=== PATIENT | male | born 1940 | race Caucasian/White ===

== ENCOUNTER 2018-10-22 10:34 | Emergency (ER) | payer MEDICARE, BC ==
--- NOTE | 2018-10-22 11:08 | ERPHSYRPT ---
- History of Present Illness Time Seen by Provider: 10/22/18 10:59 Historian: patient, family, EMS Exam Limitations: no limitations Patient Subjective Stated Complaint: Pt states "It started as the stomach flu. It is getting worse. I am nauseaus, vomiting, have not had a bowel movement since sunday and I just hurt." Triage Nursing Assessment: PT arrived via medic 1, pt presented with 20 g iv in pt left forearm, alert and oriented X 3, skin pwd. Pt abdomen round, tender, bruising noted around umbilicus. Physician History: The patient is a 78-year-old male with his brought in by ambulance from home. On early Sunday morning he began vomiting. He vomited through the night and into the next morning. He vomited maybe 15 times. He had a small amount eat on Sunday morning. He had chicken noodle soup last night. He has not had any bowel movements. He normally has a bowel movement daily. Now his entire abdomen hurts. He thinks the pain might be due to straining his abdominal muscles from vomiting. He denies fever or chills. His past medical history is significant for hypertension. He has not had any abdominal surgeries. Timing/Duration: day(s) (3), sudden Activities at Onset: none Quality: cramping, sharpness Abdominal Pain Onset Location: generalized abdomen Pain Radiation: no radiation Severity of Pain-Max: moderate Severity of Pain-Current: moderate Modifying Factors: Improves With: vomiting Associated Symptoms: loss of appetite, nausea, vomiting, weakness, No diarrhea Previous symptoms: no prior history Allergies/Adverse Reactions: No Known Drug Allergies Allergy (Verified 08/31/15 06:13) Home Medications: Amlodipine Besylate 5 mg [Norvasc 5 mg] 5 mg PO DAILY 08/24/15 [History] Ferrous Sulfate 325 mg [Feosol 325 mg] 325 mg PO DAILY 08/24/15 [History] Lisinopril 20 mg [Zestril 20 MG] 40 mg PO DAILY 08/24/15 [History] Multivitamin [Multivitamins] 1 each PO DAILY 08/31/15 [History] Hx Tetanus, Diphtheria Vaccination/Date Given: Yes Hx Influenza Vaccination/Date Given: Yes Hx Pneumococcal Vaccination/Date Given: No Immunizations Up to Date: Yes - Review of Systems Constitutional: Weakness Eyes: No Symptoms Ears, Nose, & Throat: No Symptoms Respiratory: No Cough, No Dyspnea Cardiac: No Chest Pain, No Edema, No Syncope Abdominal/Gastrointestinal: Abdominal Pain, Nausea, Vomiting, Constipation, No Diarrhea Genitourinary Symptoms: No Dysuria Musculoskeletal: No Back Pain, No Neck Pain Skin: No Rash Neurological: No Dizziness, No Focal Weakness, No Sensory Changes Psychological: No Symptoms Endocrine: No Symptoms Hematologic/Lymphatic: No Symptoms Immunological/Allergic: No Symptoms All Other Systems: Reviewed and Negative - Past Medical History Pertinent Past Medical History: Yes Neurological History: No Pertinent History ENT History: No Pertinent History Cardiac History: Hypertension Respiratory History: No Pertinent History Endocrine Medical History: No Pertinent History Musculoskeletal History: Arthritis, Fractures GI Medical History: No Pertinent History History: No Pertinent History Psycho-Social History: No Pertinent History Male Reproductive Disorders: No Pertinent History Other Medical History: R ANKLE FX 01/15 - Past Surgical History Past Surgical History: No Neuro Surgical History: No Pertinent History Cardiac: No Pertinent History Respiratory: No Pertinent History Gastrointestinal: No Pertinent History Genitourinary: No Pertinent History Musculoskeletal: No Pertinent History Male Surgical History: No Pertinent History Other Surgical History: varicose veins repaired - Social History Smoking Status: Former smoker Exposure to second hand smoke: Yes Drug Use: none Patient Lives Alone: No - Nursing Vital Signs Nursing Vital Signs: Initial Vital Signs Temperature 97.4 F 10/22/18 10:43 Pulse Rate 92 H 10/22/18 10:43 Respiratory Rate 18 10/22/18 10:43 Blood Pressure 130/69 10/22/18 10:43 O2 Sat by Pulse Oximetry 95 10/22/18 10:43 Pain Scale Pain Intensity 5 - Physical Exam General Appearance: moderate distress Eye Exam: PERRL/EOMI, eyes nml inspection Ears, Nose, Throat Exam: normal ENT inspection, pharynx normal, dry mucous membranes Neck Exam: normal inspection Respiratory Exam: normal breath sounds, lungs clear, No respiratory distress Cardiovascular Exam: regular rate/rhythm, normal heart sounds Gastrointestinal/Abdomen Exam: tenderness (generalized), distention Rectal Exam: not done Back Exam: normal inspection, normal range of motion, No CVA tenderness, No vertebral tenderness Extremity Exam: normal inspection, normal range of motion, pelvis stable Neurologic Exam: alert, oriented x 3, cooperative, normal mood/affect, nml cerebellar function, sensation nml, No motor deficits Skin Exam: normal color, warm, dry SpO2 Interpretation: normal SpO2: 95 O2 Delivery: Nasal Cannula (2L) - Course EKG Interpreted by Me: RATE, Sinus Rhythm, NORMAL INTERVALS, Right Bundle Branch Block, NORMAL ST-T Ordered Tests: Active Orders 24 hr Category Date Time Status Clean Catch Urine Specimen STAT Care 10/22/18 11:13 Active EKG-ER Only STAT Care 10/22/18 11:13 Active Benito [Catheter-[place] Benito] STAT Care 10/22/18 12:12 Active IV Insertion STAT Care 10/22/18 11:13 Active Oxygen-ED Only Nasal Cannula 2 lpm Care 10/22/18 11:27 Active Pulse Oximetry (ED) STAT Care 10/22/18 11:27 Active ABDOMEN AND PELVIS W/0 CONTRAS [CT] Stat Exams 10/22/18 11:14 Completed AMYLASE Stat Lab 10/22/18 11:34 Completed CBC W DIFF Stat Lab 10/22/18 11:34 Completed CMP Stat Lab 10/22/18 11:34 Completed LIPASE Stat Lab 10/22/18 11:34 Completed Lactic Acid Stat Lab 10/22/18 11:37 Results Manual Differential NC Stat Lab 10/22/18 11:34 Completed TROPONIN Q3H Lab 10/22/18 11:34 Completed TROPONIN Q3H Lab 10/22/18 14:15 Ordered TROPONIN Q3H Lab 10/22/18 17:15 Ordered TROPONIN Q3H Lab 10/22/18 20:15 Ordered TROPONIN Q3H Lab 10/22/18 23:15 Ordered UA W/RFX UR CULTURE Stat Lab 10/22/18 11:13 Uncollected Medication Summary Generic Name Dose Route Start Last Admin Trade Name Freq PRN Reason Stop Dose Admin Ceftriaxone Sodium/Dextrose 1 g in 50 mls @ 100 mls/hr 10/22/18 12:52 Rocephin 1 Gm-D5w 50 Ml Bag IV 10/22/18 13:21 STAT STA Discontinued Medications Generic Name Dose Route Start Last Admin Trade Name Freq PRN Reason Stop Dose Admin Sodium Chloride 1,000 mls @ 999 mls/hr 10/22/18 11:13 10/22/18 11:19 Sodium Chloride 0.9% 1000 Ml IV 10/22/18 12:13 999 mls/hr .Q1H1M STA Administration Sodium Chloride Confirm 10/22/18 11:17 Sodium Chloride 0.9% 1000 Ml Administered 10/22/18 11:18 Dose 1,000 mls @ ud .ROUTE .STK-MED ONE Morphine Sulfate 4 mg 10/22/18 11:13 10/22/18 11:19 Morphine Sulfate 4 Mg Inj IV 10/22/18 11:14 4 mg STAT ONE Administration Morphine Sulfate Confirm 10/22/18 11:17 Morphine Sulfate 4 Mg Inj Administered 10/22/18 11:18 Dose 4 mg .ROUTE .STK-MED ONE Ondansetron HCl 4 mg 10/22/18 11:13 10/22/18 11:19 Zofran 4 Mg/2 Ml Vial IV 10/22/18 11:14 4 mg STAT ONE Administration Ondansetron HCl Confirm 10/22/18 11:17 Zofran 4 Mg/2 Ml Vial Administered 10/22/18 11:18 Dose 4 mg .ROUTE .STK-MED ONE Pantoprazole Sodium 40 mg 10/22/18 11:13 10/22/18 11:19 Protonix 40 Mg Iv IV 10/22/18 11:14 40 mg STAT ONE Administration Pantoprazole Sodium Confirm 10/22/18 11:17 Protonix 40 Mg Iv Administered 10/22/18 11:18 Dose 40 mg IV .STK-MED ONE Lab/Rad Data: Laboratory Result Diagrams 10/22/18 11:34 10/22/18 11:34 Laboratory Results 10/22/18 10/22/18 10/22/18 Range/Units 11:37 11:34 11:34 WBC (4.0-10.5) K/mm3 RBC (4.1-5.6) M/mm3 Hgb (12.5-18.0) gm/dl Hct (42-50) % MCV (78-100) fl MCH (26-32) pg MCHC (32-36) g/dl RDW (11.5-14.0) % Plt Count (150-450) K/mm3 MPV (6-9.5) fl Segmented Neutrophils (36.-66.) % Band Neutrophils (0.0-2.0) % Lymphocytes (Manual) (24-44) % Monocytes (Manual) (0.0-12.0) % Platelet Estimate (NORMAL) RBC Morphology Sodium 133 L (137-145) mmol/L Potassium 4.0 (3.5-5.1) mmol/L Chloride 98 (98-107) mmol/L Carbon Dioxide 23 (22-30) mmol/L Anion Gap 16.3 H (5-15) MEQ/L BUN 83 H (9-20) mg/dL Creatinine 2.39 H (0.66-1.25) mg/dL Estimated GFR 28.0 ML/MIN Glucose 123 H (74-106) mg/dL Lactic Acid 2.0 (0.4-2.0) Calcium 7.7 L (8.4-10.2) mg/dL Total Bilirubin 1.50 H (0.2-1.3) mg/dL AST 68 H (17-59) U/L ALT 27 (0-50) U/L Alkaline Phosphatase 51 (38-126) U/L Troponin I 0.112 H* (0.000-0.034) ng/mL Serum Total Protein 5.6 L (6.3-8.2) g/dL Albumin 3.1 L (3.5-5.0) g/dL Amylase 285 H (30-110) U/L Lipase 477 H (23-300) U/L 10/22/18 Range/Units 11:34 WBC 15.2 H (4.0-10.5) K/mm3 RBC 4.55 (4.1-5.6) M/mm3 Hgb 13.7 (12.5-18.0) gm/dl Hct 40.2 L (42-50) % MCV 88.4 (78-100) fl MCH 30.1 (26-32) pg MCHC 34.1 (32-36) g/dl RDW 14.3 H (11.5-14.0) % Plt Count 276 (150-450) K/mm3 MPV 10.2 H (6-9.5) fl Segmented Neutrophils 71 H (36.-66.) % Band Neutrophils 12 H (0.0-2.0) % Lymphocytes (Manual) 11 L (24-44) % Monocytes (Manual) 6 (0.0-12.0) % Platelet Estimate NORMAL (NORMAL) RBC Morphology NORMAL Sodium (137-145) mmol/L Potassium (3.5-5.1) mmol/L Chloride (98-107) mmol/L Carbon Dioxide (22-30) mmol/L Anion Gap (5-15) MEQ/L BUN (9-20) mg/dL Creatinine (0.66-1.25) mg/dL Estimated GFR ML/MIN Glucose (74-106) mg/dL Lactic Acid (0.4-2.0) Calcium (8.4-10.2) mg/dL Total Bilirubin (0.2-1.3) mg/dL AST (17-59) U/L ALT (0-50) U/L Alkaline Phosphatase (38-126) U/L Troponin I (0.000-0.034) ng/mL Serum Total Protein (6.3-8.2) g/dL Albumin (3.5-5.0) g/dL Amylase (30-110) U/L Lipase (23-300) U/L - Progress Progress: improved Progress Note: 10/22/18 12:[address] [place] and with pt's [id number]. [place] recommends transfer. [id number] recommends [facility]. 10/22/18 13:[address] Ortiz, hospitalist, at [facility] who accepts to PICU. Discussed with : [place] - Departure Time of Disposition: 13:05 Departure Disposition: Transfer (Transfer to [facility] per Dr Ortiz.) Clinical Impression: Pancreatitis, acute, Vomiting, Urinary retention, Elevated troponin Condition: Good Critical Care Time: No Referrals: EDDIE ROBERTSON [Primary Care Provider] -
[2018-10-22] MEDS ORDERED: PROTONIX 40 MG IV IV ONE ×2 (11:13→11:17)
[2018-10-22] MEDS ORDERED: MORPHINE SULFATE 4 MG INJ IV ONE (11:13)
[2018-10-22] MEDS ORDERED: Sodium Chloride 0.9% 1000 ML 1,000 ML IV STA (11:13)
[2018-10-22] MEDS ORDERED: Zofran 4 MG/2 ML VIAL IV ONE (11:13)
[2018-10-22] MEDS ORDERED: MORPHINE SULFATE 4 MG INJ ONE (11:17)
[2018-10-22] MEDS ORDERED: Zofran 4 MG/2 ML VIAL ONE (11:17)
[2018-10-22] MEDS ORDERED: Sodium Chloride 0.9% 1000 ML 1,000 ML ONE ×2 (11:17→13:32)
[2018-10-22 11:43] LABS: Hematocrit 40.2 % (42-50); Hemoglobin 13.7 gm/dl (12.5-18.0); Mean Cell Volume 88.4 fl (78-100); Mean Corpuscular Hemoglobin 30.1 pg (26-32); Mean Corpuscular Hgb Concent. 34.1 g/dl (32-36); Mean Platelet Volume 10.2 fl (6-9.5); Platelet Count 276 K/mm3 (150-450); Red Blood Count 4.55 M/mm3 (4.1-5.6); Red Cell Distribution Width 14.3 % (11.5-14.0); White Blood Count 15.2 K/mm3 (4.0-10.5)
[2018-10-22 11:51] LABS: BAND 12 % (0.0-2.0); Lymphocytes 11 % (24-44); Monocyte 6 % (0.0-12.0); Neutrophils 71 % (36.-66.); Platelet Estimate NORMAL (NORMAL); Total Cells Counted 100
[2018-10-22 11:56] LABS: ALBUMIN 3.1 g/dL (3.5-5.0); ANION GAP 16.3 MEQ/L (5-15); BILIRUBIN,TOTAL 1.5 mg/dL (0.2-1.3); Calcium 7.7 mg/dL (8.4-10.2); Creatinine 1 2.39 mg/dL (0.66-1.25); Total Protein 5.6 g/dL (6.3-8.2)
--- NOTE | 2018-10-22 12:18 | XRAY ---
Indication: Abdomen pain. Nausea and vomiting. Flu symptoms. Multiple contiguous axial images obtained through the abdomen and pelvis without contrast as ordered. Comparison: None Lung bases demonstrates small bilateral effusions with bibasilar compressive atelectasis. Heart is not enlarged. Distal esophagus is mildly fluid distended presumed from gastroesophageal reflux. Pancreas demonstrates mild peripancreatic stranding favoring pancreatitis. Tiny free fluid along the colic gutters bilaterally. No walled off fluid collection or free air. Stomach and small bowel loops are mildly fluid distended with fluid leveling, ileus versus gastroenteritis. Mild diffuse scattered colonic fecal debris throughout. Also scattered descending and sigmoid diverticulosis. Urinary bladder is massively distended concerning for outlet obstruction versus neurogenic bladder. Prostate gland is enlarged. Right anterior urinary bladder diverticulum. Distended urinary bladder effaces the sigmoid colon. There is also bilateral hydroureter, right greater than left as well as moderate right-sided hydronephrosis presumed related to the distended urinary bladder. No left-sided hydronephrosis. Bilateral renal cysts, largest left midpole measuring 3.2 cm. Gallbladder moderately distended without gallstones or biliary distention. Remaining liver, spleen, and adrenal glands are unremarkable for noncontrast exam. Moderate scattered aortoiliac calcifications without AAA. Osseous structures intact with osteopenia and mild multilevel thoracolumbar degenerative spondylosis. Moderate left inguinal hernia with herniated fat and fluid. Small fatty umbilical hernia. Impression: 1. CT findings as detailed favoring acute pancreatitis. Tiny free fluid along the colic gutters but no walled off fluid collection or free air. 2. Fluid distended stomach and small bowel loops with fluid leveling, reactive ileus versus gastroenteritis. Also mild fecal stasis and scattered colonic diverticulosis. 3. Massively distended urinary bladder with subsequent bilateral hydroureter and right hydronephrosis. Distended urinary bladder effaces the sigmoid colon. Incidental urinary bladder diverticulum. 4. Distended gallbladder without gallstones. Gallbladder sonogram may yield further information if clinically warranted. 5. Fluid distended distal esophagus presumed from reflux. 6. Incidental bilateral renal cysts, enlarged prostate, fat/fluid filled left inguinal hernia, and small fatty umbilical hernia. 7. Small bilateral pleural effusions without cardiomegaly. CT DI 23.29
[2018-10-22 12:49] LABS: Appearance CLEAR (CLEAR); Bacteria RARE /HPF (NEGATIVE); Bilirubin NEGATIVE (NEGATIVE); Blood SMALL Ery/ul (0-5); Glucose NEGATIVE (NEGATIVE); Ketones NEGATIVE (NEGATIVE); Leukocyte Esterase NEGATIVE (NEGATIVE); Mucus SLIGHT /HPF (NEGATIVE); Nitrite NEGATIVE (NEGATIVE); Protein,Urine Dip NEGATIVE (Negative); Specific Gravity 1.011 (1.005-1.025); Urobilinogen NEGATIVE mg/dL (0-1); WBC 0-2 /HPF (0-5)
[2018-10-22] MEDS ORDERED: ROCEPHIN 1 Gm-D5w 50 ml Bag** 1 G/50 ML IVPB IV STA (12:52)
[2018-10-22] MEDS ORDERED: ROCEPHIN 1 Gm-D5w 50 ml Bag** 1 G/50 ML IVPB IV ONE (13:07)
[2018-10-22] MEDS ORDERED: Sodium Chloride 0.9% 1000 ML 1,000 ML IV SCH (13:45)
[2018-10-22 14:11] VITALS: O2SAT 96
[2018-10-22 15:51] VITALS: BP 119/65; PULSE 88
== END 2018-10-22 16:17 | disposition short-term general hospital (02) ==
LOC: ED 10:34
DX: K85.90 Acute pancreatitis without necrosis or infection, unspecified (principal); R11.10 Vomiting, unspecified; R33.9 Retention of urine, unspecified; R74.8 Abnormal levels of other serum enzymes
CPT/HCPCS: 36000; 36415; 51702; 74176; 80053; 81001; 82150; 83605; 83690; 84484; 85025; 93005; 96360; 96365; 96374; 96375; 99285; J0696; J2270; J2405

== ENCOUNTER 2018-12-04 10:39 | Inpatient (IN) | payer MEDICARE, BC ==
[2018-12-04] MEDS ORDERED: Sodium Chloride 0.9% 1000 ML 1,000 ML IV STA (10:49)
[2018-12-04] MEDS ORDERED: TYLENOL 325 MG PO STA (10:49)
--- NOTE | 2018-12-04 10:55 | ERPHSYRPT ---
- History of Present Illness Time Seen by Provider: 12/04/18 10:51 Source: patient, EMS Exam Limitations: other (severe hearing deficit) Physician History: Pt was sent from home with generalized weakness this morning. He denies any pain , SOB, nausea, diarrhea or other complaints. He wears Benito catheter for BPH, it was changed last time on 11/11. He is generally poor historian with severe hearing deficit, his told us, he was recently treated in [place] with pancreatitis, and Pneumonia, he is currently on Doxycycline, and has been planned for Prostate surgery. Timing/Duration: today Fever Severity: moderate Fever Therapy BURLAPPER: none Associated Symptoms: weakness Allergies/Adverse Reactions: No Known Drug Allergies Allergy (Verified 12/04/18 11:30) Home Medications: Amlodipine Besylate 5 mg [Norvasc 5 mg] 5 mg PO DAILY 08/24/15 [History] Ferrous Sulfate 325 mg [Feosol 325 mg] 325 mg PO DAILY 08/24/15 [History] Multivitamin [Multivitamins] 1 each PO DAILY 08/31/15 [History] Hx Tetanus, Diphtheria Vaccination/Date Given: Yes Hx Influenza Vaccination/Date Given: Yes Hx Pneumococcal Vaccination/Date Given: No - Review of Systems Constitutional: Fever, Weakness Eyes: No Symptoms Ears, Nose, & Throat: No Symptoms Respiratory: No Symptoms Cardiac: No Symptoms Abdominal/Gastrointestinal: No Symptoms Genitourinary Symptoms: No Symptoms Musculoskeletal: No Symptoms Skin: No Symptoms Neurological: No Symptoms All Other Systems: Reviewed and Negative - Past Medical History Pertinent Past Medical History: Yes Neurological History: No Pertinent History ENT History: No Pertinent History Cardiac History: Hypertension Respiratory History: No Pertinent History Endocrine Medical History: No Pertinent History Musculoskeletal History: Arthritis, Fractures GI Medical History: No Pertinent History History: No Pertinent History Psycho-Social History: No Pertinent History Male Reproductive Disorders: No Pertinent History Other Medical History: R ANKLE FX 01/15 - Past Surgical History Past Surgical History: No Neuro Surgical History: No Pertinent History Cardiac: No Pertinent History Respiratory: No Pertinent History Gastrointestinal: No Pertinent History Genitourinary: No Pertinent History Musculoskeletal: No Pertinent History Male Surgical History: No Pertinent History Other Surgical History: varicose veins repaired - Social History Smoking Status: Former smoker Exposure to second hand smoke: Yes Drug Use: none Patient Lives Alone: No - Nursing Vital Signs Nursing Vital Signs: Initial Vital Signs Temperature 103.5 F 12/04/18 10:41 Pulse Rate 104 H 12/04/18 10:41 Respiratory Rate 16 12/04/18 10:41 Blood Pressure 128/79 12/04/18 10:41 O2 Sat by Pulse Oximetry 96 12/04/18 10:41 Pain Scale Pain Intensity 0 - Physical Exam General Appearance: no apparent distress Eye Exam: eyes nml inspection ENT Exam: normal ENT inspection, pharynx normal Neck Exam: normal inspection, non-tender, supple, trachea midline, No JVD, No lymphadenopathy (R), No lymphadenopathy (L) Respiratory Exam: chest non-tender, no respiratory distress, crackles/rales ( mild, over bilateral bases) Cardiovascular/Chest Exam: normal heart sounds, regular rate/rhythm, normal peripheral pulses, No murmur, No edema, No JVD Gastrointestinal/Abdominal Exam: soft, non tender, no distention, no mass, no guarding, no organomegaly, normal bowel sounds Male Genitalia: normal genitalia Extremity Exam: non-tender, No no calf tenderness Neurologic Exam: alert, oriented x 3, cooperative, normal mood/affect Skin Exam: normal color, warm, dry, No rash, No petechiae Lymphatic: No adenopathy SpO2 Interpretation: normal O2 Delivery: Room Air - Course Nursing assessment & vital signs reviewed: Yes EKG Interpreted by Me: RATE (97/min), Right [place] Deviation, NORMAL INTERVALS, Right Bundle Branch Block, Non-specific ST Changes - Radiology Exams Chest X-ray Interpretation: Reviewed by me, Negative Ordered Tests: Active Orders 24 hr Category Date Time Status Customer Program Manager STAT Care 12/04/18 10:50 Active Catheter-[place] Benito STAT Care 12/04/18 10:49 Active EKG-ER Only STAT Care 12/04/18 10:49 Active IV Insertion STAT Care 12/04/18 10:49 Active CHEST 1 VIEW (PORTABLE) Stat Exams 12/04/18 11:05 Completed BLOOD CULTURE Stat Lab 12/04/18 11:35 Received CBC W DIFF Stat Lab 12/04/18 11:35 Completed CMP Stat Lab 12/04/18 11:35 Completed CULTURE,URINE Stat Lab 12/04/18 11:46 Received Lactic Acid Stat Lab 12/04/18 13:35 Results NT PRO BNP Stat Lab 12/04/18 11:15 Completed PROTIME WITH INR Stat Lab 12/04/18 11:35 Completed PTT Stat Lab 12/04/18 11:35 Completed TROPONIN Q3H Lab 12/04/18 11:15 Completed TROPONIN Q3H Lab 12/04/18 14:00 Ordered TROPONIN Q3H Lab 12/04/18 17:00 Ordered TROPONIN Q3H Lab 12/04/18 20:00 Ordered TROPONIN Q3H Lab 12/04/18 23:00 Ordered UA W/RFX UR CULTURE Stat Lab 12/04/18 10:52 Completed Medication Summary Generic Name Dose Route Start Last Admin Trade Name Freq PRN Reason Stop Dose Admin Sodium Chloride 1,000 mls @ 250 mls/hr 12/04/18 12:30 12/04/18 12:50 Sodium Chloride 0.9% 1000 Ml IV 01/03/19 12:29 250 mls/hr .Q4H PAUL Administration Discontinued Medications Generic Name Dose Route Start Last Admin Trade Name Freq PRN Reason Stop Dose Admin Acetaminophen 975 mg 12/04/18 10:49 12/04/18 10:57 Tylenol 325 Mg PO 12/04/18 10:50 975 mg STAT STA Administration Acetaminophen Confirm 12/04/18 10:56 Tylenol 325 Mg Administered 12/04/18 10:57 Dose 975 mg .ROUTE .STK-MED ONE Sodium Chloride 1,000 mls @ 999 mls/hr 12/04/18 10:49 12/04/18 10:57 Sodium Chloride 0.9% 1000 Ml IV 12/04/18 11:49 999 mls/hr .Q1H1M STA Administration Sodium Chloride Confirm 12/04/18 10:56 Sodium Chloride 0.9% 1000 Ml Administered 12/04/18 10:57 Dose 1,000 mls @ ud .ROUTE .STK-MED ONE Levofloxacin/Dextrose 750 mg in 150 mls @ 100 mls/hr 12/04/18 12:20 12/04/18 12:51 Levofloxacin 750mg/150ml D5w IV 12/04/18 13:49 100 ml/hr STAT STA 100 mls/hr Administration Levofloxacin/Dextrose Confirm 12/04/18 12:48 Levofloxacin 750mg/150ml D5w Administered 12/04/18 12:49 Dose 750 mg in 150 mls @ ud IV .STK-MED ONE Lab/Rad Data: Laboratory Result Diagrams 12/04/18 11:35 12/04/18 11:35 Laboratory Results 12/04/18 12/04/18 12/04/18 Range/Units 13:35 11:35 11:35 WBC (4.0-10.5) K/mm3 RBC (4.1-5.6) M/mm3 Hgb (12.5-18.0) gm/dl Hct (42-50) % MCV (78-100) fl MCH (26-32) pg MCHC (32-36) g/dl RDW (11.5-14.0) % Plt Count (150-450) K/mm3 MPV (6-9.5) fl Gran % (36.0-66.0) % Eos # (Auto) (0-0.5) Absolute Lymphs (auto) (1.0-4.6) Absolute Monos (auto) (0.0-1.3) Lymphocytes % (24.0-44.0) % Monocytes % (0.0-12.0) % Eosinophils % (0.00-5.0) % Basophils % (0.0-0.4) % Absolute Granulocytes (1.4-6.9) Basophils # (0-0.4) PT 16.0 H (8.83-12.87) SECONDS INR 1.37 (0.8-3.0) APTT 29.2 (24.1-36.1) SECONDS Sodium 132 L (137-145) mmol/L Potassium 4.0 (3.5-5.1) mmol/L Chloride 100 (98-107) mmol/L Carbon Dioxide 22 (22-30) mmol/L Anion Gap 13.4 (5-15) MEQ/L BUN 19 (9-20) mg/dL Creatinine 1.43 H (0.66-1.25) mg/dL Estimated GFR 50.7 ML/MIN Glucose 104 (74-106) mg/dL Lactic Acid 1.9 (0.4-2.0) Calcium 9.1 (8.4-10.2) mg/dL Total Bilirubin 0.90 (0.2-1.3) mg/dL AST 20 (17-59) U/L ALT 13 (0-50) U/L Alkaline Phosphatase 50 (38-126) U/L Troponin I (0.000-0.034) ng/mL NT-Pro-B Natriuret Pep (0-1800) pg/mL Serum Total Protein 6.6 (6.3-8.2) g/dL Albumin 3.4 L (3.5-5.0) g/dL Urine Color (YELLOW) Urine Appearance (CLEAR) Urine pH (5-6) Ur Specific Krypton (1.005-1.025) Urine Protein (Negative) Urine Ketones (NEGATIVE) Urine Blood (0-5) Corbin/ul Urine Nitrite (NEGATIVE) Urine Bilirubin (NEGATIVE) Urine Urobilinogen (0-1) mg/dL Ur Leukocyte Esterase (NEGATIVE) Urine WBC (Auto) (0-5) /HPF Urine RBC (Auto) (0-2) /HPF U Epithel Cells (Auto) (FEW) /HPF Urine Bacteria (Auto) (NEGATIVE) /HPF Urine Culture Reflexed (NO) Urine Glucose (NEGATIVE) mg/dL Influenza Type A Ag (NEGATIVE) Influenza Type B Ag (NEGATIVE) RSV (PCR) (Negative) 12/04/18 12/04/18 12/04/18 Range/Units 11:35 11:20 11:15 WBC 16.8 H (4.0-10.5) K/mm3 RBC 3.91 L (4.1-5.6) M/mm3 Hgb 11.0 L (12.5-18.0) gm/dl Hct 34.3 L (42-50) % MCV 87.7 (78-100) fl MCH 28.1 (26-32) pg MCHC 32.1 (32-36) g/dl RDW 14.3 H (11.5-14.0) % Plt Count 341 (150-450) K/mm3 MPV 9.4 (6-9.5) fl Gran % 80.0 H (36.0-66.0) % Eos # (Auto) 0.01 (0-0.5) Absolute Lymphs (auto) 1.33 (1.0-4.6) Absolute Monos (auto) 1.99 H (0.0-1.3) Lymphocytes % 7.9 L (24.0-44.0) % Monocytes % 11.8 (0.0-12.0) % Eosinophils % 0.1 (0.00-5.0) % Basophils % 0.2 (0.0-0.4) % Absolute Granulocytes 13.48 H (1.4-6.9) Basophils # 0.03 (0-0.4) PT (8.83-12.87) SECONDS INR (0.8-3.0) APTT (24.1-36.1) SECONDS Sodium (137-145) mmol/L Potassium (3.5-5.1) mmol/L Chloride (98-107) mmol/L Carbon Dioxide (22-30) mmol/L Anion Gap (5-15) MEQ/L BUN (9-20) mg/dL Creatinine (0.66-1.25) mg/dL Estimated GFR ML/MIN Glucose (74-106) mg/dL Lactic Acid (0.4-2.0) Calcium (8.4-10.2) mg/dL Total Bilirubin (0.2-1.3) mg/dL AST (17-59) U/L ALT (0-50) U/L Alkaline Phosphatase (38-126) U/L Troponin I (0.000-0.034) ng/mL NT-Pro-B Natriuret Pep 692 (0-1800) pg/mL Serum Total Protein (6.3-8.2) g/dL Albumin (3.5-5.0) g/dL Urine Color (YELLOW) Urine Appearance (CLEAR) Urine pH (5-6) Ur Specific Krypton (1.005-1.025) Urine Protein (Negative) Urine Ketones (NEGATIVE) Urine Blood (0-5) Corbin/ul Urine Nitrite (NEGATIVE) Urine Bilirubin (NEGATIVE) Urine Urobilinogen (0-1) mg/dL Ur Leukocyte Esterase (NEGATIVE) Urine WBC (Auto) (0-5) /HPF Urine RBC (Auto) (0-2) /HPF U Epithel Cells (Auto) (FEW) /HPF Urine Bacteria (Auto) (NEGATIVE) /HPF Urine Culture Reflexed (NO) Urine Glucose (NEGATIVE) mg/dL Influenza Type A Ag NEGATIVE (NEGATIVE) Influenza Type B Ag NEGATIVE (NEGATIVE) RSV (PCR) NEGATIVE (Negative) 12/04/18 12/04/18 Range/Units 11:15 10:52 WBC (4.0-10.5) K/mm3 RBC (4.1-5.6) M/mm3 Hgb (12.5-18.0) gm/dl Hct (42-50) % MCV (78-100) fl MCH (26-32) pg MCHC (32-36) g/dl RDW (11.5-14.0) % Plt Count (150-450) K/mm3 MPV (6-9.5) fl Gran % (36.0-66.0) % Eos # (Auto) (0-0.5) Absolute Lymphs (auto) (1.0-4.6) Absolute Monos (auto) (0.0-1.3) Lymphocytes % (24.0-44.0) % Monocytes % (0.0-12.0) % Eosinophils % (0.00-5.0) % Basophils % (0.0-0.4) % Absolute Granulocytes (1.4-6.9) Basophils # (0-0.4) PT (8.83-12.87) SECONDS INR (0.8-3.0) APTT (24.1-36.1) SECONDS Sodium (137-145) mmol/L Potassium (3.5-5.1) mmol/L Chloride (98-107) mmol/L Carbon Dioxide (22-30) mmol/L Anion Gap (5-15) MEQ/L BUN (9-20) mg/dL Creatinine (0.66-1.25) mg/dL Estimated GFR ML/MIN Glucose (74-106) mg/dL Lactic Acid (0.4-2.0) Calcium (8.4-10.2) mg/dL Total Bilirubin (0.2-1.3) mg/dL AST (17-59) U/L ALT (0-50) U/L Alkaline Phosphatase (38-126) U/L Troponin I 0.025 (0.000-0.034) ng/mL NT-Pro-B Natriuret Pep (0-1800) pg/mL Serum Total Protein (6.3-8.2) g/dL Albumin (3.5-5.0) g/dL Urine Color RED (YELLOW) Urine Appearance CLOUDY (CLEAR) Urine pH 8.0 (5-6) Ur Specific Krypton 1.012 (1.005-1.025) Urine Protein 100 (Negative) Urine Ketones NEGATIVE (NEGATIVE) Urine Blood LARGE (0-5) Corbin/ul Urine Nitrite POSITIVE (NEGATIVE) Urine Bilirubin NEGATIVE (NEGATIVE) Urine Urobilinogen NEGATIVE (0-1) mg/dL Ur Leukocyte Esterase MODERATE (NEGATIVE) Urine WBC (Auto) >100 (0-5) /HPF Urine RBC (Auto) >101 (0-2) /HPF U Epithel Cells (Auto) NONE (FEW) /HPF Urine Bacteria (Auto) MANY (NEGATIVE) /HPF Urine Culture Reflexed YES (NO) Urine Glucose NEGATIVE (NEGATIVE) mg/dL Influenza Type A Ag (NEGATIVE) Influenza Type B Ag (NEGATIVE) RSV (PCR) (Negative) - Progress Progress: improved Progress Note: 12/04/18 13:51 Pt was given saline bolus, Tylenol, and started on iv Levaquin after blood and urine cultures, he became afebrile, stable, denies severe pain. We called Dr Lee, covering Dr Toledo today, discussed our findings and his current condition, she agreed to admit him to medical bed. Patient and his were informed and agreed. Discussed with .: Jesus Will see patient in: hospital (observation) Counseled pt/family regarding: lab results, diagnosis, rad results - Departure Departure Disposition: In-patient Admission, Observation Clinical Impression: Urinary tract infection associated with indwelling urethral catheter Qualifiers: Encounter type: initial encounter Qualified Code(s): T83.511A - Infection and inflammatory reaction due to indwelling urethral catheter, initial encounter; N39.0 - Urinary tract infection, site not specified Clinical Impression: (Ruled Out): Urinary tract infection after immobility Condition: Stable Critical Care Time: No Referrals: EDDIE ROBERTSON [Primary Care Provider] -
[2018-12-04] MEDS ORDERED: Sodium Chloride 0.9% 1000 ML 1,000 ML ONE (10:56)
[2018-12-04] MEDS ORDERED: TYLENOL 325 MG ONE (10:56)
--- NOTE | 2018-12-04 11:13 | XRAY ---
Indication: Cough. Pneumonia. Comparison: December 19, 2010. Portable apical lordotic chest again demonstrates minimal left base atelectasis/scarring and tiny right lung calcified granulomas. Remaining lungs clear. Heart is not enlarged with stable right paratracheal calcified node. Bony thorax intact again with osteopenia and degenerative changes. Impression: Stable nonacute chest with chronic features.
[2018-12-04 11:49] LABS: BASOPHIL % 0.2 % (0.0-0.4); Basophil (Absolute #) 0.03 (0-0.4); Eosinophil % 0.1 % (0.00-5.0); Eosinophil (Absolute #) 0.01 (0-0.5); Granulocyte Absolute (ANC) 13.48 (1.4-6.9); Hematocrit 34.3 % (42-50); Lymphocyte (Absolute #) 1.33 (1.0-4.6); Lymphocytes % 7.9 % (24.0-44.0); Mean Cell Volume 87.7 fl (78-100); Mean Corpuscular Hemoglobin 28.1 pg (26-32); Mean Corpuscular Hgb Concent. 32.1 g/dl (32-36); Mean Platelet Volume 9.4 fl (6-9.5); Monocyte (Absolute #) 1.99 (0.0-1.3); Monocytes % 11.8 % (0.0-12.0); Platelet Count 341 K/mm3 (150-450); Red Blood Count 3.91 M/mm3 (4.1-5.6); Red Cell Distribution Width 14.3 % (11.5-14.0); White Blood Count 16.8 K/mm3 (4.0-10.5)
[2018-12-04 11:55] LABS: PTT 29.2 SECONDS (24.1-36.1)
[2018-12-04 11:58] LABS: ALBUMIN 3.4 g/dL (3.5-5.0); ANION GAP 13.4 MEQ/L (5-15); BILIRUBIN,TOTAL 0.9 mg/dL (0.2-1.3); Calcium 9.1 mg/dL (8.4-10.2); Creatinine 1 1.43 mg/dL (0.66-1.25); INR 1.37 (0.8-3.0); Total Protein 6.6 g/dL (6.3-8.2)
[2018-12-04 12:01] LABS: INFLUENZA A NEGATIVE (NEGATIVE); INFLUENZA B NEGATIVE (NEGATIVE); RESPIRATORY SYNCTIAL VIRUS NEGATIVE (Negative)
[2018-12-04] MEDS ORDERED: LEVOFLOXACIN 750MG/150ML D5W 750 MG/150 ML BAG IV STA (12:20)
[2018-12-04] MEDS ORDERED: Sodium Chloride 0.9% 1000 ML 1,000 ML IV SCH (12:30)
[2018-12-04 12:33] LABS: Appearance CLOUDY (CLEAR); Bacteria MANY /HPF (NEGATIVE); Bilirubin NEGATIVE (NEGATIVE); Blood LARGE Ery/ul (0-5); Glucose NEGATIVE (NEGATIVE); Ketones NEGATIVE (NEGATIVE); Leukocyte Esterase MODERATE (NEGATIVE); Nitrite POSITIVE (NEGATIVE); Protein,Urine Dip 100 (Negative); Specific Gravity 1.012 (1.005-1.025); Urobilinogen NEGATIVE mg/dL (0-1); WBC >100 /HPF (0-5)
[2018-12-04] MEDS ORDERED: LEVOFLOXACIN 750MG/150ML D5W 750 MG/150 ML BAG IV ONE (12:48)
[2018-12-04 12:54] LABS: RBC >101 /HPF (0-2)
[2018-12-04 13:38] LABS: Lactic Acid 1.9 (0.4-2.0)
[2018-12-04] MEDS ORDERED: TYLENOL 325 MG PO PRN (13:54)
[2018-12-04 14:00] LABS: Slide Review 1 YES
[2018-12-04] MEDS: Sodium Chloride 0.9% 1000 ML 1,000 ML IV SCH (20:58)
[2018-12-05] MEDS: Lopressor 25MG Tab PO SCH ×3 (00:55→21:04)
[2018-12-05] MEDS ORDERED: Zofran 4 MG/2 ML VIAL IV PRN (04:18)
[2018-12-05 05:45] LABS: BASOPHIL % 0.1 % (0.0-0.4); Basophil (Absolute #) 0.02 (0-0.4); Eosinophil (Absolute #) 0.01 (0-0.5); Granulocyte Absolute (ANC) 17.27 (1.4-6.9); Granulocytes % 81.7 % (36.0-66.0); Hematocrit 31.1 % (42-50); Hemoglobin 9.8 gm/dl (12.5-18.0); Mean Cell Volume 87.4 fl (78-100); Mean Corpuscular Hemoglobin 27.5 pg (26-32); Mean Corpuscular Hgb Concent. 31.5 g/dl (32-36); Mean Platelet Volume 9.7 fl (6-9.5); Monocyte (Absolute #) 1.94 (0.0-1.3); Monocytes % 9.2 % (0.0-12.0); Platelet Count 327 K/mm3 (150-450); Red Blood Count 3.56 M/mm3 (4.1-5.6); Red Cell Distribution Width 14.3 % (11.5-14.0); White Blood Count 21.1 K/mm3 (4.0-10.5)
[2018-12-05 06:04] LABS: ANION GAP 13.3 MEQ/L (5-15); Calcium 8.5 mg/dL (8.4-10.2); Creatinine 1 1.3 mg/dL (0.66-1.25); Potassium 3.7 mmol/L (3.5-5.1)
[2018-12-05 06:15] LABS: Risk Ratio 2.4
[2018-12-05] MEDS: Sodium Chloride 0.9% 1000 ML 1,000 ML IV SCH ×2 (06:53→18:26)
--- NOTE | 2018-12-05 07:56 | HP ---
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 He reports he was feeling two days ago and was able to walk up and down his driveway without his walker and then yesterday started feeling more weak. He was noted to have a fever in the emergency room today. He was a poor historian as to the events that led him to come into the emergency room today but he has had a very recent hospitalization where he reports he was here at [place] and then transferred up to [facility]. He was diagnosed at [facility] with acute pancreatitis, acute kidney injury and urinary retention. He went home with a Benito catheter and was to be seen by the urologist. He reports he has an appointment for surgery with urology this coming Sunday. The patient reports he has had decreased appetite but is feeling better since coming in through the emergency department. He denies any abdominal pain at all. REVIEW OF SYSTEMS: No nausea or vomiting. No lightheadedness. No dizziness. No chest pain. No dyspnea. PAST MEDICAL HISTORY: Hypertension. History of pancreatitis. Acute kidney injury history. Urinary retention. Hydronephrosis diagnosed at [facility]. PAST SURGICAL HISTORY: He reports a cyst removed from his shoulder years ago. SOCIAL HISTORY: No tobacco. No alcohol. He is and lives with his . FAMILY HISTORY: His mother had an enlarged heart. His father had hypertension and Black Lung. PHYSICAL EXAMINATION: VITAL SIGNS: Temperature current 97.9F, temperature max 103.5F, heart rate 81 to 104, respiratory rate 14 to 20, blood pressure 102 to 128 over 59 to 77, weight 91.8 kg. Oxygen saturation 94 to 96% on room air. GENERAL: The patient is a pleasant talkative man lying in bed in no acute distress. CVS: He has a regular rate and rhythm. No murmurs, gallops or rubs are appreciated. CHEST: Clear to auscultation bilaterally. No crackles or wheezes. ABDOMEN: Soft, nontender, nondistended with normal bowel sounds. EXTREMITIES: No clubbing, cyanosis or edema. SKIN: Warm, dry and intact. He has some peeling skin with some brownish discoloration on his right anterior guy. : Urinary catheter in place and draining urine with blood-tinged color. LABORATORY DATA AND TESTS: CBC with white blood cell count 16.8 with 80% granulocytes. International normalized ratio 1.3. Sodium 132, creatinine 1.43. Initial troponin was 0.025, repeat 0.029. UA with greater 100 white blood cells, greater than 100 red blood cells. Influenza A, B and respiratory syncytial virus were negative. Chest x-ray was read as stable nonacute chest with chronic features. ASSESSMENT AND PLAN: 1) URINARY TRACT INFECTION: He has been started on Levaquin 750 mg IV every 24 hours and IV fluid normal saline at 100 ml/hour. Urine culture is in lab. Blood cultures are in lab. He has follow up already scheduled as an outpatient with urology. 2) ELEVATED TROPONIN: He denies any chest pain. His EKG sinus rhythm with a heart rate of 81 and right bundle branch block, nonspecific ST-T abnormalities are noted. Tank Car Reconditioner, Dr. Veloz, has been consulted. It looks like he also had a slightly elevated troponin during his hospital stay here and at [facility] and they thought at that time that it was what they called "Demand event related to the pancreatitis and acute kidney injury". 3) ANEMIA: Most likely due to his recent illness, stable at 11. 4) HYPONATREMIA: Will recheck BNP in the morning. 5) CHRONIC KIDNEY DISEASE STAGE II: Will continue the fluids and repeat his kidney tests in the morning. 6) HYPERTENSION: Will continue with his home antihypertensive.
--- NOTE | 2018-12-05 08:26 | CONS ---
CONSULT DATE: 12/04/2018 BRIEF HISTORY: This is a 78 year-old who was seen for generalized weakness had mild troponin leak. The patient was just recently treated for pancreatitis at [facility] and has been recovering from this disorder. Apparently he presented to [facility] complaining of generalized weakness that started early this morning. He denies any chest pains or shortness of breath. No diarrhea or constipation. He has a Benito catheter and was supposed to be scheduled for prostate surgery but this has been held for now. He also was diagnosed to have pneumonia and was placed on doxycycline. The patient states that he has never had myocardial infarction or heart failure. He denies any exertional type of chest pain. No paroxysmal nocturnal dyspnea. No orthopnea. No peripheral edema. CARDIAC RISK FACTORS: Negative for diabetes. History of hypertension. He quit smoking about 40 years ago. No known hyperlipidemia. CURRENT MEDICATIONS: Amlodipine, ferrous sulfate, multivitamins, Levaquin. FAMILY HISTORY: Negative for premature coronary artery disease. 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 No seizures. No chronic headache. RESPIRATORY: No chronic cough. Recent pneumonia. GI: Recent diagnosis of pancreatitis recovering. : Negative for dysuria, hematuria or flank pain. He has history of prostate enlargement. PERIPHERAL VASCULAR: No history of DVT or claudication. Intermittent leg swelling. SKIN: He has some stasis dermatitis in the right leg. HEMATOLOGY: No blood dyscrasia or transfusions. ENDOCRINE: No history of thyroid disorder. PAST SURGICAL HISTORY: Ankle fracture and surgery for varicose veins. SOCIAL HISTORY: He is . 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 He has no significant alcohol intake. PHYSICAL EXAMINATION: His blood pressure 124/77, heart rate 92, respirations about 16. GENERAL: The patient is an elderly male who is alert, oriented, very pleasant on conversation with normal mental status. HEENT: Unremarkable. NECK: No significant JVD. No carotid bruit. CHEST: The breath sounds are clear bilaterally. CARDIAC: Heart tones are normal. There is a grade 2/6 mid systolic murmur that is maximum in the left parasternal border. There is a grade 2/6 diastolic murmur along the left parasternal border. There is no rub or gallop. ABDOMEN: Soft with normal bowel sounds. EXTREMITIES: There is bilateral leg edema with decreased distal pulses. There is some stasis dermatitis on the right side. LAB DATA AND DIAGNOSTIC TESTS: The EKG showed sinus rhythm with a right bundle branch block. Laboratory data - The troponin I is 0.039. UA did show some bacteria. CBC shows a white count of 16.8, hemoglobin 11.0. The glomerular filtration rate is 50. Serum electrolytes are normal. ASSESSMENT AND PLAN: 1) Mild troponin leak which appears to be insignificant at this time. He currently does not have any angina episodes or congestive symptoms. The elevated troponin I may still be due to some form of demand ischemia rather than due to ACS. He has minimal CV risk factors. I suspect his generalized weakness is associated with some urinary tract infection/sepsis. 2) Hypertension. Continue with current medical regimen. 3) Cardiac murmur. He may have an aortic valve regurgitation or a mitral valve disorder. An echocardiogram will be obtained to assess left ventricular systolic function and also the etiology of cardiac murmur. I will follow up with you.
[2018-12-05 09:28] LABS: TROPONIN 0.048 ng/mL (0.000-0.034)
[2018-12-05 09:33] LABS: BAND 3 % (0.0-2.0); Lymphocytes 10 % (24-44); Monocyte 8 % (0.0-12.0); Neutrophils 79 % (36.-66.); Total Cells Counted 100
[2018-12-05 09:34] LABS: Platelet Estimate NORMAL (NORMAL)
[2018-12-05] MEDS ORDERED: NON-FORMULARY ITEM (Multivitamin [Multivitamins] 1 EACH) PO SCH (10:00)
[2018-12-05] MEDS ORDERED: Phenergan 25 MG INJ IV PRN (10:00)
[2018-12-05] MEDS ORDERED: BABY ASPIRIN 81 MG CHEW PO SCH (10:00)
[2018-12-05] MEDS ORDERED: LEVOFLOXACIN 750MG/150ML D5W 750 MG/150 ML BAG IV SCH (10:00)
[2018-12-05 10:01] LABS: INFLUENZA A NEGATIVE (NEGATIVE); INFLUENZA B NEGATIVE (NEGATIVE); RESPIRATORY SYNCTIAL VIRUS NEGATIVE (Negative)
--- NOTE | 2018-12-05 10:09 | XRAY ---
Indication: Elevated d-dimer. Two-dimensional sonogram and color Doppler imaging of the major venous vessels of the left and right leg was performed. Comparison: None No thrombus seen in the examined deep venous vessels of the left and right leg including greater saphenous vein. Veins demonstrate normal compressibility. Venous waveforms are normal with and without augmentation. Impression: Left and right legs negative for DVT.
--- NOTE | 2018-12-05 10:35 | ECHO ---
Transthoracic echocardiographic examination and color Doppler was done on 12/05/2018. INDICATION: Elevated troponin I, generalized weakness, cardiac murmur. IMPRESSION: 1) NO REGIONAL WALL MOTION ABNORMALITY WITH ESTIMATED GLOBAL LEFT VENTRICULAR EJECTION FRACTION BETWEEN 60 AND 70%. 2) MILD AORTIC REGURGITATION. 3) MILD TRICUSPID REGURGITATION. RIGHT VENTRICULAR SYSTOLIC PRESSURE OF 38 MM OF MERCURY. 4) LEFT ATRIAL ENLARGEMENT. 5) SCLEROTIC AORTIC VALVE. The left ventricle is visualized and demonstrated adequate motion of all the segments. Estimated global left ventricular ejection fraction between 60 and 70%. The left ventricular thickness is normal. The mitral valve is seen and this opens adequately. No significant mitral regurgitation is seen. Left atrium is mildly enlarged. The aortic valve is sclerotic. The peak gradient across the aortic valve is 7 mm of Mercury. There is mild aortic regurgitation. The right side chambers are normal. There is mild tricuspid regurgitation. The right ventricular systolic pressure of 38 mm of Mercury.
[2018-12-05] MEDS: PROTONIX 40 MG IV IV SCH (10:36)
[2018-12-05] MEDS: ROCEPHIN 1 Gm-D5w 50 ml Bag** 1 G/50 ML IVPB IV SCH (10:36)
--- NOTE | 2018-12-05 11:19 | XRAY ---
Indication: Cough. Comparison: One day earlier. PA/lateral chest demonstrates new bibasilar infiltrates/atelectasis and small effusions. Remaining upper lungs clear. Heart and mediastinal structures within normal limits.
[2018-12-05] MEDS: FEOSOL 325 MG PO SCH (12:23)
[2018-12-05] MEDS: THERAGRAN MULTIVITAMIN PO SCH (12:23)
[2018-12-05] MEDS: NORVASC 5 MG PO SCH (12:24)
[2018-12-05] MEDS: ECOTRIN 81 MG PO SCH (12:24)
--- NOTE | 2018-12-05 12:24 | XRAY ---
Indication: Cough, congestion, and elevated d-dimer. Multiple contiguous axial images obtained through the chest using 100 cc Isovue 370 contrast and PE protocol. Comparison: None There is good opacification of the pulmonary arteries to include the lobar and segmental branches. No filling defect or pulmonary embolus. Heart is not enlarged. Aorta is mildly arteriosclerotic without aneurysm/dissection. No pathologic mediastinal/hilar lymphadenopathy. Esophagus is mildly fluid distended presumed from gastroesophageal reflux. Also circumferential wall thickening favoring esophagitis. Small hiatal hernia. Examination of the lung parenchyma demonstrates small bilateral pleural effusions with mild bibasilar compressive atelectasis. Tiny peripheral right upper lobe calcified granuloma. No suspicious pulmonary mass, nodule, or infiltrate. Bony thorax intact with mild degenerative changes throughout the spine. Limited upper abdomen demonstrates incompletely visualized abnormal enlarged pancreas with mild peripancreatic stranding. Head of the pancreas at least 8 x 6.4 cm. Pancreas also demonstrates multifocal fluid collections. Partial differential includes pancreatitis with pseudocysts versus pancreatic carcinoma with ductal dilatation. Incompletely visualized distended gallbladder without gallstones. Also incompletely visualized bilateral renal cysts, largest 3.2 cm on the left. Incidental scattered colonic diverticulosis. Impression: 1. Negative pulmonary embolus. 2. Small bilateral effusions with bibasilar compressive atelectasis. No cardiomegaly. 3. Small hiatal hernia. Also mild fluid distended esophagus presumed from gastroesophageal reflux. There is also esophageal wall thickening favoring esophagitis. 4. Markedly abnormal pancreas as detailed. Rule out pancreatitis with multifocal pseudocysts versus pancreatic carcinoma with ductal dilatation. 5. Incompletely visualized distended gallbladder and bilateral renal cysts. 6. Colonic diverticulosis. CT DI 18.60
[2018-12-05] MEDS ORDERED: Ecotrin 325 MG PO ONE (14:45)
[2018-12-05] MEDS: Tums EX 750 MG PO PRN (18:32)
[2018-12-06] MEDS: Sodium Chloride 0.9% 1000 ML 1,000 ML IV SCH ×2 (04:30→21:02)
[2018-12-06 06:58] LABS: BASOPHIL % 0.2 % (0.0-0.4); Basophil (Absolute #) 0.02 (0-0.4); Eosinophil % 0.1 % (0.00-5.0); Eosinophil (Absolute #) 0.01 (0-0.5); Granulocyte Absolute (ANC) 10.06 (1.4-6.9); Granulocytes % 75.6 % (36.0-66.0); Hematocrit 28.5 % (42-50); Lymphocyte (Absolute #) 1.84 (1.0-4.6); Lymphocytes % 13.9 % (24.0-44.0); Mean Cell Volume 88.2 fl (78-100); Mean Corpuscular Hgb Concent. 31.6 g/dl (32-36); Mean Platelet Volume 9.9 fl (6-9.5); Monocyte (Absolute #) 1.35 (0.0-1.3); Monocytes % 10.2 % (0.0-12.0); Platelet Count 326 K/mm3 (150-450); Red Blood Count 3.23 M/mm3 (4.1-5.6); Red Cell Distribution Width 14.4 % (11.5-14.0); White Blood Count 13.3 K/mm3 (4.0-10.5)
[2018-12-06 06:59] LABS: ALBUMIN 2.6 g/dL (3.5-5.0); ALKALINE PHOSPHATASE 121 U/L (38-126); AMYLASE 58 U/L (30-110); ANION GAP 12.3 MEQ/L (5-15); BLOOD UREA NITROGEN 24 mg/dL (9-20); CHLORIDE 106 mmol/L (98-107); Calcium 8.2 mg/dL (8.4-10.2); Carbon Dioxide 19 mmol/L (22-30); Creatinine 1 1.16 mg/dL (0.66-1.25); Glucose 85 mg/dL (74-106); LIPASE 43 U/L (23-300); Potassium 3.7 mmol/L (3.5-5.1); SGOT/AST 54 U/L (17-59); SGPT/ALT 26 U/L (0-50); SODIUM 134 mmol/L (137-145); Total Protein 5.5 g/dL (6.3-8.2)
[2018-12-06 07:00] LABS: Mean Corpuscular Hemoglobin 27.8 pg (26-32)
[2018-12-06] MEDS: PROTONIX 40 MG IV IV SCH (09:25)
[2018-12-06] MEDS: Lopressor 25MG Tab PO SCH ×2 (09:26→21:03)
[2018-12-06] MEDS: NORVASC 5 MG PO SCH (09:27)
[2018-12-06] MEDS: ECOTRIN 81 MG PO SCH (09:27)
[2018-12-06] MEDS: THERAGRAN MULTIVITAMIN PO SCH (09:27)
[2018-12-06] MEDS: FEOSOL 325 MG PO SCH (09:27)
[2018-12-06] MEDS: ROCEPHIN 1 Gm-D5w 50 ml Bag** 1 G/50 ML IVPB IV SCH (09:29)
[2018-12-07 00:11] VITALS: O2SAT 95
[2018-12-07 05:39] LABS: Hematocrit 28.6 % (42-50); Hemoglobin 9.1 gm/dl (12.5-18.0); Mean Cell Volume 87.5 fl (78-100); Mean Corpuscular Hemoglobin 27.8 pg (26-32); Mean Corpuscular Hgb Concent. 31.8 g/dl (32-36); Mean Platelet Volume 9.7 fl (6-9.5); Platelet Count 350 K/mm3 (150-450); Red Blood Count 3.27 M/mm3 (4.1-5.6); Red Cell Distribution Width 14.4 % (11.5-14.0); White Blood Count 8.8 K/mm3 (4.0-10.5)
[2018-12-07 06:05] LABS: ALBUMIN 2.6 g/dL (3.5-5.0); ALKALINE PHOSPHATASE 95 U/L (38-126); ANION GAP 11.2 MEQ/L (5-15); BLOOD UREA NITROGEN 23 mg/dL (9-20); CHLORIDE 106 mmol/L (98-107); Calcium 8.2 mg/dL (8.4-10.2); Carbon Dioxide 19 mmol/L (22-30); Creatinine 1 1.04 mg/dL (0.66-1.25); Glucose 92 mg/dL (74-106); Potassium 3.5 mmol/L (3.5-5.1); SGOT/AST 35 U/L (17-59); SGPT/ALT 22 U/L (0-50); SODIUM 132 mmol/L (137-145); Total Protein 5.6 g/dL (6.3-8.2)
[2018-12-07] MEDS: PROTONIX 40 MG IV IV SCH (07:58)
[2018-12-07 08:30] VITALS: BP 102/60; PULSE 79
[2018-12-07] MEDS: ROCEPHIN 1 Gm-D5w 50 ml Bag** 1 G/50 ML IVPB IV SCH (09:18)
[2018-12-07] MEDS: FEOSOL 325 MG PO SCH (09:19)
[2018-12-07] MEDS: THERAGRAN MULTIVITAMIN PO SCH (09:20)
[2018-12-07] MEDS: ECOTRIN 81 MG PO SCH (09:20)
[2018-12-07] MEDS: Tums EX 750 MG PO PRN (09:24)
[2018-12-07] MEDS: NORVASC 5 MG PO SCH (09:25)
[2018-12-07] MEDS: Lopressor 25MG Tab PO SCH (09:25)
--- NOTE | 2018-12-07 09:45 | PCM.DS ---
Discharge Summary Date of Admission: 12/05/18 08:42 Admitting Physician: RHIANNA GIBSON Consults: Consults on Case 12/04/18 14:48 Consult Cardiology ROUTINE Primary Care Provider: EDDIE ROBERTSON Allergies Allergies No Known Drug Allergies Allergy (Verified 12/04/18 14:34) Hospital Summary - Hospital Course Hospital Course: patient was admitted with weakness and feeling poorly, has had a alfaro for the last 6 weeks following a bout of pancreatitis, he is doing better now and feeling much better. has been on rocephin for uti, grew e coli. stable for discharge on po meds today - Vitals & Intake/Output Vital Signs: Vital Signs Temperature 97.6 F 12/07/18 08:00 Pulse Rate 79 12/07/18 08:00 Respiratory Rate 20 12/07/18 08:00 Blood Pressure 102/60 12/07/18 08:00 O2 Sat by Pulse Oximetry 95 12/07/18 08:00 Intake & Output: Intake & Output 12/04/18 12/05/18 12/06/18 12/07/18 11:59 11:59 11:59 11:59 Intake Total 5815 566 3112 Output Total 950 525 725 Balance 234 901 5309 Weight 91.626 kg 91.8 kg - Lab Result Diagrams: 12/07/18 05:35 12/07/18 05:35 Lab Results-Last 24 Hrs: Lab Results-Last 24 Hours 12/07/18 12/07/18 Range/Units 05:35 05:35 WBC 8.8 (4.0-10.5) K/mm3 RBC 3.27 L (4.1-5.6) M/mm3 Hgb 9.1 L (12.5-18.0) gm/dl Hct 28.6 L (42-50) % MCV 87.5 (78-100) fl MCH 27.8 (26-32) pg MCHC 31.8 L (32-36) g/dl RDW 14.4 H (11.5-14.0) % Plt Count 350 (150-450) K/mm3 MPV 9.7 H (6-9.5) fl Sodium 132 L (137-145) mmol/L Potassium 3.5 (3.5-5.1) mmol/L Chloride 106 (98-107) mmol/L Carbon Dioxide 19 L (22-30) mmol/L Anion Gap 11.2 (5-15) MEQ/L BUN 23 H (9-20) mg/dL Creatinine 1.04 (0.66-1.25) mg/dL Estimated GFR > 60.0 ML/MIN Glucose 92 (74-106) mg/dL Calcium 8.2 L (8.4-10.2) mg/dL Total Bilirubin 0.50 (0.2-1.3) mg/dL AST 35 (17-59) U/L ALT 22 (0-50) U/L Alkaline Phosphatase 95 (38-126) U/L Serum Total Protein 5.6 L (6.3-8.2) g/dL Albumin 2.6 L (3.5-5.0) g/dL Micro Results-Entire Visit: Microbiology 12/04/18 11:35 Blood Culture - Preliminary Blood NO GROWTH TO DATE 12/04/18 11:15 Blood Culture - Preliminary Blood NO GROWTH TO DATE 12/04/18 11:46 Urine Culture - Final Urine, Indwelling Catheter Escherichia Coli - Radiology Exams Ordered Rad Exams-Entire Visit: Radiology Procedures Category Date Time Status CHEST 2 VIEWS (PA AND LAT) Routine Exams 12/05/18 10:15 Completed CHEST WITH CONTRAST [CT] Stat Exams 12/05/18 10:21 Completed ECHO W/2D AND DOPPLER [US] Routine Exams 12/05/18 09:00 Completed VENOUS BILATERAL EXTREMITY [US] Routine Exams 12/05/18 10:00 Completed - Procedures and Test Procedures and Tests throughout Hospitalization: Therapy Orders & Screens 12/04/18 14:48 EKG ROUTINE Comment: Diagnosis: UTI Discharge Exam General Appearance: no apparent distress, alert Respiratory Exam: normal breath sounds, lungs clear, No respiratory distress Cardiovascular Exam: regular rate/rhythm, normal heart sounds Gastrointestinal/Abdomen Exam: soft, No tenderness, No mass Extremity Exam: normal inspection, normal range of motion Male Genitalia Exam: other (alfaro present with clear, straw colored urine) Final Diagnosis/Problem List - Final Discharge Diagnosis/Problem (1) Urinary tract infection associated with indwelling urethral catheter Current Visit: Yes Status: Acute Assessment & Plan: home on keflex, sensitive on culture Code(s): T83.511A - I/I REACT D/T INDWELLING URETHRAL CATHETER, INIT; N39.0 - URINARY TRACT INFECTION, SITE NOT SPECIFIED (2) Weakness Current Visit: Yes Status: Acute Assessment & Plan: resolved Code(s): R53.1 - WEAKNESS - Discharge Disposition: Home, Self-Care Condition: Stable Prescriptions: New Cephalexin Mh 500 mg [Keflex 500 mg] 500 mg PO TID #21 capsule Metoprolol Tartrate 25 mg [Lopressor 25MG Tab] 12.5 mg PO BID #30 tab Continue Amlodipine Besylate 5 mg [Norvasc 5 mg] 5 mg PO DAILY Ferrous Sulfate 325 mg [Feosol 325 mg] 325 mg PO DAILY Multivitamin [Multivitamins] 1 each PO DAILY Follow up with: TENISHA HENAO [ACTIVE STAFF] - 12/13/18 10:00 am PHONG ZAMUDIO [ACTIVE STAFF] - 1 Week
== END 2018-12-07 11:38 | disposition home or self-care (01) | DRG 699 ==
LOC: ED 10:39 → MED SURG 14:17 → OBSVTOIN 12-05 08:42
PROVIDERS: ADMIT Internal Medicine; ATTEND Family Medicine
DX: T83.511A Infection and inflammatory reaction due to indwelling urethral catheter, initial encounter (principal); E87.1 Hypo-osmolality and hyponatremia; N13.30 Unspecified hydronephrosis; B96.20 Unspecified Escherichia coli [E. coli] as the cause of diseases classified elsewhere; I12.9 Hypertensive chronic kidney disease with stage 1 through stage 4 chronic kidney disease, or unspecified chronic kidney disease; N18.2 Chronic kidney disease, stage 2 (mild); R53.1 Weakness; H91.90 Unspecified hearing loss, unspecified ear; I45.10 Unspecified right bundle-branch block; R01.1 Cardiac murmur, unspecified; R79.89 Other specified abnormal findings of blood chemistry; D64.9 Anemia, unspecified; R33.9 Retention of urine, unspecified; Z79.899 Other long term (current) drug therapy
CPT/HCPCS: 36415; 51702; 71045; 71046; 71260; 80048; 80053; 80061; 81001; 82150; 83605; 83690; 83721; 83880; 84484; 85025; 85027; 85379; 85610; 85730; 87040; 87077; 87086; 87186; 87631; 93005; 93041; 93268; 93306; 93970; 94762; 96360; 96361; 96365; 99285; G0378; Q9967; J0696; J1956; J2405; A9270-GY

== ENCOUNTER 2019-01-02 09:39 | Emergency (ER) | payer MEDICARE, BC ==
--- NOTE | 2019-01-02 10:19 | ERPHSYRPT ---
- History of Present Illness Time Seen by Provider: 01/02/19 10:14 Historian: patient Exam Limitations: no limitations Patient Subjective Stated Complaint: pt co weakness, vomited x 2 yesterday. co abd pain across mid section. denies constipation, voiding well Triage Nursing Assessment: pt walked in, resp easy, skin w/d/p. chest clear, abd soft , tender to touch, edema to ankles Physician History: 78-year-old white male with history of pancreatitis, high blood pressure, chronic renal failure, urinary retention, hydronephrosis Patient arrives with complaint of abdominal pain. Umbilical symptoms going on for one to 2 days vomiting yesterday. Patient had apparently been hospitalized several weeks ago secondary to pancreatitis apparently has had some type of laser surgery to his prostate. Has the above complaints. Past medical history includes arthritis, high blood pressure, pancreatitis, he acute kidney injury, urinary retention, hydronephrosis, chronic renal failure, Past surgical history includes cyst removed from his shoulder, varicose veins. Laser surgery on his prostate. social history is remarkable for a former smoker Timing/Duration: day(s) (1-2 days tolerated.) Activities at Onset: none Quality: aching Abdominal Pain Onset Location: periumbilical Pain Radiation: no radiation Severity of Pain-Max: moderate Severity of Pain-Current: moderate Modifying Factors: Improves With: nothing Associated Symptoms: nausea, vomiting, No back, No chest pain, No diaphoresis, No diarrhea, No fever/chills, No fatigue, No headache, No heartburn, No loss of appetite, No neck pain, No rash, No shortness of breath, No syncope, No testicular pain Previous symptoms: same symptoms as today Allergies/Adverse Reactions: No Known Drug Allergies Allergy (Verified 01/02/19 10:04) Home Medications: Amlodipine Besylate 5 mg [Norvasc 5 mg] 5 mg PO DAILY 08/24/15 [History] Ferrous Sulfate 325 mg [Feosol 325 mg] 325 mg PO DAILY 08/24/15 [History] Multivitamin [Multivitamins] 1 each PO DAILY 08/31/15 [History] Sennosides/Docusate Sodium [Stool Softener-Laxative Tablet] 1 ea BID 01/02/19 [ History] Hx Tetanus, Diphtheria Vaccination/Date Given: Yes Hx Influenza Vaccination/Date Given: Yes Hx Pneumococcal Vaccination/Date Given: Yes Immunizations Up to Date: Yes - Review of Systems Constitutional: No Fever, No Chills Eyes: No Symptoms Ears, Nose, & Throat: No Symptoms Respiratory: No Cough, No Dyspnea Cardiac: No Chest Pain, No Edema, No Syncope Abdominal/Gastrointestinal: Abdominal Pain, Nausea, Vomiting, No Diarrhea, No Constipation, No Hematemesis, No Hematochezia, No Melena, No Appetite Changes Genitourinary Symptoms: No Dysuria Musculoskeletal: No Back Pain, No Neck Pain Skin: No Rash Neurological: No Dizziness, No Focal Weakness, No Sensory Changes Psychological: No Symptoms Endocrine: No Symptoms All Other Systems: Reviewed and Negative - Past Medical History Pertinent Past Medical History: Yes Neurological History: No Pertinent History ENT History: No Pertinent History Cardiac History: Hypertension Respiratory History: No Pertinent History Endocrine Medical History: No Pertinent History Musculoskeletal History: Arthritis, Fractures GI Medical History: No Pertinent History History: No Pertinent History Psycho-Social History: No Pertinent History Male Reproductive Disorders: Prostate Problems Other Medical History: R ANKLE FX 01/15 - Past Surgical History Past Surgical History: No Neuro Surgical History: No Pertinent History Cardiac: No Pertinent History Respiratory: No Pertinent History Gastrointestinal: No Pertinent History Genitourinary: No Pertinent History Musculoskeletal: No Pertinent History Male Surgical History: Prostate Surgery Other Surgical History: varicose veins repaired - Social History Smoking Status: Former smoker Exposure to second hand smoke: No Drug Use: none Patient Lives Alone: No - Nursing Vital Signs Nursing Vital Signs: Initial Vital Signs Temperature 97 F 01/02/19 09:57 Pulse Rate 89 01/02/19 09:57 Respiratory Rate 16 01/02/19 09:57 Blood Pressure 131/75 01/02/19 09:57 O2 Sat by Pulse Oximetry 97 01/02/19 09:57 Pain Scale Pain Intensity 3 - Physical Exam General Appearance: mild distress, alert Eye Exam: PERRL/EOMI, eyes nml inspection Ears, Nose, Throat Exam: normal ENT inspection, pharynx normal, moist mucous membranes Neck Exam: normal inspection, non-tender, supple, full range of motion Respiratory Exam: normal breath sounds, lungs clear, No respiratory distress Cardiovascular Exam: regular rate/rhythm, normal heart sounds Gastrointestinal/Abdomen Exam: soft, normal bowel sounds, tenderness ( periumbilical tenderness), No distention, No guarding, No ecchymosis, No pulsatile mass, No rebound, No hernia, No hepatomegaly, No organomegaly, No splenomegaly Back Exam: normal inspection, normal range of motion, No CVA tenderness, No vertebral tenderness Extremity Exam: normal inspection, normal range of motion, pelvis stable Neurologic Exam: alert, oriented x 3, cooperative, hide puller II-XII nml as tested, normal mood/affect, nml cerebellar function, sensation nml, No motor deficits Skin Exam: normal color, warm, dry SpO2 Interpretation: normal (97%) SpO2: 97 - Course Nursing assessment & vital signs reviewed: Yes - CT Exams Abdomen/Pelvis CT Interpretation: Discussed w/radiologist (CT abdomen and pelvis: Impression: 1. Large pancreatic pseudocyst, smaller in appearance when compared to a more recent CT chest exam December 05, 2018. However there is increasing abdominal mesenteric stranding and free fluid as detailed. Cannot exclude ruptured/ leaking pseudocyst with subsequent peritonitis. Also new peripheral left lobe hypoattenuation May be related. 2. Descending duodenal circumferential wall thickening with stranding. Possible duodenitis. Mild fluid distended small bowel loops present reactive ileus. 3. Again, moderate size fat and fluid filled left inguinal hernia with new herniated colon. Also again small umbilical hernia with new herniated small bowel loop no incarceration/ obstruction. Stable small fat and fluid filled right inguinal hernia. 4. Urinary bladder wall circumferential wall thickening either from incomplete distention versus cystitis. 5. Again distended gallbladder without gallstones , bilateral renal cysts, and colonic diverticulosis. 6. Increasing moderate by basilar pleural effusions/atelectasis.) Ordered Tests: Active Orders 24 hr Category Date Time Status IV Insertion STAT Care 01/02/19 10:07 Active ABDOMEN AND PELVIS W/0 CONTRAS [CT] Stat Exams 01/02/19 10:14 Completed AMYLASE Stat Lab 01/02/19 10:15 Completed CBC W DIFF Stat Lab 01/02/19 10:15 Completed CMP Stat Lab 01/02/19 10:15 Completed LIPASE Stat Lab 01/02/19 10:15 Completed UA W/RFX UR CULTURE Stat Lab 01/02/19 10:07 Uncollected Medication Summary Discontinued Medications Generic Name Dose Route Start Last Admin Trade Name Freq PRN Reason Stop Dose Admin Sodium Chloride 1,000 mls @ 999 mls/hr 01/02/19 10:07 01/02/19 12:22 Sodium Chloride 0.9% 1000 Ml IV 01/02/19 11:07 Infused .Q1H1M STA Infusion Sodium Chloride Confirm 01/02/19 10:20 Sodium Chloride 0.9% 1000 Ml Administered 01/02/19 10:21 Dose 1,000 mls @ ud .ROUTE .STK-MED ONE Morphine Sulfate 4 mg 01/02/19 10:14 01/02/19 10:28 Morphine Sulfate 4 Mg Inj IV 01/02/19 10:15 4 mg STAT ONE Administration Morphine Sulfate Confirm 01/02/19 10:20 Morphine Sulfate 4 Mg Inj Administered 01/02/19 10:21 Dose 4 mg .ROUTE .STK-MED ONE Ondansetron HCl 4 mg 01/02/19 10:14 01/02/19 10:29 Zofran 4 Mg/2 Ml Vial IV 01/02/19 10:15 4 mg STAT ONE Administration Ondansetron HCl Confirm 01/02/19 10:20 Zofran 4 Mg/2 Ml Vial Administered 01/02/19 10:21 Dose 4 mg .ROUTE .STK-MED ONE Lab/Rad Data: Laboratory Result Diagrams 01/02/19 10:15 01/02/19 10:15 Laboratory Results 01/02/19 01/02/19 Range/Units 10:15 10:15 WBC 9.5 (4.0-10.5) K/mm3 RBC 3.42 L (4.1-5.6) M/mm3 Hgb 8.9 L (12.5-18.0) gm/dl Hct 28.0 L (42-50) % MCV 81.9 (78-100) fl MCH 26.0 (26-32) pg MCHC 31.8 L (32-36) g/dl RDW 15.5 H (11.5-14.0) % Plt Count 554 H (150-450) K/mm3 MPV 9.3 (6-9.5) fl Gran % 68.3 H (36.0-66.0) % Eos # (Auto) 0.29 (0-0.5) Absolute Lymphs (auto) 1.56 (1.0-4.6) Absolute Monos (auto) 1.13 (0.0-1.3) Lymphocytes % 16.4 L (24.0-44.0) % Monocytes % 11.9 (0.0-12.0) % Eosinophils % 3.1 (0.00-5.0) % Basophils % 0.3 (0.0-0.4) % Absolute Granulocytes 6.48 (1.4-6.9) Basophils # 0.03 (0-0.4) Sodium 133 L (137-145) mmol/L Potassium 4.2 (3.5-5.1) mmol/L Chloride 98 (98-107) mmol/L Carbon Dioxide 24 (22-30) mmol/L Anion Gap 15.4 H (5-15) MEQ/L BUN 25 H (9-20) mg/dL Creatinine 1.32 H (0.66-1.25) mg/dL Estimated GFR 55.6 ML/MIN Glucose 99 (74-106) mg/dL Calcium 9.6 (8.4-10.2) mg/dL Total Bilirubin 0.40 (0.2-1.3) mg/dL AST 55 (17-59) U/L ALT 34 (0-50) U/L Alkaline Phosphatase 452 H (38-126) U/L Serum Total Protein 6.4 (6.3-8.2) g/dL Albumin 3.1 L (3.5-5.0) g/dL Amylase 198 H (30-110) U/L Lipase 325 H (23-300) U/L - Progress Progress: improved Progress Note: 01/02/19 12:26 78-year-old white male with history of pancreatitis hypertension chronic renal failure Who had recently been at [facility] to [facility] secondary to pancreatitis several weeks ago. He arrives today with complaint of abdominal pain periumbilical across the abdomen of vomiting symptoms since yesterday. On arrival patient's vitals are stable patient has tenderness with palpation across the abdomen more marked on the left. He has a CT of the abdomen is which is remarkable for a large pancreatic pseudocyst, smaller in appearance when compared to a more recent CT of the chest exam December 05, 2018 there is increasing abdominal mesenteric stranding and free fluid the cannot exclude rupture/leaking pseudocyst and subsequent peritonitis. There is also new peripheral left lobe hypoattenuation that might be related there is also descending duodenal circumferential wall thickening the stranding possible duodenitis mild fluid distended small bowel loops present reactive ileus also moderate sized fat and fluid filled left inguinal hernia with new herniated colon also small umbilical hernia with new herniated small bowel loop no incarceration/obstruction there is also small fat and fluid filled right inguinal hernia. There is urinary bladder wall circumferential wall thickening either from incomplete distention versus cystitis and a distended gallbladder without gallstones, bilateral renal cyst and colonic diverticulosis also increasing moderate by basilar pleural effusion/atelectasis Patient's white count 9.5 hemoglobin 8.9 hematocrit 28.0 patient platelets 554 chemistry sodium 133 potassium 4.2 chloride 98 bicarbonate 24 BUN 28 creatinine 1.32 amylase is 198 lipase is 325. Patient is given IV normal saline 1 L he is given morphine 4 mg IV and Zofran 4 mg IV. 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 Daniel Singh at [facility] I've contacted Maday Hand nurse practitioner who is soft iron inspector for Dr. Singh, she had agreed to accept patient in transfer however she felt that the patient needed to be accepted by the hospitalist I talked to Dr. Bond at [facility] he felt that the patient because of possible rupture of a pseudocyst would have to have a surgeon on board as well I contacted Dr. Momo De at [facility] discussed the patient's case with him he has accepted patient for transfer to [facility]. Patient will be transferred by [facility] ambulance to be provided with IV normal saline at 90 mL per hour morphine will be written for pain control and Zofran for vomiting. Patient is to be sent to the emergency room at [facility]. - Departure Departure Disposition: Transfer ([facility] emergency room) Clinical Impression: Pancreatic pseudocyst Abdominal pain Qualifiers: Abdominal location: periumbilical Qualified Code(s): R10.33 - Periumbilical pain Nausea and vomiting Qualifiers: Vomiting type: unspecified Vomiting Intractability: non-intractable Qualified Code(s): R11.2 - Nausea with vomiting, unspecified Condition: Fair Critical Care Time: No Referrals: TENISHA HENAO [Primary Care Provider] -
[2019-01-02] MEDS ORDERED: MORPHINE SULFATE 4 MG INJ ONE (10:20)
[2019-01-02] MEDS ORDERED: Sodium Chloride 0.9% 1000 ML 1,000 ML ONE (10:20)
[2019-01-02] MEDS ORDERED: Zofran 4 MG/2 ML VIAL ONE (10:20)
[2019-01-02] MEDS: MORPHINE SULFATE 4 MG INJ IV ONE (10:28)
[2019-01-02] MEDS: Zofran 4 MG/2 ML VIAL IV ONE (10:29)
[2019-01-02 10:33] LABS: ALBUMIN 3.1 g/dL (3.5-5.0); ANION GAP 15.4 MEQ/L (5-15); BILIRUBIN,TOTAL 0.4 mg/dL (0.2-1.3); Calcium 9.6 mg/dL (8.4-10.2); Creatinine 1 1.32 mg/dL (0.66-1.25); Potassium 4.2 mmol/L (3.5-5.1); Total Protein 6.4 g/dL (6.3-8.2)
[2019-01-02 10:34] LABS: BASOPHIL % 0.3 % (0.0-0.4); Basophil (Absolute #) 0.03 (0-0.4); Eosinophil % 3.1 % (0.00-5.0); Eosinophil (Absolute #) 0.29 (0-0.5); Granulocyte Absolute (ANC) 6.48 (1.4-6.9); Granulocytes % 68.3 % (36.0-66.0); Hemoglobin 8.9 gm/dl (12.5-18.0); Lymphocyte (Absolute #) 1.56 (1.0-4.6); Lymphocytes % 16.4 % (24.0-44.0); Mean Cell Volume 81.9 fl (78-100); Mean Corpuscular Hgb Concent. 31.8 g/dl (32-36); Mean Platelet Volume 9.3 fl (6-9.5); Monocyte (Absolute #) 1.13 (0.0-1.3); Monocytes % 11.9 % (0.0-12.0); Platelet Count 554 K/mm3 (150-450); Red Blood Count 3.42 M/mm3 (4.1-5.6); Red Cell Distribution Width 15.5 % (11.5-14.0); White Blood Count 9.5 K/mm3 (4.0-10.5)
[2019-01-02] MEDS: Sodium Chloride 0.9% 1000 ML 1,000 ML IV STA (10:34)
--- NOTE | 2019-01-02 11:24 | XRAY ---
Indication: Abdomen pain and vomiting. History of pancreatitis. Multiple contiguous axial images obtained through the abdomen and pelvis without contrast as ordered. Comparison: October 22, 2018. Lung bases demonstrates increasing moderate bilateral effusions with worsening compressive atelectasis. Heart is not enlarged. Majority of the pancreas now demonstrates pseudocyst, largest involving the head of the pancreas measuring at least 5.9 x 5.3 cm. This previously measured 8 x 6.[address] chest December 05, 2018. Abdomen demonstrates increasing mesenteric stranding with new pelvic free fluid. There remains tiny free fluid along the colic gutters, increased on the right. Cannot exclude drainage/rupture from the pseudocyst with subsequent peritonitis. Peripheral left lobe of the liver also demonstrates new 2.3 x 3.6 cm focus of hypoattenuation that may be related. No free air. Noncontrasted stomach and bowel loops appear nonobstructed. Descending duodenum demonstrates wall thickening/stranding, possible duodenitis. Mild fluid distended small bowel loops, possibly ileus. Again scattered colonic diverticulosis greatest in the descending and sigmoid. There remains moderate sized fluid filled left inguinal hernia with now herniated knuckle of sigmoid colon. No evidence for incarceration/obstruction. Stable small right inguinal hernia that is now fluid-filled. Again small umbilical hernia with now knuckle of small bowel loop herniating. Gallbladder remains moderately distended without gallstones. Stable bilateral renal cysts and enlarged prostate gland. Urinary bladder is minimally distended with circumferential wall thickening either incomplete distention versus cystitis. Remaining liver, spleen, and adrenal glands appear unremarkable for noncontrast exam. There remains moderate scattered vascular calcifications. No AAA. Osseous structures again demonstrates osteopenia and mild multilevel thoracolumbar degenerative spondylosis. Impression: 1. Large pancreatic pseudocyst, smaller in appearance when compared to a more recent CT chest exam December 05, 2018. However there is increasing abdominal mesenteric stranding and free fluid as detailed. Cannot exclude rupture/leaking pseudocyst with subsequent peritonitis. Also new peripheral left lobe hypoattenuation that may be related. 2. Descending duodenal circumferential wall thickening with stranding, possible duodenitis. Mild fluid distended small bowel loops presumed reactive ileus. 3. Again moderate sized fat and fluid filled left inguinal hernia with new herniated colon. Also again small umbilical hernia with new herniated small bowel loop. No incarceration/obstruction. Stable small fat and fluid filled right inguinal hernia. 4. Urinary bladder wall circumferential wall thickening either from incomplete distention versus cystitis. 5. Again distended gallbladder without gallstones, bilateral renal cysts, and colonic diverticulosis. 6. Increasing moderate bibasilar pleural effusions/atelectasis. CT DI 23.46
[2019-01-02 13:25] VITALS: BP 121/68; PULSE 84; O2SAT 98
== END 2019-01-02 13:28 | disposition short-term general hospital (02) ==
LOC: ED 09:39
DX: K86.3 Pseudocyst of pancreas (principal)
CPT/HCPCS: 36415; 74176; 80053; 82150; 83690; 85025; 96360; 96374; 96375; 99284; J2270; J2405

== ENCOUNTER 2019-01-06 12:50 | Observation (INO) | payer MEDICARE, BC ==
[2019-01-06] MEDS ORDERED: Sodium Chloride 0.9% 1000 ML 1,000 ML IV STA (13:07)
[2019-01-06] MEDS ORDERED: Zofran 4 MG/2 ML VIAL IV ONE (13:07)
--- NOTE | 2019-01-06 13:12 | ERPHSYRPT ---
- History of Present Illness Historian: patient, family Exam Limitations: no limitations Patient Subjective Stated Complaint: Pain in medial abdomen, denies vomitting, Triage Nursing Assessment: Pt came in the ER in a wheelchair, rates pain 9/10, edema to left lower extremity, vitals wnl, doesn't eat food-uses Boost, bowel sounds heard in all 4 quadrants, pain in medial abdomen with minimal palapation Hx Tetanus, Diphtheria Vaccination/Date Given: Yes Hx Influenza Vaccination/Date Given: Yes Hx Pneumococcal Vaccination/Date Given: Yes <BRITTNI BRADY - Last Filed: 01/06/19 18:28> <ALAN YOUNG - Last Filed: 01/06/19 21:17> - History of Present Illness Time Seen by Provider: 01/06/19 13:09 Physician History: mild to mod off and on diffuse abdominal pain rad to back since Oct, seen at [facility] for pancreatic pseudocyst last week, no injury, no blood in stool, +NV , no fever, pt refused pain med (BRITTNI BRADY) Allergies/Adverse Reactions: No Known Drug Allergies Allergy (Verified 01/02/19 10:04) Home Medications: Amlodipine Besylate 5 mg [Norvasc 5 mg] 5 mg PO DAILY 08/24/15 [History] Ferrous Sulfate 325 mg [Feosol 325 mg] 325 mg PO DAILY 08/24/15 [History] Multivitamin [Multivitamins] 1 each PO DAILY 08/31/15 [History] Sennosides/Docusate Sodium [Stool Softener-Laxative Tablet] 1 ea BID 01/02/19 [ History] - Review of Systems Constitutional: No Fever Eyes: No Eye Redness Ears, Nose, & Throat: No Mouth Pain Respiratory: No Dyspnea Cardiac: No Chest Pain Abdominal/Gastrointestinal: Abdominal Pain, Nausea, Vomiting, No Hematochezia Genitourinary Symptoms: No Dysuria Musculoskeletal: No Neck Pain Skin: No Rash Neurological: No Dizziness <BRITTNI BRADY - Last Filed: 01/06/19 18:28> - Past Medical History Pertinent Past Medical History: Yes Neurological History: No Pertinent History ENT History: No Pertinent History Cardiac History: Hypertension Respiratory History: No Pertinent History Endocrine Medical History: No Pertinent History Musculoskeletal History: Arthritis, Fractures GI Medical History: No Pertinent History History: No Pertinent History Psycho-Social History: No Pertinent History Male Reproductive Disorders: Prostate Problems Other Medical History: R ANKLE FX 01/15 - Past Surgical History Past Surgical History: Yes Neuro Surgical History: No Pertinent History Cardiac: No Pertinent History Respiratory: No Pertinent History Gastrointestinal: No Pertinent History Genitourinary: No Pertinent History Musculoskeletal: No Pertinent History Male Surgical History: Prostate Surgery Other Surgical History: varicose veins repaired - Social History Smoking Status: Former smoker Exposure to second hand smoke: No Drug Use: none Patient Lives Alone: No <BRITTNI BRADY - Last Filed: 01/06/19 18:28> - Physical Exam General Appearance: no apparent distress Eye Exam: eyes nml inspection Ears, Nose, Throat Exam: moist mucous membranes Neck Exam: No meningismus Respiratory Exam: lungs clear Cardiovascular Exam: regular rate/rhythm Gastrointestinal/Abdomen Exam: soft, tenderness, No rebound Back Exam: No rash Extremity Exam: No contusions Neurologic Exam: alert, oriented x 3, cooperative Skin Exam: normal color, warm, dry SpO2 Interpretation: normal SpO2: 95 <BRITTNI BRADY - Last Filed: 01/06/19 18:28> - Nursing Vital Signs Nursing Vital Signs: Initial Vital Signs Temperature 97.9 F 01/06/19 12:57 Pulse Rate 88 01/06/19 12:57 Blood Pressure 123/64 01/06/19 12:57 O2 Sat by Pulse Oximetry 95 01/06/19 12:57 Pain Scale Pain Intensity 0 Ordered Tests: Active Orders 24 hr Category Date Time Status EKG-ER Only STAT Care 01/06/19 13:07 Active IV Insertion STAT Care 01/06/19 13:07 Active Oxygen-ED Only Nasal Cannula 2 lpm Care 01/06/19 18:19 Active ABDOMEN AND PELVIS W/0 CONTRAS [CT] Stat Exams 01/06/19 14:01 Taken BNP [NT PRO BNP] Stat Lab 01/06/19 17:00 Completed CBC W DIFF Stat Lab 01/06/19 13:07 Completed CMP Stat Lab 01/06/19 13:07 Completed CULTURE,URINE Stat Lab 01/06/19 20:20 Received LIPASE Stat Lab 01/06/19 13:07 Completed Lactic Acid Stat Lab 01/06/19 13:07 Completed PROTIME WITH INR Stat Lab 01/06/19 13:07 Completed TROPONIN Q3H Lab 01/06/19 Completed TROPONIN Q3H Lab 01/06/19 16:00 Completed TROPONIN Q3H Lab 01/06/19 19:17 Completed TROPONIN Q3H Lab 01/06/19 22:15 Ordered TROPONIN Q3H Lab 01/07/19 01:15 Ordered UA W/RFX UR CULTURE Stat Lab 01/06/19 20:20 Completed Peak Expiratory Flow Rate ONCE RT 01/06/19 19:24 Active Respiratory Nebulizer STAT RT 01/06/19 18:23 Completed Respiratory Therapy Assessment DAILY RT 01/06/19 19:25 Active Medication Summary Discontinued Medications Generic Name Dose Route Start Last Admin Trade Name Freq PRN Reason Stop Dose Admin Albuterol/Ipratropium 3 ml 01/06/19 18:23 01/06/19 19:05 Duoneb 0.5-3 Mg/3 Ml Neb IH 01/06/19 18:24 3 ml STAT ONE Administration Albuterol/Ipratropium Confirm 01/06/19 19:03 Duoneb 0.5-3 Mg/3 Ml Neb Administered 01/06/19 19:04 Dose 3 ml IH .STK-MED ONE Sodium Chloride 1,000 mls @ 999 mls/hr 01/06/19 13:07 01/06/19 14:31 Sodium Chloride 0.9% 1000 Ml IV 01/06/19 14:07 Infused .Q1H1M STA Infusion Sodium Chloride Confirm 01/06/19 13:14 Sodium Chloride 0.9% 1000 Ml Administered 01/06/19 13:15 Dose 1,000 mls @ ud .ROUTE .STK-MED ONE Morphine Sulfate 2 mg 01/06/19 13:41 01/06/19 13:49 Morphine Sulfate 2 Mg Inj IV 01/06/19 13:42 2 mg STAT ONE Administration Morphine Sulfate Confirm 01/06/19 13:45 Morphine Sulfate 2 Mg Inj Administered 01/06/19 13:46 Dose 2 mg .ROUTE .STK-MED ONE Morphine Sulfate 2 mg 01/06/19 18:05 01/06/19 18:15 Morphine Sulfate 2 Mg Inj IV 01/06/19 18:06 2 mg STAT ONE Administration Morphine Sulfate Confirm 01/06/19 18:11 Morphine Sulfate 2 Mg Inj Administered 01/06/19 18:12 Dose 2 mg .ROUTE .STK-MED ONE Ondansetron HCl 4 mg 01/06/19 13:07 01/06/19 13:15 Zofran 4 Mg/2 Ml Vial IV 01/06/19 13:08 4 mg STAT ONE Administration Ondansetron HCl Confirm 01/06/19 13:14 Zofran 4 Mg/2 Ml Vial Administered 01/06/19 13:15 Dose 4 mg .ROUTE .STK-MED ONE Lab/Rad Data: Laboratory Result Diagrams 01/06/19 13:07 01/06/19 13:07 Laboratory Results 01/06/19 01/06/19 01/06/19 Range/Units Unknown 20:20 19:17 WBC (4.0-10.5) K/mm3 RBC (4.1-5.6) M/mm3 Hgb (12.5-18.0) gm/dl Hct (42-50) % MCV (78-100) fl MCH (26-32) pg MCHC (32-36) g/dl RDW (11.5-14.0) % Plt Count (150-450) K/mm3 MPV (6-9.5) fl Gran % (36.0-66.0) % Eos # (Auto) (0-0.5) Absolute Lymphs (auto) (1.0-4.6) Absolute Monos (auto) (0.0-1.3) Lymphocytes % (24.0-44.0) % Monocytes % (0.0-12.0) % Eosinophils % (0.00-5.0) % Basophils % (0.0-0.4) % Absolute Granulocytes (1.4-6.9) Basophils # (0-0.4) PT (8.83-12.87) SECONDS INR (0.8-3.0) Sodium (137-145) mmol/L Potassium (3.5-5.1) mmol/L Chloride (98-107) mmol/L Carbon Dioxide (22-30) mmol/L Anion Gap (5-15) MEQ/L BUN (9-20) mg/dL Creatinine (0.66-1.25) mg/dL Estimated GFR ML/MIN Glucose (74-106) mg/dL Lactic Acid (0.4-2.0) Calcium (8.4-10.2) mg/dL Total Bilirubin (0.2-1.3) mg/dL AST (17-59) U/L ALT (0-50) U/L Alkaline Phosphatase (38-126) U/L Troponin I < 0.012 < 0.012 (0.000-0.034) ng/mL NT-Pro-B Natriuret Pep (0-1800) pg/mL Serum Total Protein (6.3-8.2) g/dL Albumin (3.5-5.0) g/dL Lipase (23-300) U/L Urine Color YELLOW (YELLOW) Urine Appearance SLIGHTLY CLOUDY (CLEAR) Urine pH 6.0 (5-6) Ur Specific [place] 1.016 (1.005-1.025) Urine Protein 100 (Negative) Urine Ketones NEGATIVE (NEGATIVE) Urine Blood NEGATIVE (0-5) Corbin/ul Urine Nitrite NEGATIVE (NEGATIVE) Urine Bilirubin NEGATIVE (NEGATIVE) Urine Urobilinogen NEGATIVE (0-1) mg/dL Ur Leukocyte Esterase TRACE (NEGATIVE) Urine WBC (Auto) 26-50 (0-5) /HPF Urine RBC (Auto) 11-15 (0-2) /HPF U Hyaline Cast (Auto) 3-5 (0-2) /LPF U Epithel Cells (Auto) RARE (FEW) /HPF Urine Bacteria (Auto) FEW (NEGATIVE) /HPF Other Casts (Auto) 2-5 (NEGATIVE) /LPF Urine Mucus (Auto) SLIGHT (NEGATIVE) /HPF Urine Culture Reflexed YES (NO) Urine Glucose NEGATIVE (NEGATIVE) mg/dL Slides for Path Review 01/06/19 01/06/19 01/06/19 Range/Units 17:00 16:00 13:07 WBC (4.0-10.5) K/mm3 RBC (4.1-5.6) M/mm3 Hgb (12.5-18.0) gm/dl Hct (42-50) % MCV (78-100) fl MCH (26-32) pg MCHC (32-36) g/dl RDW (11.5-14.0) % Plt Count (150-450) K/mm3 MPV (6-9.5) fl Gran % (36.0-66.0) % Eos # (Auto) (0-0.5) Absolute Lymphs (auto) (1.0-4.6) Absolute Monos (auto) (0.0-1.3) Lymphocytes % (24.0-44.0) % Monocytes % (0.0-12.0) % Eosinophils % (0.00-5.0) % Basophils % (0.0-0.4) % Absolute Granulocytes (1.4-6.9) Basophils # (0-0.4) PT 14.7 H (8.83-12.87) SECONDS INR 1.26 (0.8-3.0) Sodium (137-145) mmol/L Potassium (3.5-5.1) mmol/L Chloride (98-107) mmol/L Carbon Dioxide (22-30) mmol/L Anion Gap (5-15) MEQ/L BUN (9-20) mg/dL Creatinine (0.66-1.25) mg/dL Estimated GFR ML/MIN Glucose (74-106) mg/dL Lactic Acid (0.4-2.0) Calcium (8.4-10.2) mg/dL Total Bilirubin (0.2-1.3) mg/dL AST (17-59) U/L ALT (0-50) U/L Alkaline Phosphatase (38-126) U/L Troponin I < 0.012 (0.000-0.034) ng/mL NT-Pro-B Natriuret Pep 790 (0-1800) pg/mL Serum Total Protein (6.3-8.2) g/dL Albumin (3.5-5.0) g/dL Lipase (23-300) U/L Urine Color (YELLOW) Urine Appearance (CLEAR) Urine pH (5-6) Ur Specific [place] (1.005-1.025) Urine Protein (Negative) Urine Ketones (NEGATIVE) Urine Blood (0-5) Corbin/ul Urine Nitrite (NEGATIVE) Urine Bilirubin (NEGATIVE) Urine Urobilinogen (0-1) mg/dL Ur Leukocyte Esterase (NEGATIVE) Urine WBC (Auto) (0-5) /HPF Urine RBC (Auto) (0-2) /HPF U Hyaline Cast (Auto) (0-2) /LPF U Epithel Cells (Auto) (FEW) /HPF Urine Bacteria (Auto) (NEGATIVE) /HPF Other Casts (Auto) (NEGATIVE) /LPF Urine Mucus (Auto) (NEGATIVE) /HPF Urine Culture Reflexed (NO) Urine Glucose (NEGATIVE) mg/dL Slides for Path Review 01/06/19 01/06/19 01/06/19 Range/Units 13:07 13:07 13:07 WBC 11.8 H (4.0-10.5) K/mm3 RBC 3.32 L (4.1-5.6) M/mm3 Hgb 8.6 L (12.5-18.0) gm/dl Hct 26.8 L (42-50) % MCV 80.7 (78-100) fl MCH 25.9 L (26-32) pg MCHC 32.1 (32-36) g/dl RDW 15.9 H (11.5-14.0) % Plt Count 586 H (150-450) K/mm3 MPV 8.7 (6-9.5) fl Gran % 70.8 H (36.0-66.0) % Eos # (Auto) 0.07 (0-0.5) Absolute Lymphs (auto) 1.69 (1.0-4.6) Absolute Monos (auto) 1.63 H (0.0-1.3) Lymphocytes % 14.4 L (24.0-44.0) % Monocytes % 13.9 H (0.0-12.0) % Eosinophils % 0.6 (0.00-5.0) % Basophils % 0.3 (0.0-0.4) % Absolute Granulocytes 8.33 H (1.4-6.9) Basophils # 0.04 (0-0.4) PT (8.83-12.87) SECONDS INR (0.8-3.0) Sodium 133 L (137-145) mmol/L Potassium 4.3 (3.5-5.1) mmol/L Chloride 102 (98-107) mmol/L Carbon Dioxide 19 L (22-30) mmol/L Anion Gap 16.0 H (5-15) MEQ/L BUN 22 H (9-20) mg/dL Creatinine 1.55 H (0.66-1.25) mg/dL Estimated GFR 46.2 ML/MIN Glucose 116 H (74-106) mg/dL Lactic Acid 1.3 (0.4-2.0) Calcium 9.1 (8.4-10.2) mg/dL Total Bilirubin 0.40 (0.2-1.3) mg/dL AST 18 (17-59) U/L ALT 13 (0-50) U/L Alkaline Phosphatase 155 H (38-126) U/L Troponin I (0.000-0.034) ng/mL NT-Pro-B Natriuret Pep (0-1800) pg/mL Serum Total Protein 6.4 (6.3-8.2) g/dL Albumin 3.0 L (3.5-5.0) g/dL Lipase 549 H (23-300) U/L Urine Color (YELLOW) Urine Appearance (CLEAR) Urine pH (5-6) Ur Specific [place] (1.005-1.025) Urine Protein (Negative) Urine Ketones (NEGATIVE) Urine Blood (0-5) Corbin/ul Urine Nitrite (NEGATIVE) Urine Bilirubin (NEGATIVE) Urine Urobilinogen (0-1) mg/dL Ur Leukocyte Esterase (NEGATIVE) Urine WBC (Auto) (0-5) /HPF Urine RBC (Auto) (0-2) /HPF U Hyaline Cast (Auto) (0-2) /LPF U Epithel Cells (Auto) (FEW) /HPF Urine Bacteria (Auto) (NEGATIVE) /HPF Other Casts (Auto) (NEGATIVE) /LPF Urine Mucus (Auto) (NEGATIVE) /HPF Urine Culture Reflexed (NO) Urine Glucose (NEGATIVE) mg/dL Slides for Path Review YES <BRITTNI BRADY - Last Filed: 01/06/19 18:28> - Progress Progress: improved <ALAN YOUNG - Last Filed: 01/06/19 21:17> - Progress Progress Note: 01/06/19 18:[address] Young at 19:00 (BRITTNI BRADY) 01/06/19 21:1 Ct abdomen and pelvis : slight increasing free fluidand new mild diffusefecal stasis. Remaining abdomen/pelvis unchanged from 01/02/2019Case discussed with DR Henao will place on observation, provide iv fluids , pain meds, fleets prn Impression Pancreatitis , abdominal pain, history of pancreatic pseudocyst, constipation (ALAN YOUNG) <BRITTNI BRADY - Last Filed: 01/06/19 18:28> - Departure Departure Disposition: Home Critical Care Time: No <ALAN YOUNG - Last Filed: 01/06/19 21:17> - Departure Clinical Impression: Pancreatic pseudocyst Pancreatitis Qualifiers: Chronicity: chronic Pancreatitis type: unspecified pancreatitis type Qualified Code(s): K86.1 - Other chronic pancreatitis Constipation Qualifiers: Constipation type: unspecified constipation type Qualified Code(s): K59.00 - Constipation, unspecified Condition: Fair Referrals: TENISHA HENAO [Primary Care Provider] -
[2019-01-06] MEDS ORDERED: Sodium Chloride 0.9% 1000 ML 1,000 ML ONE (13:14)
[2019-01-06] MEDS ORDERED: Zofran 4 MG/2 ML VIAL ONE (13:14)
[2019-01-06 13:29] LABS: BASOPHIL % 0.3 % (0.0-0.4); Basophil (Absolute #) 0.04 (0-0.4); Eosinophil % 0.6 % (0.00-5.0); Eosinophil (Absolute #) 0.07 (0-0.5); Granulocyte Absolute (ANC) 8.33 (1.4-6.9); Granulocytes % 70.8 % (36.0-66.0); Hematocrit 26.8 % (42-50); Hemoglobin 8.6 gm/dl (12.5-18.0); Lymphocyte (Absolute #) 1.69 (1.0-4.6); Lymphocytes % 14.4 % (24.0-44.0); Mean Cell Volume 80.7 fl (78-100); Mean Corpuscular Hemoglobin 25.9 pg (26-32); Mean Corpuscular Hgb Concent. 32.1 g/dl (32-36); Mean Platelet Volume 8.7 fl (6-9.5); Monocyte (Absolute #) 1.63 (0.0-1.3); Monocytes % 13.9 % (0.0-12.0); Platelet Count 586 K/mm3 (150-450); Red Blood Count 3.32 M/mm3 (4.1-5.6); Red Cell Distribution Width 15.9 % (11.5-14.0); White Blood Count 11.8 K/mm3 (4.0-10.5)
[2019-01-06 13:36] LABS: INR 1.26 (0.8-3.0); PROTIME 14.7 SECONDS (8.83-12.87)
[2019-01-06 13:40] LABS: BILIRUBIN,TOTAL 0.4 mg/dL (0.2-1.3); Calcium 9.1 mg/dL (8.4-10.2); Creatinine 1 1.55 mg/dL (0.66-1.25); Potassium 4.3 mmol/L (3.5-5.1); Total Protein 6.4 g/dL (6.3-8.2)
[2019-01-06] MEDS ORDERED: MORPHINE SULFATE 2 MG INJ IV ONE ×2 (13:41→18:05)
[2019-01-06] MEDS ORDERED: MORPHINE SULFATE 2 MG INJ ONE ×2 (13:45→18:11)
[2019-01-06 13:51] LABS: Slide Review 1 YES
[2019-01-06] MEDS ORDERED: DUONEB 0.5-3 MG/3 ml Neb IH ONE ×2 (18:23→19:03)
[2019-01-06 20:36] LABS: Appearance SLIGHTLY CLOUDY (CLEAR); Bacteria FEW /HPF (NEGATIVE); Bilirubin NEGATIVE (NEGATIVE); Blood NEGATIVE Ery/ul (0-5); Epithelial Cells RARE /HPF (FEW); Glucose NEGATIVE (NEGATIVE); Ketones NEGATIVE (NEGATIVE); Leukocyte Esterase TRACE (NEGATIVE); Mucus SLIGHT /HPF (NEGATIVE); Nitrite NEGATIVE (NEGATIVE); Protein,Urine Dip 100 (Negative); Specific Gravity 1.016 (1.005-1.025); Urobilinogen NEGATIVE mg/dL (0-1); WBC 26-50 /HPF (0-5)
[2019-01-06] MEDS ORDERED: DUONEB 0.5-3 MG/3 ml Neb IH PRN (22:42)
[2019-01-06] MEDS ORDERED: MORPHINE SULFATE 2 MG INJ IV PRN (22:42)
[2019-01-06] MEDS ORDERED: Zofran 4 MG/2 ML VIAL IV PRN (22:42)
[2019-01-07] MEDS: Sodium Chloride 0.9% 1000 ML 1,000 ML IV SCH ×2 (00:02→09:57)
[2019-01-07 05:54] LABS: Hematocrit 26.1 % (42-50); Hemoglobin 8.1 gm/dl (12.5-18.0); Mean Cell Volume 82.3 fl (78-100); Mean Platelet Volume 9.5 fl (6-9.5); Platelet Count 500 K/mm3 (150-450); Red Blood Count 3.17 M/mm3 (4.1-5.6); White Blood Count 12.4 K/mm3 (4.0-10.5)
[2019-01-07 06:03] LABS: Mean Corpuscular Hemoglobin 25.5 pg (26-32)
[2019-01-07 06:07] LABS: ALBUMIN 2.7 g/dL (3.5-5.0); ANION GAP 14.5 MEQ/L (5-15); BILIRUBIN,TOTAL 0.5 mg/dL (0.2-1.3); Calcium 8.6 mg/dL (8.4-10.2); Creatinine 1 1.67 mg/dL (0.66-1.25)
[2019-01-07 06:45] LABS: Lymphocytes 17 % (24-44); Monocyte 9 % (0.0-12.0); Neutrophils 74 % (36.-66.); Total Cells Counted 100
[2019-01-07 06:49] LABS: ANISOCYTOSIS 1+; Hypochromia 1+; Poikilocytosis 1+; Polychromasia 1+
[2019-01-07 06:50] LABS: Platelet Estimate INCREASED (NORMAL); Schistocytes 1+
--- NOTE | 2019-01-07 09:22 | XRAY ---
Indication: Abdomen pain, constipation, and dysuria. Pancreatitis. Multiple contiguous axial images obtained through the abdomen and pelvis without contrast as ordered. Comparison: January 02, 2019. Lung bases demonstrates grossly stable moderate bilateral effusions with compressive atelectasis. Heart is not enlarged. Stable large pancreas pseudocyst. There remains mild mid abdomen mesenteric stranding and small abdomen/pelvic free fluid, largest focus inferior to the stomach slightly larger. No free air. Peripheral left lobe of the liver demonstrates stable focus of hypoattenuation. Noncontrasted stomach and bowel loops appear nonobstructed. Slightly diminished fluid distended small bowel loops. Increasing mild diffuse scattered colonic fecal debris throughout including rectum. Stable descending and sigmoid diverticulosis. Stable fluid-filled bilateral inguinal hernias. Left inguinal hernia again demonstrates knuckle of sigmoid colon without complications. Also stable small umbilical hernia with knuckle of small bowel loop herniating. Gallbladder remains distended without gallstones. Stable bilateral renal cysts, urinary bladder wall thickening, enlarged prostate gland, and moderate scattered vascular calcifications. Remaining liver, spleen, and adrenal glands appear unremarkable for noncontrast exam. Impression: 1. Grossly stable large pancreatic pseudocyst with abdomen mesenteric stranding. Again small abdomen/pelvic free fluid, slightly increased. 2. Stable urinary bladder wall thickening again either incomplete distention versus cystitis. 3. New mild diffuse fecal stasis. 4. Stable bilateral inguinal and umbilical hernias without complications. 5. Stable distended gallbladder without gallstones, peripheral left lobe hypoattenuation, bilateral renal cysts, colonic diverticulosis, and enlarged prostate gland. 6. Stable moderate bibasilar pleural effusions/atelectasis. CT DI 21.24
[2019-01-07] MEDS ORDERED: Senokot-S Tablet PO PRN (09:53)
[2019-01-07] MEDS ORDERED: THERAGRAN MULTIVITAMIN PO SCH (10:00)
[2019-01-07] MEDS ORDERED: NON-FORMULARY ITEM (Multivitamin [Multivitamins] 1 EACH) PO SCH (10:00)
[2019-01-07] MEDS ORDERED: NORVASC 5 MG PO SCH (10:00)
[2019-01-07] MEDS ORDERED: Lopressor 25MG Tab PO SCH (10:00)
--- NOTE | 2019-01-07 15:41 | PCM.DCORD ---
- Discharge Discharge Date: 01/07/19 Condition: Stable Prescriptions: Continue Amlodipine Besylate 5 mg [Norvasc 5 mg] 5 mg PO DAILY Multivitamin [Multivitamins] 1 each PO DAILY Metoprolol Tartrate 25 mg [Lopressor 25MG Tab] 12.5 mg PO BID #30 tab Sennosides/Docusate Sodium [Stool Softener-Laxative Tablet] 1 ea PO BID PRN PRN Reason: Constipation Follow up with: TENISHA HENAO [Primary Care Provider] - 01/14/19 10:00 am
[2019-01-07 16:29] VITALS: BP 118/58; PULSE 95; O2SAT 95
--- NOTE | 2019-01-08 08:34 | DS ---
DISCHARGE DIAGNOSES: 1) CONSTIPATION. 2) HISTORY OF RECENT PANCREATITIS. 3) DEHYDRATION. HISTORY: The patient is a 78 year-old white male patient with frequent hospital admissions recently for failing health. He presented again to [facility] for pancreatitis for several days and found to have pancreatic pseudocyst. The patient now presents to the emergency room with complaints of constipation. He was felt to be somewhat dehydrated and unable to care for himself at his present state. He was brought to the hospital for further evaluation and management and care. PHYSICAL EXAMINATION: Revealed a moderately obese white male patient in no obvious distress. HEENT: Normocephalic, atraumatic. Pupils equal round reactive to light. Extraocular movements intact. Oropharynx is dry. NECK: Supple without lymphadenopathy, thyromegaly or JVD. CHEST: Clear to auscultation. HEART: Regular rate and rhythm. ABDOMEN: Soft. No palpable masses. EXTREMITIES: Without cyanosis, clubbing or significant edema. NEUROLOGIC: The patient is alert and oriented x3. No focal deficits were noted. HOSPITAL COURSE: The patient was admitted to the hospital for IV fluids and Fleet's enemas. He initially refused the Fleet's enemas but after speaking with him he allowed them to give him the Fleet's enema after which he had a bowel movement and felt better and was able to be discharged home adequately hydrated with IV fluids during his stay. The patient was discharged to follow up in the office in a week or to return if he had further problems in the interim. He is instructed to use MiraLAX on a daily basis to keep his bowels moving. Continue his home medications otherwise which include amlodipine 5 mg a day, multivitamins, metoprolol 12.5 mg twice a day and stool softener.
--- NOTE | 2019-01-08 11:02 | SSS ---
DISCHARGE DIAGNOSES: 1) CONSTIPATION. 2) HISTORY OF RECENT PANCREATITIS. 3) DEHYDRATION. HISTORY: The patient is a 78 year-old white male patient with frequent hospital admissions recently for failing health. He presented again to [facility] for pancreatitis for several days and found to have pancreatic pseudocyst. The patient now presents to the emergency room with complaints of constipation. He was felt to be somewhat dehydrated and unable to care for himself at his present state. He was brought to the hospital for further evaluation and management and care. PHYSICAL EXAMINATION: Revealed a moderately obese white male patient in no obvious distress. HEENT: Normocephalic, atraumatic. Pupils equal round reactive to light. Extraocular movements intact. Oropharynx is dry. NECK: Supple without lymphadenopathy, thyromegaly or JVD. CHEST: Clear to auscultation. HEART: Regular rate and rhythm. ABDOMEN: Soft. No palpable masses. EXTREMITIES: Without cyanosis, clubbing or significant edema. NEUROLOGIC: The patient is alert and oriented x3. No focal deficits were noted. HOSPITAL COURSE: The patient was admitted to the hospital for IV fluids and Fleet's enemas. He initially refused the Fleet's enemas but after speaking with him he allowed them to give him the Fleet's enema after which he had a bowel movement and felt better and was able to be discharged home adequately hydrated with IV fluids during his stay. The patient was discharged to follow up in the office in a week or to return if he had further problems in the interim. He is instructed to use MiraLAX on a daily basis to keep his bowels moving. Continue his home medications otherwise which include amlodipine 5 mg a day, multivitamins, metoprolol 12.5 mg twice a day and stool softener.
== END 2019-01-07 16:45 | disposition home or self-care (01) ==
LOC: ED 12:50 → MED SURG 22:38
PROVIDERS: ADMIT Family Medicine; ATTEND Family Medicine
DX: K59.00 Constipation, unspecified (principal); E86.0 Dehydration; Z79.899 Other long term (current) drug therapy; Z86.19 Personal history of other infectious and parasitic diseases; K86.3 Pseudocyst of pancreas
CPT/HCPCS: 36415; 74176; 80053; 81001; 83605; 83690; 83880; 84484; 85025; 85610; 87086; 93005; 93268; 94150; 94640; 94760; 94762; 96360; 96374; 96375; 96376; 99285; G0378; P9612; J2270; J2405; A9270-GY

== ENCOUNTER 2019-04-04 20:49 | Emergency (ER) | payer MEDICARE, BC ==
--- NOTE | 2019-04-04 20:57 | ERPHSYRPT ---
- History of Present Illness Time Seen by Provider: 04/04/19 20:55 Historian: patient, EMS Exam Limitations: no limitations Physician History: 79 y/o white male halfway patient with known h/o pancreatitis and has both a gastric and jejunal feeding tube present with blood in gastrictube. pt with vomiting x1. pt denies cp, soa, nausea, abd pain. pts spouse present when single episode occurred. Timing/Duration: today Activities at Onset: none Quality: other (no pain) Abdominal Pain Onset Location: other (no abd pain) Pain Radiation: no radiation Severity of Pain-Max: none Severity of Pain-Current: none Modifying Factors: Improves With: nothing Associated Symptoms: denies symptoms Previous symptoms: same symptoms as today Allergies/Adverse Reactions: No Known Drug Allergies Allergy (Verified 04/04/19 20:53) Home Medications: Ferrous Sulfate [Ferrousul] 325 mg G-TUBE BID 04/04/19 [History] Melatonin 3 mg G-TUBE HS 04/04/19 [History] Metoprolol Tartrate 25 mg [Lopressor 25MG Tab] 25 mg G-TUBE BID 04/04/19 [ History] Multivit,Calc,Mins/Iron/Folic [Thera-M Tablet] 1 each G-TUBE DAILY 04/04/19 [ History] Ondansetron HCl [Zofran] 4 mg G-TUBE [id number] PRN 04/04/19 [History] Polyethylene Glycol 3350 17 gm G-TUBE DAILY 04/04/19 [History] Hx Tetanus, Diphtheria Vaccination/Date Given: Yes Hx Influenza Vaccination/Date Given: Yes Hx Pneumococcal Vaccination/Date Given: Yes - Review of Systems Constitutional: No Symptoms Eyes: No Symptoms Ears, Nose, & Throat: No Symptoms Respiratory: No Symptoms Cardiac: No Symptoms Abdominal/Gastrointestinal: Nausea, Vomiting (x1) Genitourinary Symptoms: No Symptoms Musculoskeletal: No Symptoms Skin: No Symptoms Neurological: No Symptoms Psychological: No Symptoms Endocrine: No Symptoms Hematologic/Lymphatic: No Symptoms Immunological/Allergic: No Symptoms All Other Systems: Reviewed and Negative - Past Medical History Pertinent Past Medical History: Yes Neurological History: No Pertinent History ENT History: No Pertinent History Cardiac History: Hypertension Respiratory History: No Pertinent History Endocrine Medical History: No Pertinent History Musculoskeletal History: Arthritis, Fractures GI Medical History: No Pertinent History History: No Pertinent History Psycho-Social History: No Pertinent History Male Reproductive Disorders: Prostate Problems Other Medical History: R ANKLE FX 01/15 - Past Surgical History Past Surgical History: Yes Neuro Surgical History: No Pertinent History Cardiac: No Pertinent History Respiratory: No Pertinent History Gastrointestinal: No Pertinent History Genitourinary: No Pertinent History Musculoskeletal: No Pertinent History Male Surgical History: Prostate Surgery Other Surgical History: varicose veins repaired - Social History Smoking Status: Never smoker Exposure to second hand smoke: No Drug Use: none Patient Lives Alone: No - Nursing Vital Signs Nursing Vital Signs: Initial Vital Signs Temperature 99.2 F 04/04/19 20:54 Pulse Rate 102 H 04/04/19 20:54 Respiratory Rate 18 04/04/19 20:54 Blood Pressure 120/65 04/04/19 20:54 O2 Sat by Pulse Oximetry 95 04/04/19 20:54 Pain Scale Pain Intensity 0 - Physical Exam General Appearance: no apparent distress, alert, cachetic Eye Exam: PERRL/EOMI, eyes nml inspection Ears, Nose, Throat Exam: normal ENT inspection, dry mucous membranes Neck Exam: normal inspection, non-tender, supple, full range of motion Respiratory Exam: normal breath sounds, lungs clear, airway intact, No chest tenderness, No respiratory distress Cardiovascular Exam: regular rate/rhythm, normal heart sounds, normal peripheral pulses Gastrointestinal/Abdomen Exam: soft, normal bowel sounds, other (g tube and j tube sites without infection. 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), Other (comparison ekg 01/06/19 incomplete rbbb) Ordered Tests: Active Orders 24 hr Category Date Time Status EKG-ER Only STAT Care 04/04/19 21:01 Active Benito [Catheter-Aptos Benito] STAT Care 04/04/19 21:30 Active IV Insertion STAT Care 04/04/19 21:01 Active NPO (ED) STAT Care 04/04/19 21:01 Active ABDOMEN AND PELVIS W/0 CONTRAS [CT] Stat Exams 04/04/19 21:02 Taken CHEST 1 VIEW (PORTABLE) Stat Exams 04/04/19 21:02 Taken AMYLASE Stat Lab 04/04/19 21:20 Completed BLOOD CULTURE Stat Lab 04/05/19 01:16 Ordered CBC W DIFF Stat Lab 04/04/19 21:20 Completed CMP Stat Lab 04/04/19 21:20 Completed CULTURE,URINE Stat Lab 04/04/19 21:25 Received LIPASE Stat Lab 04/04/19 21:20 Completed Lactic Acid Stat Lab 04/04/19 21:25 Completed Manual Differential NC Stat Lab 04/04/19 21:20 Completed PROTIME WITH INR Stat Lab 04/04/19 21:20 Completed UA W/RFX UR CULTURE Stat Lab 04/04/19 21:25 Completed Medication Summary Generic Name Dose Route Start Last Admin Trade Name Freq PRN Reason Stop Dose Admin Sodium Chloride 1,000 mls @ 100 mls/hr 04/04/19 21:15 04/05/19 01:34 Sodium Chloride 0.9% 1000 Ml IV 05/04/19 21:14 100 mls/hr .Q10H PAUL Administration Sodium Chloride 1,000 mls @ 100 mls/hr 04/04/19 21:45 Sodium Chloride 0.9% 1000 Ml IV 05/04/19 21:44 .Q10H PAUL Discontinued Medications Generic Name Dose Route Start Last Admin Trade Name Freq PRN Reason Stop Dose Admin Amiodarone HCl 150 mg 04/05/19 00:28 Cordarone 150 Mg/3 Ml Injection IV 04/05/19 00:29 STAT ONE Amiodarone HCl Confirm 04/05/19 00:29 Cordarone 150 Mg/3 Ml Injection Administered 04/05/19 00:30 Dose 150 mg .ROUTE .STK-MED ONE Diltiazem HCl Confirm 04/04/19 23:32 Cardizem Iv 50 Mg/10 Ml Administered 04/04/19 23:33 Dose 50 mg IV .STK-MED ONE Diltiazem HCl 20 mg 04/05/19 00:20 04/04/19 23:45 Cardizem Iv 50 Mg/10 Ml IV 04/05/19 00:21 20 mg STAT ONE Administration Potassium Chloride 20 meq in 100 mls @ 50 mls/hr 04/04/19 21:42 04/04/19 21: 52 Potassium Chloride 20 Meq In Water 100ml IV 04/04/19 23:41 50 mls/hr STAT ONE Administration Potassium Chloride Confirm 04/04/19 21:47 Potassium Chloride 20 Meq In Water 100ml Administered 04/04/19 21:48 Dose 100 mls @ ud IV .STK-MED ONE Meropenem 1 g/ Sodium Chloride 100 mls @ 200 mls/hr 04/05/19 01:18 IV 04/05/19 01:47 STAT ONE Metoprolol Tartrate 5 mg 04/04/19 21:53 04/04/19 22:01 Lopressor 5 Mg/5 Ml Injection IV 04/04/19 21:54 2.5 mg STAT ONE Administration Metoprolol Tartrate Confirm 04/04/19 21:58 Lopressor 5 Mg/5 Ml Injection Administered 04/04/19 21:59 Dose 5 mg IV .STK-MED ONE Ondansetron HCl 4 mg 04/04/19 21:01 04/04/19 21:18 Zofran 4 Mg/2 Ml Vial IV 04/04/19 21:02 4 mg STAT ONE Administration Ondansetron HCl Confirm 04/04/19 21:14 Zofran 4 Mg/2 Ml Vial Administered 04/04/19 21:15 Dose 4 mg .ROUTE .STK-MED ONE Lab/Rad Data: Laboratory Result Diagrams 04/04/19 21:20 04/04/19 21:20 Laboratory Results 04/04/19 04/04/19 04/04/19 Range/Units 21:25 21:25 21:20 WBC (4.0-10.5) K/mm3 RBC (4.1-5.6) M/mm3 Hgb (12.5-18.0) gm/dl Hct (42-50) % MCV (78-100) fl MCH (26-32) pg MCHC (32-36) g/dl RDW (11.5-14.0) % Plt Count (150-450) K/mm3 MPV (6-9.5) fl PT 15.4 H (8.83-12.87) SECONDS INR 1.35 (0.8-3.0) Sodium (137-145) mmol/L Potassium (3.5-5.1) mmol/L Chloride (98-107) mmol/L Carbon Dioxide (22-30) mmol/L Anion Gap (5-15) MEQ/L BUN (9-20) mg/dL Creatinine (0.66-1.25) mg/dL Estimated GFR ML/MIN Glucose (74-106) mg/dL Lactic Acid 1.3 (0.4-2.0) Calcium (8.4-10.2) mg/dL Total Bilirubin (0.2-1.3) mg/dL AST (17-59) U/L ALT (0-50) U/L Alkaline Phosphatase (38-126) U/L Serum Total Protein (6.3-8.2) g/dL Albumin (3.5-5.0) g/dL Amylase (30-110) U/L Lipase (23-300) U/L Urine Color SANTINO (YELLOW) Urine Appearance SLIGHTLY CLOUDY (CLEAR) Urine pH 5.0 (5-6) Ur Specific [place] 1.015 (1.005-1.025) Urine Protein NEGATIVE (Negative) Urine Ketones NEGATIVE (NEGATIVE) Urine Blood NEGATIVE (0-5) Corbin/ul Urine Nitrite NEGATIVE (NEGATIVE) Urine Bilirubin NEGATIVE (NEGATIVE) Urine Urobilinogen NEGATIVE (0-1) mg/dL Ur Leukocyte Esterase NEGATIVE (NEGATIVE) Urine WBC (Auto) 0-2 (0-5) /HPF Urine RBC (Auto) 3-5 (0-2) /HPF U Hyaline Cast (Auto) 0-2 (0-2) /LPF U Epithel Cells (Auto) NONE (FEW) /HPF Urine Bacteria (Auto) NONE (NEGATIVE) /HPF Urine Mucus (Auto) SLIGHT (NEGATIVE) /HPF Urine Culture Reflexed ORDERED SEPARATELY (NO) Urine Glucose NEGATIVE (NEGATIVE) mg/dL 04/04/19 04/04/19 Range/Units 21:20 21:20 WBC 19.3 H (4.0-10.5) K/mm3 RBC 3.11 L (4.1-5.6) M/mm3 Hgb 8.5 L (12.5-18.0) gm/dl Hct 26.4 L (42-50) % MCV 84.9 (78-100) fl MCH 27.3 (26-32) pg MCHC 32.2 (32-36) g/dl RDW 18.1 H (11.5-14.0) % Plt Count 473 H (150-450) K/mm3 MPV 9.2 (6-9.5) fl PT (8.83-12.87) SECONDS INR (0.8-3.0) Sodium 134 L (137-145) mmol/L Potassium 2.9 L* (3.5-5.1) mmol/L Chloride 96 L (98-107) mmol/L Carbon Dioxide 27 (22-30) mmol/L Anion Gap 13.0 (5-15) MEQ/L BUN 58 H (9-20) mg/dL Creatinine 1.42 H (0.66-1.25) mg/dL Estimated GFR 51.0 ML/MIN Glucose 122 H (74-106) mg/dL Lactic Acid (0.4-2.0) Calcium 8.3 L (8.4-10.2) mg/dL Total Bilirubin 0.50 (0.2-1.3) mg/dL AST 24 (17-59) U/L ALT 17 (0-50) U/L Alkaline Phosphatase 108 (38-126) U/L Serum Total Protein 6.5 (6.3-8.2) g/dL Albumin 2.9 L (3.5-5.0) g/dL Amylase 85 (30-110) U/L Lipase 228 (23-300) U/L Urine Color (YELLOW) Urine Appearance (CLEAR) Urine pH (5-6) Ur Specific [place] (1.005-1.025) Urine Protein (Negative) Urine Ketones (NEGATIVE) Urine Blood (0-5) Corbin/ul Urine Nitrite (NEGATIVE) Urine Bilirubin (NEGATIVE) Urine Urobilinogen (0-1) mg/dL Ur Leukocyte Esterase (NEGATIVE) Urine WBC (Auto) (0-5) /HPF Urine RBC (Auto) (0-2) /HPF U Hyaline Cast (Auto) (0-2) /LPF U Epithel Cells (Auto) (FEW) /HPF Urine Bacteria (Auto) (NEGATIVE) /HPF Urine Mucus (Auto) (NEGATIVE) /HPF Urine Culture Reflexed (NO) Urine Glucose (NEGATIVE) mg/dL - Progress Progress: unchanged, re-examined Progress Note: 04/05/19 00:13 pt still with no pain. sbp dropping into 70's. hr 130's to 140's with afib flutter pattern compared to ekg from 2100. i reviewed new ct abd/pelvis findings of mod large bilat peural effusions; pancreatic necrosis enlarging compared to prior ct abd/pelvis. new tiny air bubbles present. i had long d/w pt and spouse regarding code status. pt and family agree to DNR status. they signed dnr form 04/05/19 00:59 call placed to [facility]. aguilera(or manager information doctor) to review findings and tx plan. awaiting call back it was noted that pt monitor and ekg was double reading heart. pulse manually taken and much slower. we changed monitors and pulse was 90's to low 100. sbp low but improved to 85 to 90s. 04/05/19 02:[address] roldan gi specialist covering for dr. aguilera. he states only way to know if pt is candidate for intervention is to transfer pt. he states to transfer to hospitalist. i contacted hospitalist dr. moralez. after a review of patients most recent ct abd/pelvis by interventional radiologist at [facility], dr. moralez accepts pt in transfer to ED at [facility]. need to tell pt and family may only be watching hemoglobin and no intervention. i reviewed pt hx, condition, lab, ekg, xray findings. Counseled pt/family regarding: lab results, diagnosis, rad results - Departure Departure Disposition: Transfer Clinical Impression: Pancreatic necrosis, Anemia, Hypotension, Hypokalemia Condition: Fair Critical Care Time: Yes Critical Care Time(excluding separately billable procedures): 30-74 minutes Referrals: YULIANA NOBLES [Primary Care Provider] -
[2019-04-04] MEDS ORDERED: Zofran 4 MG/2 ML VIAL IV ONE (21:01)
[2019-04-04] MEDS ORDERED: Zofran 4 MG/2 ML VIAL ONE (21:14)
[2019-04-04] MEDS ORDERED: Sodium Chloride 0.9% 1000 ML 1,000 ML ONE ×2 (21:14→22:40)
[2019-04-04] MEDS: Sodium Chloride 0.9% 1000 ML 1,000 ML IV SCH ×2 (21:19→22:43)
[2019-04-04 21:25] LABS: Hematocrit 26.4 % (42-50); Hemoglobin 8.5 gm/dl (12.5-18.0); Mean Cell Volume 84.9 fl (78-100); Mean Corpuscular Hemoglobin 27.3 pg (26-32); Mean Corpuscular Hgb Concent. 32.2 g/dl (32-36); Mean Platelet Volume 9.2 fl (6-9.5); Platelet Count 473 K/mm3 (150-450); Red Blood Count 3.11 M/mm3 (4.1-5.6); Red Cell Distribution Width 18.1 % (11.5-14.0); White Blood Count 19.3 K/mm3 (4.0-10.5)
[2019-04-04 21:31] LABS: INR 1.35 (0.8-3.0); PROTIME 15.4 SECONDS (8.83-12.87)
[2019-04-04 21:35] LABS: ALBUMIN 2.9 g/dL (3.5-5.0); BILIRUBIN,TOTAL 0.5 mg/dL (0.2-1.3); Calcium 8.3 mg/dL (8.4-10.2); Creatinine 1 1.42 mg/dL (0.66-1.25); Total Protein 6.5 g/dL (6.3-8.2)
[2019-04-04 21:36] LABS: Potassium 2.9 mmol/L (3.5-5.1)
[2019-04-04] MEDS ORDERED: POTASSIUM CHLORIDE 20 mEq IN WATER 100ML 20 MEQ/100 ML BAG IV ONE (21:42)
[2019-04-04 21:44] LABS: Appearance SLIGHTLY CLOUDY (CLEAR); Bilirubin NEGATIVE (NEGATIVE); Blood NEGATIVE Ery/ul (0-5); Glucose NEGATIVE (NEGATIVE); Hyaline Casts 0-2 /LPF (0-2); Ketones NEGATIVE (NEGATIVE); Leukocyte Esterase NEGATIVE (NEGATIVE); Mucus SLIGHT /HPF (NEGATIVE); Nitrite NEGATIVE (NEGATIVE); Protein,Urine Dip NEGATIVE (Negative); Specific Gravity 1.015 (1.005-1.025); Urobilinogen NEGATIVE mg/dL (0-1); WBC 0-2 /HPF (0-5)
[2019-04-04] MEDS ORDERED: Sodium Chloride 0.9% 1000 ML 1,000 ML IV SCH (21:45)
[2019-04-04] MEDS ORDERED: POTASSIUM CHLORIDE 20 mEq IN WATER 100ML 100 ML IV ONE (21:47)
[2019-04-04] MEDS ORDERED: LOPRESSOR 5 MG/5 ML INJECTION IV ONE ×2 (21:53→21:58)
[2019-04-04] MEDS ORDERED: Cardizem IV 50 MG/10 ML IV ONE (23:32)
[2019-04-05] MEDS ORDERED: Cardizem IV 50 MG/10 ML IV ONE (00:20)
[2019-04-05] MEDS ORDERED: Cordarone 150 MG/3 ML Injection IV ONE (00:28)
[2019-04-05] MEDS ORDERED: Cordarone 150 MG/3 ML Injection ONE (00:29)
[2019-04-05] MEDS ORDERED: Merrem 1 GM 1 G in Sodium Chloride 100ML MINI-BAG PLUS 100 ML IV ONE (01:18)
[2019-04-05] MEDS ORDERED: Sodium Chloride 0.9% 1000 ML 1,000 ML ONE ×2 (01:30→03:58)
[2019-04-05] MEDS: Sodium Chloride 0.9% 1000 ML 1,000 ML IV SCH (01:34)
[2019-04-05 03:16] LABS: ANISOCYTOSIS 1+; Eosinophil 2 % (0.00-3.0); Lymphocytes 5 % (24-44); Monocyte 11 % (0.0-12.0); Neutrophils 82 % (36.-66.); Platelet Estimate NORMAL (NORMAL); Total Cells Counted 100; Toxic Granulation 1+
[2019-04-05] MEDS ORDERED: Sodium Chloride 0.9% 100 ML IVPB 100 ML IV ONE (03:50)
[2019-04-05] MEDS ORDERED: Merrem 1 GM IV ONE (03:50)
[2019-04-05 04:52] VITALS: BP 84/48; PULSE 98; O2SAT 94
--- NOTE | 2019-04-05 08:27 | XRAY ---
Indication: Blood and feeding tube. Elevated WBC. History necrotic pancreatitis. Multiple contiguous axial images obtained through the abdomen and pelvis without contrast as ordered. Comparison: January 06, 2019. Lung bases demonstrate stable moderate bilateral effusions with compressive atelectasis. Heart is not enlarged. Stomach demonstrates new PEG tube with catheter tip in the jejunum. Also new biliary stent with the distal tip in the descending duodenum. Noncontrasted stomach and bowel loops appear nonobstructed with stable descending and sigmoid diverticulosis. New moderate rectal impaction. Pancreas again demonstrates large pseudocyst grossly unchanged in size but with new tiny air bubbles favoring clinically reported necrotic pancreatitis. No free fluid/air. Stable bilateral renal cysts. New Benito catheter in situ. Stable left inguinal hernia again with portion of herniated colon without complications. Also stable small umbilical hernia with knuckle of small bowel loop herniating. Remaining liver, gallbladder, spleen, adrenal glands, kidneys, and ureters appear unremarkable for noncontrast exam. Stable scattered aortoiliac calcifications without AAA. Impression: 1. Again large pancreatic pseudocyst with new intraluminal air bubbles consistent with clinical history of necrotic pancreatitis. 2. New rectal impaction. 3. New PEG tube, biliary stent, and Benito catheter. 4. Stable left inguinal and umbilical hernia without complications. 5. Stable colonic diverticulosis, bilateral renal cysts, and bibasilar effusions. Comment: Preliminary interpretation was made by [facility]. No critical discrepancy. CTDI 22.58
--- NOTE | 2019-04-05 08:30 | XRAY ---
Indication: Fever. Comparison: December 05, 2018. Portable chest again demonstrates mild/moderate bibasilar effusions/atelectasis with new left mid to lower lung airspace opacity. Heart is not enlarged. Bony thorax intact again with osteopenia and degenerative changes.
== END 2019-04-05 04:00 | disposition short-term general hospital (02) ==
LOC: ED 20:49
DX: K85.11 Biliary acute pancreatitis with uninfected necrosis (principal); D64.9 Anemia, unspecified; I95.9 Hypotension, unspecified; E87.6 Hypokalemia; Z79.899 Other long term (current) drug therapy
CPT/HCPCS: 36415; 51702; 71045; 74176; 80053; 81001; 82150; 83605; 83690; 85025; 85610; 87040; 87086; 93005; 96360; 96361; 96365; 96374; 96375; 99285; 99291; J0282; J2405; J3480

== ENCOUNTER 2019-07-26 22:06 | Emergency (ER) | payer MEDICARE, BC ==
[2019-07-26] MEDS ORDERED: SUBLIMAZE 100 MCG/2 ML IV ONE ×2 (22:09→23:34)
[2019-07-26] MEDS ORDERED: Sodium Chloride 0.9% 1000 ML 1,000 ML IV SCH (22:15)
[2019-07-26] MEDS ORDERED: SUBLIMAZE 100 MCG/2 ML ONE ×2 (22:15→23:36)
[2019-07-26] MEDS ORDERED: Sodium Chloride 0.9% 1000 ML 1,000 ML ONE (22:15)
--- NOTE | 2019-07-26 22:36 | ERPHSYRPT ---
- History of Present Illness Time Seen by Provider: 07/26/19 22:34 Source: patient Exam Limitations: no limitations Patient Subjective Stated Complaint: pt states that he was discharge from rehab yesterday, pt states that he was making coffee when he fell and hit his left hip and head Triage Nursing Assessment: pt came into er via ambulance, pt has deformity to left hip, left leg is shorten and rotated outward, pt states 10/10 pain, pt it hypertensive, left foot is cool to the touch, pulsess present in left extremity , pt has lump to left side of head Physician History: pt states that he was discharge from rehab yesterday, pt states that he was making coffee when he fell and hit his left hip and head Method of Injury: fell Occurred: just prior to arrival Severity of Pain-Max: mild Severity of Pain-Current: moderate Lower Extremities Pain: hip: left Modifying Factors: Improves With: nothing Associated Symptoms: unable to bear weight Allergies/Adverse Reactions: No Known Drug Allergies Allergy (Verified 07/26/19 22:36) Home Medications: Ferrous Sulfate [Ferrousul] 325 mg PO BID 04/04/19 [History] Metoprolol Tartrate 25 mg [Lopressor 25MG Tab] 12.5 mg PO BID 04/04/19 [ History] Ondansetron HCl [Zofran] 4 mg PO [id number] PRN 04/04/19 [History] Polyethylene Glycol 3350 17 gm PO DAILY PRN 04/04/19 [History] Acetaminophen [Tylenol Extra Strength] 500 mg PO Q4H PRN PRN 07/26/19 [History] Bumetanide 1 mg PO DAILY 07/26/19 [History] Diclofenac Sodium Gel [Voltaren GEL] 1 applic TOP TID PRN 07/26/19 [ History] Guaifenesin [Mucinex] 60 mg PO BID 07/26/19 [History] Melatonin 6 mg PO HS 07/26/19 [History] Multivitamins with Iron [Giw-Jnd-Tjejo with Iron] 1 tab PO DAILY 07/26/19 [ History] Nutritional Supplement [Osmolite 1.2 Go] 960 oz G-TUBE HS 07/26/19 [History] PANTOPRAZOLE 40 mg Tablet [Protonix 40MG Tablet] 40 mg PO DAILY 07/26/19 [ History] Potassium Chloride [Klor-Con M20] 20 meq PO DAILY 07/26/19 [History] Sennosides [Senna] 8.6 mg PO BID PRN 07/26/19 [History] Sodium Bicarbonate 325 mg PO BID 07/26/19 [History] Hx Tetanus, Diphtheria Vaccination/Date Given: Yes Hx Influenza Vaccination/Date Given: Yes Hx Pneumococcal Vaccination/Date Given: Yes - Review of Systems Constitutional: No Fever, No Chills Eyes: No Symptoms Ears, Nose, & Throat: No Symptoms Respiratory: No Cough, No Dyspnea Cardiac: No Chest Pain, No Edema, No Syncope Abdominal/Gastrointestinal: No Abdominal Pain, No Nausea, No Vomiting, No Diarrhea Genitourinary Symptoms: No Dysuria Musculoskeletal: Deformity (left hip), No Back Pain, No Neck Pain Skin: No Symptoms, No Rash Neurological: No Dizziness, No Focal Weakness, No Sensory Changes Psychological: No Symptoms Endocrine: No Symptoms All Other Systems: Reviewed and Negative - Past Medical History Pertinent Past Medical History: Yes Neurological History: No Pertinent History ENT History: No Pertinent History Cardiac History: Hypertension Respiratory History: No Pertinent History Endocrine Medical History: No Pertinent History Musculoskeletal History: Arthritis, Fractures GI Medical History: No Pertinent History, Pancreatitis History: No Pertinent History Psycho-Social History: No Pertinent History Male Reproductive Disorders: Prostate Problems Other Medical History: R ANKLE FX 01/15 - Past Surgical History Past Surgical History: Yes Neuro Surgical History: No Pertinent History Cardiac: No Pertinent History Respiratory: No Pertinent History Gastrointestinal: No Pertinent History Genitourinary: No Pertinent History Musculoskeletal: No Pertinent History Male Surgical History: Prostate Surgery Other Surgical History: varicose veins repaired, jg tube - Social History Smoking Status: Former smoker Exposure to second hand smoke: No Drug Use: none Patient Lives Alone: No - Nursing Vital Signs Nursing Vital Signs: Initial Vital Signs Temperature 97.8 F 07/26/19 22:11 Pulse Rate 79 07/26/19 22:11 Blood Pressure 144/74 07/26/19 22:11 O2 Sat by Pulse Oximetry 92 L 07/26/19 22:11 Pain Scale Pain Intensity 10 - Physical Exam General Appearance: alert Eyes, Ears, Nose, Throat Exam: moist mucous membranes Neck Exam: non-tender, supple Cardiovascular/Respiratory Exam: chest non-tender, normal breath sounds, regular rate/rhythm, no respiratory distress Gastrointestinal/Abdominal Exam: non-tender, guarding Back Exam: normal inspection, No vertebral tenderness Hips Exam: left: bone tenderness, deformity, limited range of motion, pain, soft tissue tenderness, swelling Neuro/Tendon Exam: normal sensation, normal motor functions Mental Status Exam: alert, oriented x 3, cooperative Skin Exam: normal color, warm, dry SpO2: 92 - Course Nursing assessment & vital signs reviewed: Yes - Radiology Exams Hip X-ray Interpretation: Reviewed by me, Displaced Fracture (left hip) Ordered Tests: Active Orders 24 hr Category Date Time Status IV Insertion STAT Care 07/26/19 22:12 Active Oxygen-ED Only Nasal Cannula 2 lpm Care 07/26/19 22:22 Active HIP UNI (2V) INCL PEL IF DONE Stat Exams 07/26/19 22:09 Taken CBC W DIFF Stat Lab 07/26/19 23:39 Received COMPREHENSIVE/RENAL Stat Lab 07/26/19 23:39 Received Medication Summary Generic Name Dose Route Start Last Admin Trade Name Freq PRN Reason Stop Dose Admin Sodium Chloride 1,000 mls @ 50 mls/hr 07/26/19 22:15 07/26/19 22:32 Sodium Chloride 0.9% 1000 Ml IV 08/25/19 22:14 50 mls/hr .Q20H PAUL Administration Discontinued Medications Generic Name Dose Route Start Last Admin Trade Name Freq PRN Reason Stop Dose Admin Fentanyl Citrate 50 mcg 07/26/19 22:09 07/26/19 22:32 Sublimaze 100 Mcg/2 Ml IV 07/26/19 22:10 50 mcg STAT ONE Administration Fentanyl Citrate Confirm 07/26/19 22:15 Sublimaze 100 Mcg/2 Ml Administered 07/26/19 22:16 Dose 100 mcg .ROUTE .STK-MED ONE Fentanyl Citrate 50 mcg 07/26/19 23:34 07/26/19 23:38 Sublimaze 100 Mcg/2 Ml IV 07/26/19 23:35 50 mcg STAT ONE Administration Fentanyl Citrate Confirm 07/26/19 23:36 Sublimaze 100 Mcg/2 Ml Administered 07/26/19 23:37 Dose 100 mcg .ROUTE .STK-MED ONE - Progress Progress: unchanged Discussed with : Other ([facility] ER Physician) Will see patient in: other ([facility] Er Physician) Counseled pt/family regarding: lab results, diagnosis, need for follow-up, rad results - Departure Departure Disposition: Transfer (transfer to [facility] ER) Clinical Impression: Hip fracture, left Qualifiers: Encounter type: initial encounter Fracture type: closed Qualified Code(s): S72.002A - Fracture of unspecified part of neck of left femur, initial encounter for closed fracture Condition: Stable Critical Care Time: Yes Critical Care Time(excluding separately billable procedures): Critical 30-74 mins Referrals: YULIANA NOBLES [Primary Care Provider] - Instructions: Hip Fracture (DC)
[2019-07-26 23:40] LABS: Absolute Neutrophil Ct (ANC) 5.85 (1.4-6.9); BASOPHIL % 0.4 % (0.0-0.4); Basophil (Absolute #) 0.03 (0-0.4); Eosinophil % 1.3 % (0.00-5.0); Eosinophil (Absolute #) 0.11 (0-0.5); Hematocrit 32.3 % (42-50); Hemoglobin 10.4 gm/dl (12.5-18.0); Lymphocyte (Absolute #) 1.69 (1.0-4.6); Lymphocytes % 19.9 % (24.0-44.0); Mean Cell Volume 83.2 fl (78-100); Mean Corpuscular Hemoglobin 26.8 pg (26-32); Mean Corpuscular Hgb Concent. 32.2 g/dl (32-36); Mean Platelet Volume 10.4 fl (6-9.5); Monocytes % 9.4 % (0.0-12.0); Platelet Count 329 K/mm3 (150-450); Red Blood Count 3.88 M/mm3 (4.1-5.6); Red Cell Distribution Width 15.6 % (11.5-14.0); White Blood Count 8.5 K/mm3 (4.0-10.5)
[2019-07-26 23:58] LABS: ALBUMIN 4.2 g/dL (3.5-5.0); ALKALINE PHOSPHATASE 72 U/L (38-126); ANION GAP 20.7 MEQ/L (5-15); BLOOD UREA NITROGEN 32 mg/dL (9-20); CHLORIDE 95 mmol/L (98-107); Calcium 9.6 mg/dL (8.4-10.2); Carbon Dioxide 23 mmol/L (22-30); Creatinine 1 1.18 mg/dL (0.66-1.25); Glucose 85 mg/dL (74-106); PHOSPHOROUS 4.3 mg/dL (2.5-4.5); Potassium 4.5 mmol/L (3.5-5.1); SGOT/AST 32 U/L (17-59); SGPT/ALT 19 U/L (0-50); SODIUM 134 mmol/L (137-145); Total Protein 8.5 g/dL (6.3-8.2)
[2019-07-27 00:56] VITALS: BP 137/85; PULSE 81; O2SAT 97
--- NOTE | 2019-07-27 10:31 | XRAY ---
Indication: Pain following fall. Comparison: None AP pelvis and 2 views of the left hip demonstrates mildly impacted/angulated left acute subcapital fracture. Elsewhere scattered vascular calcifications, osteopenia, and degenerative changes of the lower lumbar spine, both SI joints, and both hips.
== END 2019-07-27 00:44 | disposition short-term general hospital (02) ==
LOC: ED 22:06
DX: S72.002A Fracture of unspecified part of neck of left femur, initial encounter for closed fracture (principal); W19.XXXA Unspecified fall, initial encounter; Z79.899 Other long term (current) drug therapy
CPT/HCPCS: 36000; 36415; 73502; 80053; 84100; 85025; 96374; 96376; 99285; 99291; J3010

== ENCOUNTER 2020-02-09 14:52 | Emergency (ER) | payer MEDICARE, BC ==
[2020-02-09 16:16] LABS: Hematocrit 32.5 % (42-50); Hemoglobin 10.6 gm/dl (12.5-18.0); Mean Cell Volume 89.5 fl (78-100); Mean Corpuscular Hemoglobin 29.2 pg (26-32); Mean Corpuscular Hgb Concent. 32.6 g/dl (32-36); Mean Platelet Volume 9.1 fl (7.5-11.0); Platelet Count 319 K/mm3 (150-450); Red Blood Count 3.63 M/mm3 (4.1-5.6); Red Cell Distribution Width 15.7 % (11.5-14.0); White Blood Count 5.8 K/mm3 (4.0-10.5)
[2020-02-09 16:23] LABS: INR 1.18 (0.8-3.0); PROTIME 13.4 SECONDS (8.83-12.87)
--- NOTE | 2020-02-09 16:23 | ERPHSYRPT ---
- History of Present Illness Source: patient, other (/Poor historian) Patient Subjective Stated Complaint: pt reports right groin pain beginning 02/05, pt was taking part in outpatient physical therapy today when his therapist became concerned about the patients complaint of right groin as well as right lower extremity pain. pt reports he is unable to lift his right leg. pt states that when he remains still his pain is gone. pt visits outpatient for generalized weakness and rehab following a left partial hip repair. Triage Nursing Assessment: pt is aox3, pupils perrl, afebrile, resps easy and non labored, cap refill 3 seconds, radial pulses strong and equal, pt skin pink warm dry. pt presents with therapist from outpatient PT in a wheelchair, pt is unable to lift right lower extremity at this time. pt bilat lower extremities are edematous, right increased from left. clear drainage noted from the right lower extremity, skin is reddened beginning at mid calf and distal. dorsal feet are extremely swollen. will use doppler to detect pedal pulse follow this assessment. Physician History: 79 yo wm w R groin pain and RLE edema x 3days. Pt denies injury/chest pain/ dyspnea/fever/ho DVT. Method of Injury: unknown Occurred: other (3 days) Quality: constant Severity of Pain-Max: moderate Severity of Pain-Current: moderate Lower Extremities Pain: hip: right, leg: right Modifying Factors: Improves With: movement Associated Symptoms: unable to bear weight Allergies/Adverse Reactions: No Known Drug Allergies Allergy (Verified 02/09/20 15:32) Home Medications: Metoprolol Tartrate 25 mg [Lopressor 25MG Tab] 25 mg PO BID 04/04/19 [ History] Ondansetron HCl [Zofran] 4 mg PO [id number] PRN 04/04/19 [History] Melatonin 3 mg PO HS 07/26/19 [History] Multivitamins with Iron [Yro-Poz-Euuif with Iron] 1 tab PO DAILY 07/26/19 [ History] Nutritional Supplement [Osmolite 1.2 Go] 960 oz G-TUBE HS 07/26/19 [History] Potassium Chloride [Klor-Con M20] 20 meq PO DAILY 07/26/19 [History] Amlodipine Besylate 5 mg PO DAILY 02/09/20 [History] Famotidine 20 mg [Pepcid 20 MG] 20 mg PO BID 02/09/20 [History] Folic Acid 1 mg PO DAILY 02/09/20 [History] Hydrochlorothiazide 25 mg [hydroDIURIL 25 MG] 25 mg PO DAILY 02/09/20 [ History] Mupirocin [Bactroban OINTMENT] 1 each TOP TID PRN 02/09/20 [History] Omeprazole 20 mg PO DAILY 02/09/20 [History] Promethazine/Dextromethorphan [Promethazine-Dm Syrup] 5 ml PO Q6H 02/09/20 [ History] Sennosides/Docusate Sodium [Senna Plus 8.6-50 mg Softgel] 2 each PO DAILY [History] Hx Tetanus, Diphtheria Vaccination/Date Given: Yes Hx Influenza Vaccination/Date Given: Yes Hx Pneumococcal Vaccination/Date Given: Yes Immunizations Up to Date: Yes Travel Risk - International Travel Have you or anyone close to you been diagnosed with or: No Do your reside in a community with a known COVID-19 case?: Yes If Yes where:: [place] - Review of Systems Constitutional: No Symptoms Eyes: No Symptoms Ears, Nose, & Throat: No Symptoms Respiratory: No Symptoms Cardiac: No Symptoms, Edema Abdominal/Gastrointestinal: No Symptoms Genitourinary Symptoms: No Symptoms Skin: No Symptoms Neurological: No Symptoms Psychological: No Symptoms Endocrine: No Symptoms Hematologic/Lymphatic: No Symptoms Immunological/Allergic: No Symptoms - Past Medical History Pertinent Past Medical History: Yes Neurological History: No Pertinent History ENT History: No Pertinent History Cardiac History: Hypertension Respiratory History: No Pertinent History Endocrine Medical History: No Pertinent History Musculoskeletal History: Osteoarthritis GI Medical History: No Pertinent History, Pancreatitis History: No Pertinent History, Renal Disease Psycho-Social History: No Pertinent History Male Reproductive Disorders: Prostate Problems Other Medical History: R ANKLE FX 01/15. anemia - Past Surgical History Past Surgical History: Yes Neuro Surgical History: No Pertinent History Cardiac: No Pertinent History Respiratory: No Pertinent History Gastrointestinal: No Pertinent History Genitourinary: No Pertinent History Musculoskeletal: No Pertinent History, Joint Replacement Male Surgical History: Prostate Surgery Other Surgical History: varicose veins repaired, jg tube. partial replacement left hip - Social History Smoking Status: Never smoker Exposure to second hand smoke: No Drug Use: none Patient Lives Alone: No - Nursing Vital Signs Nursing Vital Signs: Initial Vital Signs Temperature 98 F 02/09/20 15:12 Pulse Rate 69 02/09/20 15:12 Respiratory Rate 20 02/09/20 15:12 Blood Pressure 113/57 02/09/20 15:12 O2 Sat by Pulse Oximetry 98 02/09/20 15:12 Pain Scale Pain Intensity 0 - Physical Exam General Appearance: no apparent distress Eyes, Ears, Nose, Throat Exam: normal ENT inspection, TMs normal, pharynx normal Neck Exam: normal inspection, non-tender, supple, full range of motion Cardiovascular/Respiratory Exam: chest non-tender, normal breath sounds, regular rate/rhythm, heart sounds normal Gastrointestinal/Abdominal Exam: non-tender, soft Back Exam: normal inspection, normal range of motion Hips Exam: right: pain (TTP R inguinal area) Legs Exam: right leg: pain Knees Exam: bilateral knee: non-tender, normal inspection, normal range of motion Ankle Exam: right ankle: pain (R posterior calf), bilateral ankle: swelling (2+) Foot Exam: bilateral foot: non-tender, normal inspection, normal range of motion , no evidence of injury Mental Status Exam: alert, oriented x 3, cooperative SpO2 Interpretation: normal SpO2: 98 - Course EKG Interpreted by Me: RATE (NSR/RBBB/ST-T wave changes/Normal QT-QTc) - Radiology Exams Chest X-ray Interpretation: Discussed w/ radiologist (Bibasilar effusions) - CT Exams Pelvis CT Interpretation: Discussed w/radiologist (No fx/DJD R hip/B inguinal hernias) - Radiology Ultrasound Exam Venous Lower Extremity Ultrasound: discussed w/radiologist (No DVT) Ordered Tests: Active Orders 24 hr Category Date Time Status EKG-ER Only STAT Care 02/09/20 16:10 Active IV Insertion STAT Care 02/09/20 15:55 Active CHEST 1 VIEW (PORTABLE) Stat Exams 02/09/20 15:58 Completed PELVIS WITHOUT CONTRAST [CT] Stat Exams 02/09/20 16:01 Completed Ultrasound Unilateral Extremities [VENOUS UNILAT/ Exams 02/09/20 16:29 Completed LIMITED EXTREMIT] [US] Stat CBC W DIFF Stat Lab 02/09/20 16:10 Completed CMP Stat Lab 02/09/20 16:10 Completed Manual Differential NC Stat Lab 02/09/20 16:10 Completed NT PRO BNP Stat Lab 02/09/20 16:10 Completed PROTIME WITH INR Stat Lab 02/09/20 16:10 Completed PTT Stat Lab 02/09/20 16:10 Completed TROPONIN Q3H Lab 02/09/20 16:10 Completed TROPONIN Q3H Lab 02/09/20 19:00 Ordered TROPONIN Q3H Lab 02/09/20 22:00 Ordered TROPONIN Q3H Lab 02/10/20 01:00 Ordered TROPONIN Q3H Lab 02/10/20 04:00 Ordered Medication Summary Discontinued Medications Generic Name Dose Route Start Last Admin Trade Name Freq PRN Reason Stop Dose Admin Hydrocodone Bitart/Acetaminophen 1 tab 02/09/20 17:31 [place] 10/325 Mg Tablet PO 02/09/20 17:32 STAT ONE Lab/Rad Data: Laboratory Result Diagrams 02/09/20 16:10 02/09/20 16:10 Laboratory Results 02/09/20 02/09/20 02/09/20 Range/Units 16:10 16:10 16:10 WBC (4.0-10.5) K/mm3 RBC (4.1-5.6) M/mm3 Hgb (12.5-18.0) gm/dl Hct (42-50) % MCV (78-100) fl MCH (26-32) pg MCHC (32-36) g/dl RDW (11.5-14.0) % Plt Count (150-450) K/mm3 MPV (7.5-11.0) fl Segmented Neutrophils (36.-66.) % Band Neutrophils (0.0-2.0) % Lymphocytes (Manual) (24-44) % Monocytes (Manual) (0.0-12.0) % Eosinophils (Manual) (0.00-3.0) % Basophils (Manual) (0.0-1.0) % Platelet Estimate (NORMAL) RBC Morphology PT 13.4 H (8.83-12.87) SECONDS INR 1.18 (0.8-3.0) APTT 35.0 (24.1-36.1) SECONDS Sodium 130 L (137-145) mmol/L Potassium 4.9 (3.5-5.1) mmol/L Chloride 96 L (98-107) mmol/L Carbon Dioxide 22 (22-30) mmol/L Anion Gap 17.0 H (5-15) MEQ/L BUN 31 H (9-20) mg/dL Creatinine 1.36 H (0.66-1.25) mg/dL Estimated GFR 53.6 ML/MIN Glucose 105 (74-106) mg/dL Calcium 9.0 (8.4-10.2) mg/dL Total Bilirubin 0.40 (0.2-1.3) mg/dL AST 24 (17-59) U/L ALT 10 (0-50) U/L Alkaline Phosphatase 61 (38-126) U/L Troponin I < 0.012 (0.000-0.034) ng/mL NT-Pro-B Natriuret Pep 410 (0-1800) pg/mL Serum Total Protein 7.5 (6.3-8.2) g/dL Albumin 4.1 (3.5-5.0) g/dL 02/09/20 Range/Units 16:10 WBC 5.8 (4.0-10.5) K/mm3 RBC 3.63 L (4.1-5.6) M/mm3 Hgb 10.6 L (12.5-18.0) gm/dl Hct 32.5 L (42-50) % MCV 89.5 (78-100) fl MCH 29.2 (26-32) pg MCHC 32.6 (32-36) g/dl RDW 15.7 H (11.5-14.0) % Plt Count 319 (150-450) K/mm3 MPV 9.1 (7.5-11.0) fl Segmented Neutrophils 70 H (36.-66.) % Band Neutrophils 2 (0.0-2.0) % Lymphocytes (Manual) 17 L (24-44) % Monocytes (Manual) 9 (0.0-12.0) % Eosinophils (Manual) 1 (0.00-3.0) % Basophils (Manual) 1 (0.0-1.0) % Platelet Estimate NORMAL (NORMAL) RBC Morphology NORMAL PT (8.83-12.87) SECONDS INR (0.8-3.0) APTT (24.1-36.1) SECONDS Sodium (137-145) mmol/L Potassium (3.5-5.1) mmol/L Chloride (98-107) mmol/L Carbon Dioxide (22-30) mmol/L Anion Gap (5-15) MEQ/L BUN (9-20) mg/dL Creatinine (0.66-1.25) mg/dL Estimated GFR ML/MIN Glucose (74-106) mg/dL Calcium (8.4-10.2) mg/dL Total Bilirubin (0.2-1.3) mg/dL AST (17-59) U/L ALT (0-50) U/L Alkaline Phosphatase (38-126) U/L Troponin I (0.000-0.034) ng/mL NT-Pro-B Natriuret Pep (0-1800) pg/mL Serum Total Protein (6.3-8.2) g/dL Albumin (3.5-5.0) g/dL - Progress Progress: unchanged Progress Note: 02/09/20 17:33 Pt wo evidence of DVT/Hip fx. 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 Counseled pt/family regarding: lab results, need for follow-up, rad results - Departure Departure Disposition: Home Clinical Impression: Hip pain Condition: Stable Critical Care Time: No Referrals: TENISHA HENAO [Primary Care Provider] - Instructions: Hip Pain (DC) Additional Instructions: Follow up with your family MD in AM Return to ER for increasing pain/fever/chest pain/shortness of breath Pain meds as needed Prescriptions: Hydrocodone/APAP 5-325 Tab^^^ [[place] 5-325 Tablet^^^] 1 each PO Q6HPRN PRN #7 tablet MDD 6 PRN Reason: Pain
[2020-02-09 16:35] LABS: ALBUMIN 4.1 g/dL (3.5-5.0); BILIRUBIN,TOTAL 0.4 mg/dL (0.2-1.3); Creatinine 1 1.36 mg/dL (0.66-1.25); Potassium 4.9 mmol/L (3.5-5.1); Total Protein 7.5 g/dL (6.3-8.2)
--- NOTE | 2020-02-09 16:37 | XRAY ---
Indication: Pain and edema. 2-dimensional sonogram and color Doppler imaging of the major venous vessels of the right leg was performed. Comparison: None No thrombus seen in the examined deep venous vessels of the right leg including greater saphenous vein. Veins demonstrate normal compressibility. Venous waveforms are normal with and without augmentation. Impression: Right leg negative for DVT.
--- NOTE | 2020-02-09 17:04 | XRAY ---
Indication: Cough. Comparison: April 04, 2019. Portable chest demonstrates worsening moderate bibasilar effusions/atelectasis again left greater than right. Heart is not enlarged. Bony thorax intact again with osteopenia and degenerative changes.
--- NOTE | 2020-02-09 17:07 | XRAY ---
Indication: Right hip/pelvic pain. Multiple contiguous axial images obtained through the pelvis with special attention to the osseous structures. Sagittal and coronal reformatted images obtained. Comparison: April 04, 2019. Interval left total hip arthroplasty with intact bipolar prosthesis. Stable age-related osteopenia, moderate right hip degenerative arthropathy, and moderate bilateral lower lumbar spine degenerative facet hypertrophy. No acute fracture or suspicious bony lesions. The visualized noncontrasted soft tissues demonstrates new mild diffuse fecal stasis with mild rectal impaction. Stable sigmoid diverticulosis and mild scattered arteriosclerotic calcifications. Interval enlarging large left inguinal hernia with again herniated sigmoid colon. Stable small umbilical hernia with herniated knuckle of small bowel. New moderate size right inguinal hernia with herniated knuckle of bowel. No incarceration/obstruction. Impression: 1. Enlarging large left inguinal hernia, new moderate right inguinal hernia, and stable small umbilical hernia with herniated bowel loops as detailed. No complications. 2. New diffuse fecal stasis with mild rectal impaction. 3. Interval left total hip arthroplasty. 4. Stable sigmoid diverticulosis, arteriosclerotic calcifications, osteopenia, right hip degenerative arthropathy, and lower lumbar degenerative changes.
[2020-02-09 17:13] LABS: BAND 2 % (0.0-2.0); Basophil 1 % (0.0-1.0); Eosinophil 1 % (0.00-3.0); Lymphocytes 17 % (24-44); Monocyte 9 % (0.0-12.0); Neutrophils 70 % (36.-66.); Platelet Estimate NORMAL (NORMAL); Total Cells Counted 100
[2020-02-09] MEDS ORDERED: Norco 10/325 MG Tablet PO ONE (17:31)
[2020-02-09] MEDS ORDERED: Norco 10/325 MG Tablet ONE (17:46)
[2020-02-09 17:56] VITALS: BP 136/69; PULSE 68; O2SAT 97
== END 2020-02-09 18:08 | disposition home or self-care (01) ==
LOC: ED 14:52
DX: M25.551 Pain in right hip (principal); M16.11 Unilateral primary osteoarthritis, right hip; M79.661 Pain in right lower leg; I10 Essential (primary) hypertension
CPT/HCPCS: 36000; 36415; 71045; 72192; 80053; 83880; 84484; 85025; 85610; 85730; 93005; 93971; 99284; A9270-GY

== ENCOUNTER 2020-05-21 15:38 | Inpatient (IN) | payer MEDICARE, BC ==
[2020-05-21 16:44] LABS: Hematocrit 38.4 % (42-50); Hemoglobin 12.4 gm/dl (12.5-18.0); Mean Cell Volume 89.9 fl (78-100); Mean Corpuscular Hgb Concent. 32.3 g/dl (32-36); Mean Platelet Volume 9.3 fl (7.5-11.0); Platelet Count 284 K/mm3 (150-450); Red Blood Count 4.27 M/mm3 (4.1-5.6); Red Cell Distribution Width 15.7 % (11.5-14.0); White Blood Count 23.2 K/mm3 (4.0-10.5)
[2020-05-21 17:06] LABS: ALBUMIN 4.5 g/dL (3.5-5.0); ALKALINE PHOSPHATASE 77 U/L (38-126); ANION GAP 16.4 MEQ/L (5-15); BLOOD UREA NITROGEN 24 mg/dL (9-20); CHLORIDE 96 mmol/L (98-107); Calcium 9.5 mg/dL (8.4-10.2); Carbon Dioxide 22 mmol/L (22-30); Creatinine 1 1.15 mg/dL (0.66-1.25); EST GLOMERULAR FILTRATION RATE > 60.0 ML/MIN; Glucose 148 mg/dL (74-106); NT PRO BNP 600 pg/mL (0-1800); Potassium 4.6 mmol/L (3.5-5.1); SGOT/AST 23 U/L (17-59); SGPT/ALT 14 U/L (0-50); SODIUM 130 mmol/L (137-145); Total Protein 8.5 g/dL (6.3-8.2)
[2020-05-21 17:11] LABS: BAND 3 % (0.0-2.0); Lymphocytes 3 % (24-44); Monocyte 6 % (0.0-12.0); Myelocyte 1 %; Neutrophils 87 % (36.-66.); Total Cells Counted 100
[2020-05-21 17:13] LABS: Absolute Neutrophil Ct (ANC) 20.83 (1.4-6.9); Platelet Estimate NORMAL (NORMAL); Toxic Granulation 1+
[2020-05-21] MEDS ORDERED: ROCEPHIN 1 Gm-D5w 50 ml Bag** 1 G/50 ML IVPB IV STA (18:21)
[2020-05-21] MEDS ORDERED: ROCEPHIN 1 Gm-D5w 50 ml Bag** 1 G/50 ML IVPB IV ONE (18:31)
--- NOTE | 2020-05-21 18:36 | ERPHSYRPT ---
- History of Present Illness Source: patient Exam Limitations: other (Poor historian) Patient Subjective Stated Complaint: Pt went to the Respiratory clinic today and had tests done and the clinic called the ER to state that he had fluid in his lungs and they didn't know if he has CHF or pneumonia and to come to the ER. Pt has been sick for only a few days, short of breath, cough, runny nose Triage Nursing Assessment: Pt brought to the ER by his , hypertensive, short of breath so placed on 2L NC, right sided coarse crackles, left side lungs clear, pt reports getting weaker over the past couple of days, skin n/w/d, afebrile Physician History: 80 yo wm w dyspnea x 3-4 days upon exertion/chronic nonproductive cough which is unchanged per pt/coryza. Pt denies chest pain/fever/edema/N/V/D/melena/hematochezia. Pt had an abnormal XR today. Timing/Duration: other (3-4 days) Activities at Onset: rest Severity of Dyspnea-Max: mild Severity of Dyspnea-Current: mild Possible Cause: no prior episodes Modifying Factors: Improves With: activity, exertion Associated Symptoms: weakness, productive cough, No chest pain/discomfort, No edema, No fever, No insomnia, No loss of appetite, No lightheadedness, No wheezing, No ankle swelling, No chills, No hemoptysis, No calf pain, No dizziness, No heaviness, No heart racing, No lightheadedness, No leg swelling, No muscle spasms feet, No muscle spasms hands, No painful breathing, No sweating Allergies/Adverse Reactions: No Known Drug Allergies Allergy (Verified 05/21/20 16:07) Home Medications: Metoprolol Tartrate 25 mg [Lopressor 25MG Tab] 25 mg PO BID 04/04/19 [History] Ondansetron HCl [Zofran] 4 mg PO [id number] PRN 04/04/19 [History] Melatonin 3 mg PO HS 07/26/19 [History] Multivitamins with Iron [Atb-Kmw-Jzuft with Iron] 1 tab PO DAILY 07/26/19 [History] Nutritional Supplement [Osmolite 1.2 Go] 960 oz G-TUBE HS 07/26/19 [History] Potassium Chloride [Klor-Con M20] 20 meq PO DAILY 07/26/19 [History] Amlodipine Besylate 5 mg PO DAILY 02/09/20 [History] Famotidine 20 mg [Pepcid 20 MG] 20 mg PO BID 02/09/20 [History] Folic Acid 1 mg PO DAILY 02/09/20 [History] Hydrochlorothiazide 25 mg [hydroDIURIL 25 MG] 25 mg PO DAILY 02/09/20 [History] Mupirocin [Bactroban OINTMENT] 1 each TOP TID PRN 02/09/20 [History] Omeprazole 20 mg PO DAILY 02/09/20 [History] Promethazine/Dextromethorphan [Promethazine-Dm Syrup] 5 ml PO Q6H 02/09/20 [History] Sennosides/Docusate Sodium [Senna Plus 8.6-50 mg Softgel] 2 each PO DAILY 02/09/20 [History] Hx Tetanus, Diphtheria Vaccination/Date Given: Yes Hx Influenza Vaccination/Date Given: Yes Hx Pneumococcal Vaccination/Date Given: Yes Travel Risk - International Travel Have you traveled outside of the country in past 3 weeks: No - Coronavirus Screening Are you exhibiting any of the following symptoms?: No Close contact with a COVID-19 positive Pt in past 14-21 Days: No - Review of Systems Constitutional: Weakness Eyes: No Symptoms Ears, Nose, & Throat: Nose Congestion Respiratory: Cough, Dyspnea, Dyspnea on Exertion (FAYE) Cardiac: No Symptoms, No Chest Pain, No Edema, No Palpitations, No Syncope, No Orthopnea, No PND Abdominal/Gastrointestinal: No Symptoms Genitourinary Symptoms: No Symptoms Musculoskeletal: No Symptoms Skin: No Symptoms Neurological: No Symptoms Psychological: No Symptoms Endocrine: No Symptoms Hematologic/Lymphatic: No Symptoms Immunological/Allergic: No Symptoms - Past Medical History Pertinent Past Medical History: Yes Neurological History: No Pertinent History ENT History: No Pertinent History Cardiac History: Hypertension Respiratory History: No Pertinent History Endocrine Medical History: No Pertinent History Musculoskeletal History: Osteoarthritis GI Medical History: No Pertinent History, Pancreatitis History: No Pertinent History, Renal Disease Psycho-Social History: No Pertinent History Male Reproductive Disorders: Prostate Problems Other Medical History: R ANKLE FX 01/15. anemia - Past Surgical History Past Surgical History: Yes Neuro Surgical History: No Pertinent History Cardiac: No Pertinent History Respiratory: No Pertinent History Gastrointestinal: No Pertinent History Genitourinary: No Pertinent History Musculoskeletal: No Pertinent History, Joint Replacement Male Surgical History: Prostate Surgery Other Surgical History: varicose veins repaired, jg tube. partial replacement left hip - Social History Smoking Status: Never smoker Exposure to second hand smoke: No Drug Use: none Patient Lives Alone: No Significant Family History: no pertinent family hx - Nursing Vital Signs Nursing Vital Signs: Initial Vital Signs Temperature 98.6 F 05/21/20 15:52 Pulse Rate 86 05/21/20 15:52 Respiratory Rate 23 05/21/20 15:52 Blood Pressure 153/89 05/21/20 15:52 O2 Sat by Pulse Oximetry 92 L 05/21/20 15:52 Pain Scale Pain Intensity 4 - Physical Exam General Appearance: no apparent distress Eye Exam: PERRL/EOMI, eyes nml inspection Ears, Nose, Throat Exam: hearing grossly normal, normal ENT inspection, normal pharynx, No abnormal TM (R), No abnormal TM (L) Neck Exam: normal inspection, non-tender, supple, full range of motion, No Brudzinski, No Kernig's, No meningismus Respiratory Exam: airway intact (Decreased BS at bases B) Cardiovascular/Chest Exam: normal heart sounds, regular rate/rhythm, No murmur Abdominal/Gastrointestinal Exam: soft, normal bowel sounds, No tenderness Rectal Exam: deferred Extremity Exam: non-tender, normal range of motion, normal inspection, no calf tenderness, no pedal edema Neurologic Exam: alert, oriented x 3, cooperative, transmission 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 protection 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-XII 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 as tested, normal mood/affect, sensation nml, No motor deficits, No sensory deficit Skin Exam: normal color, warm, dry Lymphatic Exam: No adenopathy SpO2 Interpretation: normal SpO2: 96 O2 Delivery: Nasal Cannula (2L) - Course EKG Interpreted by Me: RATE (NSR/RBBB/Normal QT-QTc) - CT Exams Chest CT Interpretation: Discussed w/radiologist (BLL-KARISHMA consolidation) Ordered Tests: Active Orders 24 hr Category Date Time Status EKG-ER Only STAT Care 05/21/20 16:07 Completed IV Insertion STAT Care 05/21/20 16:54 Completed Oxygen-ED Only Nasal Cannula 2 lpm Care 05/21/20 17:02 Completed Heart-Healthy Diet Diet 05/21/20 Breakfast Active CHEST WITHOUT CONTRAST [CT] Stat Exams 05/21/20 16:08 Taken BLOOD CULTURE Stat Lab 05/21/20 17:15 Received CBC W DIFF AM.LAB Lab 05/22/20 04:00 Ordered CBC W DIFF Stat Lab 05/21/20 16:40 Completed CMP AM.LAB Lab 05/22/20 04:00 Ordered CMP Stat Lab 05/21/20 16:40 Completed Lactic Acid Routine Lab 05/21/20 19:01 Completed Lactic Acid Stat Lab 05/21/20 16:07 Completed Lactic Acid Stat Lab 05/21/20 19:06 Received Manual Differential NC Stat Lab 05/21/20 16:40 Completed NT PRO BNP Stat Lab 05/21/20 16:40 Completed TROPONIN Q3H Lab 05/21/20 16:40 Completed TROPONIN Q3H Lab 05/21/20 18:40 Completed TROPONIN Q3H Lab 05/22/20 01:15 Ordered TROPONIN Q3H Lab 05/22/20 04:15 Ordered Transfer Order Routine Transfer 05/21/20 Completed Medication Summary Generic Name Dose Route Start Last Admin Trade Name Freq PRN Reason Stop Dose Admin Albuterol/Ipratropium 3 ml 05/21/20 20:09 Duoneb 0.5-3 Mg/3 Ml Neb IH 06/20/20 20:08 Q4HPRN PRN SHORTNESS OF BREATH/WHEEZING Enoxaparin Sodium 40 mg 05/22/20 10:00 Enoxaparin Sodium SQ 06/21/20 09:59 DAILY PAUL Sodium Chloride 1,000 mls @ 80 mls/hr 05/21/20 20:15 Sodium Chloride 0.9% 1000 Ml IV 06/20/20 20:14 .[id number] PAUL Azithromycin 500 mg in 250 mls @ 250 mls/hr 05/22/20 10:00 Zithromax 500 Mg/ 250 Ml Nacl Premix IV 06/21/20 09:59 Q24H10 PAUL Ceftriaxone Sodium/Dextrose 1 g in 50 mls @ 100 mls/hr 05/22/20 10:00 Rocephin 1 Gm-D5w 50 Ml Bag IV 06/21/20 09:59 Q24H10 PAUL Ondansetron HCl 4 mg 05/21/20 20:09 Zofran 4 Mg/2 Ml Vial IV 10/18/20 20:08 Q6H PRN PRN NAUSEA/VOMITING Discontinued Medications Generic Name Dose Route Start Last Admin Trade Name Freq PRN Reason Stop Dose Admin Ceftriaxone Sodium/Dextrose 1 g in 50 mls @ 100 mls/hr 05/21/20 18:21 05/21/20 19:30 Rocephin 1 Gm-D5w 50 Ml Bag IV 05/21/20 18:50 Infused STAT STA Infusion Ceftriaxone Sodium/Dextrose Confirm 05/21/20 18:31 Rocephin 1 Gm-D5w 50 Ml Bag Administered 05/21/20 18:32 Dose 1 g in 50 mls @ ud IV .Kudoala ONE Azithromycin Confirm 05/21/20 21:39 Zithromax 500 Mg/ 250 Ml Nacl Premix Administered 05/21/20 21:40 Dose 500 mg in 250 mls @ ud IV .[email or web address] ONE Lab/Rad Data: Laboratory Result Diagrams 05/21/20 16:40 05/21/20 16:40 Laboratory Results 05/21/20 05/21/20 05/21/20 Range/Units 19:01 19:00 18:40 WBC (4.0-10.5) K/mm3 RBC (4.1-5.6) M/mm3 Hgb (12.5-18.0) gm/dl Hct (42-50) % MCV (78-100) fl MCH (26-32) pg MCHC (32-36) g/dl RDW (11.5-14.0) % Plt Count (150-450) K/mm3 MPV (7.5-11.0) fl Absolute Granulocytes (1.4-6.9) Segmented Neutrophils (36.-66.) % Band Neutrophils (0.0-2.0) % Lymphocytes (Manual) (24-44) % Monocytes (Manual) (0.0-12.0) % Myelocytes % Toxic Granulation Platelet Estimate (NORMAL) RBC Morphology Sodium (137-145) mmol/L Potassium (3.5-5.1) mmol/L Chloride (98-107) mmol/L Carbon Dioxide (22-30) mmol/L Anion Gap (5-15) MEQ/L BUN (9-20) mg/dL Creatinine (0.66-1.25) mg/dL Estimated GFR ML/MIN Glucose (74-106) mg/dL Lactic Acid 1.7 (0.4-2.0) Calcium (8.4-10.2) mg/dL Total Bilirubin (0.2-1.3) mg/dL AST (17-59) U/L ALT (0-50) U/L Alkaline Phosphatase (38-126) U/L Troponin I < 0.012 (0.000-0.034) ng/mL NT-Pro-B Natriuret Pep (0-1800) pg/mL Serum Total Protein (6.3-8.2) g/dL Albumin (3.5-5.0) g/dL SARS-CoV-2 (PCR) NEGATIVE (NEGATIVE) 05/21/20 05/21/20 05/21/20 Range/Units 16:40 16:40 16:40 WBC 23.2 H (4.0-10.5) K/mm3 RBC 4.27 (4.1-5.6) M/mm3 Hgb 12.4 L (12.5-18.0) gm/dl Hct 38.4 L (42-50) % MCV 89.9 (78-100) fl MCH 29.0 (26-32) pg MCHC 32.3 (32-36) g/dl RDW 15.7 H (11.5-14.0) % Plt Count 284 (150-450) K/mm3 MPV 9.3 (7.5-11.0) fl Absolute Granulocytes 20.83 H (1.4-6.9) Segmented Neutrophils 87 H (36.-66.) % Band Neutrophils 3 H (0.0-2.0) % Lymphocytes (Manual) 3 L (24-44) % Monocytes (Manual) 6 (0.0-12.0) % Myelocytes 1 % Toxic Granulation 1+ Platelet Estimate NORMAL (NORMAL) RBC Morphology ABNORMAL Sodium 130 L (137-145) mmol/L Potassium 4.6 (3.5-5.1) mmol/L Chloride 96 L (98-107) mmol/L Carbon Dioxide 22 (22-30) mmol/L Anion Gap 16.4 H (5-15) MEQ/L BUN 24 H (9-20) mg/dL Creatinine 1.15 (0.66-1.25) mg/dL Estimated GFR > 60.0 ML/MIN Glucose 148 H (74-106) mg/dL Lactic Acid (0.4-2.0) Calcium 9.5 (8.4-10.2) mg/dL Total Bilirubin 0.70 (0.2-1.3) mg/dL AST 23 (17-59) U/L ALT 14 (0-50) U/L Alkaline Phosphatase 77 (38-126) U/L Troponin I < 0.012 (0.000-0.034) ng/mL NT-Pro-B Natriuret Pep 600 (0-1800) pg/mL Serum Total Protein 8.5 H (6.3-8.2) g/dL Albumin 4.5 (3.5-5.0) g/dL SARS-CoV-2 (PCR) (NEGATIVE) 05/21/20 Range/Units 16:07 WBC (4.0-10.5) K/mm3 RBC (4.1-5.6) M/mm3 Hgb (12.5-18.0) gm/dl Hct (42-50) % MCV (78-100) fl MCH (26-32) pg MCHC (32-36) g/dl RDW (11.5-14.0) % Plt Count (150-450) K/mm3 MPV (7.5-11.0) fl Absolute Granulocytes (1.4-6.9) Segmented Neutrophils (36.-66.) % Band Neutrophils (0.0-2.0) % Lymphocytes (Manual) (24-44) % Monocytes (Manual) (0.0-12.0) % Myelocytes % Toxic Granulation Platelet Estimate (NORMAL) RBC Morphology Sodium (137-145) mmol/L Potassium (3.5-5.1) mmol/L Chloride (98-107) mmol/L Carbon Dioxide (22-30) mmol/L Anion Gap (5-15) MEQ/L BUN (9-20) mg/dL Creatinine (0.66-1.25) mg/dL Estimated GFR ML/MIN Glucose (74-106) mg/dL Lactic Acid 2.6 H (0.4-2.0) Calcium (8.4-10.2) mg/dL Total Bilirubin (0.2-1.3) mg/dL AST (17-59) U/L ALT (0-50) U/L Alkaline Phosphatase (38-126) U/L Troponin I (0.000-0.034) ng/mL NT-Pro-B Natriuret Pep (0-1800) pg/mL Serum Total Protein (6.3-8.2) g/dL Albumin (3.5-5.0) g/dL SARS-CoV-2 (PCR) (NEGATIVE) - Progress Progress: unchanged Air Movement: fair Progress Note: 05/21/20 18:39 Blood cultures x2/1gm IV rocephin 05/21/20 18:[address] 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 Stallings but wanted Rapid Covid19 first 05/21/20 20:08 Covid19 neg D[address] with Dr.: Tiff Chavez, Eric Will see patient in: hospital (full admit) Counseled pt/family regarding: lab results, diagnosis, rad results - Departure Departure Disposition: Observation Clinical Impression: Pneumonia Condition: Stable Critical Care Time: No
[2020-05-21] MEDS ORDERED: Zofran 4 MG/2 ML VIAL IV PRN (20:09)
[2020-05-21] MEDS ORDERED: DUONEB 0.5-3 MG/3 ml Neb IH PRN (20:09)
[2020-05-21] MEDS ORDERED: Zithromax 500 MG/ 250 ML NaCl Premix 500 MG/250 ML IVPB IV ONE (21:39)
[2020-05-21] MEDS: Sodium Chloride 0.9% 1000 ML 1,000 ML IV SCH (22:29)
--- NOTE | 2020-05-21 23:53 | PCM.HP ---
History of Present Illness - Chief Complaint Chief Complaint: pneumonia History of Present Illness: is a 80 year old male with cough and weakness for the last 3-4 days, denies pain, no known fever but cough productive of white sputum. He was more weak and ill today so he states his brought him to be checked out. - Review of Systems Constitutional: No Fever, No Chills Respiratory: Cough, No Short Of Breath Cardiac: No Chest Pain, No Edema, No Syncope Abdominal/Gastrointestinal: No Abdominal Pain, No Nausea, No Vomiting, No Diarrhea Skin: No Rash All Other Systems: Reviewed and Negative Medications & Allergies Home Medications: Home Medication List Metoprolol Tartrate 25 mg [Lopressor 25MG Tab] 25 mg PO BID 04/04/19 [History Confirmed 05/21/20] Ondansetron HCl [Zofran] 4 mg PO [id number] PRN 04/04/19 [History Confirmed 05/21/20] Melatonin 3 mg PO HS 07/26/19 [History Confirmed 05/21/20] Multivitamins with Iron [Kzo-Dtk-Jdpwr with Iron] 1 tab PO DAILY 07/26/19 [History Confirmed 05/21/20] Nutritional Supplement [Osmolite 1.2 Go] 960 oz G-TUBE HS 07/26/19 [History Confirmed 05/21/20] Potassium Chloride [Klor-Con M20] 20 meq PO DAILY 07/26/19 [History Confirmed 05/21/20] Amlodipine Besylate 5 mg PO DAILY 02/09/20 [History Confirmed 05/21/20] Famotidine 20 mg [Pepcid 20 MG] 20 mg PO BID 02/09/20 [History Confirmed 05/21/20] Folic Acid 1 mg PO DAILY 02/09/20 [History Confirmed 05/21/20] Hydrochlorothiazide 25 mg [hydroDIURIL 25 MG] 25 mg PO DAILY 02/09/20 [History Confirmed 05/21/20] Mupirocin [Bactroban OINTMENT] 1 each TOP TID PRN 02/09/20 [History Confirmed 05/21/20] Omeprazole 20 mg PO DAILY 02/09/20 [History Confirmed 05/21/20] Promethazine/Dextromethorphan [Promethazine-Dm Syrup] 5 ml PO Q6H 02/09/20 [History Confirmed 05/21/20] Sennosides/Docusate Sodium [Senna Plus 8.6-50 mg Softgel] 2 each PO DAILY 02/09/20 [History Confirmed 05/21/20] Allergies/Adverse Reactions: Allergies Allergy/AdvReac Type Severity Reaction Status Date / Time No Known Drug Allergies Allergy Verified 05/21/20 16:07 - Past Medical History Past Medical History: Yes Neurological History: No Pertinent History ENT History: No Pertinent History Cardiac History: Hypertension Respiratory History: No Pertinent History Endocrine Medical History: No Pertinent History Musculoskelatal History: Osteoarthritis GI Medical History: No Pertinent History, Pancreatitis History: No Pertinent History, Renal Disease Pyscho-Social History: No Pertinent History Male Reproductive Disorders: Prostate Problems Comment: R ANKLE FX 01/15. anemia - Past Surgical History Past Surgical History: Yes Neuro Surgical History: No Pertinent History Cardiac History: No Pertinent History Respiratory Surgery: No Pertinent History GI Surgical History: No Pertinent History Genitourinary Surgical Hx: No Pertinent History Musculskeletal Surgical Hx: No Pertinent History, Joint Replacement Male Surgical History: Prostate Surgery Other Surgical History: varicose veins repaired, jg tube. partial replacement left hip - Social History Smoking Status: Never smoker Exposure to second hand smoke: No Alcohol: None Drug Use: none Significant Family History: no pertinent family hx - Physical Exam Vital Signs: Vital Signs - 24 hr Temp Pulse Resp BP Pulse Ox 05/21/20 22:16 96 05/21/20 21:59 95 05/21/20 21:49 98.2 F 79 20 136/74 96 05/21/20 20:50 91 H 16 95 05/21/20 20:00 80 20 144/76 97 05/21/20 19:10 75 141/72 97 05/21/20 18:49 79 130/69 98 05/21/20 17:03 88 20 150/81 96 05/21/20 15:52 98.6 F 86 13 153/89 97 Oxygen-Last 24 hours Oxygen Flowrate (L/min)-RT 2 General Appearance: no apparent distress Neurologic Exam: alert, oriented x 3, cooperative Respiratory Exam: rhonchi Cardiovascular Exam: regular rate/rhythm, normal heart sounds, normal peripheral pulses Gastrointestinal/Abdomen Exam: soft, normal bowel sounds, No tenderness, No mass Extremity Exam: normal inspection, normal range of motion, pelvis stable Skin Exam: normal color, warm, dry, No rash Results - Labs Lab/Micro Results: Lab Results-Last 24 Hours 05/21/20 05/21/20 05/21/20 Range/Units 16:07 16:40 16:40 WBC 23.2 H (4.0-10.5) K/mm3 RBC 4.27 (4.1-5.6) M/mm3 Hgb 12.4 L (12.5-18.0) gm/dl Hct 38.4 L (42-50) % MCV 89.9 (78-100) fl MCH 29.0 (26-32) pg MCHC 32.3 (32-36) g/dl RDW 15.7 H (11.5-14.0) % Plt Count 284 (150-450) K/mm3 MPV 9.3 (7.5-11.0) fl Absolute Granulocytes 20.83 H (1.4-6.9) Segmented Neutrophils 87 H (36.-66.) % Band Neutrophils 3 H (0.0-2.0) % Lymphocytes (Manual) 3 L (24-44) % Monocytes (Manual) 6 (0.0-12.0) % Myelocytes 1 % Toxic Granulation 1+ Platelet Estimate NORMAL (NORMAL) RBC Morphology ABNORMAL Sodium 130 L (137-145) mmol/L Potassium 4.6 (3.5-5.1) mmol/L Chloride 96 L (98-107) mmol/L Carbon Dioxide 22 (22-30) mmol/L Anion Gap 16.4 H (5-15) MEQ/L BUN 24 H (9-20) mg/dL Creatinine 1.15 (0.66-1.25) mg/dL Estimated GFR > 60.0 ML/MIN Glucose 148 H (74-106) mg/dL Lactic Acid 2.6 H (0.4-2.0) Calcium 9.5 (8.4-10.2) mg/dL Total Bilirubin 0.70 (0.2-1.3) mg/dL AST 23 (17-59) U/L ALT 14 (0-50) U/L Alkaline Phosphatase 77 (38-126) U/L Troponin I (0.000-0.034) ng/mL NT-Pro-B Natriuret Pep 600 (0-1800) pg/mL Serum Total Protein 8.5 H (6.3-8.2) g/dL Albumin 4.5 (3.5-5.0) g/dL SARS-CoV-2 (PCR) (NEGATIVE) 05/21/20 05/21/20 05/21/20 Range/Units 16:40 18:40 19:00 WBC (4.0-10.5) K/mm3 RBC (4.1-5.6) M/mm3 Hgb (12.5-18.0) gm/dl Hct (42-50) % MCV (78-100) fl MCH (26-32) pg MCHC (32-36) g/dl RDW (11.5-14.0) % Plt Count (150-450) K/mm3 MPV (7.5-11.0) fl Absolute Granulocytes (1.4-6.9) Segmented Neutrophils (36.-66.) % Band Neutrophils (0.0-2.0) % Lymphocytes (Manual) (24-44) % Monocytes (Manual) (0.0-12.0) % Myelocytes % Toxic Granulation Platelet Estimate (NORMAL) RBC Morphology Sodium (137-145) mmol/L Potassium (3.5-5.1) mmol/L Chloride (98-107) mmol/L Carbon Dioxide (22-30) mmol/L Anion Gap (5-15) MEQ/L BUN (9-20) mg/dL Creatinine (0.66-1.25) mg/dL Estimated GFR ML/MIN Glucose (74-106) mg/dL Lactic Acid (0.4-2.0) Calcium (8.4-10.2) mg/dL Total Bilirubin (0.2-1.3) mg/dL AST (17-59) U/L ALT (0-50) U/L Alkaline Phosphatase (38-126) U/L Troponin I < 0.012 < 0.012 (0.000-0.034) ng/mL NT-Pro-B Natriuret Pep (0-1800) pg/mL Serum Total Protein (6.3-8.2) g/dL Albumin (3.5-5.0) g/dL SARS-CoV-2 (PCR) NEGATIVE (NEGATIVE) 05/21/20 Range/Units 19:01 WBC (4.0-10.5) K/mm3 RBC (4.1-5.6) M/mm3 Hgb (12.5-18.0) gm/dl Hct (42-50) % MCV (78-100) fl MCH (26-32) pg MCHC (32-36) g/dl RDW (11.5-14.0) % Plt Count (150-450) K/mm3 MPV (7.5-11.0) fl Absolute Granulocytes (1.4-6.9) Segmented Neutrophils (36.-66.) % Band Neutrophils (0.0-2.0) % Lymphocytes (Manual) (24-44) % Monocytes (Manual) (0.0-12.0) % Myelocytes % Toxic Granulation Platelet Estimate (NORMAL) RBC Morphology Sodium (137-145) mmol/L Potassium (3.5-5.1) mmol/L Chloride (98-107) mmol/L Carbon Dioxide (22-30) mmol/L Anion Gap (5-15) MEQ/L BUN (9-20) mg/dL Creatinine (0.66-1.25) mg/dL Estimated GFR ML/MIN Glucose (74-106) mg/dL Lactic Acid 1.7 (0.4-2.0) Calcium (8.4-10.2) mg/dL Total Bilirubin (0.2-1.3) mg/dL AST (17-59) U/L ALT (0-50) U/L Alkaline Phosphatase (38-126) U/L Troponin I (0.000-0.034) ng/mL NT-Pro-B Natriuret Pep (0-1800) pg/mL Serum Total Protein (6.3-8.2) g/dL Albumin (3.5-5.0) g/dL SARS-CoV-2 (PCR) (NEGATIVE) - Radiology Impressions Radiology Exams & Impressions: Radiology Procedures Category Date Time Status CHEST WITHOUT CONTRAST [CT] Stat Exams 05/21/20 16:08 Taken - Other Procedures and Tests Respiratory Therapy 05/21/20 20:09 Oxygen Nasal Cannula 2 lpm 05/21/20 21:59 Flutter Therapy UD Respiratory Therapy Assessment DAILY Assessment/Plan (1) Pneumonia Current Visit: Yes Status: Acute Assessment & Plan: started on rocephin/zithromax, continue supportive measures at this time. Code(s): J18.9 - PNEUMONIA, UNSPECIFIED ORGANISM
[2020-05-22] MEDS: TYLENOL 325 MG PO PRN ×2 (00:03→22:08)
[2020-05-22] MEDS: BENADRYL 25 MG CAPSULE PO PRN ×2 (00:03→22:08)
[2020-05-22 06:00] LABS: Hematocrit 31.5 % (42-50); Mean Cell Volume 90.8 fl (78-100); Mean Corpuscular Hemoglobin 28.8 pg (26-32); Mean Corpuscular Hgb Concent. 31.7 g/dl (32-36); Mean Platelet Volume 9.4 fl (7.5-11.0); Platelet Count 285 K/mm3 (150-450); Red Blood Count 3.47 M/mm3 (4.1-5.6); Red Cell Distribution Width 15.7 % (11.5-14.0); White Blood Count 21.1 K/mm3 (4.0-10.5)
[2020-05-22 06:17] LABS: ALBUMIN 3.6 g/dL (3.5-5.0); ALKALINE PHOSPHATASE 65 U/L (38-126); ANION GAP 12.8 MEQ/L (5-15); BLOOD UREA NITROGEN 23 mg/dL (9-20); CHLORIDE 99 mmol/L (98-107); Calcium 8.7 mg/dL (8.4-10.2); Carbon Dioxide 23 mmol/L (22-30); Creatinine 1 1.16 mg/dL (0.66-1.25); EST GLOMERULAR FILTRATION RATE > 60.0 ML/MIN; Glucose 122 mg/dL (74-106); SGOT/AST 17 U/L (17-59); SGPT/ALT 11 U/L (0-50); SODIUM 130 mmol/L (137-145)
--- NOTE | 2020-05-22 08:10 | PCM.NOTE ---
Date and Time: 05/22/20 08 Subjective Assessment: pt reports he is feeling some better, no new complaints. damaris po Objective Exam General Appearance: no apparent distress, alert Skin Exam: normal color, warm, dry Respiratory Exam: rhonchi Cardiovascular Exam: regular rate/rhythm, normal heart sounds Gastrointestinal/Abdomen Exam: soft, No tenderness, No mass OBJECTIVE DATA Vital Signs: Vital Signs - 24 hr Temp Pulse Resp BP Pulse Ox 05/22/20 07:27 98.2 F 65 20 113/56 96 05/22/20 07:22 63 18 97 05/22/20 04:00 97.7 F 65 17 111/57 96 05/22/20 00:00 98.4 F 75 14 108/55 94 L 05/21/20 22:16 96 05/21/20 21:59 95 05/21/20 21:49 98.2 F 79 20 136/74 96 05/21/20 20:50 91 H 16 95 05/21/20 20:00 80 20 144/76 97 05/21/20 19:10 75 141/72 97 05/21/20 18:49 79 130/69 98 05/21/20 17:03 88 20 150/81 96 05/21/20 15:52 98.6 F 86 13 153/89 97 Oxygen-Last 24 hours Oxygen Flowrate (L/min)-RT 2 Oxygen Flowrate (L/min)-RT 2 Oxygen Flowrate (L/min)-RT 2 Pain Assessment - Last Documented Pain Intensity 4 Pain Scale Used 0-10 Pain Scale Intake and Output: Intake & Output 05/19/20 05/20/20 05/21/20 05/22/20 11:59 11:59 11:59 11:59 Intake Total 1127 Output Total 425 Balance 702 Weight 92.2 kg Lab Results: Lab Results-Last 24 Hours 05/21/20 05/21/20 05/21/20 Range/Units 16:07 16:40 16:40 WBC 23.2 H (4.0-10.5) K/mm3 RBC 4.27 (4.1-5.6) M/mm3 Hgb 12.4 L (12.5-18.0) gm/dl Hct 38.4 L (42-50) % MCV 89.9 (78-100) fl MCH 29.0 (26-32) pg MCHC 32.3 (32-36) g/dl RDW 15.7 H (11.5-14.0) % Plt Count 284 (150-450) K/mm3 MPV 9.3 (7.5-11.0) fl Absolute Granulocytes 20.83 H (1.4-6.9) Segmented Neutrophils 87 H (36.-66.) % Band Neutrophils 3 H (0.0-2.0) % Lymphocytes (Manual) 3 L (24-44) % Monocytes (Manual) 6 (0.0-12.0) % Myelocytes 1 % Toxic Granulation 1+ Platelet Estimate NORMAL (NORMAL) RBC Morphology ABNORMAL Sodium 130 L (137-145) mmol/L Potassium 4.6 (3.5-5.1) mmol/L Chloride 96 L (98-107) mmol/L Carbon Dioxide 22 (22-30) mmol/L Anion Gap 16.4 H (5-15) MEQ/L BUN 24 H (9-20) mg/dL Creatinine 1.15 (0.66-1.25) mg/dL Estimated GFR > 60.0 ML/MIN Glucose 148 H (74-106) mg/dL Lactic Acid 2.6 H (0.4-2.0) Calcium 9.5 (8.4-10.2) mg/dL Total Bilirubin 0.70 (0.2-1.3) mg/dL AST 23 (17-59) U/L ALT 14 (0-50) U/L Alkaline Phosphatase 77 (38-126) U/L Troponin I (0.000-0.034) ng/mL NT-Pro-B Natriuret Pep 600 (0-1800) pg/mL Serum Total Protein 8.5 H (6.3-8.2) g/dL Albumin 4.5 (3.5-5.0) g/dL SARS-CoV-2 (PCR) (NEGATIVE) 05/21/20 05/21/20 05/21/20 Range/Units 16:40 18:40 19:00 WBC (4.0-10.5) K/mm3 RBC (4.1-5.6) M/mm3 Hgb (12.5-18.0) gm/dl Hct (42-50) % MCV (78-100) fl MCH (26-32) pg MCHC (32-36) g/dl RDW (11.5-14.0) % Plt Count (150-450) K/mm3 MPV (7.5-11.0) fl Absolute Granulocytes (1.4-6.9) Segmented Neutrophils (36.-66.) % Band Neutrophils (0.0-2.0) % Lymphocytes (Manual) (24-44) % Monocytes (Manual) (0.0-12.0) % Myelocytes % Toxic Granulation Platelet Estimate (NORMAL) RBC Morphology Sodium (137-145) mmol/L Potassium (3.5-5.1) mmol/L Chloride (98-107) mmol/L Carbon Dioxide (22-30) mmol/L Anion Gap (5-15) MEQ/L BUN (9-20) mg/dL Creatinine (0.66-1.25) mg/dL Estimated GFR ML/MIN Glucose (74-106) mg/dL Lactic Acid (0.4-2.0) Calcium (8.4-10.2) mg/dL Total Bilirubin (0.2-1.3) mg/dL AST (17-59) U/L ALT (0-50) U/L Alkaline Phosphatase (38-126) U/L Troponin I < 0.012 < 0.012 (0.000-0.034) ng/mL NT-Pro-B Natriuret Pep (0-1800) pg/mL Serum Total Protein (6.3-8.2) g/dL Albumin (3.5-5.0) g/dL SARS-CoV-2 (PCR) NEGATIVE (NEGATIVE) 05/21/20 05/22/20 05/22/20 Range/Units 19:01 05:30 05:30 WBC 21.1 H (4.0-10.5) K/mm3 RBC 3.47 L (4.1-5.6) M/mm3 Hgb 10.0 L (12.5-18.0) gm/dl Hct 31.5 L (42-50) % MCV 90.8 (78-100) fl MCH 28.8 (26-32) pg MCHC 31.7 L (32-36) g/dl RDW 15.7 H (11.5-14.0) % Plt Count 285 (150-450) K/mm3 MPV 9.4 (7.5-11.0) fl Absolute Granulocytes (1.4-6.9) Segmented Neutrophils (36.-66.) % Band Neutrophils (0.0-2.0) % Lymphocytes (Manual) (24-44) % Monocytes (Manual) (0.0-12.0) % Myelocytes % Toxic Granulation Platelet Estimate (NORMAL) RBC Morphology Sodium 130 L (137-145) mmol/L Potassium 4.0 (3.5-5.1) mmol/L Chloride 99 (98-107) mmol/L Carbon Dioxide 23 (22-30) mmol/L Anion Gap 12.8 (5-15) MEQ/L BUN 23 H (9-20) mg/dL Creatinine 1.16 (0.66-1.25) mg/dL Estimated GFR > 60.0 ML/MIN Glucose 122 H (74-106) mg/dL Lactic Acid 1.7 (0.4-2.0) Calcium 8.7 (8.4-10.2) mg/dL Total Bilirubin 0.70 (0.2-1.3) mg/dL AST 17 (17-59) U/L ALT 11 (0-50) U/L Alkaline Phosphatase 65 (38-126) U/L Troponin I (0.000-0.034) ng/mL NT-Pro-B Natriuret Pep (0-1800) pg/mL Serum Total Protein 7.0 (6.3-8.2) g/dL Albumin 3.6 (3.5-5.0) g/dL SARS-CoV-2 (PCR) (NEGATIVE) Radiology Exams: Radiology Procedures Category Date Time Status CHEST WITHOUT CONTRAST [CT] Stat Exams 05/21/20 16:08 Taken Assessment/Plan (1) Pneumonia Current Visit: Yes Status: Acute Assessment & Plan: on rocephin/zithromax Code(s): J18.9 - PNEUMONIA, UNSPECIFIED ORGANISM
--- NOTE | 2020-05-22 08:17 | XRAY ---
Indication: Cough and short of breath. Multiple contiguous axial images obtained through the chest without contrast as ordered. Comparison: December 05, 2018. There is interval worsening mild/moderate bilateral pleural effusions and bibasilar compressive atelectasis. New consolidating airspace opacities seen in both lower lobes and lesser degree left upper lobe. Stable tiny peripheral right upper lobe calcified granuloma. Heart is not enlarged. Aorta remains mildly calcified without aneurysmal dilatation. No pathologic mediastinal lymphadenopathy. Midesophagus is again mildly fluid distended presumed from gastroesophageal reflux. Bony thorax again demonstrates osteopenia and mild degenerative changes throughout the spine. Limited upper abdomen again demonstrates stable tiny left upper pole renal cyst. Impression: 1. New bilateral lower and left upper lobe consolidating airspace disease. Worsening bilateral effusions and bibasilar compressive atelectasis. 2. Again mild fluid distended esophagus presumed from gastroesophageal reflux. 3. Stable tiny left renal cyst and old granulomatous disease.
[2020-05-22] MEDS ORDERED: Zithromax 500 MG/ 250 ML NaCl Premix 500 MG/250 ML IVPB IV SCH (10:00)
[2020-05-22] MEDS ORDERED: FLUZONE HIGH-DOSE QUAD 2020-21 IM ONE ×2 (10:00→15:57)
[2020-05-22 11:25] LABS: ANISOCYTOSIS 1+; BAND 3 % (0.0-2.0); Eosinophil 1 % (0.00-3.0); Lymphocytes 8 % (24-44); Monocyte 5 % (0.0-12.0); Neutrophils 83 % (36.-66.); Platelet Estimate NORMAL (NORMAL); Total Cells Counted 100; Toxic Granulation 1+
[2020-05-22] MEDS: Sodium Chloride 0.9% 1000 ML 1,000 ML IV SCH (11:38)
[2020-05-22] MEDS ORDERED: MEDICATION INTERVENTION MC SCH (15:30)
[2020-05-22] MEDS: Klor Con 10 MEQ PO SCH (15:40)
[2020-05-22] MEDS: NORVASC 5 MG PO SCH (15:40)
[2020-05-22] MEDS: THERAGRAN MULTIVITAMIN PO SCH (15:40)
[2020-05-22] MEDS: Toprol-Xl 25MG Tablets PO SCH (15:41)
[2020-05-22] MEDS: Protonix 40MG Tablet PO SCH (15:41)
[2020-05-22] MEDS: ENOXAPARIN SODIUM SQ SCH (15:41)
[2020-05-22] MEDS: Zithromax 500 MG/ 250 ML NaCl Premix 500 MG/250 ML IVPB IV SCH (22:08)
[2020-05-22] MEDS: ROCEPHIN 1 Gm-D5w 50 ml Bag** 1 G/50 ML IVPB IV SCH (22:20)
[2020-05-23] MEDS: Sodium Chloride 0.9% 1000 ML 1,000 ML IV SCH ×2 (01:58→18:50)
[2020-05-23 06:30] LABS: Hematocrit 30.4 % (42-50); Hemoglobin 9.5 gm/dl (12.5-18.0); Mean Cell Volume 91.8 fl (78-100); Mean Corpuscular Hemoglobin 28.7 pg (26-32); Mean Corpuscular Hgb Concent. 31.3 g/dl (32-36); Mean Platelet Volume 9.7 fl (7.5-11.0); Platelet Count 257 K/mm3 (150-450); Red Blood Count 3.31 M/mm3 (4.1-5.6); Red Cell Distribution Width 15.7 % (11.5-14.0); White Blood Count 14.4 K/mm3 (4.0-10.5)
[2020-05-23 06:37] LABS: ANION GAP 10.9 MEQ/L (5-15); BLOOD UREA NITROGEN 20 mg/dL (9-20); CHLORIDE 102 mmol/L (98-107); Calcium 8.5 mg/dL (8.4-10.2); Carbon Dioxide 21 mmol/L (22-30); Creatinine 1 1.07 mg/dL (0.66-1.25); EST GLOMERULAR FILTRATION RATE > 60.0 ML/MIN; Glucose 110 mg/dL (74-106); Potassium 4.3 mmol/L (3.5-5.1); SODIUM 129 mmol/L (137-145)
[2020-05-23 08:22] LABS: ANISOCYTOSIS 1+; BAND 2 % (0.0-2.0); Lymphocytes 6 % (24-44); Monocyte 5 % (0.0-12.0); Neutrophils 87 % (36.-66.); Total Cells Counted 100; Toxic Granulation 2+
[2020-05-23 08:23] LABS: Microcytosis 1+; Platelet Estimate NORMAL (NORMAL)
[2020-05-23] MEDS: THERAGRAN MULTIVITAMIN PO SCH (08:48)
[2020-05-23] MEDS: NORVASC 5 MG PO SCH (08:48)
[2020-05-23] MEDS: Protonix 40MG Tablet PO SCH (08:48)
[2020-05-23] MEDS: Klor Con 10 MEQ PO SCH (08:48)
[2020-05-23] MEDS: Lasix 40 MG PO SCH (08:48)
[2020-05-23] MEDS: Toprol-Xl 25MG Tablets PO SCH (08:51)
[2020-05-23] MEDS: ENOXAPARIN SODIUM SQ SCH (08:51)
[2020-05-23] MEDS ORDERED: NON-FORMULARY ITEM (Omeprazole [Omeprazole] 20 MG) PO SCH (10:00)
[2020-05-23] MEDS ORDERED: MULTIVITAMINS WITH IRON PO SCH (10:00)
[2020-05-23] MEDS ORDERED: NON-FORMULARY ITEM (Potassium Chloride [Klor-Con M20] 20 MEQ) PO SCH (10:00)
--- NOTE | 2020-05-23 11:41 | PCM.NOTE ---
Date and Time: 05/23/20 1140 Subjective Assessment: patient reports he is feeling much better, he is alert and oriented. states his weakness is improved, he isn't coughing much. still on oxygen Objective Exam General Appearance: no apparent distress, alert Respiratory Exam: normal breath sounds, lungs clear, No respiratory distress Cardiovascular Exam: regular rate/rhythm, normal heart sounds Gastrointestinal/Abdomen Exam: soft, No tenderness, No mass Extremity Exam: normal inspection, normal range of motion OBJECTIVE DATA Vital Signs: Vital Signs - 24 hr Temp Pulse Resp BP Pulse Ox 05/23/20 07:59 66 16 96 05/23/20 07:07 98.1 F 62 16 139/69 98 05/23/20 04:00 97.6 F 73 18 144/78 94 L 05/23/20 00:00 98.2 F 67 19 118/60 98 05/22/20 19:45 97.8 F 72 19 122/64 94 L 05/22/20 19:07 71 20 95 05/22/20 15:50 98.3 F 80 20 143/67 96 Oxygen-Last 24 hours Oxygen Flowrate (L/min)-RT 2 Pain Assessment - Last Documented Pain Intensity 4 Pain Scale Used [facility] Intake and Output: Intake & Output 05/20/20 05/21/20 05/22/20 05/23/20 11:59 11:59 11:59 11:59 Intake Total 1127 3343 Output Total 925 1975 Balance 202 1368 Weight 92.2 kg Lab Results: Lab Results-Last 24 Hours 05/23/20 05/23/20 Range/Units 06:00 06:00 WBC 14.4 H (4.0-10.5) K/mm3 RBC 3.31 L (4.1-5.6) M/mm3 Hgb 9.5 L (12.5-18.0) gm/dl Hct 30.4 L (42-50) % MCV 91.8 (78-100) fl MCH 28.7 (26-32) pg MCHC 31.3 L (32-36) g/dl RDW 15.7 H (11.5-14.0) % Plt Count 257 (150-450) K/mm3 MPV 9.7 (7.5-11.0) fl Segmented Neutrophils 87 H (36.-66.) % Band Neutrophils 2 (0.0-2.0) % Lymphocytes (Manual) 6 L (24-44) % Monocytes (Manual) 5 (0.0-12.0) % Toxic Granulation 2+ Platelet Estimate NORMAL (NORMAL) RBC Morphology ABNORMAL Anisocytosis 1+ Microcytosis 1+ Sodium 129 L (137-145) mmol/L Potassium 4.3 (3.5-5.1) mmol/L Chloride 102 (98-107) mmol/L Carbon Dioxide 21 L (22-30) mmol/L Anion Gap 10.9 (5-15) MEQ/L BUN 20 (9-20) mg/dL Creatinine 1.07 (0.66-1.25) mg/dL Estimated GFR > 60.0 ML/MIN Glucose 110 H (74-106) mg/dL Calcium 8.5 (8.4-10.2) mg/dL Radiology Exams: Radiology Procedures Category Date Time Status CHEST WITHOUT CONTRAST [CT] Stat Exams 05/21/20 16:08 Completed Assessment/Plan (1) Pneumonia Current Visit: Yes Status: Acute Assessment & Plan: on rocephin/zithromax, clinically improving. likely home when able to wean from oxygen. Code(s): J18.9 - PNEUMONIA, UNSPECIFIED ORGANISM
[2020-05-23] MEDS ORDERED: Zithromax 500 MG/ 250 ML NaCl Premix 500 MG/250 ML IVPB IV ONE (21:34)
[2020-05-23] MEDS: ROCEPHIN 1 Gm-D5w 50 ml Bag** 1 G/50 ML IVPB IV SCH (21:53)
[2020-05-23] MEDS: BENADRYL 25 MG CAPSULE PO PRN (22:08)
[2020-05-23] MEDS: TYLENOL 325 MG PO PRN (22:08)
[2020-05-23] MEDS: Zithromax 500 MG/ 250 ML NaCl Premix 500 MG/250 ML IVPB IV SCH (22:12)
[2020-05-24] MEDS: Sodium Chloride 0.9% 1000 ML 1,000 ML IV SCH ×2 (07:18→11:55)
[2020-05-24] MEDS: THERAGRAN MULTIVITAMIN PO SCH (09:18)
[2020-05-24] MEDS: Toprol-Xl 25MG Tablets PO SCH (09:18)
[2020-05-24] MEDS: Klor Con 10 MEQ PO SCH (09:18)
[2020-05-24] MEDS: Lasix 40 MG PO SCH (09:18)
[2020-05-24] MEDS: NORVASC 5 MG PO SCH (09:18)
[2020-05-24] MEDS: Protonix 40MG Tablet PO SCH (09:18)
[2020-05-24] MEDS: ENOXAPARIN SODIUM SQ SCH (09:20)
[2020-05-24 12:11] VITALS: BP 145/71; PULSE 61; O2SAT 94
--- NOTE | 2020-05-25 09:54 | DS ---
DISCHARGE DIAGNOSIS: PNEUMONIA. HOSPITAL COURSE: The patient is an 80 year old white male patient presented to the emergency room with complaints of shortness of breath. He was seen in the emergency room and was COVID tested and was negative for COVID-19. The x-rays showed the patient to have bibasilar infiltrates. He was brought into the hospital and placed on IV Rocephin and Zithromax. His initial white count was over 23,000. Blood cultures had returned negative. With the IV treatments and antibiotics, in the next couple of days his white count had dropped to 13,300. He was on no supplemental oxygen. He demonstrated an ability to ambulate the halls without difficulty and with O2 saturations not less than 91%. The patient was felt to be ready for discharge home. He was instructed to take Augmentin 875 mg twice a day for a week and Zithromax 500 mg daily also for a week and follow up in the office in one week. He was offered home health care for further evaluation and management, to monitor his vital signs and to be sure that he would do well in the home situation. Otherwise the patient is instructed to call us if he has further problems in the interim and given an appointment to see me in the office in one week.
== END 2020-05-24 13:00 | disposition home health service (06) | DRG 195 ==
LOC: ED 15:38 → INTOOBSV 20:43 → MED SURG 20:43 → OBSVTOIN 05-22 08:09
PROVIDERS: ADMIT Family Medicine; ATTEND Family Medicine
DX: J18.9 Pneumonia, unspecified organism (principal); R53.1 Weakness; I10 Essential (primary) hypertension; Z79.899 Other long term (current) drug therapy
CPT/HCPCS: 36000; 36415; 71250; 80048; 80053; 83605; 83880; 84484; 85025; 87040; 93005; 93268; 94640; 94667; 94668; 94760; 96360; 96365; 96367; 99285; G0008; G0378; U0003; 71045; 81001; 82570; 84156; 85027; 90662; 99213; J0456; J0696; J1650; A9270-GY

== ENCOUNTER 2021-03-09 13:51 | Emergency (ER) | payer MEDICARE, BC ==
[2021-03-09] MEDS ORDERED: XYLOCAINE 1% HCL 20 ML MDV ONE (14:51)
[2021-03-09] MEDS ORDERED: KEFLEX 500 MG PO ONE (14:52)
[2021-03-09] MEDS ORDERED: Adacel Vial IM ONE ×2 (14:52→15:00)
[2021-03-09] MEDS ORDERED: TYLENOL 325 MG PO ONE (14:53)
[2021-03-09] MEDS ORDERED: XYLOCAINE 2% HCL 20 ML MDV IJ ONE (14:54)
[2021-03-09 14:58] VITALS: PULSE 58; O2SAT 96
[2021-03-09] MEDS ORDERED: KEFLEX 500 MG ONE (15:00)
[2021-03-09] MEDS ORDERED: XYLOCAINE 2% HCL 20 ML MDV ONE (15:00)
[2021-03-09] MEDS ORDERED: TYLENOL 325 MG ONE (15:00)
[2021-03-09 15:10] VITALS: BP 143/85
--- NOTE | 2021-03-09 15:23 | XRAY ---
Indication: Laceration. Comparison: None 2 view left lower leg demonstrates osteopenia, mild knee degenerative arthropathy, scattered vascular calcifications, and mid anterior soft tissue swelling/laceration. No other bony, articular, or soft tissue abnormalities.
--- NOTE | 2021-03-09 16:32 | ERPHSYRPT ---
- History of Present Illness Time Seen by Provider: 03/09/21 13:55 Source: patient Exam Limitations: no limitations Patient Subjective Stated Complaint: pt here for a laceration to left lower leg after hitting it on a metal stool Triage Nursing Assessment: pt has u shape skin tear to lower left guy with bleeding . pressure dressing applied Physician History: Patient is a 81-year-old male presents to our ED for evaluation of a degloving injury to his left anterior leg. Patient was stepping up on a metal stool when his foot slipped down causing a degloving injury of the left leg. Injury occurred just prior to arrival. No syncope. No falls. The incident was not associated with any neuro cardiovascular symptomology. Tetanus is not up-to-date. Pain described as an ache that is localized to the anterior guy of his left leg. No other injuries reported. Patient's at bedside. They voiced no other complaints or concerns at this time. Timing/Duration: today Severity: moderate Modifying Factors: Improves With: nothing Associated Symptoms: denies symptoms, No nausea, No abdominal pain, No heartburn, No diaphoresis, No chest pain, No headaches, No syncope, No weakness Allergies/Adverse Reactions: No Known Drug Allergies Allergy (Verified 03/09/21 14:03) Home Medications: Melatonin 3 mg PO HS PRN 07/26/19 [History] Multivitamins with Iron [Bim-Xsg-Sqych with Iron] 1 tab PO DAILY 07/26/19 [History] Potassium Chloride [Klor-Con M20] 20 meq PO DAILY 07/26/19 [History] Amlodipine Besylate 5 mg PO DAILY 02/09/20 [History] Omeprazole 20 mg PO DAILY 02/09/20 [History] Furosemide 40 mg PO DAILY 05/22/20 [History] Metoprolol Succinate 25 mg PO DAILY 05/22/20 [History] Hx Tetanus, Diphtheria Vaccination/Date Given: No Hx Influenza Vaccination/Date Given: Yes Hx Pneumococcal Vaccination/Date Given: Yes Immunizations Up to Date: Yes Travel Risk - International Travel Have you traveled outside of the country in past 3 weeks: No - Coronavirus Screening Are you exhibiting any of the following symptoms?: No Close contact with a COVID-19 positive Pt in past 14-21 Days: No - Vaccine Status Have you recieved a Covid-19 vaccination: Yes 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[employer]: [employer] - Vaccination Dates Date of 2cond Vaccination (if applicable): oct - Review of Systems Constitutional: No Symptoms, No Fever, No Chills Eyes: No Symptoms Ears, Nose, & Throat: No Symptoms Respiratory: No Symptoms, No Cough, No Dyspnea Cardiac: No Symptoms, No Chest Pain, No Edema, No Syncope Abdominal/Gastrointestinal: No Symptoms, No Abdominal Pain, No Nausea, No Vomiting, No Diarrhea Genitourinary Symptoms: No Symptoms, No Dysuria Musculoskeletal: No Symptoms, No Back Pain, No Neck Pain Skin: No Symptoms, No Rash Neurological: No Symptoms, No Dizziness, No Focal Weakness, No Sensory Changes Psychological: No Symptoms Endocrine: No Symptoms Hematologic/Lymphatic: No Symptoms Immunological/Allergic: No Symptoms All Other Systems: Reviewed and Negative - Past Medical History Pertinent Past Medical History: Yes Neurological History: No Pertinent History ENT History: No Pertinent History Cardiac History: Hypertension Respiratory History: No Pertinent History Endocrine Medical History: Hyperthyroidism Musculoskeletal History: Osteoarthritis GI Medical History: No Pertinent History, Pancreatitis History: No Pertinent History, Renal Disease Psycho-Social History: No Pertinent History Male Reproductive Disorders: Prostate Problems Other Medical History: R ANKLE FX 01/15. anemia - Past Surgical History Past Surgical History: Yes Neuro Surgical History: No Pertinent History Cardiac: No Pertinent History Respiratory: No Pertinent History Gastrointestinal: No Pertinent History Genitourinary: No Pertinent History Musculoskeletal: No Pertinent History, Joint Replacement Male Surgical History: Prostate Surgery Other Surgical History: varicose veins repaired, jg tube. partial replacement left hip - Social History Smoking Status: Never smoker Exposure to second hand smoke: No Drug Use: none Patient Lives Alone: Yes Significant Family History: no pertinent family hx - Nursing Vital Signs Nursing Vital Signs: Initial Vital Signs Pulse Rate 60 03/09/21 13:52 Respiratory Rate 18 03/09/21 13:52 Blood Pressure 151/76 03/09/21 13:52 O2 Sat by Pulse Oximetry 97 03/09/21 13:52 Pain Scale Pain Intensity 10 - Physical Exam General Appearance: no apparent distress, alert Eye Exam: PERRL/EOMI, eyes nml inspection Ears, Nose, Throat Exam: normal ENT inspection, TMs normal, pharynx normal, moist mucous membranes Neck Exam: normal inspection, non-tender, supple, full range of motion Respiratory Exam: normal breath sounds, lungs clear, No respiratory distress Cardiovascular Exam: regular rate/rhythm, normal heart sounds, normal peripheral pulses Gastrointestinal/Abdomen Exam: soft, normal bowel sounds, No tenderness, No mass Back Exam: normal inspection, normal range of motion, No CVA tenderness, No v ertebral tenderness Extremity Exam: normal inspection, normal range of motion, pelvis stable, other (The involved left lower extremity is neurovascular intact distally. There is skin degloving of the anterior guy measuring approximately 6 x 10 cm. No exposed bone.) Neurologic Exam: alert, oriented x 3, cooperative, normal mood/affect, nml cerebellar function, nml station & gait, sensation nml, No motor deficits Skin Exam: normal color, warm, dry, No rash Lymphatic Exam: No adenopathy SpO2: 96 Procedures - Laceration/Wound Repair Left Anterior Time of Procedure: 16:30 Wound Location: Left, lower leg Wound Length (cm): 10 Wound's Depth, Shape: superficial Wound Explored: clean Irrigated: Yes Anesthesia: 2% Lidocaine Volume Anesthetic (ccs): 6 Wound Debrided: minimal Wound Repaired With: sutures Suture Size/Type: 4-0, nylon Number of Sutures: 18 Layer Closure?: No Sterile Dressing Applied?: Yes Splint Applied?: No Sling Applied?: No Progress: Patient reassessed. Patient neurovascularly intact post procedure/suture repair. Sterile dressing was applied to wound. Patient agrees to follow-up with primary care doctor within 48 hours for reevaluation. [id number] analgesics as needed for pain. Plan of care discussed with patient and . They understand instructions and agree to follow-up within 48 hours as discussed. 03/09/21 16:44 - Radiology Exams Lower Leg X-ray Interpretation: Teleradiologist Report (To nathan, mild knee degenerative arthropathy, scattered vascular calcifications and mid anterior soft tissue swelling/laceration. No other bony articular or soft tissue abnormalities.) Ordered Tests: Active Orders 24 hr Category Date Time Status LOWER LEG Stat Exams 03/09/21 14:55 Completed Medication Summary Discontinued Medications Generic Name Dose Route Start Last Admin Trade Name Freq PRN Reason Stop Dose Admin Acetaminophen 975 mg 03/09/21 14:53 03/09/21 15:12 Tylenol 325 Mg PO 03/09/21 14:54 975 mg STAT ONE Administration Acetaminophen Confirm 03/09/21 15:00 Tylenol 325 Mg Administered 03/09/21 15:01 Dose 975 mg .ROUTE .STK-MED ONE Cephalexin HCl 500 mg 03/09/21 14:52 03/09/21 15:12 Keflex 500 Mg PO 03/09/21 14:53 500 mg STAT ONE Administration Cephalexin HCl Confirm 03/09/21 15:00 Keflex 500 Mg Administered 03/09/21 15:01 Dose 500 mg .ROUTE .STK-MED ONE Diphtheria/Tetanus/Acell Pertussis 0.5 ml 03/09/21 14:52 03/09/21 15:18 Adacel Vial IM 03/09/21 14:53 0.5 ml .ONCE ONE Administration Diphtheria/Tetanus/Acell Pertussis Confirm 03/09/21 15:00 Adacel Vial Administered 03/09/21 15:01 Dose 0.5 ml IM .STK-MED ONE Lidocaine HCl Confirm 03/09/21 14:51 Xylocaine 1% Hcl 20 Ml Mdv Administered 03/09/21 14:52 Dose 20 ml .ROUTE .STK-MED ONE Lidocaine HCl 5 ml 03/09/21 14:54 03/09/21 15:18 Xylocaine 2% Hcl 20 Ml Mdv IJ 03/09/21 14:55 5 ml STAT ONE Administration Lidocaine HCl Confirm 03/09/21 15:00 Xylocaine 2% Hcl 20 Ml Mdv Administered 03/09/21 15:01 Dose 5 ml .ROUTE .STK-MED ONE - Progress Progress: improved Progress Note: The large skin flap was tacked down. 18 sutures were placed. Extremity neurovascular intact distally post procedure. Antibiotic administered. Patient received a dose of Adacel prior to her discharge. Will discharge at this time. Patient agrees to follow-up with primary care doctor within 48 hours for reevaluation. 03/09/21 16:39 Counseled pt/family regarding: diagnosis, need for follow-up, rad results - Departure Departure Disposition: Home Clinical Impression: Degloving injury Condition: Stable Critical Care Time: No Referrals: TENISHA HENAO [Primary Care Provider] - Instructions: Wound Care (DC), Laceration Repair With Stitches (DC) Additional Instructions: Discharge/Care Plan JERRYCHEMA FELIX was seen on 03/09/21 in the Emergency Room. The patient was counseled regarding Diagnosis,Lab results, Imaging studies, need for follow up and when to return to the Emergency Room. Prescriptions given: Discharge Note I have spoken with the patient and/or caregivers. I have explained the patient's condition, diagnosis and treatment plan based on the information available to me at this time. I have answered the patient's and/or caregiver's questions and addressed any concerns. The patient and/or caregivers have as good understanding of the patient's diagnosis, condition and treatment plan as can be expected at this point. The vital signs have been stable. The patient's condition is stable and appropriate for discharge from the emergency department. The patient will pursue further outpatient evaluation with the primary care physician or other designated or consulting physician as outlined in the discharge instructions. The patient and/or caregivers are agreeable to this plan of care and follow-up instructions have been explained in detail. The patient and/or caregivers have received these instruction. The patient/and or caregivers are aware that any significant change in condition or worsening of symptoms should prompt an immediate return to this or the closest emergency department or call 911. Prescriptions: Cephalexin Mh 500 mg [Keflex 500 mg] 500 mg PO TID 7 Days #21 capsule
== END 2021-03-09 17:10 | disposition home or self-care (01) ==
LOC: ED 13:51
DX: S81.812A Laceration without foreign body, left lower leg, initial encounter (principal); W22.8XXA Striking against or struck by other objects, initial encounter
CPT/HCPCS: 12004; 73590; 90471; 90715; 96372; 99284; A9270-GY

== ENCOUNTER 2021-06-06 10:26 | Day surgery (SDC) | payer MEDICARE, BC ==
--- NOTE | 2021-06-03 11:57 | HP ---
PROCEDURE DATE: 06/06/2021 HISTORY OF PRESENT ILLNESS: The patient is an 81 y/o who scraped his leg back in March. He had a flap that was closed, got sutures at that time and appeared that a good part of the flap failed. He has had a chronic wound since then. Would benefit from debridement of left lower leg to have a better chance of healing. He also has chronic edema and only wears compression stockings, but because of this area of the wound, he is having some more swelling in the areas above it wearing his compression stockings. PAST MEDICAL HISTORY: Hypothyroidism, chronic obstructive pulmonary disease. CURRENT MEDICATIONS: He has been on Centrum Silver, furosemide, Klor-Con, omeprazole, metoprolol, amlodipine besylate, Prednisone, has been on a nebulizer as well as budesonide, Perforomist, and apparently nebulizer Yupelri according to the patient. ALLERGIES: NKDA. PAST SURGICAL HISTORY: He has had cysts on his back. He had a J tube placed several times and replaced in the past. FAMILY HISTORY: Cancer. SOCIAL HISTORY: No smoking. REVIEW OF SYSTEMS: 14 systems reviewed pertinent for as noted above and per preadmission assessment. Also, has chronic edema. Probably has some venous stasis as well. Had some pancreatitis in the past. No current chest pain or palpitations. PHYSICAL EXAMINATION: GENERAL: Chronically ill gentleman. HEENT: Sclerae nonicteric. NECK: No JVD. CHEST: Equal excursion. Nonlabored breathing. CVS: Regular rate and rhythm. ABDOMEN: Soft. EXTREMITIES: He has got a compression stocking on the right, but the left lower extremity he has got a nonhealing wound of the leg and some edema of the leg. NEURO: Alert, moving extremities symmetrically. Feels like he has a palpable pedal pulse, but he has got a lot of edema. PSYCH: Appropriate mood and affect. IMPRESSION: 1. NONHEALING WOUND ON HIS LEFT LOWER LEG. FELT HE WOULD BENEFIT FROM EXCISIONAL DEBRIDEMENT ON THIS ESCHAR. HE DOES HAVE SOME GRANULATION ON THE SIDE. Maybe if we can get the eschar debrided and continue wearing his compression therapy, likely would have a better change in healing. Will proceed with excisional debridement of lower leg wound as an outpatient. If he improves down the road, might consider a skin graft at a later date, but at this time, he needs debridement only.
[~2021-06-06 10:26] MED LIST: Lactated Ringers 1,000 ML IV ONE; Lactated Ringers 1,000 ML IV SCH; Sensorcaine 0.25% 10 ML ONE
[2021-06-06] MEDS ORDERED: CEFAZOLIN 2 GM-D5W BAG IV ONE (10:27)
[2021-06-06] MEDS ORDERED: DIPRIVAN 200 MG/20 ML IV ONE (13:09)
[2021-06-06] MEDS ORDERED: SUBLIMAZE 100 MCG/2 ML ONE (13:09)
[2021-06-06] MEDS ORDERED: Versed 2 MG/2 ML Injection ONE (13:10)
[2021-06-06 15:07] VITALS: BP 134/78; PULSE 54; O2SAT 97
--- NOTE | 2021-06-06 15:19 | OP ---
SURGERY DATE/TIME: 06/06/2021 1309 PREOPERATIVE DIAGNOSIS: Nonhealing left lower extremity wound. POSTOPERATIVE DIAGNOSIS: Nonhealing left lower extremity wound. PROCEDURE: Excision and debridement of skin portion of subcutaneous tissue as well as portion of underlying fascia nonhealing wound (left lower extremity) 6 x 6 cm. SURGEON: Dr. Henrique Cho. FINISH PRODUCTION MANAGER: Mikael Aguilar, Medical Student 4. ANESTHESIA: General. ESTIMATED BLOOD LOSS: Minimal. INDICATIONS: As noted above. Risks and benefits explained in detail and not limited to and consent obtained. DESCRIPTION OF PROCEDURE AND FINDINGS: The patient is taken to the operating room. General anesthesia induced. The leg is prepped and draped in the usual sterile fashion. After official time out and no disagreement with planned procedure, sharp debridement with a scalpel excising some of the eschar from the skin, from the subcutaneous tissue as well as a portion of the underlying fascia was scraped off that looked devitalized down to viable tissue that patient had available. There had been packing in a tract underneath the flap. This tract was divided to make it easier to pack and irrigated out as well as possible. Good hemostasis was noted. There were no immediate complications. I will see if the family is here to discuss the findings with. Otherwise continue normal saline wet-to-dry dressing changes and he also needs compression therapy on a daily basis until the wound care center has other recommendations.
== END 2021-06-06 15:25 | disposition home or self-care (01) ==
LOC: SDC 10:26
PROVIDERS: ATTEND Surgery
DX: L97.228 Non-pressure chronic ulcer of left calf with other specified severity (principal); S81.802A Unspecified open wound, left lower leg, initial encounter; L90.5 Scar conditions and fibrosis of skin; L92.8 Other granulomatous disorders of the skin and subcutaneous tissue
CPT/HCPCS: 88304; 99100; J0690; J2250; J2704; J3010

== ENCOUNTER 2022-08-24 12:12 | Observation (INO) | payer MEDICARE, BC ==
[2022-08-24] MEDS ORDERED: Sodium Chloride 0.9% 500 ML 500 ML IV ONE ×2 (12:50→13:04)
[2022-08-24] MEDS ORDERED: ROCEPHIN 2 Gm-D5w 50ML BAG** 2 G/50 ML IVPB IV ONE ×2 (12:50→13:03)
[2022-08-24 13:09] LABS: Absolute Neutrophil Ct (ANC) 13.37 x10^3/uL (1.4-6.9); Basophil (Absolute #) 0.05 x10^3/uL (0-0.4); Eosinophil % 0.1 % (0.00-5.0); Eosinophil (Absolute #) 0.01 x10^3/uL (0-0.5); Hematocrit 41.8 % (42-50); Hemoglobin 13.4 g/dL (12.5-18.0); Lymphocyte (Absolute #) 0.87 x10^3/uL (1.0-4.6); Lymphocytes % 5.5 % (24.0-44.0); Mean Corpuscular Hemoglobin 30.5 pg (26-32); Mean Corpuscular Hgb Concent. 32.1 g/dL (32-36); Mean Platelet Volume 9.5 fL (7.5-11.0); Monocyte (Absolute #) 1.47 x10^3/uL (0.0-1.3); Monocytes % 9.2 % (0.0-12.0); Neutrophil % 83.8 % (36.0-66.0); Platelet Count 225 x10^3/uL (150-450); Red Cell Distribution Width 13.7 % (11.5-14.0)
[2022-08-24 13:24] LABS: ALBUMIN 3.8 g/dL (3.5-5.0); ALKALINE PHOSPHATASE 46 U/L (38-126); ANION GAP 10.5 MEQ/L (5-15); BLOOD UREA NITROGEN 19 mg/dL (9-20); CHLORIDE 94 mmol/L (98-107); Calcium 8.5 mg/dL (8.4-10.2); Carbon Dioxide 27 mmol/L (22-30); EST GLOMERULAR FILTRATION RATE > 60.0 ML/MIN; Glucose 115 mg/dL (74-106); Potassium 3.7 mmol/L (3.5-5.1); SGOT/AST 25 U/L (17-59); SGPT/ALT 16 U/L (0-50); SODIUM 127 mmol/L (137-145); Total Protein 6.6 g/dL (6.3-8.2)
--- NOTE | 2022-08-24 14:27 | ERPHSYRPT ---
- History of Present Illness Time Seen by Provider: 08/24/22 12:14 Source: patient, family Exam Limitations: no limitations Patient Subjective Stated Complaint: UTI Triage Nursing Assessment: Patient brought into ED per w/c and transferred self to bed with assist of 1. Patient A+O x3. Patient's skin pink, warm Patient currently being treated for UTI with keflex and has had 3 doses. Patient reports having urgency, frequency and dysuria for a few days. Patient reports increased weakness since dx with UTI. Physician History: 82 years old male presented in the ER with chief complaint of UTI symptoms for the last 2 to 3 days. Patient was evaluated yesterday at urgent care and has been started on Keflex. This morning he started to have generalized weakness fatigue and tiredness along with increased frequency of urine without hematuria. Denies any nausea or vomiting, fever or chills. Denies any flank pain. Timing/Duration: day(s) (3), gradual onset, worse Quality: burning Onset Location: urethral Severity of Pain-Max: mild Severity of Pain-Current: mild Modifying Factors: Worsens With: urinating Sexual intercourse history: non-contributory Allergies/Adverse Reactions: No Known Drug Allergies Allergy (Verified 08/24/22 12:14) Home Medications: Potassium Chloride [Klor-Con M20] 20 meq PO DAILY 07/26/19 [History] Amlodipine Besylate 5 mg PO DAILY 02/09/20 [History] Omeprazole 20 mg PO DAILY 02/09/20 [History] Furosemide 40 mg PO DAILY 05/22/20 [History] Metoprolol Succinate 25 mg PO DAILY 05/22/20 [History] Prednisone 10 mg [Deltasone 10 mg] 10 mg PO DAILY 06/01/21 [History] Formoterol Fumarate [Perforomist] 20 mcg IH BID 12/06/21 [History] Levothyroxine Sodium 100 Mcg [Synthroid 100 Mcg] 88 mcg PO DAILY 12/06/21 [History] Revefenacin [Yupelri] 175 mcg IH DAILY 12/06/21 [History] Multivit-Min/FA/Lycopen/Lutein [Centrum Silver Tablet] 1 tab PO DAILY 08/24/22 [History] Hx Tetanus, Diphtheria Vaccination/Date Given: No Hx Influenza Vaccination/Date Given: Yes Hx Pneumococcal Vaccination/Date Given: Yes Immunizations Up to Date: Yes Travel Risk - International Travel Have you traveled outside of the country in past 3 weeks: No - Coronavirus Screening Are you exhibiting any of the following symptoms?: No Close contact with a COVID-19 positive Pt in past 14-21 Days: No - Vaccine Status Have you recieved a Covid-19 vaccination: Yes 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 - Vaccination Dates Date of 2cond Vaccination (if applicable): na - Past Medical History Pertinent Past Medical History: Yes Neurological History: Other ENT History: No Pertinent History Cardiac History: Hypertension Respiratory History: COPD Endocrine Medical History: Hypothyroidism Musculoskeletal History: Fractures, Osteoarthritis GI Medical History: Pancreatitis History: Renal Disease Psycho-Social History: No Pertinent History Male Reproductive Disorders: Prostate Problems Other Medical History: PARTIAL LEFT HIP REPLACEMENT 2018, RIGHT ANKLE FX 2014, PANCREATITIS, VARISCOSE VEINS REPAIRED, BPH. 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 - Past Surgical History Past Surgical History: Yes Neuro Surgical History: No Pertinent History Cardiac: No Pertinent History Respiratory: No Pertinent History Gastrointestinal: No Pertinent History Genitourinary: No Pertinent History Musculoskeletal: No Pertinent History, Joint Replacement Male Surgical History: Prostate Surgery Other Surgical History: varicose veins repaired, j, g tube placed and removed,. partial left hip replacement, cyst on back - Social History Smoking Status: Former smoker Exposure to second hand smoke: No Drug Use: none Patient Lives Alone: No Significant Family History: no pertinent family hx - Review of Systems Constitutional: Fatigue, Weakness Eyes: No Symptoms Ears, Nose, & Throat: No Symptoms Respiratory: No Symptoms Cardiac: No Symptoms Abdominal/Gastrointestinal: No Symptoms Genitourinary Symptoms: Dysuria, Frequency Musculoskeletal: Arthralgias Skin: No Symptoms Neurological: No Symptoms Psychological: No Symptoms Endocrine: No Symptoms Hematologic/Lymphatic: No Symptoms Immunological/Allergic: No Symptoms - Nursing Vital Signs Nursing Vital Signs: Initial Vital Signs Temperature 98.8 F 08/24/22 12:14 Pulse Rate 85 08/24/22 12:14 Respiratory Rate 18 08/24/22 12:14 Blood Pressure 132/70 08/24/22 12:14 O2 Sat by Pulse Oximetry 97 08/24/22 12:14 Pain Scale Pain Intensity 0 - Physical Exam General Appearance: no apparent distress, alert Eye Exam: PERRL/EOMI Ears, Nose, Throat Exam: normal ENT inspection Neck Exam: normal inspection, supple, full range of motion Respiratory Exam: normal breath sounds, lungs clear Cardiovascular Exam: regular rate/rhythm, normal heart sounds Gastrointestinal/Abdomen Exam: soft, normal bowel sounds, No tenderness Back Exam: normal inspection Extremity Exam: normal inspection, normal range of motion Neurologic Exam: alert, oriented x 3, fullerette II-XII nml as tested Skin Exam: normal color SpO2 Interpretation: normal SpO2: 97 O2 Delivery: Room Air Ordered Tests: Active Orders 24 hr Category Date Time Status Bedrest ROUTINE Activity 08/24/22 16:40 Active Up With Assistance ROUTINE Activity 08/24/22 16:40 Active Code Status Order ROUTINE Care 08/24/22 16:40 Active Fall Protocol Q1H Care 08/24/22 16:40 Active IV Care Q6H Care 08/24/22 16:40 Active IV Insertion STAT Care 08/24/22 12:[address] in Observation ROUTINE Care 08/24/22 16:40 Active Reddy Hose, Apply ROUTINE Care 08/24/22 16:40 Active Weight,Daily 0600 Care 08/24/22 16:40 Active BLOOD CULTURE Stat Lab 08/24/22 12:50 Received CBC W DIFF AM.LAB Lab 08/25/22 04:00 Ordered CBC W DIFF Stat Lab 08/24/22 13:05 Completed CMP AM.LAB Lab 08/25/22 04:00 Ordered CMP Stat Lab 08/24/22 13:05 Completed CULTURE,URINE Stat Lab 08/24/22 15:12 Received Lactic Acid Stat Lab 08/24/22 12:49 Completed Lactic Acid Stat Lab 08/24/22 14:57 Completed UA W/RFX CULTURE Stat Lab 08/24/22 15:12 Completed Transfer Order Routine Transfer 08/24/22 Completed Medication Summary Generic Name Dose Route Start Last Admin Trade Name Freq PRN Reason Stop Dose Admin Acetaminophen 650 mg 08/24/22 16:40 Acetaminophen 325 Mg Tablet PO 09/23/22 16:39 Q4H PRN PRN PAIN AND/OR FEVER Albuterol/Ipratropium 3 ml 08/24/22 16:40 Ipratropium/Albuterol Sulfate 3 Ml Ampul.Neb IH 09/23/22 16:39 Q4HPRN PRN SHORTNESS OF BREATH/WHEEZING Ceftriaxone Sodium/Dextrose 2 g in 50 mls @ 100 mls/hr 08/25/22 10:00 Rocephin 2 Gm-D5w 50ml Bag IV 08/28/22 09:59 Q24H10 PAUL Pantoprazole Sodium 40 mg 08/25/22 10:00 Pantoprazole 40 Mg Vial IV 09/24/22 09:59 Q24H10 PAUL Discontinued Medications Generic Name Dose Route Start Last Admin Trade Name Mary PRN Reason Stop Dose Admin Sodium Chloride 500 mls @ 500 mls/hr 08/24/22 12:50 08/24/22 14:23 Sodium Chloride 0.9% 500 Ml IV 08/24/22 13:49 Infused .Q1H ONE Infusion Ceftriaxone Sodium/Dextrose 2 g in 50 mls @ 100 mls/hr 08/24/22 12:50 08/24/22 14:23 Rocephin 2 Gm-D5w 50ml Bag IV 08/24/22 13:19 Infused STAT ONE Infusion Ceftriaxone Sodium/Dextrose Confirm 08/24/22 13:03 Rocephin 2 Gm-D5w 50ml Bag Administered 08/24/22 13:04 Dose 2 g in 50 mls @ ud IV .STK-MED ONE Sodium Chloride Confirm 08/24/22 13:04 Sodium Chloride 0.9% 500 Ml Administered 08/24/22 13:05 Dose 500 mls @ ud IV .STK-MED ONE Sodium Chloride 1,000 mls @ 100 mls/hr 08/24/22 16:15 08/24/22 16:20 Sodium Chloride 0.9% 1000 Ml IV 09/23/22 16:14 100 mls/hr .Q10H PAUL Administration Sodium Chloride Confirm 08/24/22 16:17 Sodium Chloride 0.9% 1000 Ml Administered 08/24/22 16:18 Dose 1,000 mls @ ud .ROUTE .STK-MED ONE Lab/Rad Data: Laboratory Result Diagrams 08/24/22 13:05 08/24/22 13:05 Laboratory Results 08/24/22 08/24/22 08/24/22 Range/Units 15:12 15:03 14:57 WBC (4.0-10.5) x10^3/uL RBC (4.1-5.6) x10^6/uL Hgb (12.5-18.0) g/dL Hct (42-50) % MCV (78-100) fL MCH (26-32) pg MCHC (32-36) g/dL RDW (11.5-14.0) % Plt Count (150-450) x10^3/uL MPV (7.5-11.0) fL Gran % (36.0-66.0) % Immature Gran % (Auto) (0.00-0.4) % Nucleat RBC Rel Count (0.00-0.1) % Eos # (Auto) (0-0.5) x10^3/uL Immature Gran # (Auto) (0.00-0.03) x10^3u/L Absolute Lymphs (auto) (1.0-4.6) x10^3/uL Absolute Monos (auto) (0.0-1.3) x10^3/uL Absolute Nucleated RBC (0.00-0.01) x10^3u/L Lymphocytes % (24.0-44.0) % Monocytes % (0.0-12.0) % Eosinophils % (0.00-5.0) % Basophils % (0.0-0.4) % Absolute Granulocytes (1.4-6.9) x10^3/uL Basophils # (0-0.4) x10^3/uL Sodium (137-145) mmol/L Potassium (3.5-5.1) mmol/L Chloride (98-107) mmol/L Carbon Dioxide (22-30) mmol/L Anion Gap (5-15) MEQ/L BUN (9-20) mg/dL Creatinine (0.66-1.25) mg/dL Estimated GFR ML/MIN Glucose (74-106) mg/dL Lactic Acid 0.7 (0.4-2.0) Calcium (8.4-10.2) mg/dL Total Bilirubin (0.2-1.3) mg/dL AST (17-59) U/L ALT (0-50) U/L Alkaline Phosphatase (38-126) U/L Serum Total Protein (6.3-8.2) g/dL Albumin (3.5-5.0) g/dL Urinalys Dipstick Clnc MAIN LAB Urine Color YELLOW (YELLOW) Urine Appearance CLEAR (CLEAR) Urine pH 7.0 (5-6) Ur Specific [place] 1.015 (1.005-1.025) POC Urine Protein Conf 30 A (Negative) Urine Ketones NEGATIVE (NEGATIVE) Urine Nitrite NEGATIVE (NEGATIVE) Urine Bilirubin NEGATIVE (NEGATIVE) Urine Urobilinogen 0.2 (0-1) mg/dL Urine Leukocytes SMALL A (NEGATIVE) Urine WBC (Auto) >100 A (0-5) /HPF Urine RBC (Auto) 26-50 A (0-2) /HPF U Epithel Cells (Auto) NONE (FEW) /HPF Urine Bacteria (Auto) MODERATE A (NEGATIVE) /HPF Urine RBC MODERATE A (0-5) [place]/ul Urine Mucus (Auto) SLIGHT A (NEGATIVE) /HPF Ur Culture Indicated? YES Urine Glucose NEGATIVE (NEGATIVE) mg/dL Influenza Type A Ag NEGATIVE (NEGATIVE) Influenza Type B Ag NEGATIVE (NEGATIVE) RSV (PCR) NEGATIVE (Negative) SARS-CoV-2 (PCR) NEGATIVE (NEGATIVE) 08/24/22 08/24/22 08/24/22 Range/Units 13:05 13:05 12:49 WBC 16.0 H (4.0-10.5) x10^3/uL RBC 4.40 (4.1-5.6) x10^6/uL Hgb 13.4 (12.5-18.0) g/dL Hct 41.8 L (42-50) % MCV 95.0 (78-100) fL MCH 30.5 (26-32) pg MCHC 32.1 (32-36) g/dL RDW 13.7 (11.5-14.0) % Plt Count 225 (150-450) x10^3/uL MPV 9.5 (7.5-11.0) fL Gran % 83.8 H (36.0-66.0) % Immature Gran % (Auto) 1.1 H (0.00-0.4) % Nucleat RBC Rel Count 0.0 (0.00-0.1) % Eos # (Auto) 0.01 (0-0.5) x10^3/uL Immature Gran # (Auto) 0.18 H (0.00-0.03) x10^3u/L Absolute Lymphs (auto) 0.87 L (1.0-4.6) x10^3/uL Absolute Monos (auto) 1.47 H (0.0-1.3) x10^3/uL Absolute Nucleated RBC 0.00 (0.00-0.01) x10^3u/L Lymphocytes % 5.5 L (24.0-44.0) % Monocytes % 9.2 (0.0-12.0) % Eosinophils % 0.1 (0.00-5.0) % Basophils % 0.3 (0.0-0.4) % Absolute Granulocytes 13.37 H (1.4-6.9) x10^3/uL Basophils # 0.05 (0-0.4) x10^3/uL Sodium 127 L (137-145) mmol/L Potassium 3.7 (3.5-5.1) mmol/L Chloride 94 L (98-107) mmol/L Carbon Dioxide 27 (22-30) mmol/L Anion Gap 10.5 (5-15) MEQ/L BUN 19 (9-20) mg/dL Creatinine 1.20 (0.66-1.25) mg/dL Estimated GFR > 60.0 ML/MIN Glucose 115 H (74-106) mg/dL Lactic Acid 3.0 H (0.4-2.0) Calcium 8.5 (8.4-10.2) mg/dL Total Bilirubin 0.80 (0.2-1.3) mg/dL AST 25 (17-59) U/L ALT 16 (0-50) U/L Alkaline Phosphatase 46 (38-126) U/L Serum Total Protein 6.6 (6.3-8.2) g/dL Albumin 3.8 (3.5-5.0) g/dL Urinalys Dipstick Clnc Urine Color (YELLOW) Urine Appearance (CLEAR) Urine pH (5-6) Ur Specific [place] (1.005-1.025) POC Urine Protein Conf (Negative) Urine Ketones (NEGATIVE) Urine Nitrite (NEGATIVE) Urine Bilirubin (NEGATIVE) Urine Urobilinogen (0-1) mg/dL Urine Leukocytes (NEGATIVE) Urine WBC (Auto) (0-5) /HPF Urine RBC (Auto) (0-2) /HPF U Epithel Cells (Auto) (FEW) /HPF Urine Bacteria (Auto) (NEGATIVE) /HPF Urine RBC (0-5) [place]/ul Urine Mucus (Auto) (NEGATIVE) /HPF Ur Culture Indicated? Urine Glucose (NEGATIVE) mg/dL Influenza Type A Ag (NEGATIVE) Influenza Type B Ag (NEGATIVE) RSV (PCR) (Negative) SARS-CoV-2 (PCR) (NEGATIVE) - Progress Progress: improved Progress Note: 08/24/22 16:29 82 years old with positive UTI on Keflex outpatient with no significant improvement and worsening of UTI symptoms and generalized weakness fatigue and tiredness. Given gentle hydration with a fluid bolus of 500 mL normal saline. Work-up showed white count of 16, lactate of 3.0 with sodium of 127. Patient has chronically low sodium but his baseline runs around 131. We will continue with gentle hydration. Given IV Rocephin. Discussed with Dr. Randle and patient is being admitted. Discussed with : Eric Will see patient in: hospital (observation) Counseled pt/family regarding: lab results, diagnosis, rad results - Departure Departure Disposition: Observation Clinical Impression: UTI (urinary tract infection), Weakness, Hyponatremia Condition: Stable Critical Care Time: No
[2022-08-24 15:49] LABS: INFLUENZA A NEGATIVE (NEGATIVE); INFLUENZA B NEGATIVE (NEGATIVE); RESPIRATORY SYNCTIAL VIRUS NEGATIVE (Negative); SARS-CoV-2 Xpert Express NEGATIVE (NEGATIVE)
[2022-08-24] MEDS ORDERED: Sodium Chloride 0.9% 1000 ML 1,000 ML IV SCH (16:15)
[2022-08-24 16:16] LABS: Appearance CLEAR (CLEAR); Bacteria MODERATE /HPF (NEGATIVE); Bilirubin NEGATIVE (NEGATIVE); Dipstick done @ ? MAIN LAB; Glucose NEGATIVE (NEGATIVE); Ketones NEGATIVE (NEGATIVE); Mucus SLIGHT /HPF (NEGATIVE); Nitrite NEGATIVE (NEGATIVE); Protein,Urine Dip 30 (Negative); RBC 26-50 /HPF (0-2); RBC MODERATE Ery/ul (0-5); Specific Gravity 1.015 (1.005-1.025); Urine Cultured Indicated? YES; Urobilinogen 0.2 mg/dL (0-1); WBC >100 /HPF (0-5)
[2022-08-24] MEDS ORDERED: Sodium Chloride 0.9% 1000 ML 1,000 ML ONE (16:17)
[2022-08-24] MEDS ORDERED: TYLENOL 325 MG PO PRN (16:40)
[2022-08-24] MEDS ORDERED: DUONEB 0.5-3 MG/3 ml Neb IH PRN (16:40)
[2022-08-24] MEDS ORDERED: PROVENTIL 2.5 MG/3 ML NEB IH ONE (16:52)
[2022-08-24] MEDS: PULMICORT 0.5 MG/2 ML RESPULES IH SCH (17:05)
[2022-08-24] MEDS: DUONEB 0.5-3 MG/3 ml Neb IH SCH (17:05)
[2022-08-24] MEDS: SYNTHROID 88 MCG PO SCH (21:43)
[2022-08-25 05:14] LABS: Absolute Neutrophil Ct (ANC) 13.27 x10^3/uL (1.4-6.9); Basophil (Absolute #) 0.05 x10^3/uL (0-0.4); Eosinophil % 0.1 % (0.00-5.0); Eosinophil (Absolute #) 0.01 x10^3/uL (0-0.5); Hematocrit 41.5 % (42-50); Hemoglobin 13.2 g/dL (12.5-18.0); Lymphocyte (Absolute #) 0.95 x10^3/uL (1.0-4.6); Mean Cell Volume 95.2 fL (78-100); Mean Corpuscular Hemoglobin 30.3 pg (26-32); Mean Corpuscular Hgb Concent. 31.8 g/dL (32-36); Mean Platelet Volume 9.5 fL (7.5-11.0); Monocyte (Absolute #) 1.23 x10^3/uL (0.0-1.3); Monocytes % 7.8 % (0.0-12.0); Neutrophil % 84.3 % (36.0-66.0); Platelet Count 212 x10^3/uL (150-450); Red Blood Count 4.36 x10^6/uL (4.1-5.6); White Blood Count 15.8 x10^3/uL (4.0-10.5)
[2022-08-25 05:42] LABS: ALBUMIN 3.2 g/dL (3.5-5.0); ALKALINE PHOSPHATASE 49 U/L (38-126); ANION GAP 7.1 MEQ/L (5-15); BLOOD UREA NITROGEN 17 mg/dL (9-20); CHLORIDE 100 mmol/L (98-107); Calcium 8.2 mg/dL (8.4-10.2); Carbon Dioxide 25 mmol/L (22-30); Creatinine 1 0.93 mg/dL (0.66-1.25); EST GLOMERULAR FILTRATION RATE > 60.0 ML/MIN; Glucose 97 mg/dL (74-106); Potassium 3.8 mmol/L (3.5-5.1); SGOT/AST 16 U/L (17-59); SGPT/ALT 13 U/L (0-50); SODIUM 128 mmol/L (137-145); Total Protein 5.8 g/dL (6.3-8.2)
[2022-08-25] MEDS: DUONEB 0.5-3 MG/3 ml Neb IH SCH ×3 (07:24→19:08)
[2022-08-25] MEDS: PULMICORT 0.5 MG/2 ML RESPULES IH SCH ×2 (07:39→19:08)
--- NOTE | 2022-08-25 08:36 | PCM.HP ---
History of Present Illness - Chief Complaint Chief Complaint: uti History of Present Illness: is a 82 year old male with UTI, on keflex with culture pending from [facility] on 08/23, came to ER c/o weakness. He doesn't have any specific complaints today, states he feels ok. - Review of Systems Constitutional: Weakness Respiratory: No Cough, No Short Of Breath Cardiac: No Chest Pain, No Edema, No Syncope Abdominal/Gastrointestinal: No Abdominal Pain, No Nausea, No Vomiting, No Diarrhea Genitourinary Symptoms: No Dysuria All Other Systems: Reviewed and Negative Medications & Allergies Home Medications: Home Medication List Potassium Chloride [Klor-Con M20] 20 meq PO DAILY 07/26/19 [History Confirmed 08/24/22] Amlodipine Besylate 5 mg PO DAILY 02/09/20 [History Confirmed 08/24/22] Omeprazole 20 mg PO DAILY 02/09/20 [History Confirmed 08/24/22] Furosemide 40 mg PO DAILY 05/22/20 [History Confirmed 08/24/22] Metoprolol Succinate 25 mg PO DAILY 05/22/20 [History Confirmed 08/24/22] Prednisone 10 mg [Deltasone 10 mg] 10 mg PO DAILY 06/01/21 [History Confirmed 08/24/22] Formoterol Fumarate [Perforomist] 20 mcg IH BID 12/06/21 [History Confirmed 08/24/22] Levothyroxine Sodium 100 Mcg [Synthroid 100 Mcg] 88 mcg PO HS 12/06/21 [History Confirmed 08/24/22] Revefenacin [Yupelri] 175 mcg IH DAILY 12/06/21 [History Confirmed 08/24/22] Acetaminophen 325 mg [Tylenol 325 mg] 650 mg PO Q4H PRN PRN tablet 12/08/21 [Rx Confirmed 08/24/22] Albuterol 2.5 mg/3 ml Neb [Proventil 2.5 mg/3 ml Neb] 2.5 mg IH BIDRT 12/08/21 [Rx Confirmed 08/24/22] Budesonide 0.5 mg/2 ml [Pulmicort 0.5 mg/2 ml Respules] 0.5 mg IH BIDRT 12/08/21 [Rx Confirmed 08/24/22] Multivit-Min/FA/Lycopen/Lutein [Centrum Silver Tablet] 1 tab PO DAILY 08/24/22 [History Confirmed 08/24/22] Allergies/Adverse Reactions: Allergies Allergy/AdvReac Type Severity Reaction Status Date / Time No Known Drug Allergies Allergy Verified 08/24/22 12:14 - Past Medical History Past Medical History: Yes Neurological History: Other ENT History: No Pertinent History Cardiac History: Hypertension Respiratory History: COPD Endocrine Medical History: Hypothyroidism Musculoskelatal History: Fractures, Osteoarthritis GI Medical History: Pancreatitis History: Renal Disease Pyscho-Social History: No Pertinent History Male Reproductive Disorders: Prostate Problems Comment: PARTIAL LEFT HIP REPLACEMENT 2019, RIGHT ANKLE FX 2014, PANCREATITIS, VARISCOSE VEINS REPAIRED, BPH. 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 - Past Surgical History Past Surgical History: Yes Neuro Surgical History: No Pertinent History Cardiac History: No Pertinent History Respiratory Surgery: No Pertinent History GI Surgical History: No Pertinent History Genitourinary Surgical Hx: No Pertinent History Musculskeletal Surgical Hx: No Pertinent History, Joint Replacement Male Surgical History: Prostate Surgery Other Surgical History: varicose veins repaired, j, g tube placed and removed,. partial left hip replacement, cyst on back - Social History Smoking Status: Former smoker Exposure to second hand smoke: No Alcohol: None Drug Use: none Significant Family History: no pertinent family hx - Physical Exam Vital Signs: Vital Signs - 24 hr Temp Pulse Resp BP Pulse Ox 08/25/22 07:28 78 18 94 L 08/25/22 07:24 98.0 F 76 19 132/72 94 L 08/25/22 04:00 98.0 F 74 18 140/72 95 08/24/22 20:00 98.4 F 77 20 136/67 97 08/24/22 17:06 70 18 93 L 08/24/22 16:55 97.7 F 70 18 144/69 93 L 08/24/22 16:49 97 08/24/22 16:00 78 18 80/51 98 08/24/22 15:15 72 18 135/72 98 08/24/22 12:14 98.8 F 85 18 132/70 97 General Appearance: no apparent distress Neurologic Exam: alert, oriented x 3, cooperative Respiratory Exam: normal breath sounds, lungs clear, No respiratory distress Cardiovascular Exam: regular rate/rhythm, normal heart sounds, normal peripheral pulses Extremity Exam: normal inspection, normal range of motion, pelvis stable Skin Exam: normal color, warm, dry, No rash Results - Labs Lab/Micro Results: Lab Results-Last 24 Hours 08/24/22 08/24/22 08/24/22 Range/Units 12:49 13:05 13:05 WBC 16.0 H (4.0-10.5) x10^3/uL RBC 4.40 (4.1-5.6) x10^6/uL Hgb 13.4 (12.5-18.0) g/dL Hct 41.8 L (42-50) % MCV 95.0 (78-100) fL MCH 30.5 (26-32) pg MCHC 32.1 (32-36) g/dL RDW 13.7 (11.5-14.0) % Plt Count 225 (150-450) x10^3/uL MPV 9.5 (7.5-11.0) fL Gran % 83.8 H (36.0-66.0) % Immature Gran % (Auto) 1.1 H (0.00-0.4) % Nucleat RBC Rel Count 0.0 (0.00-0.1) % Eos # (Auto) 0.01 (0-0.5) x10^3/uL Immature Gran # (Auto) 0.18 H (0.00-0.03) x10^3u/L Absolute Lymphs (auto) 0.87 L (1.0-4.6) x10^3/uL Absolute Monos (auto) 1.47 H (0.0-1.3) x10^3/uL Absolute Nucleated RBC 0.00 (0.00-0.01) x10^3u/L Lymphocytes % 5.5 L (24.0-44.0) % Monocytes % 9.2 (0.0-12.0) % Eosinophils % 0.1 (0.00-5.0) % Basophils % 0.3 (0.0-0.4) % Absolute Granulocytes 13.37 H (1.4-6.9) x10^3/uL Basophils # 0.05 (0-0.4) x10^3/uL Sodium 127 L (137-145) mmol/L Potassium 3.7 (3.5-5.1) mmol/L Chloride 94 L (98-107) mmol/L Carbon Dioxide 27 (22-30) mmol/L Anion Gap 10.5 (5-15) MEQ/L BUN 19 (9-20) mg/dL Creatinine 1.20 (0.66-1.25) mg/dL Estimated GFR > 60.0 ML/MIN Glucose 115 H (74-106) mg/dL Lactic Acid 3.0 H (0.4-2.0) Calcium 8.5 (8.4-10.2) mg/dL Total Bilirubin 0.80 (0.2-1.3) mg/dL AST 25 (17-59) U/L ALT 16 (0-50) U/L Alkaline Phosphatase 46 (38-126) U/L Serum Total Protein 6.6 (6.3-8.2) g/dL Albumin 3.8 (3.5-5.0) g/dL Urinalys Dipstick Clnc Urine Color (YELLOW) Urine Appearance (CLEAR) Urine pH (5-6) Ur Specific [place] (1.005-1.025) POC Urine Protein Conf (Negative) Urine Ketones (NEGATIVE) Urine Nitrite (NEGATIVE) Urine Bilirubin (NEGATIVE) Urine Urobilinogen (0-1) mg/dL Urine Leukocytes (NEGATIVE) Urine WBC (Auto) (0-5) /HPF Urine RBC (Auto) (0-2) /HPF U Epithel Cells (Auto) (FEW) /HPF Urine Bacteria (Auto) (NEGATIVE) /HPF Urine RBC (0-5) [place]/ul Urine Mucus (Auto) (NEGATIVE) /HPF Ur Culture Indicated? Urine Glucose (NEGATIVE) mg/dL Influenza Type A Ag (NEGATIVE) Influenza Type B Ag (NEGATIVE) RSV (PCR) (Negative) SARS-CoV-2 (PCR) (NEGATIVE) 08/24/22 08/24/22 08/24/22 Range/Units 14:57 15:03 15:12 WBC (4.0-10.5) x10^3/uL RBC (4.1-5.6) x10^6/uL Hgb (12.5-18.0) g/dL Hct (42-50) % MCV (78-100) fL MCH (26-32) pg MCHC (32-36) g/dL RDW (11.5-14.0) % Plt Count (150-450) x10^3/uL MPV (7.5-11.0) fL Gran % (36.0-66.0) % Immature Gran % (Auto) (0.00-0.4) % Nucleat RBC Rel Count (0.00-0.1) % Eos # (Auto) (0-0.5) x10^3/uL Immature Gran # (Auto) (0.00-0.03) x10^3u/L Absolute Lymphs (auto) (1.0-4.6) x10^3/uL Absolute Monos (auto) (0.0-1.3) x10^3/uL Absolute Nucleated RBC (0.00-0.01) x10^3u/L Lymphocytes % (24.0-44.0) % Monocytes % (0.0-12.0) % Eosinophils % (0.00-5.0) % Basophils % (0.0-0.4) % Absolute Granulocytes (1.4-6.9) x10^3/uL Basophils # (0-0.4) x10^3/uL Sodium (137-145) mmol/L Potassium (3.5-5.1) mmol/L Chloride (98-107) mmol/L Carbon Dioxide (22-30) mmol/L Anion Gap (5-15) MEQ/L BUN (9-20) mg/dL Creatinine (0.66-1.25) mg/dL Estimated GFR ML/MIN Glucose (74-106) mg/dL Lactic Acid 0.7 (0.4-2.0) Calcium (8.4-10.2) mg/dL Total Bilirubin (0.2-1.3) mg/dL AST (17-59) U/L ALT (0-50) U/L Alkaline Phosphatase (38-126) U/L Serum Total Protein (6.3-8.2) g/dL Albumin (3.5-5.0) g/dL Urinalys Dipstick Clnc MAIN LAB Urine Color YELLOW (YELLOW) Urine Appearance CLEAR (CLEAR) Urine pH 7.0 (5-6) Ur Specific [place] 1.015 (1.005-1.025) POC Urine Protein Conf 30 A (Negative) Urine Ketones NEGATIVE (NEGATIVE) Urine Nitrite NEGATIVE (NEGATIVE) Urine Bilirubin NEGATIVE (NEGATIVE) Urine Urobilinogen 0.2 (0-1) mg/dL Urine Leukocytes SMALL A (NEGATIVE) Urine WBC (Auto) >100 A (0-5) /HPF Urine RBC (Auto) 26-50 A (0-2) /HPF U Epithel Cells (Auto) NONE (FEW) /HPF Urine Bacteria (Auto) MODERATE A (NEGATIVE) /HPF Urine RBC MODERATE A (0-5) [place]/ul Urine Mucus (Auto) SLIGHT A (NEGATIVE) /HPF Ur Culture Indicated? YES Urine Glucose NEGATIVE (NEGATIVE) mg/dL Influenza Type A Ag NEGATIVE (NEGATIVE) Influenza Type B Ag NEGATIVE (NEGATIVE) RSV (PCR) NEGATIVE (Negative) SARS-CoV-2 (PCR) NEGATIVE (NEGATIVE) 08/25/22 08/25/22 Range/Units 04:00 04:23 WBC 15.8 H (4.0-10.5) x10^3/uL RBC 4.36 (4.1-5.6) x10^6/uL Hgb 13.2 (12.5-18.0) g/dL Hct 41.5 L (42-50) % MCV 95.2 (78-100) fL MCH 30.3 (26-32) pg MCHC 31.8 L (32-36) g/dL RDW 14.0 (11.5-14.0) % Plt Count 212 (150-450) x10^3/uL MPV 9.5 (7.5-11.0) fL Gran % 84.3 H (36.0-66.0) % Immature Gran % (Auto) 1.5 H (0.00-0.4) % Nucleat RBC Rel Count 0.0 (0.00-0.1) % Eos # (Auto) 0.01 (0-0.5) x10^3/uL Immature Gran # (Auto) 0.24 H (0.00-0.03) x10^3u/L Absolute Lymphs (auto) 0.95 L (1.0-4.6) x10^3/uL Absolute Monos (auto) 1.23 (0.0-1.3) x10^3/uL Absolute Nucleated RBC 0.00 (0.00-0.01) x10^3u/L Lymphocytes % 6.0 L (24.0-44.0) % Monocytes % 7.8 (0.0-12.0) % Eosinophils % 0.1 (0.00-5.0) % Basophils % 0.3 (0.0-0.4) % Absolute Granulocytes 13.27 H (1.4-6.9) x10^3/uL Basophils # 0.05 (0-0.4) x10^3/uL Sodium 128 L (137-145) mmol/L Potassium 3.8 (3.5-5.1) mmol/L Chloride 100 (98-107) mmol/L Carbon Dioxide 25 (22-30) mmol/L Anion Gap 7.1 (5-15) MEQ/L BUN 17 (9-20) mg/dL Creatinine 0.93 (0.66-1.25) mg/dL Estimated GFR > 60.0 ML/MIN Glucose 97 (74-106) mg/dL Lactic Acid (0.4-2.0) Calcium 8.2 L (8.4-10.2) mg/dL Total Bilirubin 0.60 (0.2-1.3) mg/dL AST 16 L (17-59) U/L ALT 13 (0-50) U/L Alkaline Phosphatase 49 (38-126) U/L Serum Total Protein 5.8 L (6.3-8.2) g/dL Albumin 3.2 L (3.5-5.0) g/dL Urinalys Dipstick Clnc Urine Color (YELLOW) Urine Appearance (CLEAR) Urine pH (5-6) Ur Specific [place] (1.005-1.025) POC Urine Protein Conf (Negative) Urine Ketones (NEGATIVE) Urine Nitrite (NEGATIVE) Urine Bilirubin (NEGATIVE) Urine Urobilinogen (0-1) mg/dL Urine Leukocytes (NEGATIVE) Urine WBC (Auto) (0-5) /HPF Urine RBC (Auto) (0-2) /HPF U Epithel Cells (Auto) (FEW) /HPF Urine Bacteria (Auto) (NEGATIVE) /HPF Urine RBC (0-5) [place]/ul Urine Mucus (Auto) (NEGATIVE) /HPF Ur Culture Indicated? Urine Glucose (NEGATIVE) mg/dL Influenza Type A Ag (NEGATIVE) Influenza Type B Ag (NEGATIVE) RSV (PCR) (Negative) SARS-CoV-2 (PCR) (NEGATIVE) - Other Procedures and Tests Respiratory Therapy 08/24/22 17:06 Respiratory Therapy Assessment DAILY Assessment/Plan (1) UTI (urinary tract infection) Current Visit: Yes Status: Acute Qualifiers: Assessment & Plan: continue rocephin, culture from 08/23 pending gram negative ID Code(s): N39.0 - URINARY TRACT INFECTION, SITE NOT SPECIFIED (2) Hyponatremia Current Visit: Yes Status: Acute Assessment & Plan: mild, up from 127 to 128 today Code(s): E87.1 - HYPO-OSMOLALITY AND HYPONATREMIA (3) Weakness Current Visit: Yes Status: Acute Assessment & Plan: consult PT Code(s): R53.1 - WEAKNESS
[2022-08-25] MEDS: Klor Con PO SCH (08:55)
[2022-08-25] MEDS: Protonix 40MG Tablet PO SCH (08:56)
[2022-08-25] MEDS: Lasix 40 MG PO SCH (08:56)
[2022-08-25] MEDS: NORVASC 5 MG PO SCH (08:56)
[2022-08-25] MEDS: Toprol-Xl 25MG Tablets PO SCH (08:56)
[2022-08-25] MEDS: THERAGRAN MULTIVITAMIN PO SCH (08:56)
[2022-08-25] MEDS: DELTASONE 10 MG PO SCH (08:56)
[2022-08-25] MEDS: ROCEPHIN 1 Gm-D5w 50 ml Bag** 1 G/50 ML IVPB IV SCH (08:56)
[2022-08-25] MEDS ORDERED: NON-FORMULARY ITEM (Potassium Chloride [Klor-Con M20] 20 MEQ Tab.Er.Prt) PO SCH (10:00)
[2022-08-25] MEDS ORDERED: NON-FORMULARY ITEM (Omeprazole [Omeprazole] 20 MG Tablet.Dr) PO SCH (10:00)
[2022-08-25] MEDS ORDERED: PROTONIX 40 MG IV IV SCH (10:00)
[2022-08-25] MEDS ORDERED: NON-FORMULARY ITEM (Multivit-Min/Fa/Lycopen/Lutein [Centrum Silver Tablet] 1 EACH Tablet) PO SCH (10:00)
[2022-08-25] MEDS ORDERED: ROCEPHIN 2 Gm-D5w 50ML BAG** 2 G/50 ML IVPB IV SCH (10:00)
[2022-08-25] MEDS: SYNTHROID 88 MCG PO SCH (21:03)
[2022-08-26 05:51] LABS: Absolute Neutrophil Ct (ANC) 8.75 x10^3/uL (1.4-6.9); Basophil (Absolute #) 0.07 x10^3/uL (0-0.4); Eosinophil % 0.5 % (0.00-5.0); Eosinophil (Absolute #) 0.06 x10^3/uL (0-0.5); Hematocrit 41.9 % (42-50); Hemoglobin 13.8 g/dL (12.5-18.0); Lymphocyte (Absolute #) 1.25 x10^3/uL (1.0-4.6); Lymphocytes % 11.1 % (24.0-44.0); Mean Cell Volume 94.6 fL (78-100); Mean Corpuscular Hemoglobin 31.2 pg (26-32); Mean Corpuscular Hgb Concent. 32.9 g/dL (32-36); Mean Platelet Volume 9.4 fL (7.5-11.0); Monocyte (Absolute #) 0.93 x10^3/uL (0.0-1.3); Monocytes % 8.2 % (0.0-12.0); Neutrophil % 77.6 % (36.0-66.0); Platelet Count 210 x10^3/uL (150-450); Red Blood Count 4.43 x10^6/uL (4.1-5.6); Red Cell Distribution Width 13.8 % (11.5-14.0); White Blood Count 11.3 x10^3/uL (4.0-10.5)
[2022-08-26 06:06] LABS: ANION GAP 7.8 MEQ/L (5-15); BLOOD UREA NITROGEN 17 mg/dL (9-20); CHLORIDE 100 mmol/L (98-107); Calcium 8.5 mg/dL (8.4-10.2); Carbon Dioxide 25 mmol/L (22-30); Creatinine 1 0.96 mg/dL (0.66-1.25); EST GLOMERULAR FILTRATION RATE > 60.0 ML/MIN; Glucose 116 mg/dL (74-106); Potassium 3.5 mmol/L (3.5-5.1); SODIUM 130 mmol/L (137-145)
[2022-08-26] MEDS: PULMICORT 0.5 MG/2 ML RESPULES IH SCH (07:38)
[2022-08-26] MEDS: DUONEB 0.5-3 MG/3 ml Neb IH SCH (07:38)
--- NOTE | 2022-08-26 09:45 | PCM.DS ---
Discharge Summary Date of Admission: 08/24/22 16:37 Admitting Physician: MANNY LEAHY Primary Care Provider: EDDIE ROBERTSON Allergies Allergies No Known Drug Allergies Allergy (Verified 08/24/22 12:14) Hospital Summary - Hospital Course Hospital Course: patient admitted with weakness and UTI, failed outpatient keflex. he has ambulated with PT and is doing well after admission. culture grew citrobacter - Vitals & Intake/Output Vital Signs: Vital Signs Temperature 97.5 F 08/26/22 08:00 Pulse Rate 67 08/26/22 08:00 Respiratory Rate 18 08/26/22 08:00 Blood Pressure 165/77 08/26/22 08:00 O2 Sat by Pulse Oximetry 96 08/26/22 08:00 Intake & Output: Intake & Output 08/23/22 08/24/22 08/25/22 08/26/22 11:59 11:59 11:59 11:59 Intake Total 540 1220 Output Total 550 Balance 540 670 Weight 97.1 kg 93.5 kg - Lab Result Diagrams: 08/26/22 05:30 08/26/22 05:30 Lab Results-Last 24 Hrs: Lab Results-Last 24 Hours 08/26/22 08/26/22 Range/Units 05:30 05:30 WBC 11.3 H (4.0-10.5) x10^3/uL RBC 4.43 (4.1-5.6) x10^6/uL Hgb 13.8 (12.5-18.0) g/dL Hct 41.9 L (42-50) % MCV 94.6 (78-100) fL MCH 31.2 (26-32) pg MCHC 32.9 (32-36) g/dL RDW 13.8 (11.5-14.0) % Plt Count 210 (150-450) x10^3/uL MPV 9.4 (7.5-11.0) fL Gran % 77.6 H (36.0-66.0) % Immature Gran % (Auto) 2.0 H (0.00-0.4) % Nucleat RBC Rel Count 0.0 (0.00-0.1) % Eos # (Auto) 0.06 (0-0.5) x10^3/uL Immature Gran # (Auto) 0.22 H (0.00-0.03) x10^3u/L Absolute Lymphs (auto) 1.25 (1.0-4.6) x10^3/uL Absolute Monos (auto) 0.93 (0.0-1.3) x10^3/uL Absolute Nucleated RBC 0.00 (0.00-0.01) x10^3u/L Lymphocytes % 11.1 L (24.0-44.0) % Monocytes % 8.2 (0.0-12.0) % Eosinophils % 0.5 (0.00-5.0) % Basophils % 0.6 (0.0-0.4) % Absolute Granulocytes 8.75 H (1.4-6.9) x10^3/uL Basophils # 0.07 (0-0.4) x10^3/uL Sodium 130 L (137-145) mmol/L Potassium 3.5 (3.5-5.1) mmol/L Chloride 100 (98-107) mmol/L Carbon Dioxide 25 (22-30) mmol/L Anion Gap 7.8 (5-15) MEQ/L BUN 17 (9-20) mg/dL Creatinine 0.96 (0.66-1.25) mg/dL Estimated GFR > 60.0 ML/MIN Glucose 116 H (74-106) mg/dL Calcium 8.5 (8.4-10.2) mg/dL Micro Results-Entire Visit: Microbiology 08/24/22 15:12 Urine Culture - Preliminary Urine, Void NO GROWTH TO DATE - Procedures and Test Procedures and Tests throughout Hospitalization: Therapy Orders & Screens 08/24/22 17:06 Respiratory Therapy Assessment DAILY Comment: Diagnosis: uti 08/25/22 08:36 PT Eval & Treat ( Order) ONCE Reason for Eval:: weakness Diagnosis: uti Discharge Exam General Appearance: no apparent distress Neurologic Exam: alert, oriented x 3 Respiratory Exam: normal breath sounds Cardiovascular Exam: regular rate/rhythm, normal heart sounds Gastrointestinal/Abdomen Exam: soft, No tenderness, No mass Extremity Exam: normal inspection Skin Exam: normal color, warm, dry Final Diagnosis/Problem List - Final Discharge Diagnosis/Problem (1) UTI (urinary tract infection) Current Visit: Yes Status: Acute Assessment & Plan: home today on po abx based on culture, sensitivities are not yet reported Code(s): N39.0 - URINARY TRACT INFECTION, SITE NOT SPECIFIED (2) Hyponatremia Current Visit: Yes Status: Acute Code(s): E87.1 - HYPO-OSMOLALITY AND HYPONATREMIA (3) Weakness Current Visit: Yes Status: Acute Code(s): R53.1 - WEAKNESS - Discharge Disposition: Home, Self-Care Condition: Stable Prescriptions: New Smz/Tmp Ds Tablet [Bactrim Ds Tablet] 1 tab PO Q12H #14 tablet Continue Potassium Chloride [Klor-Con M20] 20 meq PO DAILY Amlodipine Besylate 5 mg PO DAILY Omeprazole 20 mg PO DAILY Metoprolol Succinate 25 mg PO DAILY Furosemide 40 mg PO DAILY Prednisone 10 mg [Deltasone 10 mg] 10 mg PO DAILY Levothyroxine Sodium 100 Mcg [Synthroid 100 Mcg] 88 mcg PO HS Revefenacin [Yupelri] 175 mcg IH DAILY Formoterol Fumarate [Perforomist] 20 mcg IH BID Acetaminophen 325 mg [Tylenol 325 mg] 650 mg PO Q4H PRN PRN tablet PRN Reason: Pain, Fever, Headache Albuterol 2.5 mg/3 ml Neb [Proventil 2.5 mg/3 ml Neb] 2.5 mg IH BIDRT Budesonide 0.5 mg/2 ml [Pulmicort 0.5 mg/2 ml Respules] 0.5 mg IH BIDRT Multivit-Min/FA/Lycopen/Lutein [Centrum Silver Tablet] 1 tab PO DAILY Follow up with: EDDIE ROBERTSON NP [Primary Care Provider] -
[2022-08-26] MEDS: ROCEPHIN 1 Gm-D5w 50 ml Bag** 1 G/50 ML IVPB IV SCH (09:58)
[2022-08-26] MEDS: Protonix 40MG Tablet PO SCH (09:58)
[2022-08-26] MEDS: Klor Con PO SCH (09:58)
[2022-08-26] MEDS: Toprol-Xl 25MG Tablets PO SCH (09:58)
[2022-08-26] MEDS: DELTASONE 10 MG PO SCH (09:58)
[2022-08-26] MEDS: Lasix 40 MG PO SCH (09:58)
[2022-08-26] MEDS: THERAGRAN MULTIVITAMIN PO SCH (09:58)
[2022-08-26] MEDS: NORVASC 5 MG PO SCH (09:58)
[2022-08-26 13:23] VITALS: BP 130/72; PULSE 60; O2SAT 97
== END 2022-08-26 16:28 | disposition home or self-care (01) ==
LOC: ED 12:12 → MED SURG 16:37
PROVIDERS: ADMIT Family Medicine; ATTEND Family Medicine
DX: N39.0 Urinary tract infection, site not specified (principal); E87.1 Hypo-osmolality and hyponatremia; R53.1 Weakness; I10 Essential (primary) hypertension; E03.9 Hypothyroidism, unspecified; Z79.899 Other long term (current) drug therapy; Z20.828 Contact with and (suspected) exposure to other viral communicable diseases
CPT/HCPCS: 0241U; 36000; 36415; 80048; 80053; 81015; 83605; 85025; 87040; 87086; 94640; 94760; 96360; 96361; 96365; 99285; G0378; J0696; J7609; P9612; A9270-GY

== ENCOUNTER 2023-05-22 17:20 | Emergency (ER) | payer MEDICARE, BC ==
[2023-05-22 17:31] VITALS: TEMP 97.2
--- NOTE | 2023-05-22 18:19 | ERPHSYRPT ---
- History of Present Illness Time Seen by Provider: 05/22/23 17:55 Source: patient Exam Limitations: physical impairment Patient Subjective Stated Complaint: pt here for a fall outside on pavement, he was trying to move a trash can and lost balance, no loc Triage Nursing Assessment: pt alert, arrived per ambulance, resp easy, skin w/d/p. has laceration to bridge of nose. skin tears to right arm, and skin tears to 2,3,4 and 5 digit to left hand, skin tear to left knee, has swelling to lower leg, has delia hose on that are making indention in legs. delia hose removed. Physician History: Patient is a 89-year-old male presents to our ED via EMS for evaluation status post fall. Patient states he was pulling a heavy garbage can when he lost his balance and fell. No LOC. No neck pain. Cervical spine cleared clinically. No loss of consciousness. Patient has superficial abrasions and lacerations on his bridge of nose. Skin tear to the right arm left hand involving digits 2 through 5 left knee. Patient also complains of pain to his left shoulder when abducting left arm.. No associated chest pain or shortness of breath. No nausea vomiting or diaphoresis. Patient is not on blood thinners. Patient otherwise feels well. at bedside. They voiced no other complaints or concerns at this time. Portions of this note were created with voice recognition technology. There may be grammatical, spelling, punctuation or sound alike errors Timing/Duration: today Severity: moderate Modifying Factors: Improves With: nothing Associated Symptoms: denies symptoms Allergies/Adverse Reactions: bacitracin Allergy (Verified 05/22/23 19:02) Home Medications: Potassium Chloride [Klor-Con M20] 20 meq PO DAILY 07/26/19 [History] Amlodipine Besylate 5 mg PO DAILY 02/09/20 [History] Omeprazole 20 mg PO DAILY 02/09/20 [History] Furosemide 40 mg PO DAILY 05/22/20 [History] Metoprolol Succinate 25 mg PO DAILY 05/22/20 [History] Formoterol Fumarate [Perforomist] 20 mcg IH BID 12/06/21 [History] Levothyroxine Sodium 100 Mcg [Synthroid 100 Mcg] 88 mcg PO HS 12/06/21 [History] Revefenacin [Yupelri] 175 mcg IH DAILY 12/06/21 [History] Multivit-Min/FA/Lycopen/Lutein [Centrum Silver Tablet] 1 tab PO DAILY 08/24/22 [History] Hx Tetanus, Diphtheria Vaccination/Date Given: No Hx Influenza Vaccination/Date Given: No Hx Pneumococcal Vaccination/Date Given: No Immunizations Up to Date: No Travel Risk - International Travel Have you traveled outside of the country in past 3 weeks: No - Coronavirus Screening Close contact with a COVID-19 positive Pt in past 14-21 Days: No - Vaccine Status Have you recieved a Covid-19 vaccination: Yes 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: [employer] - Vaccination Dates Date of 2cond Vaccination (if applicable): na - Review of Systems Constitutional: No Symptoms, No Fever, No Chills Eyes: No Symptoms Ears, Nose, & Throat: No Symptoms Respiratory: No Symptoms, No Cough, No Dyspnea Cardiac: No Symptoms, No Chest Pain, No Edema, No Syncope Abdominal/Gastrointestinal: No Symptoms, No Abdominal Pain, No Nausea, No Vomiting, No Diarrhea Genitourinary Symptoms: No Symptoms, No Dysuria Musculoskeletal: No Symptoms, No Back Pain, No Neck Pain Skin: No Symptoms, No Rash Neurological: No Symptoms, No Dizziness, No Focal Weakness, No Sensory Changes Psychological: No Symptoms Endocrine: No Symptoms Hematologic/Lymphatic: No Symptoms Immunological/Allergic: No Symptoms All Other Systems: Reviewed and Negative - Past Medical History Pertinent Past Medical History: Yes Neurological History: No Pertinent History ENT History: No Pertinent History Cardiac History: No Pertinent History Respiratory History: COPD, Other Endocrine Medical History: Hypothyroidism Musculoskeletal History: Osteoarthritis GI Medical History: Pancreatitis History: Renal Disease Psycho-Social History: No Pertinent History Male Reproductive Disorders: Prostate Problems Other Medical History: 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 PAST THERAPY FOR WOUND CARE, BROKEN HIP. - Past Surgical History Past Surgical History: Yes Neuro Surgical History: No Pertinent History Cardiac: No Pertinent History Respiratory: No Pertinent History Gastrointestinal: No Pertinent History Genitourinary: No Pertinent History Musculoskeletal: No Pertinent History, Joint Replacement Male Surgical History: Prostate Surgery Other Surgical History: varicose veins repaired, j, g tube placed and removed,. partial left hip replacement, cyst on back - Social History Smoking Status: Former smoker Exposure to second hand smoke: No Drug Use: none Patient Lives Alone: No Significant Family History: no pertinent family hx - Nursing Vital Signs Nursing Vital Signs: Initial Vital Signs Respiratory Rate 42 H 05/22/23 17:25 Blood Pressure 134/74 05/22/23 17:25 O2 Sat by Pulse Oximetry 96 05/22/23 17:25 Pain Scale Pain Intensity 5 - Physical Exam General Appearance: no apparent distress, alert Eye Exam: PERRL/EOMI, eyes nml inspection Ears, Nose, Throat Exam: normal ENT inspection, TMs normal, pharynx normal, moist mucous membranes Neck Exam: normal inspection, non-tender, supple, full range of motion Respiratory Exam: normal breath sounds, lungs clear, airway intact, No respiratory distress Cardiovascular Exam: regular rate/rhythm, normal heart sounds, normal peripheral pulses Gastrointestinal/Abdomen Exam: soft, normal bowel sounds, No tenderness, No mass Back Exam: normal inspection, normal range of motion, No CVA tenderness, No vertebral tenderness Extremity Exam: normal inspection, normal range of motion, pelvis stable Neurologic Exam: alert, oriented x 3, cooperative, normal mood/affect, nml cerebellar function, nml station & gait, sensation nml, No motor deficits Skin Exam: normal color, warm, dry, other (Multiple skin abrasions. Patient has an abrasion to the bridge of the nose right forearm left 2 through 5 digits, 2 cm laceration over the left knee. All extremities are neurovascular tact distally. Compartments are soft. Cap refill less than 2 seconds.), No rash Lymphatic Exam: No adenopathy SpO2 Interpretation: normal SpO2: 100 O2 Delivery: Room Air Procedures - Laceration/Wound Repair Knee Time of Procedure: 20:10 Wound Location: Left Wound Length (cm): 2 Wound's Depth, Shape: irregular Wound Explored: clean Irrigated: Yes Hibiclens Prep: Yes Anesthesia: 1% Lidocaine Volume Anesthetic (ccs): 4 Wound Debrided: No debridement indicated Wound Repaired With: sutures Suture Size/Type: 4-0, ethilon Number of Sutures: 5 Sterile Dressing Applied?: No Splint Applied?: No - Course Nursing assessment & vital signs reviewed: Yes - Radiology Exams Shoulder X-ray Interpretation: Interpreted by me (No fracture or dislocation. Osteopenia, high high riding humerus. Degenerative joint disease) - CT Exams Maxillofacial Bones CT Interpretation: Tele-radiologist Report (No comps diffuse motion artifact no obvious fracture) Head CT Interpretation: Tele-radiologist Report (Nonacute senile brain) Ordered Tests: Active Orders 24 hr Category Date Time Status FACIAL BONES WO CONTRAST [CT] Stat Exams 05/22/23 17:56 Taken HEAD WITHOUT CONTRAST [CT] Stat Exams 05/22/23 17:56 Taken SHOULDER Stat Exams 05/22/23 17:57 Taken - Progress Progress: improved Progress Note: 83-year-old male presents to our ED status post fall. Fall was mechanical and not associated with any neuro or cardiovascular symptomology. No associated chest pain or shortness of breath. No nausea vomiting or diaphoresis. No numbness tingling or weakness. Patient declined a work-up because he believes it is not necessary. However he agrees to CT head and face. He also requested a left shoulder x-ray. CT head face both negative for fracture dislocation. No acute intracranial process observed on CT head. Left shoulder x-ray read by Dr. Tello. Formal read pending. Degenerative joint disease, osteopenia and a high riding humerus observed. The involved extremity is neurovascular tact distally. Patient has multiple skin abrasions throughout the right upper extremity left hand. There is a significant 2 cm defect just at the level of the left patellar tendon. The tendon is visible. No extensor lag. The extensor mechanism is completely intact. The involved extremity is neurovascular tact distally. The wound defect had very thin skin. We consider the possibility of transferring patient to see orthopedics. I spoke to trauma surgeon from [facility] who advised closing the wound the best I can treating with antibiotics and having patient follow-up with orthopedics tomorrow. The left knee wound was closed using 5 simple interrupted sutures 5.0 nylon. Patient neurovascular tact distally post procedure He advised Dr. Emiliano Peñaloza [phone] Colón [phone] \ at bedside. They voiced no other complaints or concerns at this time. They will follow-up with orthopedics as recommended. Portions of this note were created with voice recognition technology. There may be grammatical, spelling, punctuation or sound alike errors Complexity of problem addressed is moderate acute complicated No critical care time Complex of data reviewed and analyzed is extensive Dr. Tello independently reviewed the x-ray and CT scan imaging reports. Clinical correlation made steve jones the findings and history and physical examination. Consultation with trauma surgeon to establish management./Plan of care Risk of complication and a risk morbidity/mortality of patient management is moderate. A prescription for antibiotics forwarded to patient's pharmacy. Vital stable. Time spent to discharge patient is approximately 15 to 20 minutes. Plan of care established for shared decision making. No social determinants of health present to impede follow-up. Portions of this note were created with voice recognition technology. There may be grammatical, spelling, punctuation or sound alike errors 05/22/23 20:10 Tetanus is up-to-date 05/22/23 20:15 05/22/23 20:17 Counseled pt/family regarding: diagnosis, need for follow-up, rad results - Departure Departure Disposition: Home Clinical Impression: Fall, Skin tear, Laceration, Shoulder strain Condition: Stable Critical Care Time: No Referrals: EDDIE ROBERTSON, [employer] [Primary Care Provider] - Follow up/PCP as directed Additional Instructions: Please follow-up with either orthopedics doctors. Dr. Colón [phone] Felipe Discharge/Care Plan CHEMA EDWARDS ISIDRO was seen on 05/22/23 in the Emergency Room. The patient was counseled regarding Diagnosis,Lab results, Imaging studies, need for follow up and when to return to the Emergency Room. Prescriptions given: Discharge Note I have spoken with the patient and/or caregivers. I have explained the patient's condition, diagnosis and treatment plan based on the information available to me at this time. I have answered the patient's and/or caregiver's questions and addressed any concerns. The patient and/or caregivers have as good understanding of the patient's diagnosis, condition and treatment plan as can be expected at this point. The vital signs have been stable. The patient's condition is stable and appropriate for discharge from the emergency department. The patient will pursue further outpatient evaluation with the primary care physician or other designated or consulting physician as outlined in the discharge instructions. The patient and/or caregivers are agreeable to this plan of care and follow-up instructions have been explained in detail. The patient and/or caregivers have received these instruction. The patient/and or caregivers are aware that any significant change in condition or worsening of symptoms should prompt an immediate return to this or the closest emergency department or call 911. Prescriptions: Cephalexin Mh 500 mg [Keflex 500 mg] 500 mg PO TID #21 cap
[2023-05-22] MEDS ORDERED: XYLOCAINE 1% HCL 20 ML MDV IJ ONE (19:57)
[2023-05-22 20:01] VITALS: BP 150/90; PULSE 78; RESP 25; O2SAT 100
[2023-05-22] MEDS ORDERED: KEFLEX 500 MG PO ONE (20:15)
[2023-05-22] MEDS ORDERED: KEFLEX 500 MG ONE (20:19)
--- NOTE | 2023-05-23 08:38 | XRAY ---
Indication: Pain and limited mobility following fall. Comparison: None 3 view left shoulder demonstrates osteopenia and moderate AC degenerative changes. Markedly high riding humeral head favoring rotator cuff tear. Incompletely visualized left pleural effusion. No other bony, articular, or soft tissue abnormalities.
--- NOTE | 2023-05-23 08:38 | XRAY ---
Indication: Status post fall. Confusion. Multiple contiguous axial images obtained through the head without contrast. Comparison: December 06, 2021 Again age-appropriate global atrophy, moderate periventricular degenerative micro-ischemia bilaterally, and remote lacunar infarct left basal ganglia. No acute intracranial hemorrhage, abnormal extra-axial fluid collection, or mass effect. Fourth ventricle is midline without hydrocephalus. Bony calvarium intact. Visualized paranasal sinuses are clear. Again complete opacification left mastoid air cells presumed inflammatory. 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 Again complete opacification left mastoid air cells presumed inflammatory.
--- NOTE | 2023-05-23 08:40 | XRAY ---
Indication: Status post fall. Confusion. Multiple contiguous axial images obtained through the facial bones. Sagittal and coronal reformatted images obtained. Comparison: None Study is limited due to diffuse motion artifact. Age-related osteopenia. No gross acute fracture or suspicious bony lesions. Roof, wren, and floors of orbits are grossly intact. Paranasal sinuses and nasal passages are pneumatized and clear. Mild nasal septal deviation to the left. Visualized cervical spine demonstrates moderate multilevel degenerative changes. Impression: Limited exam due to motion artifact. No gross acute facial fracture. Incidental osteopenia, nasal septal deviation, and multilevel cervical degenerative spondylosis.
== END 2023-05-22 20:36 | disposition home or self-care (01) ==
LOC: ED 17:20
DX: S81.011A Laceration without foreign body, right knee, initial encounter (principal); S00.31XA Abrasion of nose, initial encounter; S50.811A Abrasion of right forearm, initial encounter; S60.411A Abrasion of left index finger, initial encounter; S60.413A Abrasion of left middle finger, initial encounter; S60.415A Abrasion of left ring finger, initial encounter; S60.417A Abrasion of left little finger, initial encounter; S46.912A Strain of unspecified muscle, fascia and tendon at shoulder and upper arm level, left arm, initial encounter; W18.39XA Other fall on same level, initial encounter; Z79.899 Other long term (current) drug therapy
CPT/HCPCS: 12001; 70450; 70486; 73030; 99284; A9270-GY

== ENCOUNTER 2023-05-31 19:30 | Inpatient (IN) | payer MEDICARE, BC ==
--- NOTE | 2023-05-31 19:45 | ERPHSYRPT ---
- History of Present Illness Time Seen by Provider: 05/31/23 19:42 Source: patient, EMS, old records Exam Limitations: no limitations Physician History: This is an 83-year-old overweight white male patient of nurse practitioner Cecil who complains of weakness today. On 05/22/2023, patient was seen in our emergency department secondary to a fall. At that time he had a CAT scan of the face without contrast that showed no obvious fractures. In addition, he had a CT scan of the head without contrast which showed nonacute senile brain. He had an x-ray of his left shoulder which did not show any acute fracture or dislocation. However it was somewhat high riding and there was a question of rotator cuff tear based on this high riding left shoulder joint space. Patient has a history of hypertension, CHF, COPD, hypothyroidism, gastroesophageal reflux disease. Because of his weakness, he contacted the ambulance service. The patient lives at home with his spouse. Patient has a history of frequent falls. Patient denies chest pain and he denies shortness of breath. Timing/Duration: today Severity: mild (To moderate) Associated Symptoms: weakness, No shortness of breath, No chest pain Allergies/Adverse Reactions: bacitracin Allergy (Verified 05/31/23 19:36) Home Medications: Potassium Chloride [Klor-Con M20] 20 meq PO DAILY 07/26/19 [History] Amlodipine Besylate 5 mg PO DAILY 02/09/20 [History] Omeprazole 20 mg PO DAILY 02/09/20 [History] Furosemide 40 mg PO DAILY 05/22/20 [History] Metoprolol Succinate 25 mg PO DAILY 05/22/20 [History] Levothyroxine Sodium 100 Mcg [Synthroid 100 Mcg] 88 mcg PO HS 12/06/21 [His tory] Multivit-Min/FA/Lycopen/Lutein [Centrum Silver Tablet] 1 tab PO DAILY 08/24/22 [History] Prednisone 10 mg [Deltasone 10 mg] 10 mg PO DAILY 05/31/23 [History] Hx Tetanus, Diphtheria Vaccination/Date Given: No Hx Influenza Vaccination/Date Given: No Hx Pneumococcal Vaccination/Date Given: No Travel Risk - International Travel Have you traveled outside of the country in past 3 weeks: No - Coronavirus Screening Are you exhibiting any of the following symptoms?: No Close contact with a COVID-19 positive Pt in past 14-21 Days: No - Vaccine Status Have you recieved a Covid-19 vaccination: Yes 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 - Vaccination Dates Date of 2cond Vaccination (if applicable): na - Review of Systems Constitutional: Weakness Eyes: No Symptoms Ears, Nose, & Throat: No Symptoms Respiratory: No Symptoms Cardiac: No Symptoms Abdominal/Gastrointestinal: No Symptoms Genitourinary Symptoms: No Symptoms Musculoskeletal: No Symptoms Skin: No Symptoms Neurological: No Symptoms Psychological: No Symptoms Endocrine: No Symptoms Hematologic/Lymphatic: No Symptoms Immunological/Allergic: No Symptoms All Other Systems: Reviewed and Negative - Past Medical History Pertinent Past Medical History: Yes Neurological History: No Pertinent History ENT History: No Pertinent History Cardiac History: No Pertinent History Respiratory History: COPD, Other Endocrine Medical History: Hypothyroidism Musculoskeletal History: Osteoarthritis GI Medical History: Pancreatitis History: Renal Disease Psycho-Social History: No Pertinent History Male Reproductive Disorders: Prostate Problems Other Medical History: 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 PAST THERAPY FOR WOUND CARE, BROKEN HIP. - Past Surgical History Past Surgical History: Yes Neuro Surgical History: No Pertinent History Cardiac: No Pertinent History Respiratory: No Pertinent History Gastrointestinal: No Pertinent History Genitourinary: No Pertinent History Musculoskeletal: No Pertinent History, Joint Replacement Male Surgical History: Prostate Surgery Other Surgical History: varicose veins repaired, j, g tube placed and removed,. partial left hip replacement, cyst on back - Social History Smoking Status: Former smoker Exposure to second hand smoke: No Drug Use: none Patient Lives Alone: No Significant Family History: no pertinent family hx - Nursing Vital Signs Nursing Vital Signs: Initial Vital Signs Temperature 97.7 F 05/31/23 19:31 Pulse Rate 80 05/31/23 19:31 Respiratory Rate 24 05/31/23 19:31 Blood Pressure 134/77 05/31/23 19:31 O2 Sat by Pulse Oximetry 94 L 05/31/23 19:31 Pain Scale Pain Intensity 0 - Physical Exam General Appearance: no apparent distress, alert, anxiety, obese Eye Exam: PERRL/EOMI, other (Patient has ecchymosis in the bilateral periorbital area from fall on 05/22/2023) Ears, Nose, Throat Exam: normal ENT inspection, moist mucous membranes Neck Exam: normal inspection, non-tender, supple, full range of motion Respiratory Exam: normal breath sounds, lungs clear, airway intact, No chest tenderness, No respiratory distress Cardiovascular Exam: regular rate/rhythm, normal heart sounds, normal peripheral pulses Gastrointestinal/Abdomen Exam: soft, normal bowel sounds, hernia (Patient has 2 periumbilical hernias which are reducible. They are nontender. 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 When compared to that twelve-lead EKG that was performed on 12/06/2021, there is new PVCs present.) Ordered Tests: Active Orders 24 hr Category Date Time Status Land Reclamation Specialist STAT Care 05/31/23 20:08 Active EKG-ER Only STAT Care 05/31/23 20:06 Active IV Insertion STAT Care 05/31/23 20:08 Active CHEST 1 VIEW (PORTABLE) Stat Exams 05/31/23 20:30 Taken CBC W DIFF Stat Lab 05/31/23 20:35 Completed CMP Stat Lab 05/31/23 20:35 Completed MAGNESIUM Stat Lab 05/31/23 20:35 Completed NT PRO BNPII Stat Lab 05/31/23 20:35 Completed TROPONIN Q4H Lab 05/31/23 20:35 Completed TROPONIN Q4H Lab 06/01/23 00:15 Ordered TROPONIN Q4H Lab 06/01/23 04:15 Ordered UA W/RFX UR CULTURE Stat Lab 05/31/23 20:21 Completed Transfer Order Routine Transfer 05/31/23 Ordered Medication Summary Discontinued Medications Generic Name Dose Route Start Last Admin Trade Name Freq PRN Reason Stop Dose Admin Furosemide 40 mg 05/31/23 21:19 05/31/23 21:25 Furosemide 40 Mg/4 Ml Vial IV 05/31/23 21:20 40 mg STAT ONE Administration Furosemide Confirm 05/31/23 21:24 Furosemide 40 Mg/4 Ml Vial Administered 05/31/23 21:25 Dose 40 mg .ROUTE .STK-MED ONE Ceftriaxone Sodium/Dextrose 1 g in 50 mls @ 100 mls/hr 05/31/23 21:20 05/31/23 22:09 Rocephin 1 Gm-D5w 50 Ml Bag IV 05/31/23 21:49 Infused STAT STA Infusion Ceftriaxone Sodium/Dextrose Confirm 05/31/23 21:24 Rocephin 1 Gm-D5w 50 Ml Bag Administered 05/31/23 21:25 Dose 1 g in 50 mls @ ud IV .Vision Source ONE Lab/Rad Data: Laboratory Result Diagrams 05/31/23 20:35 05/31/23 20:35 Laboratory Results 05/31/23 05/31/23 05/31/23 Range/Units 21:00 20:35 20:35 WBC (4.0-10.5) x10^3/uL RBC (4.1-5.6) x10^6/uL Hgb (12.5-18.0) g/dL Hct (42-50) % MCV (78-100) fL MCH (26-32) pg MCHC (32-36) g/dL RDW (11.5-14.0) % Plt Count (150-450) x10^3/uL MPV (7.5-11.0) fL Gran % (36.0-66.0) % Immature Gran % (Auto) (0.00-0.4) % Nucleat RBC Rel Count (0.00-0.1) % Eos # (Auto) (0-0.5) x10^3/uL Immature Gran # (Auto) (0.00-0.03) x10^3u/L Absolute Lymphs (auto) (1.0-4.6) x10^3/uL Absolute Monos (auto) (0.0-1.3) x10^3/uL Absolute Nucleated RBC (0.00-0.01) x10^3u/L Lymphocytes % (24.0-44.0) % Monocytes % (0.0-12.0) % Eosinophils % (0.00-5.0) % Basophils % (0.0-0.4) % Absolute Granulocytes (1.4-6.9) x10^3/uL Basophils # (0-0.4) x10^3/uL Sodium (137-145) mmol/L Potassium (3.5-5.1) mmol/L Chloride (98-107) mmol/L Carbon Dioxide (22-30) mmol/L Anion Gap (5-15) MEQ/L BUN (9-20) mg/dL Creatinine (0.66-1.25) mg/dL Estimated GFR ML/MIN Glucose (74-106) mg/dL Calcium (8.4-10.2) mg/dL Magnesium (1.6-2.3) mg/dL Total Bilirubin (0.2-1.3) mg/dL AST (17-59) U/L ALT (0-50) U/L Alkaline Phosphatase (38-126) U/L Troponin I 0.095 H* (0.000-0.034) ng/mL NT-Pro-B Natriuret Pep 2010 (<300) pg/mL Serum Total Protein (6.3-8.2) g/dL Albumin (3.5-5.0) g/dL Urine Color (Yellow) Urine Appearance (Clear) Urine pH (4.6-8.0) Ur Specific [place] (1.005-1.030) Urine Protein (Negative) Urine Glucose (UA) (Negative) mg/dL Urine Ketones (Negative) Urine Blood (Negative) Urine Nitrite (Negative) Urine Bilirubin (Negative) Urine Urobilinogen (0.2) mg/dL Ur Leukocyte Esterase (Negative) U Hyaline Cast (Auto) (0-2) /LPF Urine Microscopic RBC (0-5) /HPF Urine Microscopic WBC (0-5) /HPF Ur Epithelial Cells (None Seen) /HPF Urine Bacteria (None Seen) /HPF Urine Culture Reflexed (NO) Influenza Type A Ag NEGATIVE (NEGATIVE) Influenza Type B Ag NEGATIVE (NEGATIVE) RSV (PCR) NEGATIVE (NEGATIVE) SARS-CoV-2 (PCR) NEGATIVE (NEGATIVE) Slides for Path Review 05/31/23 05/31/23 05/31/23 Range/Units 20:35 20:35 20:21 WBC 17.0 H (4.0-10.5) x10^3/uL RBC 4.21 (4.1-5.6) x10^6/uL Hgb 13.1 (12.5-18.0) g/dL Hct 40.3 L (42-50) % MCV 95.7 (78-100) fL MCH 31.1 (26-32) pg MCHC 32.5 (32-36) g/dL RDW 13.7 (11.5-14.0) % Plt Count 357 (150-450) x10^3/uL MPV 9.1 (7.5-11.0) fL Gran % 81.5 H (36.0-66.0) % Immature Gran % (Auto) 4.1 H (0.00-0.4) % Nucleat RBC Rel Count 0.0 (0.00-0.1) % Eos # (Auto) 0 (0-0.5) x10^3/uL Immature Gran # (Auto) 0.70 H (0.00-0.03) x10^3u/L Absolute Lymphs (auto) 0.83 L (1.0-4.6) x10^3/uL Absolute Monos (auto) 1.57 H (0.0-1.3) x10^3/uL Absolute Nucleated RBC 0.00 (0.00-0.01) x10^3u/L Lymphocytes % 4.9 L (24.0-44.0) % Monocytes % 9.2 (0.0-12.0) % Eosinophils % 0.0 (0.00-5.0) % Basophils % 0.3 (0.0-0.4) % Absolute Granulocytes 13.84 H (1.4-6.9) x10^3/uL Basophils # 0.05 (0-0.4) x10^3/uL Sodium 131 L (137-145) mmol/L Potassium 3.7 (3.5-5.1) mmol/L Chloride 95 L (98-107) mmol/L Carbon Dioxide 24 (22-30) mmol/L Anion Gap 16.0 H (5-15) MEQ/L BUN 32 H (9-20) mg/dL Creatinine 1.39 H (0.66-1.25) mg/dL Estimated GFR 51.7 ML/MIN Glucose 161 H (74-106) mg/dL Calcium 8.6 (8.4-10.2) mg/dL Magnesium 2.2 (1.6-2.3) mg/dL Total Bilirubin 0.50 (0.2-1.3) mg/dL AST 33 (17-59) U/L ALT 28 (0-50) U/L Alkaline Phosphatase 63 (38-126) U/L Troponin I (0.000-0.034) ng/mL NT-Pro-B Natriuret Pep (<300) pg/mL Serum Total Protein 6.5 (6.3-8.2) g/dL Albumin 4.1 (3.5-5.0) g/dL Urine Color Yellow (Yellow) Urine Appearance Clear (Clear) Urine pH 6.5 (4.6-8.0) Ur Specific [place] 1.015 (1.005-1.030) Urine Protein Negative (Negative) Urine Glucose (UA) Negative (Negative) mg/dL Urine Ketones Negative (Negative) Urine Blood Negative (Negative) Urine Nitrite Negative (Negative) Urine Bilirubin Negative (Negative) Urine Urobilinogen 1.0 A (0.2) mg/dL Ur Leukocyte Esterase Negative (Negative) U Hyaline Cast (Auto) NONE SEEN (0-2) /LPF Urine Microscopic RBC 0-2 (0-5) /HPF Urine Microscopic WBC 0-2 (0-5) /HPF Ur Epithelial Cells None Seen (None Seen) /HPF Urine Bacteria None Seen (None Seen) /HPF Urine Culture Reflexed NO (NO) Influenza Type A Ag (NEGATIVE) Influenza Type B Ag (NEGATIVE) RSV (PCR) (NEGATIVE) SARS-CoV-2 (PCR) (NEGATIVE) Slides for Path Review YES - Progress Progress: re-examined Progress Note: 05/31/23 20:28 This patient's medical issue is 1 of at least moderate complexity. Level compl exity in the work-up performed is based on review of the patient's past medical history, review of the patient's medication list, review of the patient's drug allergy list, history of present illness and physical findings on examination. This patient's work-up includes placement of intravenous line, twelve-lead EKG, chest x-ray, urinalysis, CBC, CMP, troponin level, BNP and magnesium level. 05/31/23 20:33 Chest x-ray was interpreted by me. There are bibasilar pleural effusions with the left side greater than the right. Bibasilar infiltrates are not excluded. 05/31/23 22:04 I reviewed the patient history, the results of the work-up and discussed these with Dr. Fajardo the telehospitalist on-call at this evening. He agrees that this patient should be full admission and we will provide the patient with intravenous antibiotics, twice a day 40 mg intravenous Lasix serial cardiac enzymes and repeat labs in the morning as well as repeat twelve-lead EKG in the morning. He will be on telemetry. We will put him on 2 L oxygen nasal cannula and have respiratory therapy follow him while in house. Counseled pt/family regarding: lab results, diagnosis, need for follow-up Medical Desision Making - Independent Historian Additional History obtained from: Social Media Manager/EMT - Discussion of managment Care discussed with:: hospitalist (Dr. Fajardo) Reviewed:: Test results, Need for additional workup Agreed on:: Treatment plan, decision to admit - Social Determinants of Health Limited access to: transportation - Diagnostic Testing Diagnostic test were ordered, analyzed, and reviewed by me: Yes Radiological Interpretation: Interpreted by me - Risk of complications The pt has a high risk of morbidity or mortality based on: Decision regarding hospitilization or escalation of hosp level of care - Departure Departure Disposition: In-patient Admission Clinical Impression: Pneumonia, CHF (congestive heart failure), Pleural effusion Condition: Fair Critical Care Time: No Referrals: EDDIE ROBERTSON JUDGE [Primary Care Provider] - Follow up/PCP as directed Instructions: Heart Failure
[2023-05-31 20:39] LABS: Absolute Neutrophil Ct (ANC) 13.84 x10^3/uL (1.4-6.9); BASOPHIL % 0.3 % (0.0-0.4); Basophil (Absolute #) 0.05 x10^3/uL (0-0.4); Eosinophil (Absolute #) 0 x10^3/uL (0-0.5); Hematocrit 40.3 % (42-50); Hemoglobin 13.1 g/dL (12.5-18.0); IMMATURE GRAN % 4.1 % (0.00-0.4); Lymphocyte (Absolute #) 0.83 x10^3/uL (1.0-4.6); Lymphocytes % 4.9 % (24.0-44.0); Mean Cell Volume 95.7 fL (78-100); Mean Corpuscular Hemoglobin 31.1 pg (26-32); Mean Corpuscular Hgb Concent. 32.5 g/dL (32-36); Mean Platelet Volume 9.1 fL (7.5-11.0); Monocyte (Absolute #) 1.57 x10^3/uL (0.0-1.3); Monocytes % 9.2 % (0.0-12.0); Neutrophil % 81.5 % (36.0-66.0); Platelet Count 357 x10^3/uL (150-450); Red Blood Count 4.21 x10^6/uL (4.1-5.6); Red Cell Distribution Width 13.7 % (11.5-14.0)
[2023-05-31 20:47] LABS: Appearance Clear (Clear); Bacteria None Seen /HPF (None Seen); Bilirubin Negative (Negative); Blood Negative (Negative); Epithelial Cells None Seen /HPF (None Seen); Glucose, Urine Negative (Negative); Hyaline Casts NONE SEEN /LPF (0-2); Ketones Negative (Negative); Leukocyte Esterase Negative (Negative); Nitrite Negative (Negative); Ph 6.5 (4.6-8.0); Protein,Urine Dip Negative (Negative); RBC 0-2 /HPF (0-5); Specific Gravity 1.015 (1.005-1.030); WBC 0-2 /HPF (0-5)
[2023-05-31 20:53] LABS: ALBUMIN 4.1 g/dL (3.5-5.0); BILIRUBIN,TOTAL 0.5 mg/dL (0.2-1.3); Calcium 8.6 mg/dL (8.4-10.2); Creatinine 1 1.39 mg/dL (0.66-1.25); EST GLOMERULAR FILTRATION RATE 51.7 ML/MIN; MAGNESIUM 2.2 mg/dL (1.6-2.3); Potassium 3.7 mmol/L (3.5-5.1); Total Protein 6.5 g/dL (6.3-8.2)
[2023-05-31 20:57] LABS: ADD URINE CULTURE? NO (NO)
[2023-05-31] MEDS ORDERED: Lasix 40 MG/4 ML IV ONE (21:19)
[2023-05-31] MEDS ORDERED: ROCEPHIN 1 Gm-D5w 50 ml Bag** 1 G/50 ML IVPB IV STA (21:20)
[2023-05-31] MEDS ORDERED: Lasix 40 MG/4 ML ONE (21:24)
[2023-05-31] MEDS ORDERED: ROCEPHIN 1 Gm-D5w 50 ml Bag** 1 G/50 ML IVPB IV ONE (21:24)
[2023-05-31 21:26] LABS: INFLUENZA A NEGATIVE (NEGATIVE); INFLUENZA B NEGATIVE (NEGATIVE); RESPIRATORY SYNCTIAL VIRUS NEGATIVE (NEGATIVE); SARS-CoV-2 Xpert Express NEGATIVE (NEGATIVE)
[2023-05-31 21:41] LABS: Slide Review 1 YES
--- NOTE | 2023-05-31 23:06 | PCM.HP ---
History of Present Illness - Chief Complaint Chief Complaint: Weakness History of Present Illness: is a 83 year old male with hx of CHF, COPD, HTN, Hypothyroidism, GERD presented to ER today with progressive weakness. He was here on 05/22 after a fall, and work-up in ER was negative for fracture. Sent home then. But had been weak since and worse. Denies chest pain, no SOB at rest, but gets fatigue with exertion, with some SOB. No cough, wheezing, sputum, hemoptysis. No fever, chills, nausea, vomiting or diarrhea. No syncope. Here in ER, CXR shows BL pleural effusion and BNP is high than baseline of 600-->it is now 2000. WBC 17. Concerning for acute CHF and possible PNA not seen on CXR due to the effusion. He is being admitted for this. I am seeing pt via telemedicine. He is resting, comfortable, in NAD - Review of Systems Constitutional: Fatigue, Weakness Eyes: No Symptoms Ears, Nose, & Throat: No Symptoms Respiratory: Short Of Breath Cardiac: No Symptoms Abdominal/Gastrointestinal: No Symptoms Genitourinary Symptoms: No Symptoms Skin: No Symptoms Neurological: Other (Weakness) Psychological: No Symptoms Endocrine: No Symptoms Hematologic/Lymphatic: No Symptoms Immunological/Allergic: No Symptoms Medications & Allergies Home Medications: Home Medication List Potassium Chloride [Klor-Con M20] 20 meq PO DAILY 07/26/19 [History Confirmed 05/31/23] Amlodipine Besylate 5 mg PO DAILY 02/09/20 [History Confirmed 05/31/23] Omeprazole 20 mg PO DAILY 02/09/20 [History Confirmed 05/31/23] Furosemide 40 mg PO DAILY 05/22/20 [History Confirmed 05/31/23] Metoprolol Succinate 25 mg PO DAILY 05/22/20 [History Confirmed 05/31/23] Levothyroxine Sodium 100 Mcg [Synthroid 100 Mcg] 88 mcg PO HS 12/06/21 [History Confirmed 05/31/23] Albuterol 2.5 mg/3 ml Neb [Proventil 2.5 mg/3 ml Neb] 2.5 mg IH BIDRT 12/08/21 [Rx Confirmed 05/31/23] Multivit-Min/FA/Lycopen/Lutein [Centrum Silver Tablet] 1 tab PO DAILY 08/24/22 [History Confirmed 05/31/23] Latanoprost/Pf [Iyuzeh 0.005% Eye Drop] 1 each OP HS 05/31/23 [History Confirmed 05/31/23] Prednisone 10 mg [Deltasone 10 mg] 10 mg PO DAILY 05/31/23 [History Confirmed 05/31/23] Allergies/Adverse Reactions: Allergies Allergy/AdvReac Type Severity Reaction Status Date / Time bacitracin Allergy Verified 05/31/23 19:36 - Past Medical History Past Medical History: Yes Neurological History: No Pertinent History ENT History: No Pertinent History Cardiac History: No Pertinent History Respiratory History: CHF, COPD, Other Endocrine Medical History: Hypothyroidism Musculoskelatal History: Osteoarthritis GI Medical History: Pancreatitis History: Renal Disease Pyscho-Social History: No Pertinent History Male Reproductive Disorders: Prostate Problems Comment: 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 PAST THERAPY FOR WOUND CARE, BROKEN HIP. - Past Surgical History Past Surgical History: Yes Neuro Surgical History: No Pertinent History Cardiac History: No Pertinent History Respiratory Surgery: No Pertinent History GI Surgical History: No Pertinent History Genitourinary Surgical Hx: No Pertinent History Musculskeletal Surgical Hx: No Pertinent History, Joint Replacement Male Surgical History: Prostate Surgery Other Surgical History: varicose veins repaired, j, g tube placed and removed,. partial left hip replacement, cyst on back - Social History Smoking Status: Former smoker Exposure to second hand smoke: No Alcohol: None Drug Use: none Significant Family History: no pertinent family hx - Physical Exam Vital Signs: Vital Signs - 24 hr Temp Pulse Resp BP BP Pulse Ox 05/31/23 22:00 72 19 132/94 96 05/31/23 21:00 73 18 138/85 96 05/31/23 20:00 73 19 135/83 96 05/31/23 19:36 77 19 134/77 96 05/31/23 19:31 97.7 F 80 24 134/77 94 L General Appearance: no apparent distress Neurologic Exam: alert, oriented x 3, cooperative Eye Exam: PERRL/EOMI, eyes nml inspection Ears, Nose, Throat Exam: normal ENT inspection Neck Exam: normal inspection, non-tender, supple Respiratory Exam: diminished breath sounds Cardiovascular Exam: regular rate/rhythm Gastrointestinal/Abdomen Exam: soft, normal bowel sounds Rectal Exam: deferred Back Exam: normal inspection Extremity Exam: pedal edema Skin Exam: normal color Results - Labs Lab/Micro Results: Lab Results-Last 24 Hours 05/31/23 05/31/23 05/31/23 Range/Units 20:21 20:35 20:35 WBC 17.0 H (4.0-10.5) x10^3/uL RBC 4.21 (4.1-5.6) x10^6/uL Hgb 13.1 (12.5-18.0) g/dL Hct 40.3 L (42-50) % MCV 95.7 (78-100) fL MCH 31.1 (26-32) pg MCHC 32.5 (32-36) g/dL RDW 13.7 (11.5-14.0) % Plt Count 357 (150-450) x10^3/uL MPV 9.1 (7.5-11.0) fL Gran % 81.5 H (36.0-66.0) % Immature Gran % (Auto) 4.1 H (0.00-0.4) % Nucleat RBC Rel Count 0.0 (0.00-0.1) % Eos # (Auto) 0 (0-0.5) x10^3/uL Immature Gran # (Auto) 0.70 H (0.00-0.03) x10^3u/L Absolute Lymphs (auto) 0.83 L (1.0-4.6) x10^3/uL Absolute Monos (auto) 1.57 H (0.0-1.3) x10^3/uL Absolute Nucleated RBC 0.00 (0.00-0.01) x10^3u/L Lymphocytes % 4.9 L (24.0-44.0) % Monocytes % 9.2 (0.0-12.0) % Eosinophils % 0.0 (0.00-5.0) % Basophils % 0.3 (0.0-0.4) % Absolute Granulocytes 13.84 H (1.4-6.9) x10^3/uL Basophils # 0.05 (0-0.4) x10^3/uL Sodium 131 L (137-145) mmol/L Potassium 3.7 (3.5-5.1) mmol/L Chloride 95 L (98-107) mmol/L Carbon Dioxide 24 (22-30) mmol/L Anion Gap 16.0 H (5-15) MEQ/L BUN 32 H (9-20) mg/dL Creatinine 1.39 H (0.66-1.25) mg/dL Estimated GFR 51.7 ML/MIN Glucose 161 H (74-106) mg/dL Calcium 8.6 (8.4-10.2) mg/dL Magnesium 2.2 (1.6-2.3) mg/dL Total Bilirubin 0.50 (0.2-1.3) mg/dL AST 33 (17-59) U/L ALT 28 (0-50) U/L Alkaline Phosphatase 63 (38-126) U/L Troponin I (0.000-0.034) ng/mL NT-Pro-B Natriuret Pep (<300) pg/mL Serum Total Protein 6.5 (6.3-8.2) g/dL Albumin 4.1 (3.5-5.0) g/dL Urine Color Yellow (Yellow) Urine Appearance Clear (Clear) Urine pH 6.5 (4.6-8.0) Ur Specific [place] 1.015 (1.005-1.030) Urine Protein Negative (Negative) Urine Glucose (UA) Negative (Negative) mg/dL Urine Ketones Negative (Negative) Urine Blood Negative (Negative) Urine Nitrite Negative (Negative) Urine Bilirubin Negative (Negative) Urine Urobilinogen 1.0 A (0.2) mg/dL Ur Leukocyte Esterase Negative (Negative) U Hyaline Cast (Auto) NONE SEEN (0-2) /LPF Urine Microscopic RBC 0-2 (0-5) /HPF Urine Microscopic WBC 0-2 (0-5) /HPF Ur Epithelial Cells None Seen (None Seen) /HPF Urine Bacteria None Seen (None Seen) /HPF Urine Culture Reflexed NO (NO) Influenza Type A Ag (NEGATIVE) Influenza Type B Ag (NEGATIVE) RSV (PCR) (NEGATIVE) SARS-CoV-2 (PCR) (NEGATIVE) Slides for Path Review YES 05/31/23 05/31/23 05/31/23 Range/Units 20:35 20:35 21:00 WBC (4.0-10.5) x10^3/uL RBC (4.1-5.6) x10^6/uL Hgb (12.5-18.0) g/dL Hct (42-50) % MCV (78-100) fL MCH (26-32) pg MCHC (32-36) g/dL RDW (11.5-14.0) % Plt Count (150-450) x10^3/uL MPV (7.5-11.0) fL Gran % (36.0-66.0) % Immature Gran % (Auto) (0.00-0.4) % Nucleat RBC Rel Count (0.00-0.1) % Eos # (Auto) (0-0.5) x10^3/uL Immature Gran # (Auto) (0.00-0.03) x10^3u/L Absolute Lymphs (auto) (1.0-4.6) x10^3/uL Absolute Monos (auto) (0.0-1.3) x10^3/uL Absolute Nucleated RBC (0.00-0.01) x10^3u/L Lymphocytes % (24.0-44.0) % Monocytes % (0.0-12.0) % Eosinophils % (0.00-5.0) % Basophils % (0.0-0.4) % Absolute Granulocytes (1.4-6.9) x10^3/uL Basophils # (0-0.4) x10^3/uL Sodium (137-145) mmol/L Potassium (3.5-5.1) mmol/L Chloride (98-107) mmol/L Carbon Dioxide (22-30) mmol/L Anion Gap (5-15) MEQ/L BUN (9-20) mg/dL Creatinine (0.66-1.25) mg/dL Estimated GFR ML/MIN Glucose (74-106) mg/dL Calcium (8.4-10.2) mg/dL Magnesium (1.6-2.3) mg/dL Total Bilirubin (0.2-1.3) mg/dL AST (17-59) U/L ALT (0-50) U/L Alkaline Phosphatase (38-126) U/L Troponin I 0.095 H* (0.000-0.034) ng/mL NT-Pro-B Natriuret Pep 2010 (<300) pg/mL Serum Total Protein (6.3-8.2) g/dL Albumin (3.5-5.0) g/dL Urine Color (Yellow) Urine Appearance (Clear) Urine pH (4.6-8.0) Ur Specific [place] (1.005-1.030) Urine Protein (Negative) Urine Glucose (UA) (Negative) mg/dL Urine Ketones (Negative) Urine Blood (Negative) Urine Nitrite (Negative) Urine Bilirubin (Negative) Urine Urobilinogen (0.2) mg/dL Ur Leukocyte Esterase (Negative) U Hyaline Cast (Auto) (0-2) /LPF Urine Microscopic RBC (0-5) /HPF Urine Microscopic WBC (0-5) /HPF Ur Epithelial Cells (None Seen) /HPF Urine Bacteria (None Seen) /HPF Urine Culture Reflexed (NO) Influenza Type A Ag NEGATIVE (NEGATIVE) Influenza Type B Ag NEGATIVE (NEGATIVE) RSV (PCR) NEGATIVE (NEGATIVE) SARS-CoV-2 (PCR) NEGATIVE (NEGATIVE) Slides for Path Review - Radiology Impressions Radiology Exams & Impressions: Radiology Procedures Category Date Time Status CHEST 1 VIEW (PORTABLE) Stat Exams 05/31/23 20:30 Taken - Other Procedures and Tests Respiratory Therapy 05/31/23 22:31 EKG REPEAT IN AM Oxygen Nasal Cannula 2 lpm Respiratory Therapy Consult ONCE Assessment/Plan (1) Pleural effusion Current Visit: Yes Status: Acute Assessment & Plan: BL pleural effusion. BNP higher than usual baseline, now at 2000. Will continue Lasix but at 40mg IV BID. If significant, may need thoracentesis - pending clinical improvement. Limit fluid intake < 1.5L/day, reduced salt intake. Monitor progress. May need Echo if none done within last 6 months Code(s): J90 - PLEURAL EFFUSION, NOT ELSEWHERE CLASSIFIED (2) CHF (congestive heart failure) Current Visit: Yes Status: Chronic Assessment & Plan: Hx of CHF, came in with BL pleural effusions. Plan for Lasix 40mg IV BID. Repeat BNP. Baseline was 600s, now BNP 2000. Limit fluid and salt intake as stated above. Consider Echo if none done last 6 months. Trop 0.095, likely demand. Will trend trop x 2. EKG did not support ACS Code(s): I50.9 - HEART FAILURE, UNSPECIFIED (3) Pneumonia Current Visit: Yes Status: Acute Assessment & Plan: CXR shows BL pleural effusions, but WBC is 17 with left shift. Cannot see infi ltrate behind effusions. Will start Rocephin/Azithromycin for CAP. Code(s): J18.9 - PNEUMONIA, UNSPECIFIED ORGANISM (4) Leukocytosis Current Visit: Yes Status: Acute Assessment & Plan: WBC 17 - discussion as above. Will monitor WBC trend Code(s): D72.829 - ELEVATED WHITE BLOOD CELL COUNT, UNSPECIFIED (5) COPD (chronic obstructive pulmonary disease) Current Visit: Yes Status: Acute Assessment & Plan: Resume home neds/INH. Not in exacerbation (6) Hyponatremia Current Visit: Yes Status: Acute Assessment & Plan: Na 131 - mildly low, in hypervolemic state, so Lasix should help. Will monitor Na daily Code(s): E87.1 - HYPO-OSMOLALITY AND HYPONATREMIA (7) CKD (chronic kidney disease) stage 3, GFR 30-59 ml/min Current Visit: Yes Status: Acute Assessment & Plan: He has a hx of CKD, unsure baseline. Cr 1.39, so will monitor closely while getting Lasix for CHFexacerbation Code(s): N18.30 - CHRONIC KIDNEY DISEASE, STAGE 3 UNSPECIFIED (8) HTN (hypertension) Current Visit: Yes Status: Acute Assessment & Plan: BP is controlled. Continue Metoprolol and Amlodipine. Monitor BP trend and make adjustment as needed Code(s): I10 - ESSENTIAL (PRIMARY) HYPERTENSION Telemedicine Encounter - Telemedicine Encounter Telemedicine Encounter: The entirety of this encounter was performed via Telemedicine" Pt gave me verbal consent to have this telemedicine visit
[2023-05-31] MEDS: Sodium Chloride 0.9% 1000 ML 1,000 ML IV SCH (23:38)
[2023-06-01 04:28] LABS: Absolute Neutrophil Ct (ANC) 10.29 x10^3/uL (1.4-6.9); BASOPHIL % 0.5 % (0.0-0.4); Basophil (Absolute #) 0.06 x10^3/uL (0-0.4); Eosinophil % 0.2 % (0.00-5.0); Eosinophil (Absolute #) 0.02 x10^3/uL (0-0.5); Hematocrit 41.4 % (42-50); Hemoglobin 13.5 g/dL (12.5-18.0); IMMATURE GRAN # 0.64 x10^3u/L (0.00-0.03); IMMATURE GRAN % 4.8 % (0.00-0.4); Lymphocyte (Absolute #) 1.02 x10^3/uL (1.0-4.6); Lymphocytes % 7.7 % (24.0-44.0); Mean Cell Volume 94.7 fL (78-100); Mean Corpuscular Hemoglobin 30.9 pg (26-32); Mean Corpuscular Hgb Concent. 32.6 g/dL (32-36); Mean Platelet Volume 9.2 fL (7.5-11.0); Monocyte (Absolute #) 1.21 x10^3/uL (0.0-1.3); Monocytes % 9.1 % (0.0-12.0); Neutrophil % 77.7 % (36.0-66.0); Platelet Count 320 x10^3/uL (150-450); Red Blood Count 4.37 x10^6/uL (4.1-5.6); Red Cell Distribution Width 13.6 % (11.5-14.0); White Blood Count 13.2 x10^3/uL (4.0-10.5)
[2023-06-01 04:45] LABS: BILIRUBIN,TOTAL 0.6 mg/dL (0.2-1.3); Calcium 8.4 mg/dL (8.4-10.2); Creatinine 1 1.25 mg/dL (0.66-1.25); EST GLOMERULAR FILTRATION RATE 58.5 ML/MIN; Potassium 3.2 mmol/L (3.5-5.1); Total Protein 6.4 g/dL (6.3-8.2)
[2023-06-01] MEDS ORDERED: Klor Con PO ONE (07:15)
--- NOTE | 2023-06-01 08:26 | XRAY ---
Indication: Weakness. Comparison: December 07, 2021 Portable chest again demonstrates mild/moderate bibasilar effusions with infiltrates/atelectasis again left greater than right. Heart not enlarged. Bony thorax intact again with osteopenia and degenerative changes.
[2023-06-01] MEDS: SYNTHROID 88 MCG PO SCH (08:46)
[2023-06-01] MEDS: PROVENTIL 2.5 MG/3 ML NEB IH SCH ×2 (09:28→19:42)
[2023-06-01] MEDS: THERAGRAN MULTIVITAMIN PO SCH (09:55)
[2023-06-01] MEDS: Docusate Sodium 100 MG PO SCH ×2 (09:55→22:23)
[2023-06-01] MEDS: NORVASC 5 MG PO SCH (09:55)
[2023-06-01] MEDS: Lasix 40 MG/4 ML IV SCH ×2 (09:56→16:28)
[2023-06-01] MEDS: ENOXAPARIN SODIUM SQ SCH (09:56)
[2023-06-01] MEDS: Toprol-Xl 25MG Tablets PO SCH (09:56)
[2023-06-01] MEDS: Protonix 40MG Tablet PO SCH (09:56)
[2023-06-01] MEDS: Zithromax 500 MG/ 250 ML NaCl Premix 500 MG/250 ML IVPB IV SCH ×2 (09:57→22:20)
[2023-06-01] MEDS ORDERED: NON-FORMULARY ITEM (Multivit-Min/Fa/Lycopen/Lutein [Centrum Silver Tablet] 1 EACH Tablet) PO SCH (10:00)
[2023-06-01] MEDS ORDERED: NON-FORMULARY ITEM (Omeprazole [Omeprazole] 20 MG Tablet.Dr) PO SCH (10:00)
--- NOTE | 2023-06-01 10:23 | PCM.NOTE ---
Date and Time: 06/01/23 1017 Subjective Assessment: is a 83 year old male with hx of CHF, COPD, HTN, Hypothyroidism, GERD presented to ER today with progressive weakness. He was here on 05/22 after a fall, received sutures in left knee, and work-up in ER was negative for fracture. Sent home but had been weak since and worse. Denies chest pain, no SOB at rest, but gets fatigue with exertion, with some SOB. In ER, CXR showed BL pleural effusion and BNP is high than baseline of 600-->it is now 2000. WBC 17. Concerning for acute CHF and possible PNA not seen on CXR due to the effusion. Started on Rocephin and azithromycin for CAP coverage. He was started on Lasix 40 BID for CHF. Will order CT for further evaluation of chest XR. He continues t o have + 3 pitting edema of BLLE. Trop x2 elevated but trending down. Echo and cardiology consult ordered. He has scrotal edema and appears to have a large hernia in scrotal region. CT abd ordered for further eval. He has bruises in various stages of healing and multiple skin tears from falling at home. Will ave PT and OT eval. He is willing to go to [facility] per case management for rehab. He denies CP, SOB, abd pain, N/V/D. - Review of Systems Constitutional: Weakness, No Fever, No Chills Eyes: No Symptoms Ears, Nose, & Throat: No Symptoms Respiratory: No Cough, No Short Of Breath Cardiac: Edema (BLLE), No Chest Pain, No Syncope Abdominal/Gastrointestinal: No Abdominal Pain, No Nausea, No Vomiting, No Diarrhea Genitourinary Symptoms: Urgency, Other (testicular edema), No Dysuria Musculoskeletal: No Back Pain, No Neck Pain Skin: Skin Lesions, Other (mutiple brusies on body and skin tears, sutures left knee placed on 10/22), No Rash Neurological: No Dizziness, No Focal Weakness, No Sensory Changes Psychological: No Symptoms Endocrine: No Symptoms Hematologic/Lymphatic: No Symptoms Immunological/Allergic: No Symptoms Objective Exam General Appearance: no apparent distress, alert Neurologic Exam: alert, oriented x 3, cooperative, normal mood/affect, nml cerebellar function, sensation nml, No motor deficits Skin Exam: normal color, warm, dry, abrasion, other (bruises in various stages of healing all over body. Multiple skin tears on BL arms and hands. Left knee sutures) Wound Assessment: Skin/Wound Assessment Wound/Incision Assessment Start: 05/31/23 23:19 Text: Status: Active Freq: Q6H Protocol: Document 06/01/23 07:55 [facility] (Rec: 06/01/23 08:11 [facility] [id number]) Wound/Incision Assessment Right Lower Arm Wound Assessment Shift Assessment Left Knee Wound Assessment Shift Assessment Wound Type Laceration Wound Stage Non Pressure Wound Dressing Status Dry & Intact General Appearance Sutures Intact Comment DRESSING C/D/I Right Arm Wound Assessment Shift Assessment Wound Type Abrasion Wound Stage Non Pressure Wound Dressing Status Dry & Intact Comment DRESSING C/D/I Left Finger Wound Assessment Shift Assessment Wound Type Skin Tear Wound Stage Non Pressure Wound Wound Bed Greatest Portion Black (Eschar) Comment 3RD AND 4TH DIGIT FINGER Wound Photo Photo Taken No Comment: PICTURES TAKEN ON PREVIOUS SHIFT. Eye Exam: PERRL, EOMI, eyes nml inspection Ears, Nose, Throat Exam: normal ENT inspection, pharynx normal, moist mucous mem branes Neck Exam: normal inspection, non-tender, supple, full range of motion Respiratory Exam: lungs clear, diminished breath sounds (BLLL), No respiratory distress Cardiovascular Exam: regular rate/rhythm, normal heart sounds, edema (+3 BLLE) Gastrointestinal/Abdomen Exam: soft, No tenderness, No mass Extremity Exam: normal inspection, normal range of motion, No calf tenderness Back Exam: normal inspection, normal range of motion, No CVA tenderness, No vertebral tenderness Male Genitalia Exam: hernia (appears to have a hernia but CT ordered for further eval), other (genitals edematous) Rectal Exam: deferred OBJECTIVE DATA Vital Signs: Vital Signs - 24 hr Temp Pulse Resp BP BP Pulse Ox 06/01/23 09:30 80 16 96 06/01/23 06:44 98.8 F 80 18 152/80 94 L 06/01/23 04:00 97.2 F 72 20 138/80 94 L 05/31/23 22:55 75 18 95 05/31/23 22:36 97.6 F 75 24 155/80 05/31/23 22:00 72 19 132/94 96 05/31/23 21:00 73 18 138/85 96 05/31/23 20:00 73 19 135/83 96 05/31/23 19:36 77 19 134/77 96 05/31/23 19:31 97.7 F 80 24 134/77 94 L Pain Assessment - Last Documented Pain Intensity 0 Intake and Output: Intake & Output 05/29/23 05/30/23 05/31/23 06/01/23 11:59 11:59 11:59 11:59 Intake Total 433 Balance 433 Weight 93.6 kg Lab Results: Lab Results-Last 24 Hours 05/31/23 05/31/23 05/31/23 Range/Units 20:21 20:35 20:35 WBC 17.0 H (4.0-10.5) x10^3/uL RBC 4.21 (4.1-5.6) x10^6/uL Hgb 13.1 (12.5-18.0) g/dL Hct 40.3 L (42-50) % MCV 95.7 (78-100) fL MCH 31.1 (26-32) pg MCHC 32.5 (32-36) g/dL RDW 13.7 (11.5-14.0) % Plt Count 357 (150-450) x10^3/uL MPV 9.1 (7.5-11.0) fL Gran % 81.5 H (36.0-66.0) % Immature Gran % (Auto) 4.1 H (0.00-0.4) % Nucleat RBC Rel Count 0.0 (0.00-0.1) % Eos # (Auto) 0 (0-0.5) x10^3/uL Immature Gran # (Auto) 0.70 H (0.00-0.03) x10^3u/L Absolute Lymphs (auto) 0.83 L (1.0-4.6) x10^3/uL Absolute Monos (auto) 1.57 H (0.0-1.3) x10^3/uL Absolute Nucleated RBC 0.00 (0.00-0.01) x10^3u/L Lymphocytes % 4.9 L (24.0-44.0) % Monocytes % 9.2 (0.0-12.0) % Eosinophils % 0.0 (0.00-5.0) % Basophils % 0.3 (0.0-0.4) % Absolute Granulocytes 13.84 H (1.4-6.9) x10^3/uL Basophils # 0.05 (0-0.4) x10^3/uL Sodium 131 L (137-145) mmol/L Potassium 3.7 (3.5-5.1) mmol/L Chloride 95 L (98-107) mmol/L Carbon Dioxide 24 (22-30) mmol/L Anion Gap 16.0 H (5-15) MEQ/L BUN 32 H (9-20) mg/dL Creatinine 1.39 H (0.66-1.25) mg/dL Estimated GFR 51.7 ML/MIN Glucose 161 H (74-106) mg/dL Calcium 8.6 (8.4-10.2) mg/dL Magnesium 2.2 (1.6-2.3) mg/dL Total Bilirubin 0.50 (0.2-1.3) mg/dL AST 33 (17-59) U/L ALT 28 (0-50) U/L Alkaline Phosphatase 63 (38-126) U/L Troponin I (0.000-0.034) ng/mL NT-Pro-B Natriuret Pep (<300) pg/mL Serum Total Protein 6.5 (6.3-8.2) g/dL Albumin 4.1 (3.5-5.0) g/dL Procalcitonin (0.030-0.080) ng/mL Urine Color Yellow (Yellow) Urine Appearance Clear (Clear) Urine pH 6.5 (4.6-8.0) Ur Specific [place] 1.015 (1.005-1.030) Urine Protein Negative (Negative) Urine Glucose (UA) Negative (Negative) mg/dL Urine Ketones Negative (Negative) Urine Blood Negative (Negative) Urine Nitrite Negative (Negative) Urine Bilirubin Negative (Negative) Urine Urobilinogen 1.0 A (0.2) mg/dL Ur Leukocyte Esterase Negative (Negative) U Hyaline Cast (Auto) NONE SEEN (0-2) /LPF Urine Microscopic RBC 0-2 (0-5) /HPF Urine Microscopic WBC 0-2 (0-5) /HPF Ur Epithelial Cells None Seen (None Seen) /HPF Urine Bacteria None Seen (None Seen) /HPF Urine Culture Reflexed NO (NO) Influenza Type A Ag (NEGATIVE) Influenza Type B Ag (NEGATIVE) RSV (PCR) (NEGATIVE) SARS-CoV-2 (PCR) (NEGATIVE) Slides for Path Review YES 05/31/23 05/31/23 05/31/23 Range/Units 20:35 20:35 21:00 WBC (4.0-10.5) x10^3/uL RBC (4.1-5.6) x10^6/uL Hgb (12.5-18.0) g/dL Hct (42-50) % MCV (78-100) fL MCH (26-32) pg MCHC (32-36) g/dL RDW (11.5-14.0) % Plt Count (150-450) x10^3/uL MPV (7.5-11.0) fL Gran % (36.0-66.0) % Immature Gran % (Auto) (0.00-0.4) % Nucleat RBC Rel Count (0.00-0.1) % Eos # (Auto) (0-0.5) x10^3/uL Immature Gran # (Auto) (0.00-0.03) x10^3u/L Absolute Lymphs (auto) (1.0-4.6) x10^3/uL Absolute Monos (auto) (0.0-1.3) x10^3/uL Absolute Nucleated RBC (0.00-0.01) x10^3u/L Lymphocytes % (24.0-44.0) % Monocytes % (0.0-12.0) % Eosinophils % (0.00-5.0) % Basophils % (0.0-0.4) % Absolute Granulocytes (1.4-6.9) x10^3/uL Basophils # (0-0.4) x10^3/uL Sodium (137-145) mmol/L Potassium (3.5-5.1) mmol/L Chloride (98-107) mmol/L Carbon Dioxide (22-30) mmol/L Anion Gap (5-15) MEQ/L BUN (9-20) mg/dL Creatinine (0.66-1.25) mg/dL Estimated GFR ML/MIN Glucose (74-106) mg/dL Calcium (8.4-10.2) mg/dL Magnesium (1.6-2.3) mg/dL Total Bilirubin (0.2-1.3) mg/dL AST (17-59) U/L ALT (0-50) U/L Alkaline Phosphatase (38-126) U/L Troponin I 0.095 H* (0.000-0.034) ng/mL NT-Pro-B Natriuret Pep 2010 (<300) pg/mL Serum Total Protein (6.3-8.2) g/dL Albumin (3.5-5.0) g/dL Procalcitonin (0.030-0.080) ng/mL Urine Color (Yellow) Urine Appearance (Clear) Urine pH (4.6-8.0) Ur Specific [place] (1.005-1.030) Urine Protein (Negative) Urine Glucose (UA) (Negative) mg/dL Urine Ketones (Negative) Urine Blood (Negative) Urine Nitrite (Negative) Urine Bilirubin (Negative) Urine Urobilinogen (0.2) mg/dL Ur Leukocyte Esterase (Negative) U Hyaline Cast (Auto) (0-2) /LPF Urine Microscopic RBC (0-5) /HPF Urine Microscopic WBC (0-5) /HPF Ur Epithelial Cells (None Seen) /HPF Urine Bacteria (None Seen) /HPF Urine Culture Reflexed (NO) Influenza Type A Ag NEGATIVE (NEGATIVE) Influenza Type B Ag NEGATIVE (NEGATIVE) RSV (PCR) NEGATIVE (NEGATIVE) SARS-CoV-2 (PCR) NEGATIVE (NEGATIVE) Slides for Path Review 06/01/23 06/01/23 06/01/23 Range/Units 00:30 04:12 04:12 WBC 13.2 H (4.0-10.5) x10^3/uL RBC 4.37 (4.1-5.6) x10^6/uL Hgb 13.5 (12.5-18.0) g/dL Hct 41.4 L (42-50) % MCV 94.7 (78-100) fL MCH 30.9 (26-32) pg MCHC 32.6 (32-36) g/dL RDW 13.6 (11.5-14.0) % Plt Count 320 (150-450) x10^3/uL MPV 9.2 (7.5-11.0) fL Gran % 77.7 H (36.0-66.0) % Immature Gran % (Auto) 4.8 H (0.00-0.4) % Nucleat RBC Rel Count 0.0 (0.00-0.1) % Eos # (Auto) 0.02 (0-0.5) x10^3/uL Immature Gran # (Auto) 0.64 H (0.00-0.03) x10^3u/L Absolute Lymphs (auto) 1.02 (1.0-4.6) x10^3/uL Absolute Monos (auto) 1.21 (0.0-1.3) x10^3/uL Absolute Nucleated RBC 0.00 (0.00-0.01) x10^3u/L Lymphocytes % 7.7 L (24.0-44.0) % Monocytes % 9.1 (0.0-12.0) % Eosinophils % 0.2 (0.00-5.0) % Basophils % 0.5 (0.0-0.4) % Absolute Granulocytes 10.29 H (1.4-6.9) x10^3/uL Basophils # 0.06 (0-0.4) x10^3/uL Sodium (137-145) mmol/L Potassium (3.5-5.1) mmol/L Chloride (98-107) mmol/L Carbon Dioxide (22-30) mmol/L Anion Gap (5-15) MEQ/L BUN (9-20) mg/dL Creatinine (0.66-1.25) mg/dL Estimated GFR ML/MIN Glucose (74-106) mg/dL Calcium (8.4-10.2) mg/dL Magnesium (1.6-2.3) mg/dL Total Bilirubin (0.2-1.3) mg/dL AST (17-59) U/L ALT (0-50) U/L Alkaline Phosphatase (38-126) U/L Troponin I 0.087 H* 0.085 H* (0.000-0.034) ng/mL NT-Pro-B Natriuret Pep (<300) pg/mL Serum Total Protein (6.3-8.2) g/dL Albumin (3.5-5.0) g/dL Procalcitonin (0.030-0.080) ng/mL Urine Color (Yellow) Urine Appearance (Clear) Urine pH (4.6-8.0) Ur Specific [place] (1.005-1.030) Urine Protein (Negative) Urine Glucose (UA) (Negative) mg/dL Urine Ketones (Negative) Urine Blood (Negative) Urine Nitrite (Negative) Urine Bilirubin (Negative) Urine Urobilinogen (0.2) mg/dL Ur Leukocyte Esterase (Negative) U Hyaline Cast (Auto) (0-2) /LPF Urine Microscopic RBC (0-5) /HPF Urine Microscopic WBC (0-5) /HPF Ur Epithelial Cells (None Seen) /HPF Urine Bacteria (None Seen) /HPF Urine Culture Reflexed (NO) Influenza Type A Ag (NEGATIVE) Influenza Type B Ag (NEGATIVE) RSV (PCR) (NEGATIVE) SARS-CoV-2 (PCR) (NEGATIVE) Slides for Path Review 06/01/23 06/01/23 Range/Units 04:12 04:50 WBC (4.0-10.5) x10^3/uL RBC (4.1-5.6) x10^6/uL Hgb (12.5-18.0) g/dL Hct (42-50) % MCV (78-100) fL MCH (26-32) pg MCHC (32-36) g/dL RDW (11.5-14.0) % Plt Count (150-450) x10^3/uL MPV (7.5-11.0) fL Gran % (36.0-66.0) % Immature Gran % (Auto) (0.00-0.4) % Nucleat RBC Rel Count (0.00-0.1) % Eos # (Auto) (0-0.5) x10^3/uL Immature Gran # (Auto) (0.00-0.03) x10^3u/L Absolute Lymphs (auto) (1.0-4.6) x10^3/uL Absolute Monos (auto) (0.0-1.3) x10^3/uL Absolute Nucleated RBC (0.00-0.01) x10^3u/L Lymphocytes % (24.0-44.0) % Monocytes % (0.0-12.0) % Eosinophils % (0.00-5.0) % Basophils % (0.0-0.4) % Absolute Granulocytes (1.4-6.9) x10^3/uL Basophils # (0-0.4) x10^3/uL Sodium 132 L (137-145) mmol/L Potassium 3.2 L (3.5-5.1) mmol/L Chloride 95 L (98-107) mmol/L Carbon Dioxide 27 (22-30) mmol/L Anion Gap 14.0 (5-15) MEQ/L BUN 29 H (9-20) mg/dL Creatinine 1.25 (0.66-1.25) mg/dL Estimated GFR 58.5 ML/MIN Glucose 116 H (74-106) mg/dL Calcium 8.4 (8.4-10.2) mg/dL Magnesium (1.6-2.3) mg/dL Total Bilirubin 0.60 (0.2-1.3) mg/dL AST 31 (17-59) U/L ALT 27 (0-50) U/L Alkaline Phosphatase 64 (38-126) U/L Troponin I (0.000-0.034) ng/mL NT-Pro-B Natriuret Pep 1630 (<300) pg/mL Serum Total Protein 6.4 (6.3-8.2) g/dL Albumin 4.0 (3.5-5.0) g/dL Procalcitonin 0.067 (0.030-0.080) ng/mL Urine Color (Yellow) Urine Appearance (Clear) Urine pH (4.6-8.0) Ur Specific [place] (1.005-1.030) Urine Protein (Negative) Urine Glucose (UA) (Negative) mg/dL Urine Ketones (Negative) Urine Blood (Negative) Urine Nitrite (Negative) Urine Bilirubin (Negative) Urine Urobilinogen (0.2) mg/dL Ur Leukocyte Esterase (Negative) U Hyaline Cast (Auto) (0-2) /LPF Urine Microscopic RBC (0-5) /HPF Urine Microscopic WBC (0-5) /HPF Ur Epithelial Cells (None Seen) /HPF Urine Bacteria (None Seen) /HPF Urine Culture Reflexed (NO) Influenza Type A Ag (NEGATIVE) Influenza Type B Ag (NEGATIVE) RSV (PCR) (NEGATIVE) SARS-CoV-2 (PCR) (NEGATIVE) Slides for Path Review Radiology Exams: Radiology Procedures Category Date Time Status ABDOMEN AND PELVIS W/0 CONTRAS [CT] Routine Exams 06/01/23 09:24 Ordered CHEST 1 VIEW (PORTABLE) Stat Exams 05/31/23 20:30 Completed CHEST WITHOUT CONTRAST [CT] Stat Exams 06/01/23 09:22 Ordered ECHO W/2D AND DOPPLER [US] Routine Exams 06/01/23 07:57 Ordered Multi-Disciplinary Progress Notes: Multi-Disciplinary Progress Notes 06/01/23 09:56 Case Management Note by Mar Johnson Addendum entered by Mar Johnson 06/01/23 09:59: S/W - SHE IS ALSO AGREEABLE WITH PATIENT GOING TO [facility] FOR REHAB Original Note: PATIENT NOW REPORTS HE WOULD LIKE TO GO TO [facility] AGAIN FOR REHAB. PASRR PAPERWORK DONE, NO LEVEL II REQUIRED. COPIES PLACED ON CHART FULL REFERRAL FAXED TO [facility] Initialized on 06/01/23 09:56 - END OF NOTE Assessment/Plan (1) Pneumonia Current Visit: Yes Status: Acute Assessment & Plan: - CXR shows BL pleural effusions, but WBC is 17 with left shift. - Cannot see infiltrate behind effusions. - Will start Rocephin/Azithromycin for CAP 06/01 - CT chest for further eval. - Room air Code(s): J18.9 - PNEUMONIA, UNSPECIFIED ORGANISM (2) CHF (congestive heart failure) Current Visit: Yes Status: Chronic Assessment & Plan: -Hx of CHF, came in with BL pleural effusions. - Plan for Lasix 40mg IV BID. -Repeat BNP. Baseline was 600s, now BNP 1999. -Limit fluid and salt intake as stated above. -Consider Echo if none done last 6 months. -Trop 0.095, likely demand. Will trend trop x 2. EKG did not support ACS 06/01 - 2nd trop going down 0.085 - Echo - cardiology consult - Cont lasix - BNP improving 1630- trend - + 3 pitting edema BLLE - Benito Code(s): I50.9 - HEART FAILURE, UNSPECIFIED (3) Pleural effusion Current Visit: Yes Status: Acute Assessment & Plan: - BL pleural effusion as seen on chest XR - BNP higher than usual baseline, now at 1999. - Will continue Lasix but at 40mg IV BID. - If significant, may need thoracentesis - pending clinical improvement. - Limit fluid intake < 1.5L/day, reduced salt intake. -Monitor progress. -May need Echo if none done within last 6 months 06/01 - Echo - CT chest for further eval Code(s): J90 - PLEURAL EFFUSION, NOT ELSEWHERE CLASSIFIED (4) Multiple falls Current Visit: Yes Status: Acute Assessment & Plan: - PT/OT eval - With multiple bruises and skin tears - Pt ok with [facility] for rehab at D/C Code(s): R29.6 - REPEATED FALLS (5) Hypokalemia Current Visit: Yes Status: Acute Assessment & Plan: - Na= 131 06/01 - Na+ 132- improving - mild - trend Code(s): E87.6 - HYPOKALEMIA (6) Sutured skin wound Current Visit: Yes Status: Acute Assessment & Plan: - Left knee place in ER on 05/22- 11 days now. - Can remove them Sunday. Code(s): T14.8XXA - OTHER INJURY OF UNSPECIFIED BODY REGION, INITIAL ENCOUNTER (7) CKD (chronic kidney disease) stage 3, GFR 30-59 ml/min Current Visit: Yes Status: Acute Assessment & Plan: -He has a hx of CKD, unsure baseline. Cr 1.39, so will monitor closely while getting Lasix for CHF exacerbation 06/01 - labs improving- trend Code(s): N18.30 - CHRONIC KIDNEY DISEASE, STAGE 3 UNSPECIFIED (8) COPD (chronic obstructive pulmonary disease) Current Visit: Yes Status: Chronic Assessment & Plan: -Resume home neds/INH. Not in exacerbation - room air (9) Hyponatremia Current Visit: Yes Status: Acute Assessment & Plan: -Na 131 - mildly low, in hypervolemic state, so Lasix should help. - Will monitor Na daily 06/01 - Na+ 132 Code(s): E87.1 - HYPO-OSMOLALITY AND HYPONATREMIA (10) Leukocytosis Current Visit: Yes Status: Acute Assessment & Plan: - 17.0 - CAP coverage 06/01 - Improved 13.2 - trend Code(s): D72.829 - ELEVATED WHITE BLOOD CELL COUNT, UNSPECIFIED (11) Weakness Current Visit: No Status: Acute Assessment & Plan: - PT/OT eval Code(s): R53.1 - WEAKNESS (12) Scrotal edema Current Visit: Yes Status: Acute Assessment & Plan: - r/t CHF? - lasix - Benito - CT abd/pelvis appears to have hernia Code(s): N50.89 - OTHER SPECIFIED DISORDERS OF THE MALE GENITAL ORGANS (13) HTN (hypertension) Current Visit: Yes Status: Acute Assessment & Plan: -BP is controlled. -Continue Metoprolol and Amlodipine. -Monitor BP trend and make adjustment as needed VTE: Lovenox PPI: Protonix D/C plan: 2-3 days Next of kin: Spouse- Wei Mena [phone] Code(s): I10 - ESSENTIAL (PRIMARY) HYPERTENSION
--- NOTE | 2023-06-01 10:50 | XRAY ---
Indication: Unclear chest x-ray. Scrotal edema. Multiple contiguous axial images obtained through the chest without contrast. Comparison: September 06, 2021 Again moderate bibasilar effusions with bilateral lower lobe consolidations/atelectasis, stable to minimally improved. Upper lungs again demonstrates scattered peripheral fibrosis/scarring and tiny right upper lobe calcified granuloma. Heart not enlarged again with scattered coronary calcifications. Aorta remains mildly arteriosclerotic without aneurysm. No pathologic mediastinal lymphadenopathy. Bony thorax again demonstrates osteopenia with mild degenerative changes throughout the spine. New remote-appearing T12 compression fracture with 25-50% loss. CT abdomen/pelvis reported separately. Impression: 1. Again moderate bibasilar effusions with bilateral lower lobe consolidations/atelectasis of uncertain etiology. Based on previous finding for GERD, rule out aspiration. 2. New remote-appearing T12 compression fracture. 3. Chronic findings including pulmonary fibrosis/scarring, arteriosclerotic disease, osteopenia, multilevel degenerative spondylosis, and old granulomatous disease.
--- NOTE | 2023-06-01 11:00 | XRAY ---
Indication: Scrotal edema. Possible hernia. Multiple contiguous axial images obtained through the abdomen and pelvis without contrast. Comparison: April 04, 2019 CT chest reported separately. Interval left total hip arthroplasty with now extreme beam artifact from prosthesis. Interval enlarging very large left inguinal hernia and also new moderate right inguinal hernia. Both hernias demonstrates herniated small and large bowel loops without obstruction/incarceration. Also new small right periumbilical ventral hernia with herniated knuckle of small bowel without complications. Noncontrasted stomach and remaining bowel loops appear nonobstructed. There is now mild diffuse scattered colonic fecal debris including mild rectal impaction. Again descending/sigmoid diverticulosis. Stable bilateral renal cysts and Benito balloon catheter in situ. Gallbladder demonstrates new tiny calculi/gravel in the dependent portion. No free fluid/air. Remaining liver, gallbladder, pancreas, spleen, adrenal glands, kidneys, ureters, and bladder are unremarkable for noncontrast exam. Again moderate scattered aortoiliac calcifications without AAA. Osseous structures again demonstrates osteopenia and mild/moderate degenerative changes throughout the spine. New remote-appearing T12/L2/L3 compression fractures with 25-50% height loss. Impression: 1. New beam artifact from left total hip arthroplasty. 2. Enlarging very large left and new moderate right inguinal hernias both with herniated bowel loops without complications. Also new small right periumbilical ventral hernia. 3. New mild diffuse fecal stasis. 4. New remote-appearing T12/L2/L3 compression fractures. 5. Again chronic findings including colonic diverticulosis, bilateral renal cysts, Benito balloon catheter in situ, arteriosclerotic disease, osteopenia, and multilevel degenerative spondylosis.
[2023-06-01] MEDS: TYLENOL 325 MG PO PRN ×2 (15:30→22:23)
[2023-06-01] MEDS ORDERED: Docusate Sodium 100 MG PO SCH (22:00)
[2023-06-01] MEDS ORDERED: SYNTHROID 100 MCG PO SCH (22:00)
[2023-06-01] MEDS ORDERED: NON-FORMULARY ITEM (Latanoprost/Pf [Iyuzeh 0.005% Eye Drop] 1 EACH Droperette) OP SCH (22:00)
[2023-06-01] MEDS: MELATONIN PO PRN (22:00)
[2023-06-01] MEDS: Xalatan OP SCH (22:24)
[2023-06-01] MEDS: ROCEPHIN 1 Gm-D5w 50 ml Bag** 1 G/50 ML IVPB IV SCH (23:17)
[2023-06-01] MEDS: Sodium Chloride 0.9% 1000 ML 1,000 ML IV SCH (23:18)
[2023-06-02 05:55] LABS: Hemoglobin 12.4 g/dL (12.5-18.0); Mean Cell Volume 95.8 fL (78-100); Mean Corpuscular Hemoglobin 30.5 pg (26-32); Mean Corpuscular Hgb Concent. 31.8 g/dL (32-36); Mean Platelet Volume 9.3 fL (7.5-11.0); Platelet Count 254 x10^3/uL (150-450); Red Blood Count 4.07 x10^6/uL (4.1-5.6); Red Cell Distribution Width 13.7 % (11.5-14.0); White Blood Count 9.9 x10^3/uL (4.0-10.5)
[2023-06-02 06:08] LABS: ALBUMIN 3.3 g/dL (3.5-5.0); ALKALINE PHOSPHATASE 59 U/L (38-126); ANION GAP 11.5 MEQ/L (5-15); BLOOD UREA NITROGEN 26 mg/dL (9-20); CHLORIDE 96 mmol/L (98-107); Calcium 7.9 mg/dL (8.4-10.2); Carbon Dioxide 26 mmol/L (22-30); Creatinine 1 1.19 mg/dL (0.66-1.25); EST GLOMERULAR FILTRATION RATE > 60.0 ML/MIN; Glucose 114 mg/dL (74-106); Potassium 3.3 mmol/L (3.5-5.1); SGOT/AST 25 U/L (17-59); SGPT/ALT 24 U/L (0-50); SODIUM 131 mmol/L (137-145); Total Protein 5.4 g/dL (6.3-8.2)
[2023-06-02] MEDS: SYNTHROID 88 MCG PO SCH (06:25)
[2023-06-02] MEDS ORDERED: Klor Con PO ONE (08:02)
[2023-06-02] MEDS: ENOXAPARIN SODIUM SQ SCH (09:08)
[2023-06-02] MEDS: Miralax Powder 17GM PACKET PO SCH (09:08)
[2023-06-02] MEDS: Lasix 40 MG/4 ML IV SCH ×2 (09:08→16:08)
[2023-06-02] MEDS: Protonix 40MG Tablet PO SCH (09:09)
[2023-06-02] MEDS: Docusate Sodium 100 MG PO SCH ×2 (09:10→22:02)
[2023-06-02] MEDS: Toprol-Xl 25MG Tablets PO SCH (09:10)
[2023-06-02] MEDS: THERAGRAN MULTIVITAMIN PO SCH (09:10)
[2023-06-02] MEDS: NORVASC 5 MG PO SCH (09:10)
[2023-06-02] MEDS: PROVENTIL 2.5 MG/3 ML NEB IH SCH ×2 (09:44→20:40)
--- NOTE | 2023-06-02 11:04 | PCM.NOTE ---
Date and Time: 06/02/23 1054 Subjective Assessment: 06/01/23 is a 83 year old male with hx of CHF, COPD, HTN, Hypothyroidism, GERD presented to ER today with progressive weakness. He was here on 05/22 after a fall, received sutures in left knee, and work-up in ER was negative for fracture. Sent home but had been weak since and worse. Denies chest pain, no SOB at rest, but gets fatigue with exertion, with some SOB. In ER, CXR showed BL pleural effusion and BNP is high than baseline of 600-->it is now 2000. WBC 17. Concerning for acute CHF and possible PNA not seen on CXR due to the effusion. Started on Rocephin and azithromycin for CAP coverage. He was started on Lasix 40 BID for CHF. Will order CT for further evaluation of chest XR. He continues to have + 3 pitting edema of BLLE. Trop x2 elevated but trending down. Echo and cardiology consult ordered. He has scrotal edema and appears to have a large hernia in scrotal region. CT abd ordered for further eval. He has bruises in various stages of healing and multiple skin tears from falling at home. Will ave PT and OT eval. He is willing to go to [facility] per case management for re hab. He denies CP, SOB, abd pain, N/V/D. 06/02/23 Pt resting in bed. He is feeling better but continues to be weak. He continues to have + 3 pitting edema of BLLE. CT chest showed moderate bibasilar effusions with bilateral lower lobe consolidations/atelectasis of uncertain etiology. Based on previous finding for GERD, rule out aspiration. He is getting Protonix and will need continued OP. He does not feel he has any problem with eating and does not cough or choke. If he is still here Sunday we can order a swallow eval for further evaluation. He continues to receives antibiotics, Lasix. WBC is within normal range today. Pt had a tele- cardiology consult but recs are not on the chart. They are not open on the weekends. Will call Sunday. PHYLICIA has improved, K+ 3.3 and replaced. Pt denies CP, Abd. apin, N/V/D. - Review of Systems Constitutional: No Fever, No Chills Eyes: No Symptoms Ears, Nose, & Throat: No Symptoms Respiratory: No Cough, No Short Of Breath Cardiac: Edema (+ 3 pitting), Orthopnea, No Chest Pain, No Syncope Abdominal/Gastrointestinal: No Abdominal Pain, No Nausea, No Vomiting, No Diarrhea Genitourinary Symptoms: No Dysuria Musculoskeletal: No Back Pain, No Neck Pain Skin: No Rash Neurological: No Dizziness, No Focal Weakness, No Sensory Changes Psychological: No Symptoms Endocrine: No Symptoms Hematologic/Lymphatic: No Symptoms Immunological/Allergic: No Symptoms Objective Exam General Appearance: no apparent distress, alert Neurologic Exam: alert, oriented x 3, cooperative, normal mood/affect, nml cerebellar function, sensation nml, No motor deficits Skin Exam: normal color, warm, dry, other (Multiple lesions, bruises, and skin tears in various stages of healing.) Wound Assessment: Skin/Wound Assessment Wound/Incision Assessment Start: 05/31/23 23:19 Text: Status: Active Freq: Q6H Protocol: Document 06/02/23 08:00 RB (Rec: 06/02/23 08:27 RB [id number]) Wound/Incision Assessment Left Knee Wound Assessment Shift Assessment Wound Type Laceration Wound Stage Non Pressure Wound Dressing Status Dry & Intact General Appearance Sutures Intact Comment DRESSING C/D/I Right Arm Wound Assessment Shift Assessment Wound Type Abrasion Wound Stage Non Pressure Wound Dressing Status Dry & Intact Comment DRESSING C/D/I Left Finger Wound Assessment Shift Assessment Wound Type Skin Tear Wound Stage Non Pressure Wound Wound Bed Greatest Portion Black (Eschar) Comment no bleeding or drainage noted Wound Photo Photo Taken No Comment: PICTURES TAKEN ON PREVIOUS SHIFT. Eye Exam: PERRL, EOMI, eyes nml inspection Ears, Nose, Throat Exam: normal ENT inspection, pharynx normal, moist mucous membranes Neck Exam: normal inspection, non-tender, supple, full range of motion Respiratory Exam: normal breath sounds, lungs clear, No respiratory distress Cardiovascular Exam: regular rate/rhythm, normal heart sounds, edema (+3 pitting edema BLLE) Gastrointestinal/Abdomen Exam: soft, No tenderness, No mass Extremity Exam: normal inspection, normal range of motion Back Exam: normal inspection, normal range of motion, No CVA tenderness, No vertebral tenderness Male Genitalia Exam: deferred Rectal Exam: deferred OBJECTIVE DATA Vital Signs: Vital Signs - 24 hr Temp Pulse Resp BP Pulse Ox 06/02/23 10:00 56 L 16 93 L 06/02/23 07:56 97.3 F 79 18 141/72 97 06/02/23 03:57 97.8 F 80 17 117/67 95 06/02/23 00:00 97.5 F 86 23 116/69 95 06/01/23 19:42 74 20 96 06/01/23 18:25 97.7 F 77 22 112/59 99 06/01/23 16:00 97.5 F 74 18 137/76 95 06/01/23 11:40 97.3 F 76 20 113/57 94 L Pain Assessment - Last Documented Pain Intensity 3 Pain Scale Used 0-10 Pain Scale Intake and Output: Intake & Output 05/30/23 05/31/23 06/01/23 06/02/23 11:59 11:59 11:59 11:59 Intake Total 433 Output Total 3100 Balance 433 -3100 Weight 93.6 kg Lab Results: Lab Results-Last 24 Hours 06/02/23 06/02/23 Range/Units 05:57 05:57 WBC 9.9 (4.0-10.5) x10^3/uL RBC 4.07 L (4.1-5.6) x10^6/uL Hgb 12.4 L (12.5-18.0) g/dL Hct 39.0 L (42-50) % MCV 95.8 (78-100) fL MCH 30.5 (26-32) pg MCHC 31.8 L (32-36) g/dL RDW 13.7 (11.5-14.0) % Plt Count 254 (150-450) x10^3/uL MPV 9.3 (7.5-11.0) fL Sodium 131 L (137-145) mmol/L Potassium 3.3 L (3.5-5.1) mmol/L Chloride 96 L (98-107) mmol/L Carbon Dioxide 26 (22-30) mmol/L Anion Gap 11.5 (5-15) MEQ/L BUN 26 H (9-20) mg/dL Creatinine 1.19 (0.66-1.25) mg/dL Estimated GFR > 60.0 ML/MIN Glucose 114 H (74-106) mg/dL Calcium 7.9 L (8.4-10.2) mg/dL Total Bilirubin 0.70 (0.2-1.3) mg/dL AST 25 (17-59) U/L ALT 24 (0-50) U/L Alkaline Phosphatase 59 (38-126) U/L Serum Total Protein 5.4 L (6.3-8.2) g/dL Albumin 3.3 L (3.5-5.0) g/dL Radiology Exams: Radiology Procedures Category Date Time Status ABDOMEN AND PELVIS W/0 CONTRAS [CT] Routine Exams 06/01/23 09:24 Completed CHEST 1 VIEW (PORTABLE) Stat Exams 05/31/23 20:30 Completed CHEST WITHOUT CONTRAST [CT] Stat Exams 06/01/23 09:22 Completed ECHO W/2D AND DOPPLER [US] Routine Exams 06/01/23 07:57 Taken Multi-Disciplinary Progress Notes: Multi-Disciplinary Progress Notes 06/01/23 12:39 Case Management Note by Mar Johnson S/W JENNIFER AT [facility]- THEY HAVE ACCEPTED PATIENT BUT D/T MEDICARE GUIDELINES PATIENT CANNOT ADMIT THERE UNTIL 06/03/23 AT THE EARLIEST. PATIENT'S REPORTS SHE WILL PROVIDE TRANSPORT FOR PATIENT AT TIME OF DC. Initialized on 06/01/23 12:39 - END OF NOTE Assessment/Plan (1) Pneumonia Current Visit: Yes Status: Acute Assessment & Plan: - CXR shows BL pleural effusions, but WBC is 17 with left shift. - Cannot see infiltrate behind effusions. - Will start Rocephin/Azithromycin for CAP 06/01 - CT chest 06/01: Impression: 1. Again moderate bibasilar effusions with bilateral lower lobe consolidations/atelectasis of uncertain etiology. Based on previous finding for GERD, rule out aspiration. 2. New remote-appearing T12 compression fracture. 3. Chronic findings including pulmonary fibrosis/scarring, arteriosclerotic disease, osteopenia, multilevel degenerative spondylosis, and old granulomatous disease. - Room air Code(s): J18.9 - PNEUMONIA, UNSPECIFIED ORGANISM (2) CHF (congestive heart failure) Current Visit: Yes Status: Chronic Assessment & Plan: -Hx of CHF, came in with BL pleural effusions. - Plan for Lasix 40mg IV BID. -Repeat BNP. Baseline was 600s, now BNP 1999. -Limit fluid and salt intake as stated above. -Consider Echo if none done last 6 months. -Trop 0.095, likely demand. Will trend trop x 2. EKG did not support ACS 06/01 - 2nd trop going down 0.085 - Echo - cardiology consult - Cont lasix - BNP improving 1630- trend - + 3 pitting edema BLLE - [place] 06/02 - Continued + 3 pitting edema, orthopnea Code(s): I50.9 - HEART FAILURE, UNSPECIFIED (3) Pleural effusion Current Visit: Yes Status: Acute Assessment & Plan: - BL pleural effusion as seen on chest XR - BNP higher than usual baseline, now at 1999. - Will continue Lasix but at 40mg IV BID. - If significant, may need thoracentesis - pending clinical improvement. - Limit fluid intake < 1.5L/day, reduced salt intake. -Monitor progress. -May need Echo if none done within last 6 months 06/01 - Echo - CT chest for further eval 06/02 - CT negative for pleural effusion - Echo pending Code(s): J90 - PLEURAL EFFUSION, NOT ELSEWHERE CLASSIFIED (4) Multiple falls Current Visit: Yes Status: Acute Assessment & Plan: - PT/OT eval - With multiple bruises and skin tears - Pt ok with [facility] for rehab at D/C Code(s): R29.6 - REPEATED FALLS (5) Hypokalemia Current Visit: Yes Status: Acute Assessment & Plan: 06/01: K+ 3.2 replaced 06/02 K+ 3.3 replaced Code(s): E87.6 - HYPOKALEMIA (6) Sutured skin wound Current Visit: Yes Status: Acute Assessment & Plan: - Left knee place in ER on 05/22- days now. - Can remove them Sunday. Code(s): T14.8XXA - OTHER INJURY OF UNSPECIFIED BODY REGION, INITIAL ENCOUNTER (7) CKD (chronic kidney disease) stage 3, GFR 30-59 ml/min Current Visit: Yes Status: Acute Assessment & Plan: -He has a hx of CKD, unsure baseline. Cr 1.39, so will monitor closely while getting Lasix for CHF exacerbation 06/01 - labs improving- trend 06/02 - improved- trend Code(s): N18.30 - CHRONIC KIDNEY DISEASE, STAGE 3 UNSPECIFIED (8) COPD (chronic obstructive pulmonary disease) Current Visit: Yes Status: Chronic Assessment & Plan: -Resume home neds/INH. Not in exacerbation - room air (9) Hyponatremia Current Visit: Yes Status: Acute Assessment & Plan: -Na 131 - mildly low, in hypervolemic state, so Lasix should help. - Will monitor Na daily 06/01 - Na+ 132 06/02 - Na+ 131-trend Code(s): E87.1 - HYPO-OSMOLALITY AND HYPONATREMIA (10) Leukocytosis Current Visit: Yes Status: Acute Assessment & Plan: - 17.0 - CAP coverage 06/01 - Improved 13.2 - trend 06/02 - resolved Code(s): D72.829 - ELEVATED WHITE BLOOD CELL COUNT, UNSPECIFIED (11) Weakness Current Visit: No Status: Acute Assessment & Plan: - PT/OT eval - Pt to go to [facility] for rehab at D/C. May be able to go tomorrow or Sunday. Code(s): R53.1 - WEAKNESS (12) Scrotal edema Current Visit: Yes Status: Acute Assessment & Plan: - r/t CHF? - lasix - [place] - CT abd/pelvis has hernia Code(s): N50.89 - OTHER SPECIFIED DISORDERS OF THE MALE GENITAL ORGANS (13) HTN (hypertension) Current Visit: Yes Status: Acute Assessment & Plan: -BP is controlled. -Continue Metoprolol and Amlodipine. -Monitor BP trend and make adjustment as needed VTE: Lovenox PPI: Protonix D/C plan: 2-3 days Next of kin: Spouse- Wei Mena [phone] Code(s): I10 - ESSENTIAL (PRIMARY) HYPERTENSION
[2023-06-02] MEDS: TYLENOL 325 MG PO PRN ×2 (11:30→19:01)
[2023-06-02] MEDS: MELATONIN PO PRN (22:02)
[2023-06-02] MEDS: Xalatan OP SCH (22:02)
[2023-06-02] MEDS: ROCEPHIN 1 Gm-D5w 50 ml Bag** 1 G/50 ML IVPB IV SCH (22:03)
[2023-06-03] MEDS: TYLENOL 325 MG PO PRN ×3 (05:41→19:28)
[2023-06-03] MEDS: SYNTHROID 88 MCG PO SCH (07:47)
[2023-06-03] MEDS: PROVENTIL 2.5 MG/3 ML NEB IH SCH ×2 (09:00→19:22)
[2023-06-03] MEDS: Protonix 40MG Tablet PO SCH (09:06)
[2023-06-03] MEDS: Docusate Sodium 100 MG PO SCH ×2 (09:06→22:15)
[2023-06-03] MEDS: Miralax Powder 17GM PACKET PO SCH (09:06)
[2023-06-03] MEDS: THERAGRAN MULTIVITAMIN PO SCH (09:06)
[2023-06-03] MEDS: Lasix 40 MG/4 ML IV SCH ×2 (09:06→17:48)
[2023-06-03] MEDS: ENOXAPARIN SODIUM SQ SCH (09:06)
[2023-06-03] MEDS: Zithromax 500 MG/ 250 ML NaCl Premix 500 MG/250 ML IVPB IV SCH (09:06)
[2023-06-03] MEDS: NORVASC 5 MG PO SCH (09:06)
[2023-06-03] MEDS: Toprol-Xl 25MG Tablets PO SCH (09:07)
--- NOTE | 2023-06-03 10:36 | PCM.NOTE ---
Date and Time: 06/03/23 1028 Subjective Assessment: 06/01/23 is a 83 year old male with hx of CHF, COPD, HTN, Hypothyroidism, GERD presented to ER today with progressive weakness. He was here on 05/22 after a fall, received sutures in left knee, and work-up in ER was negative for fracture. Sent home but had been weak since and worse. Denies chest pain, no SOB at rest, but gets fatigue with exertion, with some SOB. In ER, CXR showed BL pleural effusion and BNP is high than baseline of 600-->it is now 2000. WBC 17. Concerning for acute CHF and possible PNA not seen on CXR due to the effusion. Started on Rocephin and azithromycin for CAP coverage. He was started on Lasix 40 BID for CHF. Will order CT for further evaluation of chest XR. He continues to have + 3 pitting edema of BLLE. Trop x2 elevated but trending down. Echo and cardiology consult ordered. He has scrotal edema and appears to have a large hernia in scrotal region. CT abd ordered for further eval. He has bruises in various stages of healing and multiple skin tears from falling at home. Will ave PT and OT eval. He is willing to go to [facility] per case management for r ehab. He denies CP, SOB, abd pain, N/V/D. 06/02/23 Pt resting in bed. He is feeling better but continues to be weak. He continues to have + 3 pitting edema of BLLE. CT chest showed moderate bibasilar effusions with bilateral lower lobe consolidations/atelectasis of uncertain etiology. Based on previous finding for GERD, rule out aspiration. He is getting Protonix and will need continued OP. He does not feel he has any problem with eating and does not cough or choke. If he is still here Sunday we can order a swallow eval for further evaluation. He continues to receives antibiotics, Lasix. WBC is within normal range today. Pt had a tele- cardiology consult but recs are not on the chart. They are not open on the weekends. Will call Sunday. PHYLICIA has improved, K+ 3.3 and replaced. Pt denies CP, Abd. apin, N/V/D. 06/03/23 Pt resting in bed. He is c/o LLE pain today. This is new today and overnight pt explains LLE became warm and red with pain. He has continued +3 pitting edema in LLE and right leg has no edema today. LLE is elevated on a pillow. Ordered d- dimer and venous duplex of LLE. VD cannot be done until tomorrow. Consider DVT vs. cellulitis. He getting ceftriaxone for cellulitis coverage. He is on Lovenox for VTE prevention. Echo is pending, awaiting cardiology recs- will need to call office tomorrow. Ordered swallow eval for tomorrow and consider B arium swallow if needed due to CT results. Pt denies CP, SOB< abd. pain, N/V/D. - Review of Systems Constitutional: No Fever, No Chills Eyes: No Symptoms Ears, Nose, & Throat: No Symptoms Respiratory: Cough, No Short Of Breath Cardiac: No Chest Pain, No Edema, No Syncope Abdominal/Gastrointestinal: No Abdominal Pain, No Nausea, No Vomiting, No Diarrhea Genitourinary Symptoms: No Dysuria Musculoskeletal: No Back Pain, No Neck Pain Skin: Other (new LLE redness and warmth overnight with + 3 pitting edema), No Rash Neurological: No Dizziness, No Focal Weakness, No Sensory Changes Psychological: No Symptoms Endocrine: No Symptoms Hematologic/Lymphatic: No Symptoms Immunological/Allergic: No Symptoms Objective Exam General Appearance: no apparent distress, alert Neurologic Exam: alert, oriented x 3, cooperative, normal mood/affect, nml cerebellar function, sensation nml, No motor deficits Skin Exam: normal color, warm, dry, other (Mutiple bruises, skin tears, abrasions in various stages of healing all over body from recent falls. Stiches Left knee.) Wound Assessment: Skin/Wound Assessment Wound/Incision Assessment Start: 05/31/23 23:19 Text: Status: Active Freq: Q6H Protocol: Document 06/03/23 06:00 LB (Rec: 06/03/23 06:06 LB [id number]) Wound/Incision Assessment Left Knee Wound Assessment Shift Assessment Wound Type Laceration Wound Stage Non Pressure Wound Dressing Status Dry & Intact General Appearance Sutures Intact Comment dressing CDI Right Arm Wound Assessment Shift Assessment Wound Type Abrasion Wound Stage Non Pressure Wound Dressing Status Dry & Intact Comment dressing CDI Left Finger Wound Assessment Shift Assessment Wound Type Skin Tear Wound Stage Non Pressure Wound Wound Bed Greatest Portion Black (Eschar) Comment no bleeding or drainage noted Wound Photo Photo Taken Yes Comment: in chart Eye Exam: PERRL, EOMI, eyes nml inspection Ears, Nose, Throat Exam: normal ENT inspection, pharynx normal, moist mucous membranes Neck Exam: normal inspection, non-tender, supple, full range of motion Respiratory Exam: normal breath sounds, lungs clear, No respiratory distress Cardiovascular Exam: regular rate/rhythm, normal heart sounds, edema (+ 3 LLE) Gastrointestinal/Abdomen Exam: soft, No tenderness, No mass Extremity Exam: normal inspection, normal range of motion, pedro's sign (+ LLE), inflammation (LLE), swelling (LLE), tenderness (LLE) Back Exam: normal inspection, normal range of motion, No CVA tenderness, No vertebral tenderness Male Genitalia Exam: deferred Rectal Exam: deferred OBJECTIVE DATA Vital Signs: Vital Signs - 24 hr Temp Pulse Resp BP Pulse Ox 06/03/23 09:20 83 16 95 06/03/23 06:53 98.0 F 68 16 149/70 94 L 06/03/23 04:00 97.5 F 82 14 131/72 94 L 06/03/23 00:00 98.1 F 86 23 122/70 92 L 06/02/23 20:40 78 20 95 06/02/23 20:00 97.8 F 77 20 119/71 92 L 06/02/23 16:00 97.5 F 78 18 148/80 97 06/02/23 11:44 97.5 F 78 18 124/74 96 Pain Assessment - Last Documented Pain Intensity 6 Pain Scale Used 0-10 Pain Scale Intake and Output: Intake & Output 05/31/23 06/01/23 06/02/23 06/03/23 11:59 11:59 11:59 11:59 Intake Total 433 Output Total 3100 4450 Balance 433 -3100 -4450 Weight 93.6 kg 93.6 kg 93.5 kg Radiology Exams: Radiology Procedures Category Date Time Status VENOUS UNILAT/LIMITED EXTREMIT [US] Routine Exams 06/04/23 09:32 Ordered Assessment/Plan (1) Pneumonia Current Visit: Yes Status: Acute Assessment & Plan: - CXR shows BL pleural effusions, but WBC is 17 with left shift. - Cannot see infiltrate behind effusions. - Will start Rocephin/Azithromycin for CAP 9/29 - CT chest 06/01: Impression: 1. Again moderate bibasilar effusions with bilateral lower lobe consolidations/atelectasis of uncertain etiology. Based on previous finding for GERD, rule out aspiration. 2. New remote-appearing T12 compression fracture. 3. Chronic findings including pulmonary fibrosis/scarring, arteriosclerotic disease, osteopenia, multilevel degenerative spondylosis, and old granulomatous disease. - Room air 06/03 - Swallow eval ordered for tomorrow - Code(s): J18.9 - PNEUMONIA, UNSPECIFIED ORGANISM (2) CHF (congestive heart failure) Current Visit: Yes Status: Chronic Assessment & Plan: -Hx of CHF, came in with BL pleural effusions. - Plan for Lasix 40mg IV BID. -Repeat BNP. Baseline was 600s, now BNP 1999. -Limit fluid and salt intake as stated above. -Consider Echo if none done last 6 months. -Trop 0.095, likely demand. Will trend trop x 2. EKG did not support ACS 06/01 - 2nd trop going down 0.085 - Echo - cardiology consult - Cont lasix - BNP improving 1630- trend - + 3 pitting edema BLLE - [place] 06/02 - Continued + 3 pitting edema, orthopnea 06/03 - pitting edema isolated to LLE now - Awaiting Echo and cardiology recs- will need to call cardiology office tomorrow and asked for recs from Sunday to be faxed. Code(s): I50.9 - HEART FAILURE, UNSPECIFIED (3) Pleural effusion Current Visit: Yes Status: Acute Assessment & Plan: - BL pleural effusion as seen on chest XR - BNP higher than usual baseline, now at 1999. - Will continue Lasix but at 40mg IV BID. - If significant, may need thoracentesis - pending clinical improvement. - Limit fluid intake < 1.5L/day, reduced salt intake. -Monitor progress. -May need Echo if none done within last 6 months 06/01 - Echo - CT chest for further eval 06/02 - CT negative for pleural effusion - Echo pending Code(s): J90 - PLEURAL EFFUSION, NOT ELSEWHERE CLASSIFIED (4) Multiple falls Current Visit: Yes Status: Acute Assessment & Plan: - PT/OT eval - With multiple bruises, abrasions, and skin tears - Pt ok with [facility] for rehab at D/C Code(s): R29.6 - REPEATED FALLS (5) Hypokalemia Current Visit: Yes Status: Acute Assessment & Plan: 06/01: K+ 3.2 replaced 06/02 K+ 3.3 replaced 06/03: labs pending Code(s): E87.6 - HYPOKALEMIA (6) Sutured skin wound Current Visit: Yes Status: Acute Assessment & Plan: - Left knee place in ER on 05/22- 11 days now. - Can remove them Sunday. Code(s): T14.8XXA - OTHER INJURY OF UNSPECIFIED BODY REGION, INITIAL ENCOUNTER (7) CKD (chronic kidney disease) stage 3, GFR 30-59 ml/min Current Visit: Yes Status: Acute Assessment & Plan: -He has a hx of CKD, unsure baseline. Cr 1.39, so will monitor closely while getting Lasix for CHF exacerbation 06/01 - labs improving- trend 06/02 - improved- trend 06/03 - labs pending Code(s): N18.30 - CHRONIC KIDNEY DISEASE, STAGE 3 UNSPECIFIED (8) COPD (chronic obstructive pulmonary disease) Current Visit: Yes Status: Chronic Assessment & Plan: -Resume home neds/INH. Not in exacerbation - room air (9) Hyponatremia Current Visit: Yes Status: Acute Assessment & Plan: -Na 131 - mildly low, in hypervolemic state, so Lasix should help. - Will monitor Na daily 06/01 - Na+ 132 06/02 - Na+ 131-trend Code(s): E87.1 - HYPO-OSMOLALITY AND HYPONATREMIA (10) Leukocytosis Current Visit: Yes Status: Acute Assessment & Plan: - 17.0 - CAP coverage 06/01 - Improved 13.2 - trend 06/02 - resolved Code(s): D72.829 - ELEVATED WHITE BLOOD CELL COUNT, UNSPECIFIED (11) Weakness Current Visit: No Status: Acute Assessment & Plan: - PT/OT eval - Pt to go to [facility] for rehab at D/C. May be able to go Sunday. Code(s): R53.1 - WEAKNESS (12) Scrotal edema Current Visit: Yes Status: Acute Assessment & Plan: - r/t CHF? - lasix - [place] - CT abd/pelvis has hernia Code(s): N50.89 - OTHER SPECIFIED DISORDERS OF THE MALE GENITAL ORGANS (13) HTN (hypertension) Current Visit: Yes Status: Acute Assessment & Plan: -BP is controlled. -Continue Metoprolol and Amlodipine. -Monitor BP trend and make adjustment as needed Code(s): I10 - ESSENTIAL (PRIMARY) HYPERTENSION (14) Edema of left lower extremity Current Visit: Yes Status: Acute Assessment & Plan: - new finding on 06/03 - Hx of recurrent cellulitis - D-Dimer - VD LLE - Consider cellulitis vs. DVT - Consider MRI of LLE due to Left knee injury with sutures VTE: Lovenox PPI: Protonix D/C plan: 2-3 days Next of kin: Spouse- Wei Mena [phone] Code(s): R60.0 - LOCALIZED EDEMA
[2023-06-03 11:36] LABS: Hematocrit 41.7 % (42-50); Mean Cell Volume 98.6 fL (78-100); Mean Corpuscular Hemoglobin 30.7 pg (26-32); Mean Corpuscular Hgb Concent. 31.2 g/dL (32-36); Mean Platelet Volume 9.7 fL (7.5-11.0); Platelet Count 255 x10^3/uL (150-450); Red Blood Count 4.23 x10^6/uL (4.1-5.6); Red Cell Distribution Width 13.8 % (11.5-14.0); White Blood Count 11.8 x10^3/uL (4.0-10.5)
[2023-06-03] MEDS: Sodium Chloride 0.9% 1000 ML 1,000 ML IV SCH (12:26)
[2023-06-03 13:15] LABS: ALBUMIN 3.3 g/dL (3.5-5.0); ALKALINE PHOSPHATASE 68 U/L (38-126); ANION GAP 15.4 MEQ/L (5-15); BLOOD UREA NITROGEN 21 mg/dL (9-20); CHLORIDE 94 mmol/L (98-107); Calcium 7.9 mg/dL (8.4-10.2); Carbon Dioxide 25 mmol/L (22-30); Creatinine 1 1.04 mg/dL (0.66-1.25); EST GLOMERULAR FILTRATION RATE > 60.0 ML/MIN; Glucose 173 mg/dL (74-106); Potassium 3.5 mmol/L (3.5-5.1); SGOT/AST 32 U/L (17-59); SGPT/ALT 24 U/L (0-50); SODIUM 131 mmol/L (137-145); Total Protein 5.7 g/dL (6.3-8.2)
[2023-06-03] MEDS: ROCEPHIN 1 Gm-D5w 50 ml Bag** 1 G/50 ML IVPB IV SCH (21:35)
[2023-06-03] MEDS: MELATONIN PO PRN (22:14)
[2023-06-03] MEDS: Xalatan OP SCH (22:15)
[2023-06-04 04:33] LABS: Hematocrit 41.6 % (42-50); Hemoglobin 13.1 g/dL (12.5-18.0); Mean Corpuscular Hemoglobin 31.2 pg (26-32); Mean Corpuscular Hgb Concent. 31.5 g/dL (32-36); Mean Platelet Volume 9.6 fL (7.5-11.0); Platelet Count 214 x10^3/uL (150-450); Red Cell Distribution Width 13.7 % (11.5-14.0); White Blood Count 10.1 x10^3/uL (4.0-10.5)
[2023-06-04 05:07] LABS: ALBUMIN 3.1 g/dL (3.5-5.0); ALKALINE PHOSPHATASE 66 U/L (38-126); BLOOD UREA NITROGEN 21 mg/dL (9-20); CHLORIDE 95 mmol/L (98-107); Carbon Dioxide 26 mmol/L (22-30); Creatinine 1 1.01 mg/dL (0.66-1.25); EST GLOMERULAR FILTRATION RATE > 60.0 ML/MIN; Glucose 151 mg/dL (74-106); Potassium 3.3 mmol/L (3.5-5.1); SGOT/AST 26 U/L (17-59); SGPT/ALT 22 U/L (0-50); SODIUM 132 mmol/L (137-145); Total Protein 5.5 g/dL (6.3-8.2)
[2023-06-04] MEDS: Sodium Chloride 0.9% 1000 ML 1,000 ML IV SCH (07:04)
[2023-06-04] MEDS: SYNTHROID 88 MCG PO SCH (07:36)
[2023-06-04] MEDS: Klor Con PO SCH ×3 (07:58→11:48)
[2023-06-04] MEDS: Zithromax 500 MG/ 250 ML NaCl Premix 500 MG/250 ML IVPB IV SCH (09:12)
[2023-06-04] MEDS: Miralax Powder 17GM PACKET PO SCH (09:12)
[2023-06-04] MEDS: ENOXAPARIN SODIUM SQ SCH (09:13)
[2023-06-04] MEDS: THERAGRAN MULTIVITAMIN PO SCH (09:13)
[2023-06-04] MEDS: Lasix 40 MG/4 ML IV SCH ×2 (09:13→16:34)
[2023-06-04] MEDS: NORVASC 5 MG PO SCH (09:13)
[2023-06-04] MEDS: Toprol-Xl 25MG Tablets PO SCH (09:13)
[2023-06-04] MEDS: Docusate Sodium 100 MG PO SCH ×2 (09:13→21:09)
[2023-06-04] MEDS: Protonix 40MG Tablet PO SCH (09:14)
[2023-06-04] MEDS: PROVENTIL 2.5 MG/3 ML NEB IH SCH ×2 (11:30→19:31)
--- NOTE | 2023-06-04 11:49 | PCM.NOTE ---
Date and Time: 06/04/23 1135 Subjective Assessment: 06/01/23 is a 83 year old male with hx of CHF, COPD, HTN, Hypothyroidism, GERD presented to ER today with progressive weakness. He was here on 05/22 after a fall, received sutures in left knee, and work-up in ER was negative for fracture. Sent home but had been weak since and worse. Denies chest pain, no SOB at rest, but gets fatigue with exertion, with some SOB. In ER, CXR showed BL pleural effusion and BNP is high than baseline of 600-->it is now 2000. WBC 17. Concerning for acute CHF and possible PNA not seen on CXR due to the effusion. Started on Rocephin and azithromycin for CAP coverage. He was started on Lasix 40 BID for CHF. Will order CT for further evaluation of chest XR. He continues to have + 3 pitting edema of BLLE. Trop x2 elevated but trending down. Echo and cardiology consult ordered. He has scrotal edema and appears to have a large hernia in scrotal region. CT abd ordered for further eval. He has bruises in various stages of healing and multiple skin tears from falling at home. Will ave PT and OT eval. He is willing to go to [facility] per case management for r ehab. He denies CP, SOB, abd pain, N/V/D. 06/02/23 Pt resting in bed. He is feeling better but continues to be weak. He continues to have + 3 pitting edema of BLLE. CT chest showed moderate bibasilar effusions with bilateral lower lobe consolidations/atelectasis of uncertain etiology. Based on previous finding for GERD, rule out aspiration. He is getting Protonix and will need continued OP. He does not feel he has any problem with eating and does not cough or choke. If he is still here Sunday we can order a swallow eval for further evaluation. He continues to receives antibiotics, Lasix. WBC is within normal range today. Pt had a tele- cardiology consult but recs are not on the chart. They are not open on the weekends. Will call Sunday. PHYLICIA has improved, K+ 3.3 and replaced. Pt denies CP, Abd. apin, N/V/D. 06/03/23 Pt resting in bed. He is c/o LLE pain today. This is new today and overnight pt explains LLE became warm and red with pain. He has continued +3 pitting edema in LLE and right leg has no edema today. LLE is elevated on a pillow. Ordered d- dimer and venous duplex of LLE. VD cannot be done until tomorrow. Consider DVT vs. cellulitis. He getting ceftriaxone for cellulitis coverage. He is on Lovenox for VTE prevention. Echo is pending, awaiting cardiology recs- will need to call office tomorrow. Ordered swallow eval for tomorrow and consider B arium swallow if needed due to CT results. Pt denies CP, SOB< abd. pain, N/V/D. 06/04: Patient examined beside. Endorses continued complaints of LLE pain and poor sleep. LLE with 3+ pitting edema, no improvement. Patient has requested consult with Dr. Buckley. Doppler pending. Swallow eval with modified barium swallow pending due to aspiration vs Gerd on CT, patient states he does not feel like he is choking on food. Will change antibiotic rocephin to cefepime for cellulitis. Spoke with Cardiology, Dr. Kline to sign dictation and ECHO and forward results. Per nurse verbal of dictation given with recs to continue IV abx and lasix for now, doubt ACS, avoid cardiac cath, Cards to follow up as op in 4 weeks with [facility], 3 months with MD. Will update with final. - Review of Systems Constitutional: No Symptoms Eyes: No Symptoms Ears, Nose, & Throat: No Symptoms Respiratory: Cough Cardiac: Edema (BLE ) Abdominal/Gastrointestinal: No Symptoms Genitourinary Symptoms: No Symptoms Musculoskeletal: No Symptoms Skin: No Symptoms Objective Exam General Appearance: no apparent distress Neurologic Exam: alert, oriented x 3, cooperative Skin Exam: normal color Wound Assessment: Skin/Wound Assessment Wound/Incision Assessment Start: 05/31/23 23:19 Text: Status: Active Freq: Q6H Protocol: Document 06/04/23 08:00 MARQUIS (Rec: 06/04/23 08:22 MARQUIS [id number]) Wound/Incision Assessment Left Knee Wound Assessment Shift Assessment Wound Type Laceration Wound Stage Non Pressure Wound General Appearance Sutures Intact,Open to air Right Arm Wound Assessment Shift Assessment Wound Type Abrasion Wound Stage Non Pressure Wound Dressing Status Dry & Intact Comment DRESSING C/D/I Left Finger Wound Assessment Shift Assessment Wound Type Skin Tear Wound Stage Non Pressure Wound Drainage Amount None General Appearance Open to air Wound Photo Photo Taken No Eye Exam: PERRL Ears, Nose, Throat Exam: normal ENT inspection, moist mucous membranes Neck Exam: normal inspection Respiratory Exam: normal breath sounds, lungs clear Cardiovascular Exam: regular rate/rhythm, normal heart sounds Gastrointestinal/Abdomen Exam: soft, normal bowel sounds Extremity Exam: swelling (LLE with erythema, TTP) Back Exam: normal inspection OBJECTIVE DATA Vital Signs: Vital Signs - 24 hr Temp Pulse Resp BP Pulse Ox 06/04/23 07:38 98 F 75 17 140/71 94 L 06/04/23 04:00 97.7 F 77 18 121/69 95 06/03/23 23:46 97.8 F 72 18 123/60 96 06/03/23 19:34 97.7 F 73 20 128/59 95 06/03/23 19:22 74 16 95 06/03/23 16:00 97.9 F 69 16 120/56 97 06/03/23 11:45 97.7 F 73 16 98/61 94 L Pain Assessment - Last Documented Pain Intensity 0 Pain Scale Used 0-10 Pain Scale Intake and Output: Intake & Output 06/01/23 06/02/23 06/03/23 06/04/23 11:59 11:59 11:59 11:59 Intake Total 433 2257 Output Total 3100 445 2652 Balance 462 -7602 -6833 -393 Weight 93.6 kg 93.6 kg 93.5 kg 92.2 kg Lab Results: Lab Results-Last 24 Hours 06/03/23 06/03/23 06/04/23 Range/Units 10:45 10:45 04:13 WBC 11.8 H 10.1 (4.0-10.5) x10^3/uL RBC 4.23 4.20 (4.1-5.6) x10^6/uL Hgb 13.0 13.1 (12.5-18.0) g/dL Hct 41.7 L 41.6 L (42-50) % MCV 98.6 99.0 (78-100) fL MCH 30.7 31.2 (26-32) pg MCHC 31.2 L 31.5 L (32-36) g/dL RDW 13.8 13.7 (11.5-14.0) % Plt Count 255 214 (150-450) x10^3/uL MPV 9.7 9.6 (7.5-11.0) fL Sodium 131 L (137-145) mmol/L Potassium 3.5 (3.5-5.1) mmol/L Chloride 94 L (98-107) mmol/L Carbon Dioxide 25 (22-30) mmol/L Anion Gap 15.4 H (5-15) MEQ/L BUN 21 H (9-20) mg/dL Creatinine 1.04 (0.66-1.25) mg/dL Estimated GFR > 60.0 ML/MIN Glucose 173 H (74-106) mg/dL Calcium 7.9 L (8.4-10.2) mg/dL Magnesium (1.6-2.3) mg/dL Total Bilirubin 0.60 (0.2-1.3) mg/dL AST 32 (17-59) U/L ALT 24 (0-50) U/L Alkaline Phosphatase 68 (38-126) U/L Serum Total Protein 5.7 L (6.3-8.2) g/dL Albumin 3.3 L (3.5-5.0) g/dL 06/04/23 06/04/23 06/04/23 Range/Units 04:13 07:30 07:30 WBC (4.0-10.5) x10^3/uL RBC (4.1-5.6) x10^6/uL Hgb (12.5-18.0) g/dL Hct (42-50) % MCV (78-100) fL MCH (26-32) pg MCHC (32-36) g/dL RDW (11.5-14.0) % Plt Count (150-450) x10^3/uL MPV (7.5-11.0) fL Sodium 132 L (137-145) mmol/L Potassium 3.3 L 3.4 L (3.5-5.1) mmol/L Chloride 95 L (98-107) mmol/L Carbon Dioxide 26 (22-30) mmol/L Anion Gap 15.0 (5-15) MEQ/L BUN 21 H (9-20) mg/dL Creatinine 1.01 (0.66-1.25) mg/dL Estimated GFR > 60.0 ML/MIN Glucose 151 H (74-106) mg/dL Calcium 8.0 L (8.4-10.2) mg/dL Magnesium 1.9 (1.6-2.3) mg/dL Total Bilirubin 0.60 (0.2-1.3) mg/dL AST 26 (17-59) U/L ALT 22 (0-50) U/L Alkaline Phosphatase 66 (38-126) U/L Serum Total Protein 5.5 L (6.3-8.2) g/dL Albumin 3.1 L (3.5-5.0) g/dL Radiology Exams: Radiology Procedures Category Date Time Status MODIFIED BARIUM SWALLOW (RAD) [MODIFIED BARIUM SWALLOW Exams 06/04/23 10:27 Ordered EXAM] Stat VENOUS UNILAT/LIMITED EXTREMIT [US] Routine Exams 06/04/23 09:32 Taken Multi-Disciplinary Progress Notes: Multi-Disciplinary Progress Notes 06/04/23 11:31 Respiratory Note by Marie Garcia PT REFUSED TX THIS AM , WILL NOT TAKE BEFORE BREAKFEST. CHECK WITH PT 2 MORE TIME , DECLINED BOTH, VERY PARTICULAR WHEN NEBS ARE TAKEN. Initialized on 06/04/23 11:31 - END OF NOTE 06/04/23 10:13 Occupational Therapy Note by Alesha Díaz OCCUPATIONAL THERAPY WILL HOLD EVALUATION AT THIS TIME PATIENT'S D-DIMER IS ELEVATED AND AWAITING A DOPPLER. OT WILL FOLLOW APPROPRIATE. Initialized on 06/04/23 10:13 - END OF NOTE Assessment/Plan (1) Pneumonia Current Visit: Yes Status: Acute Assessment & Plan: - CXR shows BL pleural effusions, but WBC is 17 with left shift. - Cannot see infiltrate behind effusions. - Will start Rocephin/Azithromycin for CAP 06/01 - CT chest 06/01: Impression: 1. Again moderate bibasilar effusions with bilateral lower lobe consolidations/atelectasis of uncertain etiology. Based on previous finding for GERD, rule out aspiration. 2. New remote-appearing T12 compression fracture. 3. Chronic findings including pulmonary fibrosis/scarring, arteriosclerotic disease, osteopenia, multilevel degenerative spondylosis, and old granulomatous disease. - Room air 06/03 - Swallow eval ordered for tomorrow 06/04: -Modified barium eval scheduled for today -Rocephin changed to cefepime, will d/c rosetteith, patient has received three doses -CXR tomorrow t Code(s): J18.9 - PNEUMONIA, UNSPECIFIED ORGANISM (2) CHF (congestive heart failure) Current Visit: Yes Status: Acute Assessment & Plan: -Hx of CHF, came in with BL pleural effusions. - Plan for Lasix 40mg IV BID. -Repeat BNP. Baseline was 600s, now BNP 1999. -Limit fluid and salt intake as stated above. -Consider Echo if none done last 6 months. -Trop 0.095, likely demand. Will trend trop x 2. EKG did not support ACS 06/01 - 2nd trop going down 0.085 - Echo - cardiology consult - Cont lasix - BNP improving 1630- trend - + 3 pitting edema BLLE - [place]ito 06/02 - Continued + 3 pitting edema, orthopnea 06/03 - pitting edema isolated to LLE now - Awaiting Echo and cardiology recs- will need to call cardiology office tomorrow and asked for recs from Sunday to be faxed. 06/04: -recs pending, unofficial recs per nurse is to continue IV abx/lasix, does not believe ACS, plans for follow up in 4 weeks with [facility], avoid cardiac cath, trops elevated due to CHF, echo pending read Code(s): I50.9 - HEART FAILURE, UNSPECIFIED (3) Pleural effusion Current Visit: Yes Status: Acute Assessment & Plan: - BL pleural effusion as seen on chest XR - BNP higher than usual baseline, now at 1999. - Will continue Lasix but at 40mg IV BID. - If significant, may need thoracentesis - pending clinical improvement. - Limit fluid intake < 1.5L/day, reduced salt intake. -Monitor progress. -May need Echo if none done within last 6 months 06/01 - Echo - CT chest for further eval 06/02 - CT negative for pleural effusion - Echo pending Code(s): J90 - PLEURAL EFFUSION, NOT ELSEWHERE CLASSIFIED (4) Multiple falls Current Visit: Yes Status: Acute Assessment & Plan: - PT/OT eval - With multiple bruises, abrasions, and skin tears - Pt ok with [facility] for rehab at D/C Code(s): R29.6 - REPEATED FALLS (5) Hypokalemia Current Visit: Yes Status: Acute Assessment & Plan: 06/01: K+ 3.2 replaced 06/02 K+ 3.3 replaced 06/03: labs pending 06/04: -labs reviewed, K+ at 3.3, will replace per protocol Code(s): E87.6 - HYPOKALEMIA (6) Sutured skin wound Current Visit: Yes Status: Acute Assessment & Plan: -sutures removed Code(s): T14.8XXA - OTHER INJURY OF UNSPECIFIED BODY REGION, INITIAL ENCOUNTER (7) CKD (chronic kidney disease) Current Visit: Yes Status: Acute Assessment & Plan: -He has a hx of CKD, unsure baseline. Cr 1.39, so will monitor closely while getting Lasix for CHF exacerbation 06/01 - labs improving- trend 06/02 - improved- trend 06/03 - labs pending 06/04: creat wnl Code(s): N18.9 - CHRONIC KIDNEY DISEASE, UNSPECIFIED (8) Leukocytosis Current Visit: Yes Status: Acute Code(s): D72.829 - ELEVATED WHITE BLOOD CELL COUNT, UNSPECIFIED (9) COPD (chronic obstructive pulmonary disease) Current Visit: Yes Status: Acute Assessment & Plan: -Resume home neds/INH. Not in exacerbation - room air (10) Hyponatremia Current Visit: Yes Status: Acute Assessment & Plan: -Na 131 - mildly low, in hypervolemic state, so Lasix should help. - Will monitor Na daily 06/01 - Na+ 132 06/02 - Na+ 131-trend 06/04 trend 132 Code(s): E87.1 - HYPO-OSMOLALITY AND HYPONATREMIA (11) Weakness Current Visit: Yes Status: Acute Assessment & Plan: - PT/OT eval - Pt to go to [facility] for rehab at D/C. May be able to go Sunday. Code(s): R53.1 - WEAKNESS (12) Scrotal edema Current Visit: Yes Status: Acute Assessment & Plan: - r/t CHF? - lasix - Benito - CT abd/pelvis has hernia Code(s): N50.89 - OTHER SPECIFIED DISORDERS OF THE MALE GENITAL ORGANS (13) HTN (hypertension) Current Visit: Yes Status: Acute Assessment & Plan: -BP is controlled. -Continue Metoprolol and Amlodipine. -Monitor BP trend and make adjustment as needed Code(s): I10 - ESSENTIAL (PRIMARY) HYPERTENSION (14) Edema of left lower extremity Current Visit: Yes Status: Acute Assessment & Plan: - new finding on 06/03 - Hx of recurrent cellulitis - D-Dimer - VD LLE - Consider cellulitis vs. DVT - Consider MRI of LLE due to Left knee injury with sutures 06/04: -Podiatry consulted per pt request, appreciate recs -Cefepime started/ rocephin/azith d/cd -Doppler negative for DVT, most likely reoccurrence of cellulitis -sutures removed VTE: Lovenox PPI: Protonix D/C plan: 2-3 days Next of kin: Spouse- Wei Mena [phone] Code(s): R60.0 - LOCALIZED EDEMA
--- NOTE | 2023-06-04 11:55 | XRAY ---
Indication: Pain, erythema, and edema. Two-dimensional sonogram and color Doppler imaging of the major venous vessels of the left leg performed. Comparison: None No thrombus seen in the examined deep venous vessels of the left leg including greater saphenous vein. Veins demonstrate normal compressibility. Venous waveforms are normal with and without augmentation. Impression: Left leg negative for DVT.
[2023-06-04] MEDS: TYLENOL 325 MG PO PRN ×2 (12:44→21:10)
--- NOTE | 2023-06-04 14:36 | XRAY ---
Indication: Aspiration pneumonia. Modified barium swallow study was performed by the department of speech therapy with fluoroscopic assistance provided. Patient ingested multiple consistencies of liquids and solids. Full report and recommendations will be reported separately. Approximately 1 minute 1 second fluoroscopy used.
[2023-06-04] MEDS: MELATONIN PO PRN (21:09)
[2023-06-04] MEDS: MAXIPIME 1 GM** 1 G in Dextrose 5%/Water IV Soln. 100ML PLUS BAG 100 ML IV SCH (21:11)
[2023-06-04] MEDS: Xalatan OP SCH (21:12)
[2023-06-05] MEDS: SYNTHROID 88 MCG PO SCH (07:48)
--- NOTE | 2023-06-05 07:58 | PCM.NOTE ---
Date and Time: 06/05/23 0745 Subjective Assessment: is a 83 year old male with hx of CHF, COPD, HTN, Hypothyroidism, GERD presented to ER 05/31/23 with progressive weakness following a fall for which he was treated for here at [facility] on 05/22 after. He did receive sutures in left knee, and work-up in ER during that visit and was negative for fracture. CXR showed BL pleural effusion and BNP is high than baseline of 600-->it is now 2000. WBC 17. Concerning for acute CHF and possible PNA not seen on CXR due to the effusion. Started on Rocephin and azithromycin for CAP coverage. He was started on Lasix [address] imaging of the abdomen showing Will order CT for further evaluation of chest XR. He continues to have + 3 pitting edema of LLE. Trop x2 elevated but trending down. He has scrotal edema and appears to have a large hernia in scrotal region. CT c/a/p showing moderate bibasilar effusions with bilateral LL consolidations with concerns for GERD vs Asp, T12/L2/L3 compression fracture, Enlarging very large left and new moderate right inguinal hernias both with herniated bowel loops without complications. Also new small right periumbilical ventral hernia.. During hospitalization cardiology consulted with recs (per nurse verbal of dictation) to continue IV abx and lasix for now, doubt ACS, avoid cardiac cath, Cards to follow up as op in 4 weeks with [facility] AD[facility]ISTR[facility], 3 months with MD. ECHO pending. Will update with final. He has bruises in various stages of healing and multiple skin tears from falling at home. He is willing to go to [facility] per case management for rehab. Additionally patient with LLE edema, erythema, and warmth. Doppler negative for DVT. Patient does have a prior history of cellulitis which treated by podiatry and now started on cefepime. Patient has requested Dr. Lemus to consult while hospitalized. LLE wrapped. Repeat CXR today unchanged. Patient endorses improvement of weakness. States he was able to work with PT yesterday, still weak and feels he needs continued rehab at [facility], but overall improved since admission. Does have some sob, mostly with ambulation/exertion, remains at his baseline RA. Modified barium swallow noting mild oral dysphasia without aspiration. Will continue cefepime at this time. Most likely will discharge to [facility] tomorrow on oral antibiotics for pneumonia. Denies fever,cough, cp, abdominal pain, JENKINS, dizziness, N/V/D. - Review of Systems Constitutional: Weakness Eyes: No Symptoms Ears, Nose, & Throat: No Symptoms Respiratory: Short Of Breath Cardiac: Edema Abdominal/Gastrointestinal: No Symptoms Genitourinary Symptoms: No Symptoms Musculoskeletal: Joint Pain Skin: Cellulitis, Other (Bruising under left eye as well as multiple bruising to extremities in various stages of healing) Neurological: No Symptoms Psychological: No Symptoms Endocrine: No Symptoms Hematologic/Lymphatic: No Symptoms Immunological/Allergic: No Symptoms Objective Exam General Appearance: no apparent distress Neurologic Exam: alert, oriented x 3, cooperative Skin Exam: normal color, abrasion, ecchymosis, other (Bruising under left eye as well as multiple bruising to extremities in various stages of healing Abrasion to left knee, sutures now removed) Wound Assessment: Skin/Wound Assessment Wound/Incision Assessment Start: 05/31/23 23:19 Text: Status: Active Freq: Q6H Protocol: Document 06/05/23 03:00 AW (Rec: 06/05/23 05:00 AW [id number]) Wound/Incision Assessment Left Knee Wound Assessment Shift Assessment Wound Type Laceration Wound Stage Non Pressure Wound Drainage Amount Minimal General Appearance Clean/Dry Primary Dressing Absorbant Pad Right Arm Wound Assessment Shift Assessment Wound Type Abrasion Wound Stage Non Pressure Wound Dressing Status Dry & Intact Primary Dressing Gauze Roll/Wrap Comment DRESSING C/D/I Left Finger Wound Assessment Shift Assessment Wound Type Skin Tear Wound Stage Non Pressure Wound Drainage Amount None General Appearance Open to air Wound Photo Photo Taken No Eye Exam: PERRL Ears, Nose, Throat Exam: moist mucous membranes Neck Exam: normal inspection Respiratory Exam: crackles/rales Cardiovascular Exam: regular rate/rhythm, normal heart sounds, edema (LLE) Gastrointestinal/Abdomen Exam: soft, normal bowel sounds Extremity Exam: swelling Back Exam: normal inspection OBJECTIVE DATA Vital Signs: Vital Signs - 24 hr Temp Pulse Resp BP Pulse Ox 06/05/23 06:57 98.2 F 89 17 140/75 93 L 06/05/23 02:23 98.2 F 90 16 144/70 93 L 06/04/23 19:35 76 18 95 06/04/23 19:15 97.3 F 86 16 138/87 94 L 06/04/23 16:00 98 F 75 17 131/68 95 06/04/23 12:01 72 18 95 06/04/23 12:00 97.8 F 76 16 113/62 95 Pain Assessment - Last Documented Pain Intensity 0 Pain Scale Used 0-10 Pain Scale Intake and Output: Intake & Output 06/02/23 06/03/23 06/04/23 06/05/23 11:59 11:59 11:59 11:59 Intake Total 2257 1341 Output Total 3100 0183 0576 0566 Balance -7130 -2552 -393 -3528 Weight 93.6 kg 93.5 kg 92.2 kg Lab Results: Lab Results-Last 24 Hours 06/04/23 06/04/23 06/04/23 Range/Units 07:30 07:30 11:29 Potassium 3.4 L 3.8 (3.5-5.1) mmol/L Magnesium 1.9 (1.6-2.3) mg/dL 06/04/23 Range/Units 15:29 Potassium 4.1 (3.5-5.1) mmol/L Magnesium (1.6-2.3) mg/dL Radiology Exams: Radiology Procedures Category Date Time Status MODIFIED BARIUM SWALLOW (RAD) [MODIFIED BARIUM SWALLOW Exams 06/04/23 14:24 Completed EXAM] Stat VENOUS UNILAT/LIMITED EXTREMIT [US] Routine Exams 06/04/23 09:32 Completed Multi-Disciplinary Progress Notes: Multi-Disciplinary Progress Notes 06/04/23 15:22 Mod Barium Swallow Note by Elvia#[id number],Daisy Modified Barium Swallow Study ST Modified Barium Swallow Study Start: 06/04/23 13:46 Freq: Status: Active Protocol: Document 06/04/23 15:01 BM (Rec: 06/04/23 15:21 BM [id number]) E-Sign 06/04/23 15:01 BM Modified Barium Swallow Reason for Assessment Primary Diagnosis J18.9 - PNEUMONIA, UNSPECIFIED ORGANISM Treatment Diagnosis #1 R13.12 - DYSPHAGIA, OROPHARYNGEAL PHASE Reason for Assessment PATIENT REFERRED FOR MBS STUDY FOLLOWING CT SCAN OF CHEST REVEALED POSSIBLE ASPIRATION/ INFILTRATES. Onset Date 05/31/23 Date of Evaluation/SOC 06/04/23 Pain Assessment Do you have pain on swallowing No Non-verbal signs & symptoms of pain No Modified Barium Swallow View This evaluation was completed to assess the functioning of the oral and pharyngeal phases of swallowing and to determine if the patient is aspirating or at risk for aspiration. Modified Barium Swallow View Lateral View Consistencies Assessed Barium trials included: Thin Liquid via Spoon,Thin Liquid via Cup,Thin Liquid via Straw,[place] Liquid via Spoon ,Thin Honey Liquid via spoon, Honey Liquid via Spoon,Pudding Liquid via spoon,Pureed Food, Paste on a Cookie Aspiration Risk Aspiration Observed No Amount of Aspiration Observed None Patient considered at risk of aspiration Yes during oral intake Patient is at risk for aspiration Before the swallow Severity of Aspiration Risk Mild Penetration into Laryngeal Vestibule No Penetration occured with None Reason for aspirational risk: PATIENT DEMONSTRATES RISK OF ASPIRATION BEFORE THE SWALLOW DUE TO PREMATURE SPILLAGE TO VALLECULAE AND PHARYNGEAL RECESSES WITH ALL CONSISTENCIES AND METHODS OF PRESENTATION. 8-Point Penetration-Aspiration Scale (Rosenbek) 1.Material does not enter airway Yes Consistency Thin,[place] Thick,Thin Honey, Honey,Pudding,Pureed,Paste on a cookie Method of presentation Teaspoon,Cup,Straw Residue/Retention Residue Observed Valleculae Right,Valleculae Left,Pharyngeal Wall Esophageal Function No Impairment (WFL) Other UNABLE TO FULLY ASSESS ESOPHAGEAL FUNCTION DURING THIS MBS STUDY DUE TO MOVEMENT LIMITATIONS OF EQUIPMENT UTILIZED. Assessment of Swallow Phases Oral Phase Labial Closure No Impairment (WFL) Bolus Formation Yes Bolus Control Pooling L/R No Impairment (WFL) Bolus Control under Tongue Minimal Impairment Bolus Control Scattered Loss No Impairment (WFL) Mastication Effectiveness No Impairment (WFL) A/P Bolus Propulsion No Impairment (WFL) Premature Spillage into: Pyriform Sinuses,Valleculae A/P Lingual Propulsion Delay No Impairment (WFL) Lingual Movement No Impairment (WFL) Residue Clearing/Sensitivity Minimal Impairment Aspiration No Swallow Initiation Delay No Impairment (WFL) Other Oral Phase Observations PATIENT WITH PREMATURE SPILLAGE TO VALLECULAE WITH ALL CONSISTENCIES TRIALLED. PATIENT WITH INCREASED PREMATURE SPILLAGE OCCURRING DURING MASTICATION AND BOLUS PREP WITH INCREASING VISCOSITY , RESULTING IN OVERFLOW FROM VALLECULAE TO PHARYNGEAL RECESSES PRIOR TO SWALLOW INITIATION. UPON SWALLOW INITIATION, PATIENT DEMONSTRATED FUNCTIONAL ORAL PHASE OF SWALLOW WITHOUT ASPIRATION. PATIENT INDEPENDENT WITH ADDITIONAL DRY SWALLOWS WHEN NEEDED, INDICATING FUNCTIONAL LARYNGEAL/PHARYNGEAL SENSITIVITY TO RESIDUE. Pharyngeal Phase Base of Tongue Retraction No Impairment (WFL) Epiglottic Coverage No Impairment (WFL) Laryngeal Elevation No Impairment (WFL) Reduced Anterior Laryngeal Movement No Laryngeal Closure No Impairment (WFL) Vallecular Retention Clearing No Impairment (WFL) Pharyn. Wall Residue Clearing No Impairment (WFL) Pyriform Sinus Retention No Impairment (WFL) Penetration No Aspiration No Cricopharyngeal Dysfunction No Cough None Other Pharyngeal Phase Observation PATIENT DEMONSTRATED FUNCTIONAL PHARYNGEAL PHASE OF SWALLOW DURING THIS MBS STUDY . Clinical Interpretation Clinical Interpretation PATIENT WITH MILD ORAL DYSPHAGIA WITHOUT ASPIRATION. Speech Therapy Teaching Record Teaching Summary Results/Recommendations Learning Preferences Discussion Barriers to Learning None Readiness for Learning Accepting Teaching Methods Discussion Teaching Recipient Patient Response to Teaching Verbalize understanding ST Recommendations Diet Consistency Regular Liquid Consistency Regular Thin Follow-Up Primary Physician regarding findings/ Yes recommendations Safe Swallow Compensatory Strategies Compensatory Strategies Upright Position for all meals ,Small bites and drinks,Dry swallows,Alternate solids/ liquids Medication Instructions Per Patient Preference Rehabilitation Potential: GOOD Additional Comments: PATIENT PLEASANT AND COOPERATIVE THROUGHOUT MBS STUDY. Signatures Speech Therapist Signature LEXA MS, CCC/REHAB SPECIALIST Physician Signature DR Bobbi GRESHAM, RADIOLOGIST Initialized on 06/04/23 15:22 - END OF NOTE 06/04/23 14:17 Physical Therapy Note by Reymundo(L#[id number])Angelica PT. WAS SEEN BY PJuan M THIS A.M. IN BED UPON P.T. ARRIVAL TO ROOM. SPOUSE PRESENT FOR EVAL. REPORTS L LL DISCOMFORT. NOTED INCREASED L LL ERYTHEMA AND WARMTH TO TOUCH. PT. AGREED TO WORK W/ P.T. BUT WAS HESITANT HE REPORTED FATIGUE D/T NOT SLEEPING WELL. PERFORMED SUPINE TO SIT W/ MOD ASSIST TO MOVE TRUNK TO UPRIGHT. SIT TO STAND PERFORMED W/ MIN-MOD ASSIST W/ RW IN FRONT OF HIM. PT. TOOK 2-3 STEPS TO TRANSFER TO BEDSIDE RECLINER W/ RW AND MIN-MOD A SSIST. NOTED KYPHOTIC POSTURE AND FLEXED HIPS IN WB. O2 SATS 85% ON RA AFTER TRANSFER; PT. RECOVERED TO 91% AFTER 2-3' REST AND CUES TO DEEP BREATHE. PT. PERFORMED SEATED LE EX'S OF LAQS, MARCHES, ANKLE PUMPS, HEEL SLIDES,AND ABD SLIDES X 10 REPS. WILL CONT. PT 5X/WK TO ADDRESS FUNCTIONAL DEFICITS AND DECREASED ACTIVITY TOLERANCE TO PREP FOR D/C. Initialized on 06/04/23 14:17 - END OF NOTE 06/04/23 13:22 Case Management Note by Mar Johnson S/W PATIENT- HE CONTINUES TO PLAN TO DC TO [facility] FOR REHAB AT TIME OF DC. UPDATED CLINICAL FAXED TO [facility] AT THIS TIME Initialized on 06/04/23 13:22 - END OF NOTE 06/04/23 11:31 Respiratory Note by Marie Garcia PT REFUSED TX THIS AM , WILL NOT TAKE BEFORE BREAKFEST. CHECK WITH PT 2 MORE TIME , DECLINED BOTH, VERY PARTICULAR WHEN NEBS ARE TAKEN. Initialized on 06/04/23 11:31 - END OF NOTE 06/04/23 10:13 Occupational Therapy Note by Alesha Díaz OCCUPATIONAL THERAPY WILL HOLD EVALUATION AT THIS TIME PATIENT'S D-DIMER IS ELEVATED AND AWAITING A DOPPLER. OT WILL FOLLOW APPROPRIATE. Initialized on 06/04/23 10:13 - END OF NOTE Assessment/Plan (1) Pneumonia Current Visit: Yes Status: Acute Assessment & Plan: - CXR shows BL pleural effusions, but WBC is 17 with left shift. - Cannot see infiltrate behind effusions. - Will start Rocephin/Azithromycin for CAP 06/01 - CT chest 06/01: Impression: 1. Again moderate bibasilar effusions with bilateral lower lobe consolidations/atelectasis of uncertain etiology. Based on previous finding for GERD, rule out aspiration. 2. New remote-appearing T12 compression fracture. 3. Chronic findings including pulmonary fibrosis/scarring, arteriosclerotic disease, osteopenia, multilevel degenerative spondylosis, and old granulomatous disease. - Room air 06/03 - Swallow eval ordered for tomorrow 06/04: -Modified barium eval scheduled for today -Rocephin changed to cefepime, will d/c azith, patient has received three doses -CXR tomorrow 06/05: -CXR unchanged, will continue cefepime, possible discharge to [facility] tomorrow on oral antibiotics Code(s): J18.9 - PNEUMONIA, UNSPECIFIED ORGANISM (2) CHF (congestive heart failure) Current Visit: Yes Status: Acute Assessment & Plan: -Hx of CHF, came in with BL pleural effusions. - Plan for Lasix 40mg IV BID. -Repeat BNP. Baseline was 600s, now BNP 1999. -Limit fluid and salt intake as stated above. -Consider Echo if none done last 6 months. -Trop 0.095, likely demand. Will trend trop x 2. EKG did not support ACS 06/01 - 2nd trop going down 0.085 - Echo - cardiology consult - Cont lasix - BNP improving 1630- trend - + 3 pitting edema BLLE - Benito 06/02 - Continued + 3 pitting edema, orthopnea 06/03 - pitting edema isolated to LLE now - Awaiting Echo and cardiology recs- will need to call cardiology office tomorrow and asked for recs from Sunday to be faxed. 06/04: -recs pending, unofficial recs per nurse is to continue IV abx/lasix, does not believe ACS, plans for follow up in 4 weeks with [facility] ADMINISTRATOR, avoid cardiac cath, trops elevated due to CHF, echo pending read -- pending official documentation Code(s): I50.9 - HEART FAILURE, UNSPECIFIED (3) Pleural effusion Current Visit: Yes Status: Acute Assessment & Plan: - BL pleural effusion as seen on chest XR - BNP higher than usual baseline, now at 1999. - Will continue Lasix but at 40mg IV BID. - If significant, may need thoracentesis - pending clinical improvement. - Limit fluid intake < 1.5L/day, reduced salt intake. -Monitor progress. -May need Echo if none done within last 6 months 06/01 - Echo - CT chest for further eval 06/02 - CT negative for pleural effusion - Echo pending 06/05: -repeat cxr today unchanged from previous study again demonstrating bibasilar effusions/infiltrates/atelectasis left greater than righ Code(s): J90 - PLEURAL EFFUSION, NOT ELSEWHERE CLASSIFIED (4) Multiple falls Current Visit: Yes Status: Acute Assessment & Plan: - PT/OT eval - With multiple bruises, abrasions, and skin tears - Pt ok with [facility] for rehab at D/C Code(s): R29.6 - REPEATED FALLS (5) Hypokalemia Current Visit: Yes Status: Acute Assessment & Plan: 06/01: K+ 3.2 replaced 06/02 K+ 3.3 replaced 06/03: labs pending 06/04: -labs reviewed, K+ at 3.3, will replace per protocol 06/05: -resolved, will start oral potassium regimen due to continued use of lasix Code(s): E87.6 - HYPOKALEMIA (6) Sutured skin wound Current Visit: Yes Status: Acute Assessment & Plan: -sutures removed Code(s): T14.8XXA - OTHER INJURY OF UNSPECIFIED BODY REGION, INITIAL ENCOUNTER (7) CKD (chronic kidney disease) Current Visit: Yes Status: Acute Assessment & Plan: -He has a hx of CKD, unsure baseline. Cr 1.39, so will monitor closely while getting Lasix for CHF exacerbation 06/01 - labs improving- trend 06/02 - improved- trend 06/03 - labs pending 06/04: creat wnl Code(s): N18.9 - CHRONIC KIDNEY DISEASE, UNSPECIFIED (8) Leukocytosis Current Visit: Yes Status: Acute Code(s): D72.829 - ELEVATED WHITE BLOOD CELL COUNT, UNSPECIFIED (9) COPD (chronic obstructive pulmonary disease) Current Visit: Yes Status: Acute Assessment & Plan: -Resume home neds/INH. Not in exacerbation - room air (10) Hyponatremia Current Visit: Yes Status: Acute Assessment & Plan: -Na 131 - mildly low, in hypervolemic state, so Lasix should help. - Will monitor Na daily 06/01 - Na+ 132 06/02 - Na+ 131-trend 06/04 trend 132 Code(s): E87.1 - HYPO-OSMOLALITY AND HYPONATREMIA (11) Weakness Current Visit: Yes Status: Acute Assessment & Plan: - PT/OT eval - Pt to go to [facility] for rehab at D/C. May be able to go Sunday. Code(s): R53.1 - WEAKNESS (12) Scrotal edema Current Visit: Yes Status: Acute Assessment & Plan: - r/t CHF? - lasix - Benito - CT abd/pelvis has hernia Code(s): N50.89 - OTHER SPECIFIED DISORDERS OF THE MALE GENITAL ORGANS (13) HTN (hypertension) Current Visit: Yes Status: Acute Assessment & Plan: -BP is controlled. -Continue Metoprolol and Amlodipine. -Monitor BP trend and make adjustment as needed Code(s): I10 - ESSENTIAL (PRIMARY) HYPERTENSION (14) Edema of left lower extremity Current Visit: Yes Status: Acute Assessment & Plan: - new finding on 06/03 - Hx of recurrent cellulitis - D-Dimer - VD LLE - Consider cellulitis vs. DVT - Consider MRI of LLE due to Left knee injury with sutures 06/04: -Podiatry consulted per pt request, appreciate recs -Cefepime started/ rocephin/azith d/cd -Doppler negative for DVT, most likely reoccurrence of cellulitis -sutures removed VTE: Lovenox PPI: Protonix D/C plan: 2-3 days Next of kin: Spouse- Wei Mena [phone] Code(s): R60.0 - LOCALIZED EDEMA
[2023-06-05 08:13] LABS: Hematocrit 40.8 % (42-50); Hemoglobin 12.9 g/dL (12.5-18.0); Mean Cell Volume 96.9 fL (78-100); Mean Corpuscular Hemoglobin 30.6 pg (26-32); Mean Corpuscular Hgb Concent. 31.6 g/dL (32-36); Mean Platelet Volume 9.3 fL (7.5-11.0); Platelet Count 241 x10^3/uL (150-450); Red Blood Count 4.21 x10^6/uL (4.1-5.6); Red Cell Distribution Width 13.6 % (11.5-14.0); White Blood Count 9.2 x10^3/uL (4.0-10.5)
--- NOTE | 2023-06-05 08:22 | PCM.CONS ---
Podiatry HPI - Consult Date of Consultation Date: 06/04/23 Reason for Consult: Left leg cellulitis, chronic venous insufficency, worsening CHF- patient request. Consulting Provider: CHIO TEIXEIRA DPM - [facility] History of Present Illness: Patient seen at bedside this afternoon for cellulitis to the left lower extremity with peripheral venous insufficiency. Per nursing staff Swelling has improved and cellulitis was not present on admission however appear to be resolving at this time. He is well know to our service for venous insufficiency ulcer which was healed out approximately 2 years ago. He currently denies any significant constitutional symptoms other than generalized fatigue. Medications & Allergies Home Medications: Home Medication List Potassium Chloride [Klor-Con M20] 20 meq PO DAILY 07/26/19 [History Confirmed 05/31/23] Amlodipine Besylate 5 mg PO DAILY 02/09/20 [History Confirmed 05/31/23] Omeprazole 20 mg PO DAILY 02/09/20 [History Confirmed 05/31/23] Furosemide 40 mg PO DAILY 05/22/20 [History Confirmed 05/31/23] Metoprolol Succinate 25 mg PO DAILY 05/22/20 [History Confirmed 05/31/23] Albuterol 2.5 mg/3 ml Neb [Proventil 2.5 mg/3 ml Neb] 2.5 mg IH BIDRT 12/08/21 [Rx Confirmed 05/31/23] Multivit-Min/FA/Lycopen/Lutein [Centrum Silver Tablet] 1 tab PO DAILY 08/24/22 [History Confirmed 05/31/23] Latanoprost/Pf [Iyuzeh 0.005% Eye Drop] 1 each OP HS 05/31/23 [History Confirmed 05/31/23] Prednisone 10 mg [Deltasone 10 mg] 10 mg PO DAILY 05/31/23 [History Confirmed 05/31/23] Levothyroxine Sodium 88 mcg PO 0700 06/01/23 [History Confirmed 06/01/23] Doxycycline Hyclate 100 mg [Vibramycin 100 MG] 100 mg PO BID 10 Days #20 tab 06/06/23 [Rx] Allergies/Adverse Reactions: Allergies Allergy/AdvReac Type Severity Reaction Status Date / Time bacitracin Allergy Verified 05/31/23 19:36 - Past Medical History Past Medical History: Yes Neurological History: No Pertinent History ENT History: No Pertinent History Cardiac History: Congestive Heart Failure Respiratory History: CHF, COPD, Other Endocrine Medical History: Hypothyroidism Musculoskelatal History: Osteoarthritis GI Medical History: Pancreatitis History: Renal Disease Pyscho-Social History: No Pertinent History Male Reproductive Disorders: Prostate Problems Comment: 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 PAST THERAPY FOR WOUND CARE, BROKEN HIP. - Past Surgical History Past Surgical History: Yes Neuro Surgical History: No Pertinent History Cardiac History: No Pertinent History Respiratory Surgery: No Pertinent History GI Surgical History: No Pertinent History Genitourinary Surgical Hx: No Pertinent History Musculskeletal Surgical Hx: No Pertinent History, Joint Replacement Male Surgical History: Prostate Surgery Other Surgical History: varicose veins repaired, j, g tube placed and removed,. partial left hip replacement, cyst on back - Social History Smoking Status: Former smoker Exposure to second hand smoke: No Alcohol: None Drug Use: none Significant Family History: no pertinent family hx Physical Exam - General General Appearance: no apparent distress - Neuro Neurologic: Epicritic and protopathic - Vascular Peripheral Pulses: Posterior tibialis: 2+, Dorsalis-Pedis: 2+ Capillary Refill Time: < 3 seconds Hair Growth: Symmetrical and Bilateral Varicosities: Positive Edema: Pitting Edema Degree: 4+ Skin: Supple, not atrophic Skin Temperature: Warm to touch - Muscular Foot Type: pes planu Muscle Strength: 5/5 on all 4 quadrants - Narrative Narrative Physical Exam: Podiatry Physical Exam Results - Labs Lab/Micro Results: Lab Results-Last 24 Hours 06/04/23 06/04/23 06/05/23 Range/Units 11:29 15:29 08:10 WBC 9.2 (4.0-10.5) x10^3/uL RBC 4.21 (4.1-5.6) x10^6/uL Hgb 12.9 (12.5-18.0) g/dL Hct 40.8 L (42-50) % MCV 96.9 (78-100) fL MCH 30.6 (26-32) pg MCHC 31.6 L (32-36) g/dL RDW 13.6 (11.5-14.0) % Plt Count 241 (150-450) x10^3/uL MPV 9.3 (7.5-11.0) fL Potassium 3.8 4.1 (3.5-5.1) mmol/L Microbiology 06/01/23 09:35 Urine Culture - Final Urine, Indwelling Catheter NO GROWTH - Radiology Impressions Radiology Exams & Impressions: Radiology Procedures Category Date Time Status CHEST 1 VIEW (PORTABLE) Urgent Exams 06/05/23 07:55 Ordered MODIFIED BARIUM SWALLOW (RAD) [MODIFIED BARIUM SWALLOW Exams 06/04/23 14:24 Completed EXAM] Stat VENOUS UNILAT/LIMITED EXTREMIT [US] Routine Exams 06/04/23 09:32 Completed Assessment/Plan (1) CHF (congestive heart failure) Status: Acute Assessment & Plan: Patient examination and evaluation Venous dopplers obtained demonstrating negative for DVT At this time patient is likely a good candidate for compression therapy secondary to suspected cellulitis venous insufficency and localized edema Spinner Hand managing ABX for cellulitis and diuretics Will change dressing EOD for prevention of venous insufficency ulcer formation. Following with you Thank you for the consult. Code(s): I50.9 - HEART FAILURE, UNSPECIFIED (2) CKD (chronic kidney disease) stage 3, GFR 30-59 ml/min Status: Acute Code(s): N18.30 - CHRONIC KIDNEY DISEASE, STAGE 3 UNSPECIFIED (3) COPD (chronic obstructive pulmonary disease) Status: Acute (4) Edema of left lower extremity Status: Acute Code(s): R60.0 - LOCALIZED EDEMA (5) Weakness Status: Acute Code(s): R53.1 - WEAKNESS (6) CHF (congestive heart failure) Status: Chronic Code(s): I50.9 - HEART FAILURE, UNSPECIFIED (7) COPD (chronic obstructive pulmonary disease) Status: Chronic
[2023-06-05 08:27] LABS: ALBUMIN 3.3 g/dL (3.5-5.0); ALKALINE PHOSPHATASE 74 U/L (38-126); ANION GAP 12.7 MEQ/L (5-15); BLOOD UREA NITROGEN 18 mg/dL (9-20); CHLORIDE 96 mmol/L (98-107); Calcium 8.5 mg/dL (8.4-10.2); Carbon Dioxide 29 mmol/L (22-30); Creatinine 1 1.05 mg/dL (0.66-1.25); EST GLOMERULAR FILTRATION RATE > 60.0 ML/MIN; Glucose 122 mg/dL (74-106); MAGNESIUM 1.9 mg/dL (1.6-2.3); Potassium 4.2 mmol/L (3.5-5.1); SGOT/AST 28 U/L (17-59); SGPT/ALT 21 U/L (0-50); SODIUM 134 mmol/L (137-145); Total Protein 5.8 g/dL (6.3-8.2)
--- NOTE | 2023-06-05 08:39 | XRAY ---
Indication: Pneumonia. Comparison: May 31, 2023 Portable chest unchanged again demonstrating bibasilar effusions/infiltrates/atelectasis left greater than right. Remaining heart and upper lungs unremarkable. No new cardiopulmonary abnormalities.
[2023-06-05] MEDS: ENOXAPARIN SODIUM SQ SCH (09:22)
[2023-06-05] MEDS: Protonix 40MG Tablet PO SCH (09:23)
[2023-06-05] MEDS: Toprol-Xl 25MG Tablets PO SCH (09:23)
[2023-06-05] MEDS: THERAGRAN MULTIVITAMIN PO SCH (09:23)
[2023-06-05] MEDS: NORVASC 5 MG PO SCH (09:23)
[2023-06-05] MEDS: Docusate Sodium 100 MG PO SCH ×2 (09:23→22:24)
[2023-06-05] MEDS: Lasix 40 MG/4 ML IV SCH ×2 (09:23→17:15)
[2023-06-05] MEDS: MAXIPIME 1 GM** 1 G in Dextrose 5%/Water IV Soln. 100ML PLUS BAG 100 ML IV SCH ×2 (09:24→22:16)
[2023-06-05] MEDS: PROVENTIL 2.5 MG/3 ML NEB IH SCH (09:58)
[2023-06-05] MEDS: Miralax Powder 17GM PACKET PO SCH (11:25)
[2023-06-05] MEDS: Klor Con PO SCH (11:27)
--- NOTE | 2023-06-05 14:56 | ECHO ---
DATE OF PROCEDURE: 06/01/2023 CLINICAL INFORMATION: Elevated troponins. The M-mode 2D, and Doppler echocardiogram including color flow Doppler is technically difficult. The left ventricle is normal in size. There is moderate concentric left ventricular hypertrophy. The left ventricular systolic function is normal. The ejection fraction is calculated to be 70%. There is evidence of possible impaired left ventricular relaxation. The right ventricle is not well visualized. The left atrium is normal. The interatrial septum is intact. The right atrium is normal. The aortic valve is not well visualized. There is sclerosis and calcification without evidence of any significant stenosis present. There is mitral valve leaflet thickening with moderate tricuspid regurgitation. The right ventricular systolic pressure is calculated to be 43 mm of Mercury. The pulmonic valve is not well visualized. There is mild pulmonic regurgitation. The aortic root is moderately dilated. There is no pericardial effusion present. IMPRESSION: 1) NORMAL CONTRACTILITY OF THE LEFT VENTRICLE. 2) MODERATE CONCENTRIC LEFT VENTRICULAR HYPERTROPHY. 3) POSSIBLE IMPAIRED LEFT VENTRICULAR RELAXATION. 4) MILD TO MODERATE TRICUSPID REGURGITATION. 5) MODERATE PULMONARY HYPERTENSION. 6) MILD PULMONIC REGURGITATION. 7) MILD AORTIC ROOT DILATATION.
[2023-06-05] MEDS: TYLENOL 325 MG PO PRN (17:15)
[2023-06-05] MEDS: MELATONIN PO PRN (22:15)
[2023-06-05] MEDS: Xalatan OP SCH (22:25)
[2023-06-06] MEDS: PROVENTIL 2.5 MG/3 ML NEB IH SCH ×2 (00:02→08:30)
[2023-06-06 04:36] LABS: Hematocrit 38.7 % (42-50); Hemoglobin 12.7 g/dL (12.5-18.0); Mean Cell Volume 93.5 fL (78-100); Mean Corpuscular Hemoglobin 30.7 pg (26-32); Mean Corpuscular Hgb Concent. 32.8 g/dL (32-36); Mean Platelet Volume 9.2 fL (7.5-11.0); Platelet Count 255 x10^3/uL (150-450); Red Blood Count 4.14 x10^6/uL (4.1-5.6); Red Cell Distribution Width 13.7 % (11.5-14.0); White Blood Count 8.1 x10^3/uL (4.0-10.5)
[2023-06-06 04:50] LABS: ALBUMIN 3.3 g/dL (3.5-5.0); ALKALINE PHOSPHATASE 79 U/L (38-126); ANION GAP 11.8 MEQ/L (5-15); BLOOD UREA NITROGEN 18 mg/dL (9-20); CHLORIDE 92 mmol/L (98-107); Calcium 8.4 mg/dL (8.4-10.2); Carbon Dioxide 30 mmol/L (22-30); Creatinine 1 1.11 mg/dL (0.66-1.25); EST GLOMERULAR FILTRATION RATE > 60.0 ML/MIN; Glucose 129 mg/dL (74-106); MAGNESIUM 1.9 mg/dL (1.6-2.3); Potassium 3.7 mmol/L (3.5-5.1); SGOT/AST 26 U/L (17-59); SGPT/ALT 19 U/L (0-50); SODIUM 130 mmol/L (137-145); Total Protein 5.7 g/dL (6.3-8.2)
--- NOTE | 2023-06-06 07:49 | PCM.DS ---
Discharge Summary Date of Admission: 05/31/23 22:30 Date of Discharge: 06/06/23 Admitting Physician: TREVER HARRIS DO Consults: Consults on Case 06/01/23 08:00 Consult Cardiology ROUTINE 06/04/23 10:24 Consult Podiatry ROUTINE Primary Care Provider: EDDIE ROBERTSON Allergies Allergies bacitracin Allergy (Verified 05/31/23 19:36) Hospital Summary - Hospital Course Hospital Course: is a 83 year old male with hx of CHF, COPD, HTN, Hypothyroidism, GERD presented to ER 05/31/23 with progressive weakness following a fall for which he was treated for here at [facility] on 05/22 after. He did receive sutures in left knee, and work-up in ER during that visit and was negative for fracture. CXR showed BL pleural effusion and BNP is high than baseline of 600-->it is now 2000. WBC 17. Concerning for acute CHF and possible PNA not seen on CXR due to the effusion. Started on Rocephin and azithromycin for CAP coverage. He was started on Lasix 40 BID for CHF. He has scrotal edema and appears to have a large hernia in scrotal region. CT c/a/p showing moderate bibasilar effusions with bilateral LL consolidations with concerns for GERD vs Asp, T12/L2/L3 comp ression fracture, Enlarging very large left and new moderate right inguinal hernias both with herniated bowel loops without complications. Also new small right periumbilical ventral hernia.. During hospitalization cardiology consulted with recs (per nurse verbal of dictation) to continue IV abx and lasix while hospitalized, doubt ACS, avoid cardiac cath, Cards to follow up as op in 4 weeks with CREDIT CHECKER, 3 months with MD. ECHO showing 1) NORMAL CONTRACTILITY OF THE LEFT VENTRICLE. 2) MODERATE CONCENTRIC LEFT VENTRICULAR HYPERTROPHY. 3) POSSIBLE IMPAIRED LEFT VENTRICULAR RELAXATION. 4) MILD TO MODERATE TRICUSPID REGURGITATION.5) MODERATE PULMONARY HYPERTENSION. 6) MILD PULMONIC REGURGITATION. 7) MILD AORTIC ROOT DILATATION.. He has bruises in various stages of healing and multiple skin tears from falling at home. Additionally patient with LLE edema, erythema, and warmth. Doppler negative for DVT. Patient does have a prior history of cellulitis which treated by podiatry and now started on cefepime. Patient requested Dr. Chio to consult while hospitalized. LLE wrapped. Repeat CXR unchanged. Patient endorses improvement of weakness. States he was able to work with PT yesterday, still weak and feels he needs continued rehab at [facility], but overall improved since admission. Does have some sob, mostly with ambulation/exertion, remains at his baseline RA. Modified barium swallow noting mild oral dysphasia without aspiration. He will discharge to [facility] for rehab on doxycycline for 10 more days. Advised follow up with PCP/Podiatry as needed/ cards as directed. New Diagnosis: cellulitis/pneumonia/weakness New Medications: Follow Up: pcp/cards/pod (1) Pneumonia Current Visit: Yes Status: Acute Assessment & Plan: - CXR shows BL pleural effusions, but WBC is 17 with left shift. - Cannot see infiltrate behind effusions. - Will start Rocephin/Azithromycin for CAP 06/01 - CT chest 06/01: Impression: 1. Again moderate bibasilar effusions with bilateral lower lobe consolidations/atelectasis of uncertain etiology. Based on previous finding for GERD, rule out aspiration. 2. New remote-appearing T12 compression fracture. 3. Chronic findings including pulmonary fibrosis/scarring, arteriosclerotic disease, osteopenia, multilevel degenerative spondylosis, and old granulomatous disease. - Room air 06/03 - Swallow eval ordered for tomorrow 06/04: -Modified barium eval scheduled for today -Rocephin changed to cefepime, will d/c azith, patient has received three doses -CXR tomorrow 06/05: -CXR unchanged, will continue cefepime, possible [facility] on oral antibiotics Code(s): J18.9 - PNEUMONIA, UNSPECIFIED ORGANISM (2) CHF (congestive heart failure) Current Visit: Yes Status: Acute Assessment & Plan: -Hx of CHF, came in with BL pleural effusions. - Plan for Lasix 40mg IV BID. -Repeat BNP. Baseline was 600s, now BNP 1999. -Limit fluid and salt intake as stated above. -Consider Echo if none done last 6 months. -Trop 0.095, likely demand. Will trend trop x 2. EKG did not support ACS 06/01 - 2nd trop going down 0.085 - Echo - cardiology consult - Cont lasix - BNP improving 1630- trend - + 3 pitting edema BLLE - Benito 06/02 - Continued + 3 pitting edema, orthopnea 06/03 - pitting edema isolated to LLE now - Awaiting Echo and cardiology recs- will need to call cardiology office tomorrow and asked for recs from Sunday to be faxed. 06/04: -recs pending, unofficial recs per nurse is to continue IV abx/lasix, does not believe ACS, plans for follow up in 4 weeks with CREDIT CHECKER, avoid cardiac cath, trops elevated due to CHF, echo pending read -- pending official documentation Code(s): I50.9 - HEART FAILURE, UNSPECIFIED (3) Pleural effusion Current Visit: Yes Status: Acute Assessment & Plan: - BL pleural effusion as seen on chest XR - BNP higher than usual baseline, now at 1999. - Will continue Lasix but at 40mg IV BID. - If significant, may need thoracentesis - pending clinical improvement. - Limit fluid intake < 1.5L/day, reduced salt intake. -Monitor progress. -May need Echo if none done within last 6 months 06/01 - Echo - CT chest for further eval 06/02 - CT negative for pleural effusion - Echo pending 06/05: -repeat cxr today unchanged from previous study again demonstrating bibasilar effusions/infiltrates/atelectasis left greater than righ Code(s): J90 - PLEURAL EFFUSION, NOT ELSEWHERE CLASSIFIED (4) Multiple falls Current Visit: Yes Status: Acute Assessment & Plan: - PT/OT eval - With multiple bruises, abrasions, and skin tears - Pt ok with [facility] for rehab at [facility] Code(s): R29.6 - REPEATED FALLS (5) Hypokalemia Current Visit: Yes Status: Acute Assessment & Plan: 06/01: K+ 3.2 replaced 06/02 K+ 3.3 replaced 06/03: labs pending 06/04: -labs reviewed, K+ at 3.3, will replace per protocol 06/05: -resolved, will start oral potassium regimen due to continued use of lasix Code(s): E87.6 - HYPOKALEMIA (6) Sutured skin wound Current Visit: Yes Status: Acute Assessment & Plan: -sutures removed Code(s): T14.8XXA - OTHER INJURY OF UNSPECIFIED BODY REGION, INITIAL ENCOUNTER (7) CKD (chronic kidney disease) Current Visit: Yes Status: Acute Assessment & Plan: -He has a hx of CKD, unsure baseline. Cr 1.39, so will monitor closely while getting Lasix for CHF exacerbation 06/01 - labs improving- trend 06/02 - improved- trend 06/03 - labs pending 06/04: creat wnl Code(s): N18.9 - CHRONIC KIDNEY DISEASE, UNSPECIFIED (8) Leukocytosis Current Visit: Yes Status: Acute Code(s): D72.829 - ELEVATED WHITE BLOOD CELL COUNT, UNSPECIFIED (9) COPD (chronic obstructive pulmonary disease) Current Visit: Yes Status: Acute Assessment & Plan: -Resume home neds/INH. Not in exacerbation - room air (10) Hyponatremia Current Visit: Yes Status: Acute Assessment & Plan: -Na 131 - mildly low, in hypervolemic state, so Lasix should help. - Will monitor Na daily 06/01 - Na+ 132 06/02 - Na+ 131-trend 06/04 trend 132 Code(s): E87.1 - HYPO-OSMOLALITY AND HYPONATREMIA (11) Weakness Current Visit: Yes Status: Acute Assessment & Plan: - PT/OT eval - Pt to go to [facility] for rehab at D/. May be able to go Sunday. Code(s): R53.1 - WEAKNESS (12) Scrotal edema Current Visit: Yes Status: Acute Assessment & Plan: - r/t CHF? - lasix - Benito - CT abd/pelvis has hernia Code(s): N50.89 - OTHER SPECIFIED DISORDERS OF THE MALE GENITAL ORGANS (13) HTN (hypertension) Current Visit: Yes Status: Acute Assessment & Plan: -BP is controlled. -Continue Metoprolol and Amlodipine. -Monitor BP trend and make adjustment as needed Code(s): I10 - ESSENTIAL (PRIMARY) HYPERTENSION (14) Edema of left lower extremity Current Visit: Yes Status: Acute Assessment & Plan: - new finding on 06/03 - Hx of recurrent cellulitis - D-Dimer - VD LLE - Consider cellulitis vs. DVT - Consider MRI of LLE due to Left knee injury with sutures 06/04: -Podiatry consulted per pt request, appreciate recs -Cefepime started/ rocephin/azith d/cd -Doppler negative for DVT, most likely reoccurrence of cellulitis -sutures removed I spent 45 minutes [id number] with the patient on the day of discharge performing discharge exam, discussing hospital stay and discharge instructions with patient and caregivers, preparation of discharge records, prescriptions & referral forms and addressing any questions/concerns the patient had as documented above. - Vitals & Intake/Output Vital Signs: Vital Signs Temperature 97.8 F 06/05/23 23:51 Pulse Rate 74 06/05/23 23:51 Respiratory Rate 16 06/05/23 23:51 Blood Pressure 128/64 06/05/23 23:51 O2 Sat by Pulse Oximetry 97 06/05/23 23:51 Intake & Output: Intake & Output 06/03/23 06/04/23 06/05/23 06/06/23 11:59 11:59 11:59 11:59 Intake Total 2257 1341 1360 Output Total 4450 2650 3150 2900 Balance -0503 -876 -1654 -9242 Weight 93.5 kg 92.2 kg - Lab Result Diagrams: 06/06/23 04:22 06/06/23 04:22 Lab Results-Last 24 Hrs: Lab Results-Last 24 Hours 06/05/23 06/05/23 06/06/23 Range/Units 08:10 08:10 04:22 WBC 9.2 8.1 (4.0-10.5) x10^3/uL RBC 4.21 4.14 (4.1-5.6) x10^6/uL Hgb 12.9 12.7 (12.5-18.0) g/dL Hct 40.8 L 38.7 L (42-50) % MCV 96.9 93.5 (78-100) fL MCH 30.6 30.7 (26-32) pg MCHC 31.6 L 32.8 (32-36) g/dL RDW 13.6 13.7 (11.5-14.0) % Plt Count 241 255 (150-450) x10^3/uL MPV 9.3 9.2 (7.5-11.0) fL Sodium 134 L (137-145) mmol/L Potassium 4.2 (3.5-5.1) mmol/L Chloride 96 L (98-107) mmol/L Carbon Dioxide 29 (22-30) mmol/L Anion Gap 12.7 (5-15) MEQ/L BUN 18 (9-20) mg/dL Creatinine 1.05 (0.66-1.25) mg/dL Estimated GFR > 60.0 ML/MIN Glucose 122 H (74-106) mg/dL Calcium 8.5 (8.4-10.2) mg/dL Magnesium 1.9 (1.6-2.3) mg/dL Total Bilirubin 0.80 (0.2-1.3) mg/dL AST 28 (17-59) U/L ALT 21 (0-50) U/L Alkaline Phosphatase 74 (38-126) U/L Serum Total Protein 5.8 L (6.3-8.2) g/dL Albumin 3.3 L (3.5-5.0) g/dL 06/06/23 Range/Units 04:22 WBC (4.0-10.5) x10^3/uL RBC (4.1-5.6) x10^6/uL Hgb (12.5-18.0) g/dL Hct (42-50) % MCV (78-100) fL MCH (26-32) pg MCHC (32-36) g/dL RDW (11.5-14.0) % Plt Count (150-450) x10^3/uL MPV (7.5-11.0) fL Sodium 130 L (137-145) mmol/L Potassium 3.7 (3.5-5.1) mmol/L Chloride 92 L (98-107) mmol/L Carbon Dioxide 30 (22-30) mmol/L Anion Gap 11.8 (5-15) MEQ/L BUN 18 (9-20) mg/dL Creatinine 1.11 (0.66-1.25) mg/dL Estimated GFR > 60.0 ML/MIN Glucose 129 H (74-106) mg/dL Calcium 8.4 (8.4-10.2) mg/dL Magnesium 1.9 (1.6-2.3) mg/dL Total Bilirubin 0.70 (0.2-1.3) mg/dL AST 26 (17-59) U/L ALT 19 (0-50) U/L Alkaline Phosphatase 79 (38-126) U/L Serum Total Protein 5.7 L (6.3-8.2) g/dL Albumin 3.3 L (3.5-5.0) g/dL Micro Results-Entire Visit: Microbiology 06/01/23 09:35 Urine Culture - Final Urine, Indwelling Catheter NO GROWTH - Radiology Exams Ordered Rad Exams-Entire Visit: Radiology Procedures Category Date Time Status CHEST 1 VIEW (PORTABLE) Urgent Exams 06/05/23 07:55 Completed MODIFIED BARIUM SWALLOW (RAD) [MODIFIED BARIUM SWALLOW Exams 06/04/23 14:24 Completed EXAM] Stat VENOUS UNILAT/LIMITED EXTREMIT [US] Routine Exams 06/04/23 09:32 Completed - Procedures and Test Procedures and Tests throughout Hospitalization: Therapy Orders & Screens 05/31/23 22:31 EKG REPEAT IN AM Comment: Oxygen Nasal Cannula 2 lpm Comment: Respiratory Therapy Consult ONCE Comment: Reason For Exam: 05/31/23 23:02 Respiratory Therapy Assessment DAILY Comment: 06/01/23 07:36 PT Eval & Treat (MD Order) ONCE Reason for Eval:: multiple falls at home with injury Diagnosis: Weakness 06/01/23 07:40 OT Eval and Treat (MD Order) ONCE Comment: Physician Instructions: Reason For Exam: multiple falls at home with injury Diagnosis: Weakness 06/03/23 09:34 ST Eval & Treat (MD Order) .as ordered Comment: Physician Instructions: Reason For Exam: Evaluate: Swallow eval Treat: Yes Reason for Eval: Per CT may have aspiration pneumonia vs. GERD Diagnosis: pneumonia Discharge Exam General Appearance: no apparent distress Neurologic Exam: alert, oriented x 3, cooperative Eye Exam: PERRL Ears, Nose, Throat Exam: normal ENT inspection Respiratory Exam: normal breath sounds, lungs clear Cardiovascular Exam: regular rate/rhythm, normal heart sounds, edema (BLE Left wrapped in floyd banadage) Gastrointestinal/Abdomen Exam: soft, normal bowel sounds Male Genitalia Exam: deferred Rectal Exam: deferred Back Exam: normal inspection Extremity Exam: swelling Skin Exam: other (LLE edema wrapped in floyd bandage) Wound Assessment: Skin/Wound Assessment Wound/Incision Assessment Start: 05/31/23 23:19 Text: Status: Active Freq: Q6H Protocol: Document 06/06/23 03:00 LB (Rec: 06/06/23 04:21 LB [id number]) Wound/Incision Assessment Left Knee Wound Assessment Shift Assessment Wound Type Laceration Wound Stage Non Pressure Wound Dressing Status Dry & Intact Drainage Amount None General Appearance Well Approximated,Clean/Dry Right Arm Wound Assessment Shift Assessment Wound Type Abrasion Wound Stage Non Pressure Wound Dressing Status Dry & Intact Primary Dressing Gauze Roll/Wrap Comment DRESSING C/D/I Left Finger Wound Assessment Shift Assessment Wound Type Skin Tear Wound Stage Non Pressure Wound Drainage Amount None General Appearance Open to air Wound Photo Photo Taken Yes Final Diagnosis/Problem List - Final Discharge Diagnosis/Problem (1) Pneumonia Current Visit: Yes Status: Acute Code(s): J18.9 - PNEUMONIA, UNSPECIFIED ORGANISM (2) CHF (congestive heart failure) Current Visit: Yes Status: Acute Code(s): I50.9 - HEART FAILURE, UNSPECIFIED (3) Pleural effusion Current Visit: Yes Status: Acute Code(s): J90 - PLEURAL EFFUSION, NOT ELSEWHERE CLASSIFIED (4) Multiple falls Current Visit: Yes Status: Acute Code(s): R29.6 - REPEATED FALLS (5) Hypokalemia Current Visit: Yes Status: Acute Code(s): E87.6 - HYPOKALEMIA (6) Sutured skin wound Current Visit: Yes Status: Acute Code(s): T14.8XXA - OTHER INJURY OF UNSPECIFIED BODY REGION, INITIAL ENCOUNTER (7) CKD (chronic kidney disease) Current Visit: Yes Status: Acute Code(s): N18.9 - CHRONIC KIDNEY DISEASE, UNSPECIFIED (8) Leukocytosis Current Visit: Yes Status: Acute Code(s): D72.829 - ELEVATED WHITE BLOOD C ELL COUNT, UNSPECIFIED (9) COPD (chronic obstructive pulmonary disease) Current Visit: Yes Status: Acute (10) Hyponatremia Current Visit: Yes Status: Acute Code(s): E87.1 - HYPO-OSMOLALITY AND HYPONATREMIA (11) Weakness Current Visit: Yes Status: Acute Code(s): R53.1 - WEAKNESS (12) Scrotal edema Current Visit: Yes Status: Acute Code(s): N50.89 - OTHER SPECIFIED DISORDERS OF THE MALE GENITAL ORGANS (13) HTN (hypertension) Current Visit: Yes Status: Acute Code(s): I10 - ESSENTIAL (PRIMARY) HYPERTENSION (14) Edema of left lower extremity Current Visit: Yes Status: Acute Code(s): R60.0 - LOCALIZED EDEMA - Discharge Prescriptions: New Doxycycline Hyclate 100 mg [Vibramycin 100 MG] 100 mg PO BID 10 Days #20 tab Continue Potassium Chloride [Klor-Con M20] 20 meq PO DAILY Amlodipine Besylate 5 mg PO DAILY Omeprazole 20 mg PO DAILY Metoprolol Succinate 25 mg PO DAILY Furosemide 40 mg PO DAILY Albuterol 2.5 mg/3 ml Neb [Proventil 2.5 mg/3 ml Neb] 2.5 mg IH BIDRT Multivit-Min/FA/Lycopen/Lutein [Centrum Silver Tablet] 1 tab PO DAILY Prednisone 10 mg [Deltasone 10 mg] 10 mg PO DAILY Latanoprost/Pf [Iyuzeh 0.005% Eye Drop] 1 each OP HS Levothyroxine Sodium 88 mcg PO 0700 Additional Instructions: [facility] ORDERS: ADMIT TO [facility] CARE HEART HEALTHY DIET PT/OT EVAL AND TREAT DR BARROSO'S OFFICE TO SEND [facility] ORDERS FOR DRESSING CHANGES PATIENT TO FOLLOW UP WITH DR. BARROSO 06/14/23 SEE ATTACHED LIST OF MEDICATIONS Follow up with: CHIO TEIXEIRA DPM [ACTIVE STAFF] - 06/14/23 1:00 pm Forms: Transfer Record [facility]
[2023-06-06] MEDS: SYNTHROID 88 MCG PO SCH (08:09)
[2023-06-06 08:11] VITALS: BP 132/76; TEMP 97.6
[2023-06-06 08:53] VITALS: PULSE 80; RESP 20; O2SAT 94
[2023-06-06] MEDS: ENOXAPARIN SODIUM SQ SCH (09:11)
[2023-06-06] MEDS: NORVASC 5 MG PO SCH (09:11)
[2023-06-06] MEDS: Klor Con PO SCH (09:11)
[2023-06-06] MEDS: Toprol-Xl 25MG Tablets PO SCH (09:12)
[2023-06-06] MEDS: Lasix 40 MG/4 ML IV SCH (09:12)
[2023-06-06] MEDS: THERAGRAN MULTIVITAMIN PO SCH (09:12)
[2023-06-06] MEDS: Protonix 40MG Tablet PO SCH (09:16)
[2023-06-06] MEDS: MAXIPIME 1 GM** 1 G in Dextrose 5%/Water IV Soln. 100ML PLUS BAG 100 ML IV SCH (09:24)
[2023-06-06] MEDS: Docusate Sodium 100 MG PO SCH (09:42)
[2023-06-06] MEDS: Miralax Powder 17GM PACKET PO SCH (09:43)
--- NOTE | 2023-06-06 16:34 | PCM.NOTE ---
Date and Time: 06/06/23 1632 Subjective Assessment: Seen at bedside this AM. No complaints, leg swelling greatly improved. Physical Exam - Vascular Peripheral Pulses: Posterior tibialis: 2+, Dorsalis-Pedis: 2+ Capillary Refill Time: < 3 seconds Hair Growth: Symmetrical and Bilateral Varicosities: Positive Edema: Pitting Edema Degree: 4+ Skin: Supple, not atrophic Skin Temperature: Warm to touch - Narrative Narrative Physical Exam: Podiatry Physical Exam OBJECTIVE DATA Vital Signs: Vital Signs - 24 hr Temp Pulse Resp BP Pulse Ox 06/06/23 08:52 80 20 94 L 06/06/23 08:00 97.6 F 79 16 132/76 92 L 06/05/23 23:51 97.8 F 74 16 128/64 97 06/05/23 19:58 98.1 F 80 18 110/58 94 L 06/05/23 19:08 78 16 94 L Pain Assessment - Last Documented Pain Intensity 0 Pain Scale Used FLACC Intake and Output: Intake & Output 06/04/23 06/05/23 06/06/23 06/07/23 11:59 11:59 11:59 11:59 Intake Total 2257 1341 1660 Output Total 2650 3150 4700 Balance -393 -3915 -2660 Weight 92.2 kg Lab Results: Lab Results-Last 24 Hours 06/06/23 06/06/23 Range/Units 04:22 04:22 WBC 8.1 (4.0-10.5) x10^3/uL RBC 4.14 (4.1-5.6) x10^6/uL Hgb 12.7 (12.5-18.0) g/dL Hct 38.7 L (42-50) % MCV 93.5 (78-100) fL MCH 30.7 (26-32) pg MCHC 32.8 (32-36) g/dL RDW 13.7 (11.5-14.0) % Plt Count 255 (150-450) x10^3/uL MPV 9.2 (7.5-11.0) fL Sodium 130 L (137-145) mmol/L Potassium 3.7 (3.5-5.1) mmol/L Chloride 92 L (98-107) mmol/L Carbon Dioxide 30 (22-30) mmol/L Anion Gap 11.8 (5-15) MEQ/L BUN 18 (9-20) mg/dL Creatinine 1.11 (0.66-1.25) mg/dL Estimated GFR > 60.0 ML/MIN Glucose 129 H (74-106) mg/dL Calcium 8.4 (8.4-10.2) mg/dL Magnesium 1.9 (1.6-2.3) mg/dL Total Bilirubin 0.70 (0.2-1.3) mg/dL AST 26 (17-59) U/L ALT 19 (0-50) U/L Alkaline Phosphatase 79 (38-126) U/L Serum Total Protein 5.7 L (6.3-8.2) g/dL Albumin 3.3 L (3.5-5.0) g/dL Radiology Exams: Radiology Procedures Category Date Time Status CHEST 1 VIEW (PORTABLE) Urgent Exams 06/05/23 07:55 Completed Multi-Disciplinary Progress Notes: Multi-Disciplinary Progress Notes 06/06/23 10:43 Case Management Note by Mar Johnson/W PANTERA AT [facility] - THEY ARE READY FOR PATIENT S/W PATIENT AND - BOTH AGREEABLE TO TRANSITION TO [facility] TODAY. TO PROVIDE TRANSPORT TO FACILITY Initialized on 06/06/23 10:43 - END OF NOTE 06/06/23 09:14 Occupational Therapy Note by Alesha Díaz Occupational Therapy note: Discussion held with natural sciences manager regarding patient's discharge plan. He is accepted at [facility], and they are awaiting MD for rounding; likely discharge this date. OT will follow up as appropriate. Initialized on 06/06/23 09:14 - END OF NOTE Assessment/Plan (1) CHF (congestive heart failure) Status: Acute Assessment & Plan: Patient examination and evaluation Venous dopplers obtained demonstrating negative for DVT At this time patient is likely a good candidate for compression therapy secondary to suspected cellulitis venous insufficency and localized edema System Architect managing ABX for cellulitis and diuretics Will change dressing EOD for prevention of venous insufficency ulcer formation. Ok for d.c from my standpoint follow up anticipated June 14 [place] to [facility] today Code(s): I50.9 - HEART FAILURE, UNSPECIFIED (2) CKD (chronic kidney disease) stage 3, GFR 30-59 ml/min Status: Acute Code(s): N18.30 - CHRONIC KIDNEY DISEASE, STAGE 3 UNSPECIFIED (3) COPD (chronic obstructive pulmonary disease) Status: Acute (4) Edema of left lower extremity Status: Acute Code(s): R60.0 - LOCALIZED EDEMA (5) Weakness Status: Acute Code(s): R53.1 - WEAKNESS (6) CHF (congestive heart failure) Status: Chronic Code(s): I50.9 - HEART FAILURE, UNSPECIFIED (7) COPD (chronic obstructive pulmonary disease) Status: Chronic
== END 2023-06-06 11:55 | DRG 194 ==
LOC: ED 19:30 → MED SURG 22:30
PROVIDERS: ADMIT Internal Medicine; ATTEND Internal Medicine
DX: J18.9 Pneumonia, unspecified organism (principal); E87.1 Hypo-osmolality and hyponatremia; I13.0 Hypertensive heart and chronic kidney disease with heart failure and stage 1 through stage 4 chronic kidney disease, or unspecified chronic kidney disease; J90 Pleural effusion, not elsewhere classified; L03.116 Cellulitis of left lower limb; I50.9 Heart failure, unspecified; N18.30 Chronic kidney disease, stage 3 unspecified; R29.6 Repeated falls; W19.XXXA Unspecified fall, initial encounter; E87.6 Hypokalemia; D72.829 Elevated white blood cell count, unspecified; J44.9 Chronic obstructive pulmonary disease, unspecified; R53.1 Weakness; N50.89 Other specified disorders of the male genital organs; R60.0 Localized edema; S81.012A Laceration without foreign body, left knee, initial encounter; Z79.899 Other long term (current) drug therapy; Z20.828 Contact with and (suspected) exposure to other viral communicable diseases
CPT/HCPCS: 0241U; 36000; 36415; 71045; 71250; 74176; 74230; 80053; 81001; 83735; 83880; 84132; 84145; 84484; 85025; 85027; 85379; 87086; 92611; 93005; 93041; 93306; 93971; 94640; 94760; 94762; 96365; 96374; 97110; 97161; 99285; P9612; Q3014; 29580; 99222; 99232; J0456; J0692; J0696; J1650; J1940; J7609; A9270-GY

== ENCOUNTER 2023-08-27 06:29 | Inpatient (IN) | payer MEDICARE, BC ==
[2023-08-27] MEDS ORDERED: DUONEB 0.5-3 MG/3 ml Neb IH ONE ×2 (06:56→06:57)
[2023-08-27] MEDS ORDERED: Lasix 40 MG/4 ML IV ONE (07:05)
[2023-08-27] MEDS ORDERED: solu-MEDROL 125 MG, Sterile H2O 10 ml 2 ML IV ONE ×2 (07:05)
[2023-08-27] MEDS ORDERED: Sodium Chloride 0.9% 1000 ML 1,000 ML IV SCH (07:15)
[2023-08-27] MEDS ORDERED: solu-MEDROL ONE (07:40)
[2023-08-27] MEDS ORDERED: Sodium Chloride 0.9% 1000 ML 1,000 ML ONE (07:40)
[2023-08-27] MEDS ORDERED: Lasix 40 MG/4 ML ONE (07:40)
[2023-08-27] MEDS ORDERED: Sterile H2O 10 ml IJ ONE (07:40)
[2023-08-27 07:42] LABS: BASOPHIL % 0.1 % (0.0-0.4); Basophil (Absolute #) 0.02 x10^3/uL (0-0.4); Eosinophil (Absolute #) 0 x10^3/uL (0-0.5); Hemoglobin 14.3 g/dL (12.5-18.0); IMMATURE GRAN # 0.25 x10^3u/L (0.00-0.03); IMMATURE GRAN % 1.2 % (0.00-0.4); Lymphocyte (Absolute #) 1.54 x10^3/uL (1.0-4.6); Lymphocytes % 7.5 % (24.0-44.0); Mean Corpuscular Hemoglobin 30.2 pg (26-32); Mean Corpuscular Hgb Concent. 32.5 g/dL (32-36); Monocyte (Absolute #) 1.19 x10^3/uL (0.0-1.3); Monocytes % 5.8 % (0.0-12.0); Neutrophil % 85.4 % (36.0-66.0); Platelet Count 308 x10^3/uL (150-450); Red Blood Count 4.73 x10^6/uL (4.1-5.6); Red Cell Distribution Width 14.7 % (11.5-14.0); White Blood Count 20.5 x10^3/uL (4.0-10.5)
[2023-08-27 08:05] LABS: ALBUMIN 4.1 g/dL (3.5-5.0); ANION GAP 14.4 MEQ/L (5-15); BILIRUBIN,TOTAL 1.1 mg/dL (0.2-1.3); Calcium 9.3 mg/dL (8.4-10.2); Creatinine 1 1.14 mg/dL (0.66-1.25); EST GLOMERULAR FILTRATION RATE 63.4 ML/MIN; MAGNESIUM 1.9 mg/dL (1.6-2.3); Potassium 3.8 mmol/L (3.5-5.1); Total Protein 7.1 g/dL (6.3-8.2)
--- NOTE | 2023-08-27 08:19 | XRAY ---
Indication: Short of breath. Comparison: June 05, 2023 Portable chest demonstrates bibasilar effusions/infiltrates/atelectasis left greater than right similar in appearance to previous exam. Remaining heart and upper lungs unremarkable. Bony thorax intact again with osteopenia and degenerative changes. No new abnormalities.
[2023-08-27 08:20] LABS: INFLUENZA A NEGATIVE (NEGATIVE); INFLUENZA B NEGATIVE (NEGATIVE); RESPIRATORY SYNCTIAL VIRUS NEGATIVE (NEGATIVE); SARS-CoV-2 Xpert Express NEGATIVE (NEGATIVE)
[2023-08-27] MEDS ORDERED: ZITHROMAX IV*** 0 MG in Sodium Chloride 0.9% 250 ML 250 ML IV ONE (08:37)
[2023-08-27] MEDS ORDERED: ROCEPHIN 1 Gm-D5w 50 ml Bag** 1 G/50 ML IVPB IV STA (08:37)
--- NOTE | 2023-08-27 08:42 | ERPHSYRPT ---
- History of Present Illness Time Seen by Provider: 08/27/23 08:38 Source: patient Exam Limitations: no limitations Patient Subjective Stated Complaint: pt states he has been feeling bad an dshort of breath for the last few days. Triage Nursing Assessment: pt alert and oriented, answers questions approp. pt arrive per ambulance and transfers [facility] with assist of 4. skin warm and dry. frequent moist cough noted. pt states hes unable to cough up much today. Physician History: Patient is 83-year-old male with significant past medical history of hypertensive heart disease with heart failure paroxysmal atrial fibrillation COPD osteoarthritis was in his usual state of health. For last 3 to 4 days he started gradually developing shortness of breath. Which got worse today morning so he came to the emergency room. In the emergency room patient is alert awake oriented to time place and person able to answer the question but extremely short of breath. He denies any chest pain nausea vomiting. He denies any blood in the stool or urine. Timing/Duration: day(s) Severity of Dyspnea-Max: moderate Severity of Dyspnea-Current: moderate Associated Symptoms: edema, wheezing, ankle swelling, leg swelling, No chest pain/discomfort, No hemoptysis, No lightheadedness, No productive cough Allergies/Adverse Reactions: bacitracin Allergy (Verified 08/27/23 06:51) Home Medications: Potassium Chloride [Klor-Con M20] 20 meq PO DAILY 07/26/19 [History] Amlodipine Besylate 5 mg PO DAILY 02/09/20 [History] Omeprazole 20 mg PO DAILY 02/09/20 [History] Furosemide 40 mg PO DAILY 05/22/20 [History] Metoprolol Succinate 25 mg PO DAILY 05/22/20 [History] Multivit-Min/FA/Lycopen/Lutein [Centrum Silver Tablet] 1 tab PO DAILY 08/24/22 [History] Latanoprost/Pf [Iyuzeh 0.005% Eye Drop] 1 each OP HS 05/31/23 [History] Prednisone 10 mg [Deltasone 10 mg] 20 mg PO DAILY 05/31/23 [History] Levothyroxine Sodium 88 mcg PO 0700 06/01/23 [History] Guaifenesin Dextromethorphan [MUCINEX Dm 600/30MG] 1 tab PO BID 08/27/23 [History] Hx Tetanus, Diphtheria Vaccination/Date Given: Yes Hx Influenza Vaccination/Date Given: Yes Hx Pneumococcal Vaccination/Date Given: Yes Immunizations Up to Date: Yes Travel Risk - International Travel Have you traveled outside of the country in past 3 weeks: No - Coronavirus Screening Are you exhibiting any of the following symptoms?: Yes Symptoms: Cough: New Onset, Shortness of Breath Close contact with a COVID-19 positive Pt in past 14-21 Days: No - Vaccine Status Have you recieved a Covid-19 vaccination: Yes 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: [employer] - Vaccination Dates Date of 2cond Vaccination (if applicable): - Review of Systems Constitutional: Lethargy, Weakness, No Fever, No Chills Eyes: No Symptoms Ears, Nose, & Throat: No Symptoms Respiratory: Cyanosis, Dyspnea, Dyspnea on Exertion (FAYE), No Cough Cardiac: Edema, No Chest Pain, No Syncope Abdominal/Gastrointestinal: No Abdominal Pain, No Nausea, No Vomiting, No Diarrhea Genitourinary Symptoms: No Dysuria Musculoskeletal: No Back Pain, No Neck Pain Skin: No Rash Neurological: No Dizziness, No Focal Weakness, No Sensory Changes Psychological: No Symptoms Endocrine: No Symptoms All Other Systems: Reviewed and Negative - Past Medical History Pertinent Past Medical History: Yes Neurological History: No Pertinent History ENT History: No Pertinent History Cardiac History: Hypertension Respiratory History: COPD, Pneumonia Endocrine Medical History: No Pertinent History Musculoskeletal History: Osteoarthritis GI Medical History: Pancreatitis History: Renal Disease Psycho-Social History: No Pertinent History Male Reproductive Disorders: Prostate Problems Other Medical History: HAS A KIDNEY DOCTOR, L HIP PARTIAL REPLACEMENT. PNEUMONIA. - Past Surgical History Past Surgical History: Yes Neuro Surgical History: No Pertinent History Cardiac: No Pertinent History Respiratory: No Pertinent History Gastrointestinal: No Pertinent History Genitourinary: No Pertinent History Musculoskeletal: No Pertinent History, Joint Replacement Male Surgical History: Prostate Surgery Other Surgical History: varicose veins repaired, j, g tube placed and removed,. partial left hip replacement, cyst on back - Social History Smoking Status: Former smoker Exposure to second hand smoke: No Drug Use: none Patient Lives Alone: No Significant Family History: no pertinent family hx - Nursing Vital Signs Nursing Vital Signs: Initial Vital Signs Temperature 99.1 F 08/27/23 06:33 Pulse Rate 108 H 08/27/23 06:33 Respiratory Rate 34 H 08/27/23 06:33 Blood Pressure 158/88 08/27/23 06:33 O2 Sat by Pulse Oximetry 97 08/27/23 06:33 Pain Scale Pain Intensity 0 - Physical Exam General Appearance: moderate distress, alert Eye Exam: PERRL/EOMI Neck Exam: normal inspection, supple Respiratory Exam: diminished breath sounds, crackles/rales, rhonchi, wheezing Cardiovascular/Chest Exam: normal heart sounds, regular rate/rhythm Abdominal/Gastrointestinal Exam: soft, No tenderness, No distention, No mass Extremity Exam: non-tender, normal range of motion, normal inspection, no calf tenderness, no pedal edema Neurologic Exam: alert, oriented x 3, cooperative, 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 II-XII nml as tested, sensation nml, No motor deficits Skin Exam: normal color, warm, No dry SpO2 Interpretation: normal SpO2: 95 O2 Delivery: Room Air - Course Nursing assessment & vital signs reviewed: Yes EKG Interpreted by Me: A-fib Rhythm Strip: Atrial Fibrillation - Radiology Exams Chest X-ray Interpretation: Reviewed by me, Teleradiologist Report (Chronic CHF changes) Ordered Tests: Active Orders 24 hr Category Date Time Status Audit Control Clerk STAT Care 08/27/23 07:06 Active EKG-ER Only STAT Care 08/27/23 07:05 Active Oxygen-ED Only Nasal Cannula 2 lpm Care 08/27/23 07:05 Active CHEST 1 VIEW (PORTABLE) Stat Exams 08/27/23 07:05 Completed CBC W DIFF Stat Lab 08/27/23 07:35 Completed CMP Stat Lab 08/27/23 07:35 Completed MAGNESIUM Stat Lab 08/27/23 07:35 Completed NT PRO BNPII Stat Lab 08/27/23 07:35 Completed TROPONIN Q4H Lab 08/27/23 07:35 Completed TROPONIN Q4H Lab 08/27/23 11:15 Ordered TROPONIN Q4H Lab 08/27/23 15:15 Ordered Medication Summary Generic Name Dose Route Start Last Admin Trade Name Freq PRN Reason Stop Dose Admin Sodium Chloride 1,000 mls @ 50 mls/hr 08/27/23 07:15 08/27/23 07:44 Sodium Chloride 0.9% 1000 Ml IV 09/26/23 07:14 50 mls/hr .Q20H PAUL Administration Ceftriaxone Sodium/Dextrose 1 g in 50 mls @ 100 mls/hr 08/27/23 08:37 08/27/23 08:48 Rocephin 1 Gm-D5w 50 Ml Bag IV 08/27/23 09:06 100 mls/hr STAT STA 100 mls/hr Administration Azithromycin / Sodium Chloride 250 mls @ 125 mls/hr 08/27/23 08:37 IV 08/27/23 10:36 STAT ONE Discontinued Medications Generic Name Dose Route Start Last Admin Trade Name Mary PRN Reason Stop Dose Admin Albuterol/Ipratropium 3 ml 08/27/23 06:56 08/27/23 06:58 Ipratropium/Albuterol Sulfate 3 Ml Ampul.Neb IH 08/27/23 06:57 3 ml STAT ONE Administration Albuterol/Ipratropium Confirm 08/27/23 06:57 Ipratropium/Albuterol Sulfate 3 Ml Ampul.Neb Administered 08/27/23 06:58 Dose 3 ml IH .STK-MED ONE Methylprednisolone Sodium 0 mg 08/27/23 07:05 08/27/23 07:42 Succinate 125 mg/ Sterile IV 08/27/23 07:06 125 mg Water 2 ml STAT ONE Administration Furosemide 40 mg 08/27/23 07:05 08/27/23 07:47 Furosemide 40 Mg/4 Ml Vial IV 08/27/23 07:06 40 mg STAT ONE Administration Furosemide Confirm 08/27/23 07:40 Furosemide 40 Mg/4 Ml Vial Administered 08/27/23 07:41 Dose 40 mg .ROUTE .STK-MED ONE Ceftriaxone Sodium/Dextrose Confirm 08/27/23 08:48 Rocephin 1 Gm-D5w 50 Ml Bag Administered 08/27/23 08:49 Dose 1 g in 50 mls @ ud IV .STK-MED ONE Methylprednisolone Sodium Succinate Confirm 08/27/23 07:40 Methylprednis Sod Succ 125 Mg/2 Ml Vial Administered 08/27/23 07:41 Dose 125 mg .ROUTE .STK-MED ONE Sterile Water Confirm 08/27/23 07:40 Water For Injection,Sterile 10 Ml Vial Administered 08/27/23 07:41 Dose 10 ml IJ .STK-MED ONE Lab/Rad Data: Laboratory Result Diagrams 08/27/23 07:35 08/27/23 07:35 Laboratory Results 12/25/23 12/25/23 12/25/23 Range/Units 07:35 07:35 07:35 WBC (4.0-10.5) x10^3/uL RBC (4.1-5.6) x10^6/uL Hgb (12.5-18.0) g/dL Hct (42-50) % MCV (78-100) fL MCH (26-32) pg MCHC (32-36) g/dL RDW (11.5-14.0) % Plt Count (150-450) x10^3/uL MPV (7.5-11.0) fL Gran % (36.0-66.0) % Immature Gran % (Auto) (0.00-0.4) % Nucleat RBC Rel Count (0.00-0.1) % Eos # (Auto) (0-0.5) x10^3/uL Immature Gran # (Auto) (0.00-0.03) x10^3u/L Absolute Lymphs (auto) (1.0-4.6) x10^3/uL Absolute Monos (auto) (0.0-1.3) x10^3/uL Absolute Nucleated RBC (0.00-0.01) x10^3u/L Lymphocytes % (24.0-44.0) % Monocytes % (0.0-12.0) % Eosinophils % (0.00-5.0) % Basophils % (0.0-0.4) % Absolute Granulocytes (1.4-6.9) x10^3/uL Basophils # (0-0.4) x10^3/uL Sodium 129 L (137-145) mmol/L Potassium 3.8 (3.5-5.1) mmol/L Chloride 96 L (98-107) mmol/L Carbon Dioxide 23 (22-30) mmol/L Anion Gap 14.4 (5-15) MEQ/L BUN 19 (9-20) mg/dL Creatinine 1.14 (0.66-1.25) mg/dL Estimated GFR 63.4 ML/MIN Glucose 133 H (74-106) mg/dL Calcium 9.3 (8.4-10.2) mg/dL Magnesium 1.9 (1.6-2.3) mg/dL Total Bilirubin 1.10 (0.2-1.3) mg/dL AST 26 (17-59) U/L ALT 22 (0-50) U/L Alkaline Phosphatase 61 (38-126) U/L Troponin I 0.049 H* (0.000-0.034) ng/mL NT-Pro-B Natriuret Pep 1860 (<300) pg/mL Serum Total Protein 7.1 (6.3-8.2) g/dL Albumin 4.1 (3.5-5.0) g/dL Influenza Type A Ag NEGATIVE (NEGATIVE) Influenza Type B Ag NEGATIVE (NEGATIVE) RSV (PCR) NEGATIVE (NEGATIVE) SARS-CoV-2 (PCR) NEGATIVE (NEGATIVE) 08/27/23 Range/Units 07:35 WBC 20.5 H (4.0-10.5) x10^3/uL RBC 4.73 (4.1-5.6) x10^6/uL Hgb 14.3 (12.5-18.0) g/dL Hct 44.0 (42-50) % MCV 93.0 (78-100) fL MCH 30.2 (26-32) pg MCHC 32.5 (32-36) g/dL RDW 14.7 H (11.5-14.0) % Plt Count 308 (150-450) x10^3/uL MPV 9.0 (7.5-11.0) fL Gran % 85.4 H (36.0-66.0) % Immature Gran % (Auto) 1.2 H (0.00-0.4) % Nucleat RBC Rel Count 0.0 (0.00-0.1) % Eos # (Auto) 0 (0-0.5) x10^3/uL Immature Gran # (Auto) 0.25 H (0.00-0.03) x10^3u/L Absolute Lymphs (auto) 1.54 (1.0-4.6) x10^3/uL Absolute Monos (auto) 1.19 (0.0-1.3) x10^3/uL Absolute Nucleated RBC 0.00 (0.00-0.01) x10^3u/L Lymphocytes % 7.5 L (24.0-44.0) % Monocytes % 5.8 (0.0-12.0) % Eosinophils % 0.0 (0.00-5.0) % Basophils % 0.1 (0.0-0.4) % Absolute Granulocytes 17.50 H (1.4-6.9) x10^3/uL Basophils # 0.02 (0-0.4) x10^3/uL Sodium (137-145) mmol/L Potassium (3.5-5.1) mmol/L Chloride (98-107) mmol/L Carbon Dioxide (22-30) mmol/L Anion Gap (5-15) MEQ/L BUN (9-20) mg/dL Creatinine (0.66-1.25) mg/dL Estimated GFR ML/MIN Glucose (74-106) mg/dL Calcium (8.4-10.2) mg/dL Magnesium (1.6-2.3) mg/dL Total Bilirubin (0.2-1.3) mg/dL AST (17-59) U/L ALT (0-50) U/L Alkaline Phosphatase (38-126) U/L Troponin I (0.000-0.034) ng/mL NT-Pro-B Natriuret Pep (<300) pg/mL Serum Total Protein (6.3-8.2) g/dL Albumin (3.5-5.0) g/dL Influenza Type A Ag (NEGATIVE) Influenza Type B Ag (NEGATIVE) RSV (PCR) (NEGATIVE) SARS-CoV-2 (PCR) (NEGATIVE) - Progress Progress: unchanged Air Movement: fair Blood Culture(s) Obtained: No Antibiotics given: Yes Counseled pt/family regarding: lab results, diagnosis, need for follow-up, rad results Medical Desision Making - Independent Historian Additional History obtained from: Spouse - Discussion of managment Care discussed with:: hospitalist Agreed on:: Treatment plan, need for follow-up, decision to admit, place in obs Will see patient: in hospital - Diagnostic Testing Diagnostic test were ordered, analyzed, and reviewed by me: Yes Radiological Interpretation: Reviewed by me, Discussed w/ radiologist - Risk of complications The pt has a high risk of morbidity or mortality based on: Drug therapy requiring intensive monitoring for toxicity, Decision regarding hospitilization or escalation of hosp level of care - Departure Departure Disposition: Observation Clinical Impression: Pneumonia Qualifiers: Pneumonia type: due to Pneumococcus Laterality: bilateral Lung location: lower lobe of lung Qualified Code(s): J13 - Pneumonia due to Streptococcus pneumoniae CKD (chronic kidney disease) stage 3, GFR 30-59 ml/min Qualifiers: Chronic kidney disease stage 3 subtype: stage 3b (GFR 30-44) Qualified Code(s): N18.32 - Chronic kidney disease, stage 3b CHF (congestive heart failure) Qualifiers: Heart failure type: combined systolic and diastolic Heart failure chronicity: acute on chronic Qualified Code(s): I50.43 - Acute on chronic combined systolic (congestive) and diastolic (congestive) heart failure COPD (chronic obstructive pulmonary disease) Qualifiers: COPD type: COPD with acute exacerbation Qualified Code(s): J44.1 - Chronic obstructive pulmonary disease with (acute) exacerbation Condition: Fair Critical Care Time: Yes Critical Care Time(excluding separately billable procedures): Critical 30-74 mins Referrals: EDDIE ROBERTSON NP [Primary Care Provider] - Follow up/PCP as directed Instructions: Heart Failure, Chronic Obstructive Pulmonary Disease
[2023-08-27] MEDS ORDERED: ROCEPHIN 1 Gm-D5w 50 ml Bag** 1 G/50 ML IVPB IV ONE (08:48)
[2023-08-27] MEDS ORDERED: Zithromax 500 MG/ 250 ML NaCl Premix 500 MG/250 ML IVPB IV ONE ×2 (10:30→10:39)
--- NOTE | 2023-08-27 11:20 | PCM.HP ---
<REJI JUDD - Last Filed: 08/27/23 11:47> History of Present Illness - Chief Complaint Chief Complaint: CHF/Pneumonia Date: 08/27/23 History of Present Illness: is a 83 year old male with a pmhx of CHF, HTN, AFIB, COPD, and OA, p oor historian presented to ED on 08/27/23 with complaints of worsening shortness of breath and productive cough with clear sputum. Patient states onset was approximately 2-3 days ago but he felt like he was unable to catch his breath today and decided to go to ED. He is on RA at baseline and requiring 6L since presentation. Denies fever, cp, abdominal pain, JENKINS, dizziness, N/V/D. In ED patient was afebrile, tachycardic, tachypneic, slightly hypertensive, with spo2 @ 97% on 6L. CXR showing bibasilar effusions/infiltrates/atelectasis L>R. Lab findings remarkable for leukocytosis with WBC at 20.5, hyponatremic with sodium at 129, BNP 1860, initial troponins elevated at 0.049. EKG with AFIB HR 112, RBBB, PVCS, no acute changes, ST elevations/deviations. Patient received lasix, ceftriaxone, solumedrol, duonebs, and solumedrol while in ED. - Review of Systems Constitutional: Weakness Eyes: No Symptoms Ears, Nose, & Throat: Nose Congestion Respiratory: Cough, Short Of Breath Cardiac: Edema Abdominal/Gastrointestinal: No Symptoms Genitourinary Symptoms: Other (Large hernia/scrotal edema) Musculoskeletal: No Symptoms Skin: No Symptoms Neurological: No Symptoms Psychological: No Symptoms Endocrine: No Symptoms Medications & Allergies Home Medications: Home Medication List Potassium Chloride [Klor-Con M20] 20 meq PO DAILY 07/26/19 [History Confirmed 08/27/23] Amlodipine Besylate 5 mg PO DAILY 02/09/20 [History Confirmed 08/27/23] Omeprazole 20 mg PO DAILY 02/09/20 [History Confirmed 08/27/23] Furosemide 40 mg PO DAILY 05/22/20 [History Confirmed 08/27/23] Metoprolol Succinate 25 mg PO DAILY 05/22/20 [History Confirmed 08/27/23] Albuterol 2.5 mg/3 ml Neb [Proventil 2.5 mg/3 ml Neb] 2.5 mg IH BIDRT 12/08/21 [Rx Confirmed 08/27/23] Multivit-Min/FA/Lycopen/Lutein [Centrum Silver Tablet] 1 tab PO DAILY 08/24/22 [History Confirmed 08/27/23] Latanoprost/Pf [Iyuzeh 0.005% Eye Drop] 1 each OP HS 05/31/23 [History Confirmed 08/27/23] Prednisone 10 mg [Deltasone 10 mg] 20 mg PO DAILY 05/31/23 [History Confirmed 08/27/23] Levothyroxine Sodium 88 mcg PO 0700 06/01/23 [History Confirmed 08/27/23] Guaifenesin Dextromethorphan [MUCINEX Dm 600/30MG] 1 tab PO BID 08/27/23 [History Confirmed 08/27/23] Melatonin 10 mg PO HS 08/27/23 [History Confirmed 08/27/23] Allergies/Adverse Reactions: Allergies Allergy/AdvReac Type Severity Reaction Status Date / Time bacitracin Allergy Verified 08/27/23 06:51 - Past Medical History Past Medical History: Yes Neurological History: No Pertinent History ENT History: No Pertinent History Cardiac History: Hypertension Respiratory History: COPD, Pneumonia Endocrine Medical History: No Pertinent History Musculoskelatal History: Osteoarthritis GI Medical History: Pancreatitis History: Renal Disease Pyscho-Social History: No Pertinent History Male Reproductive Disorders: Prostate Problems Comment: HAS A KIDNEY DOCTOR, L HIP PARTIAL REPLACEMENT. PNEUMONIA. - Past Surgical History Past Surgical History: Yes Neuro Surgical History: No Pertinent History Cardiac History: No Pertinent History Respiratory Surgery: No Pertinent History GI Surgical History: No Pertinent History Genitourinary Surgical Hx: No Pertinent History Musculskeletal Surgical Hx: No Pertinent History, Joint Replacement Male Surgical History: Prostate Surgery Other Surgical History: varicose veins repaired, j, g tube placed and removed,. partial left hip replacement, cyst on back - Social History Smoking Status: Former smoker Exposure to second hand smoke: No Alcohol: None Drug Use: none Significant Family History: no pertinent family hx - Physical Exam Vital Signs: Vital Signs - 24 hr Temp Pulse Resp BP BP Pulse Ox 08/27/23 10:00 104 H 27 H 131/75 08/27/23 09:30 100 H 29 H 124/67 95 08/27/23 09:04 95 08/27/23 09:00 105 H 24 119/67 97 08/27/23 08:30 103 H 24 123/75 95 08/27/23 08:00 96 H 24 124/71 95 08/27/23 07:37 110 H 24 131/78 92 L 08/27/23 07:01 107 H 24 93 L 08/27/23 06:35 122 H 32 H 158/88 08/27/23 06:33 99.1 F 108 H 36 H 158/88 97 General Appearance: no apparent distress Neurologic Exam: alert, oriented x 3, cooperative Eye Exam: PERRL/EOMI Ears, Nose, Throat Exam: normal ENT inspection Neck Exam: normal inspection Respiratory Exam: diminished breath sounds, crackles/rales (coarse crackles bilaterally 6LNC), wheezing Cardiovascular Exam: tachycardia, irregular Gastrointestinal/Abdomen Exam: soft, normal bowel sounds Male Genitalia Exam: other (large periumbilical hernia/scrotal edema) Extremity Exam: normal inspection Results - Labs Lab/Micro Results: Lab Results-Last 24 Hours 08/27/23 08/27/23 08/27/23 Range/Units 07:35 07:35 07:35 WBC 20.5 H (4.0-10.5) x10^3/uL RBC 4.73 (4.1-5.6) x10^6/uL Hgb 14.3 (12.5-18.0) g/dL Hct 44.0 (42-50) % MCV 93.0 (78-100) fL MCH 30.2 (26-32) pg MCHC 32.5 (32-36) g/dL RDW 14.7 H (11.5-14.0) % Plt Count 308 (150-450) x10^3/uL MPV 9.0 (7.5-11.0) fL Gran % 85.4 H (36.0-66.0) % Immature Gran % (Auto) 1.2 H (0.00-0.4) % Nucleat RBC Rel Count 0.0 (0.00-0.1) % Eos # (Auto) 0 (0-0.5) x10^3/uL Immature Gran # (Auto) 0.25 H (0.00-0.03) x10^3u/L Absolute Lymphs (auto) 1.54 (1.0-4.6) x10^3/uL Absolute Monos (auto) 1.19 (0.0-1.3) x10^3/uL Absolute Nucleated RBC 0.00 (0.00-0.01) x10^3u/L Lymphocytes % 7.5 L (24.0-44.0) % Monocytes % 5.8 (0.0-12.0) % Eosinophils % 0.0 (0.00-5.0) % Basophils % 0.1 (0.0-0.4) % Absolute Granulocytes 17.50 H (1.4-6.9) x10^3/uL Basophils # 0.02 (0-0.4) x10^3/uL Sodium 129 L (137-145) mmol/L Potassium 3.8 (3.5-5.1) mmol/L Chloride 96 L (98-107) mmol/L Carbon Dioxide 23 (22-30) mmol/L Anion Gap 14.4 (5-15) MEQ/L BUN 19 (9-20) mg/dL Creatinine 1.14 (0.66-1.25) mg/dL Estimated GFR 63.4 ML/MIN Glucose 133 H (74-106) mg/dL Calcium 9.3 (8.4-10.2) mg/dL Magnesium 1.9 (1.6-2.3) mg/dL Total Bilirubin 1.10 (0.2-1.3) mg/dL AST 26 (17-59) U/L ALT 22 (0-50) U/L Alkaline Phosphatase 61 (38-126) U/L Troponin I 0.049 H* (0.000-0.034) ng/mL NT-Pro-B Natriuret Pep 1860 (<300) pg/mL Serum Total Protein 7.1 (6.3-8.2) g/dL Albumin 4.1 (3.5-5.0) g/dL Influenza Type A Ag (NEGATIVE) Influenza Type B Ag (NEGATIVE) RSV (PCR) (NEGATIVE) SARS-CoV-2 (PCR) (NEGATIVE) 08/27/23 Range/Units 07:35 WBC (4.0-10.5) x10^3/uL RBC (4.1-5.6) x10^6/uL Hgb (12.5-18.0) g/dL Hct (42-50) % MCV (78-100) fL MCH (26-32) pg MCHC (32-36) g/dL RDW (11.5-14.0) % Plt Count (150-450) x10^3/uL MPV (7.5-11.0) fL Gran % (36.0-66.0) % Immature Gran % (Auto) (0.00-0.4) % Nucleat RBC Rel Count (0.00-0.1) % Eos # (Auto) (0-0.5) x10^3/uL Immature Gran # (Auto) (0.00-0.03) x10^3u/L Absolute Lymphs (auto) (1.0-4.6) x10^3/uL Absolute Monos (auto) (0.0-1.3) x10^3/uL Absolute Nucleated RBC (0.00-0.01) x10^3u/L Lymphocytes % (24.0-44.0) % Monocytes % (0.0-12.0) % Eosinophils % (0.00-5.0) % Basophils % (0.0-0.4) % Absolute Granulocytes (1.4-6.9) x10^3/uL Basophils # (0-0.4) x10^3/uL Sodium (137-145) mmol/L Potassium (3.5-5.1) mmol/L Chloride (98-107) mmol/L Carbon Dioxide (22-30) mmol/L Anion Gap (5-15) MEQ/L BUN (9-20) mg/dL Creatinine (0.66-1.25) mg/dL Estimated GFR ML/MIN Glucose (74-106) mg/dL Calcium (8.4-10.2) mg/dL Magnesium (1.6-2.3) mg/dL Total Bilirubin (0.2-1.3) mg/dL AST (17-59) U/L ALT (0-50) U/L Alkaline Phosphatase (38-126) U/L Troponin I (0.000-0.034) ng/mL NT-Pro-B Natriuret Pep (<300) pg/mL Serum Total Protein (6.3-8.2) g/dL Albumin (3.5-5.0) g/dL Influenza Type A Ag NEGATIVE (NEGATIVE) Influenza Type B Ag NEGATIVE (NEGATIVE) RSV (PCR) NEGATIVE (NEGATIVE) SARS-CoV-2 (PCR) NEGATIVE (NEGATIVE) - Radiology Impressions Radiology Exams & Impressions: Radiology Procedures Category Date Time Status CHEST 1 VIEW (PORTABLE) Stat Exams 08/27/23 07:05 Completed - Other Procedures and Tests Respiratory Therapy 08/27/23 11:03 Oxygen Nasal Cannula 2 lpm Respiratory Therapy Consult ROUTINE Assessment/Plan (1) Sepsis Current Visit: Yes Status: Acute Assessment & Plan: -Secondary to pneumonia most likely -lactic acid, blood and urine cxs ordered -Fluids contraindicated due to CHF -CBC, BMP, Mg, Phos in am -continue appropriate baseline home medications -PT/OT eval and tx -DVT prophylaxis-lovenox 40 mg SQ daily (2) Pneumonia Current Visit: Yes Status: Acute Assessment & Plan: -Supplemental oxygen with goal spo2 >92%, duonebs/inh, solumedrol -Viral panel obtained and negative -sputum culture -Continue ceftriaxone/azith -RT consult Code(s): J18.9 - PNEUMONIA, UNSPECIFIED ORGANISM (3) Hyponatremia Current Visit: Yes Status: Acute Assessment & Plan: -Fluid restriction 1.5ml, NS contraindicated -Salt restriction 2g per day -Monitor renal/lytes for optimal cardiac output Code(s): E87.1 - HYPO-OSMOLALITY AND HYPONATREMIA (4) Elevated troponin Current Visit: Yes Status: Acute Assessment & Plan: -will continue to trend, EKG with no ST elevation/deviations, will repeat EKG in the morning Code(s): R79.89 - OTHER SPECIFIED ABNORMAL FINDINGS OF BLOOD CHEMISTRY (5) CHF (congestive heart failure) Current Visit: Yes Status: Acute Qualifiers: Heart failure type: combined systolic and diastolic Heart failure chronicity: acute on chronic Qualified Code(s): I50.43 - Acute on chronic combined systolic (congestive) and diastolic (congestive) heart failure Assessment & Plan: -in exacerbation, will continue lasix 40mg daily in the setting of hyponatremia -Supplemental oxgen with goal of > 92%, consult pulm if no improvement -Initial BNP at 1860Repeat BNP in 48 hours -Optimize electrolytes K>4 Mg >2 Recent echo 06/01/23 showing: EF at 70% IMPRESSION: 1) NORMAL CONTRACTILITY OF THE LEFT VENTRICLE. 2) MODERATE CONCENTRIC LEFT VENTRICULAR HYPERTROPHY. 3) POSSIBLE IMPAIRED LEFT VENTRICULAR RELAXATION. 4) MILD TO MODERATE TRICUSPID REGURGITATION. 5) MODERATE PULMONARY HYPERTENSION. 6) MILD PULMONIC REGURGITATION. 7) MILD AORTIC ROOT DILATATION. Code(s): I50.9 - HEART FAILURE, UNSPECIFIED (6) COPD (chronic obstructive pulmonary disease) Current Visit: Yes Status: Acute Qualifiers: COPD type: COPD with acute exacerbation Qualified Code(s): J44.1 - Chronic obstructive pulmonary disease with (acute) exacerbation Assessment & Plan: -Supportive care with supplemental oxygen, duonebs/inh, solumedrol _RT eval (7) Hypertension Current Visit: No Status: Chronic Qualifiers: Hypertension type: primary hypertension Qualified Code(s): I10 - Essential (primary) hypertension Assessment & Plan: -Stable on admission, will continue home meds Code(s): I10 - ESSENTIAL (PRIMARY) HYPERTENSION (8) Afib Current Visit: Yes Status: Acute Assessment & Plan: -On ekg, patient unsure if this is a chronic diagnosis, he does take metoprolol, he did have cardiac consult during his last visit in June but states he did not follow up Code(s): I48.91 - UNSPECIFIED ATRIAL FIBRILLATION <LEONARDO PALM - Last Filed: 08/27/23 20:09> History of Present Illness - Chief Complaint History of Present Illness: is a 83 year old male. - Physical Exam Vital Signs: Vital Signs - 24 hr Temp Pulse Resp BP BP Pulse Ox 08/27/23 19:49 80 24 97 08/27/23 19:16 97.8 F 78 26 H 113/64 99 08/27/23 16:00 98.7 F 78 20 119/65 95 08/27/23 11:05 99.4 F 102 H 20 124/66 91 L 08/27/23 11:03 102 H 20 93 L 08/27/23 10:00 104 H 27 H 131/75 08/27/23 09:30 100 H 29 H 124/67 95 08/27/23 09:04 95 08/27/23 09:00 105 H 24 119/67 97 08/27/23 08:30 103 H 24 123/75 95 08/27/23 08:00 96 H 24 124/71 95 08/27/23 07:37 110 H 24 131/78 92 L 08/27/23 07:01 107 H 24 93 L 08/27/23 06:35 122 H 32 H 158/88 08/27/23 06:33 99.1 F 108 H 36 H 158/88 97 Results - Labs Lab/Micro Results: Lab Results-Last 24 Hours 08/27/23 08/27/23 08/27/23 Range/Units 07:35 07:35 07:35 WBC 20.5 H (4.0-10.5) x10^3/uL RBC 4.73 (4.1-5.6) x10^6/uL Hgb 14.3 (12.5-18.0) g/dL Hct 44.0 (42-50) % MCV 93.0 (78-100) fL MCH 30.2 (26-32) pg MCHC 32.5 (32-36) g/dL RDW 14.7 H (11.5-14.0) % Plt Count 308 (150-450) x10^3/uL MPV 9.0 (7.5-11.0) fL Gran % 85.4 H (36.0-66.0) % Immature Gran % (Auto) 1.2 H (0.00-0.4) % Nucleat RBC Rel Count 0.0 (0.00-0.1) % Eos # (Auto) 0 (0-0.5) x10^3/uL Immature Gran # (Auto) 0.25 H (0.00-0.03) x10^3u/L Absolute Lymphs (auto) 1.54 (1.0-4.6) x10^3/uL Absolute Monos (auto) 1.19 (0.0-1.3) x10^3/uL Absolute Nucleated RBC 0.00 (0.00-0.01) x10^3u/L Lymphocytes % 7.5 L (24.0-44.0) % Monocytes % 5.8 (0.0-12.0) % Eosinophils % 0.0 (0.00-5.0) % Basophils % 0.1 (0.0-0.4) % Absolute Granulocytes 17.50 H (1.4-6.9) x10^3/uL Basophils # 0.02 (0-0.4) x10^3/uL Sodium 129 L (137-145) mmol/L Potassium 3.8 (3.5-5.1) mmol/L Chloride 96 L (98-107) mmol/L Carbon Dioxide 23 (22-30) mmol/L Anion Gap 14.4 (5-15) MEQ/L BUN 19 (9-20) mg/dL Creatinine 1.14 (0.66-1.25) mg/dL Estimated GFR 63.4 ML/MIN Glucose 133 H (74-106) mg/dL POC Glucometer (74 to 106) mg/dL Hemoglobin A1c (4.5-6.0) % Lactic Acid (0.4-2.0) Calcium 9.3 (8.4-10.2) mg/dL Magnesium 1.9 (1.6-2.3) mg/dL Total Bilirubin 1.10 (0.2-1.3) mg/dL AST 26 (17-59) U/L ALT 22 (0-50) U/L Alkaline Phosphatase 61 (38-126) U/L Troponin I 0.049 H* (0.000-0.034) ng/mL NT-Pro-B Natriuret Pep 1860 (<300) pg/mL Serum Total Protein 7.1 (6.3-8.2) g/dL Albumin 4.1 (3.5-5.0) g/dL Procalcitonin (0.030-0.080) ng/mL TSH 3rd Generation (0.47-4.68) mIU/L Urine Color (YELLOW) Urine Appearance (CLEAR) Urine pH (5-6) Ur Specific [place] (1.005-1.025) Urine Protein POC Urine Protein Conf (Negative) Urine Glucose (UA) Urine Ketones (NEGATIVE) Urine Blood Urine Nitrite (NEGATIVE) Urine Bilirubin (NEGATIVE) Urine Urobilinogen (0-1) mg/dL Ur Leukocyte Esterase Urine Leukocytes (NEGATIVE) U Hyaline Cast (Auto) (0-2) /LPF Urine RBC (0-5) [place]/ul Urine Microscopic RBC (0-5) /HPF Urine Microscopic WBC (0-5) /HPF Ur Epithelial Cells (None Seen) /HPF Urine Bacteria (None Seen) /HPF Urine Culture Reflexed (NO) Urine Glucose (NEGATIVE) mg/dL Influenza Type A Ag (NEGATIVE) Influenza Type B Ag (NEGATIVE) RSV (PCR) (NEGATIVE) SARS-CoV-2 (PCR) (NEGATIVE) 08/27/23 08/27/23 08/27/23 Range/Units 07:35 07:35 11:00 WBC (4.0-10.5) x10^3/uL RBC (4.1-5.6) x10^6/uL Hgb (12.5-18.0) g/dL Hct (42-50) % MCV (78-100) fL MCH (26-32) pg MCHC (32-36) g/dL RDW (11.5-14.0) % Plt Count (150-450) x10^3/uL MPV (7.5-11.0) fL Gran % (36.0-66.0) % Immature Gran % (Auto) (0.00-0.4) % Nucleat RBC Rel Count (0.00-0.1) % Eos # (Auto) (0-0.5) x10^3/uL Immature Gran # (Auto) (0.00-0.03) x10^3u/L Absolute Lymphs (auto) (1.0-4.6) x10^3/uL Absolute Monos (auto) (0.0-1.3) x10^3/uL Absolute Nucleated RBC (0.00-0.01) x10^3u/L Lymphocytes % (24.0-44.0) % Monocytes % (0.0-12.0) % Eosinophils % (0.00-5.0) % Basophils % (0.0-0.4) % Absolute Granulocytes (1.4-6.9) x10^3/uL Basophils # (0-0.4) x10^3/uL Sodium (137-145) mmol/L Potassium (3.5-5.1) mmol/L Chloride (98-107) mmol/L Carbon Dioxide (22-30) mmol/L Anion Gap (5-15) MEQ/L BUN (9-20) mg/dL Creatinine (0.66-1.25) mg/dL Estimated GFR ML/MIN Glucose (74-106) mg/dL POC Glucometer (74 to 106) mg/dL Hemoglobin A1c 6.19 H (4.5-6.0) % Lactic Acid (0.4-2.0) Calcium (8.4-10.2) mg/dL Magnesium (1.6-2.3) mg/dL Total Bilirubin (0.2-1.3) mg/dL AST (17-59) U/L ALT (0-50) U/L Alkaline Phosphatase (38-126) U/L Troponin I (0.000-0.034) ng/mL NT-Pro-B Natriuret Pep (<300) pg/mL Serum Total Protein (6.3-8.2) g/dL Albumin (3.5-5.0) g/dL Procalcitonin (0.030-0.080) ng/mL TSH 3rd Generation 1.210 (0.47-4.68) mIU/L Urine Color (YELLOW) Urine Appearance (CLEAR) Urine pH (5-6) Ur Specific [place] (1.005-1.025) Urine Protein POC Urine Protein Conf (Negative) Urine Glucose (UA) Urine Ketones (NEGATIVE) Urine Blood Urine Nitrite (NEGATIVE) Urine Bilirubin (NEGATIVE) Urine Urobilinogen (0-1) mg/dL Ur Leukocyte Esterase Urine Leukocytes (NEGATIVE) U Hyaline Cast (Auto) (0-2) /LPF Urine RBC (0-5) [place]/ul Urine Microscopic RBC (0-5) /HPF Urine Microscopic WBC (0-5) /HPF Ur Epithelial Cells (None Seen) /HPF Urine Bacteria (None Seen) /HPF Urine Culture Reflexed (NO) Urine Glucose (NEGATIVE) mg/dL Influenza Type A Ag NEGATIVE (NEGATIVE) Influenza Type B Ag NEGATIVE (NEGATIVE) RSV (PCR) NEGATIVE (NEGATIVE) SARS-CoV-2 (PCR) NEGATIVE (NEGATIVE) 08/27/23 08/27/23 08/27/23 Range/Units 11:25 11:25 13:00 WBC (4.0-10.5) x10^3/uL RBC (4.1-5.6) x10^6/uL Hgb (12.5-18.0) g/dL Hct (42-50) % MCV (78-100) fL MCH (26-32) pg MCHC (32-36) g/dL RDW (11.5-14.0) % Plt Count (150-450) x10^3/uL MPV (7.5-11.0) fL Gran % (36.0-66.0) % Immature Gran % (Auto) (0.00-0.4) % Nucleat RBC Rel Count (0.00-0.1) % Eos # (Auto) (0-0.5) x10^3/uL Immature Gran # (Auto) (0.00-0.03) x10^3u/L Absolute Lymphs (auto) (1.0-4.6) x10^3/uL Absolute Monos (auto) (0.0-1.3) x10^3/uL Absolute Nucleated RBC (0.00-0.01) x10^3u/L Lymphocytes % (24.0-44.0) % Monocytes % (0.0-12.0) % Eosinophils % (0.00-5.0) % Basophils % (0.0-0.4) % Absolute Granulocytes (1.4-6.9) x10^3/uL Basophils # (0-0.4) x10^3/uL Sodium (137-145) mmol/L Potassium (3.5-5.1) mmol/L Chloride (98-107) mmol/L Carbon Dioxide (22-30) mmol/L Anion Gap (5-15) MEQ/L BUN (9-20) mg/dL Creatinine (0.66-1.25) mg/dL Estimated GFR ML/MIN Glucose (74-106) mg/dL POC Glucometer (74 to 106) mg/dL Hemoglobin A1c (4.5-6.0) % Lactic Acid 2.3 H (0.4-2.0) Calcium (8.4-10.2) mg/dL Magnesium (1.6-2.3) mg/dL Total Bilirubin (0.2-1.3) mg/dL AST (17-59) U/L ALT (0-50) U/L Alkaline Phosphatase (38-126) U/L Troponin I 0.059 H* (0.000-0.034) ng/mL NT-Pro-B Natriuret Pep (<300) pg/mL Serum Total Protein (6.3-8.2) g/dL Albumin (3.5-5.0) g/dL Procalcitonin 0.087 H (0.030-0.080) ng/mL TSH 3rd Generation (0.47-4.68) mIU/L Urine Color (YELLOW) Urine Appearance (CLEAR) Urine pH (5-6) Ur Specific [place] (1.005-1.025) Urine Protein POC Urine Protein Conf (Negative) Urine Glucose (UA) Urine Ketones (NEGATIVE) Urine Blood Urine Nitrite (NEGATIVE) Urine Bilirubin (NEGATIVE) Urine Urobilinogen (0-1) mg/dL Ur Leukocyte Esterase Urine Leukocytes (NEGATIVE) U Hyaline Cast (Auto) (0-2) /LPF Urine RBC (0-5) [place]/ul Urine Microscopic RBC (0-5) /HPF Urine Microscopic WBC (0-5) /HPF Ur Epithelial Cells (None Seen) /HPF Urine Bacteria (None Seen) /HPF Urine Culture Reflexed (NO) Urine Glucose (NEGATIVE) mg/dL Influenza Type A Ag (NEGATIVE) Influenza Type B Ag (NEGATIVE) RSV (PCR) (NEGATIVE) SARS-CoV-2 (PCR) (NEGATIVE) 08/27/23 08/27/23 08/27/23 Range/Units 13:00 14:25 16:10 WBC (4.0-10.5) x10^3/uL RBC (4.1-5.6) x10^6/uL Hgb (12.5-18.0) g/dL Hct (42-50) % MCV (78-100) fL MCH (26-32) pg MCHC (32-36) g/dL RDW (11.5-14.0) % Plt Count (150-450) x10^3/uL MPV (7.5-11.0) fL Gran % (36.0-66.0) % Immature Gran % (Auto) (0.00-0.4) % Nucleat RBC Rel Count (0.00-0.1) % Eos # (Auto) (0-0.5) x10^3/uL Immature Gran # (Auto) (0.00-0.03) x10^3u/L Absolute Lymphs (auto) (1.0-4.6) x10^3/uL Absolute Monos (auto) (0.0-1.3) x10^3/uL Absolute Nucleated RBC (0.00-0.01) x10^3u/L Lymphocytes % (24.0-44.0) % Monocytes % (0.0-12.0) % Eosinophils % (0.00-5.0) % Basophils % (0.0-0.4) % Absolute Granulocytes (1.4-6.9) x10^3/uL Basophils # (0-0.4) x10^3/uL Sodium 126 L (137-145) mmol/L Potassium 3.8 (3.5-5.1) mmol/L Chloride 95 L (98-107) mmol/L Carbon Dioxide 22 (22-30) mmol/L Anion Gap 13.0 (5-15) MEQ/L BUN 21 H (9-20) mg/dL Creatinine 1.28 H (0.66-1.25) mg/dL Estimated GFR 55.2 ML/MIN Glucose 367 H (74-106) mg/dL POC Glucometer (74 to 106) mg/dL Hemoglobin A1c (4.5-6.0) % Lactic Acid (0.4-2.0) Calcium 8.7 (8.4-10.2) mg/dL Magnesium (1.6-2.3) mg/dL Total Bilirubin (0.2-1.3) mg/dL AST (17-59) U/L ALT (0-50) U/L Alkaline Phosphatase (38-126) U/L Troponin I 0.061 H* (0.000-0.034) ng/mL NT-Pro-B Natriuret Pep (<300) pg/mL Serum Total Protein (6.3-8.2) g/dL Albumin (3.5-5.0) g/dL Procalcitonin (0.030-0.080) ng/mL TSH 3rd Generation (0.47-4.68) mIU/L Urine Color YELLOW (YELLOW) Urine Appearance SLIGHTLY CLOUDY A (CLEAR) Urine pH 6.5 (5-6) Ur Specific [place] 1.015 (1.005-1.025) Urine Protein Cancelled POC Urine Protein Conf NEGATIVE (Negative) Urine Glucose (UA) Cancelled Urine Ketones NEGATIVE (NEGATIVE) Urine Blood Cancelled Urine Nitrite NEGATIVE (NEGATIVE) Urine Bilirubin NEGATIVE (NEGATIVE) Urine Urobilinogen 0.2 (0-1) mg/dL Ur Leukocyte Esterase Cancelled Urine Leukocytes SMALL A (NEGATIVE) U Hyaline Cast (Auto) NONE SEEN (0-2) /LPF Urine RBC TRACE-INTACT A (0-5) [place]/ul Urine Microscopic RBC 0-2 (0-5) /HPF Urine Microscopic WBC >100 A (0-5) /HPF Ur Epithelial Cells None Seen (None Seen) /HPF Urine Bacteria None Seen (None Seen) /HPF Urine Culture Reflexed YES (NO) Urine Glucose 500 A (NEGATIVE) mg/dL Influenza Type A Ag (NEGATIVE) Influenza Type B Ag (NEGATIVE) RSV (PCR) (NEGATIVE) SARS-CoV-2 (PCR) (NEGATIVE) 08/27/23 08/27/23 Range/Units 16:10 16:18 WBC (4.0-10.5) x10^3/uL RBC (4.1-5.6) x10^6/uL Hgb (12.5-18.0) g/dL Hct (42-50) % MCV (78-100) fL MCH (26-32) pg MCHC (32-36) g/dL RDW (11.5-14.0) % Plt Count (150-450) x10^3/uL MPV (7.5-11.0) fL Gran % (36.0-66.0) % Immature Gran % (Auto) (0.00-0.4) % Nucleat RBC Rel Count (0.00-0.1) % Eos # (Auto) (0-0.5) x10^3/uL Immature Gran # (Auto) (0.00-0.03) x10^3u/L Absolute Lymphs (auto) (1.0-4.6) x10^3/uL Absolute Monos (auto) (0.0-1.3) x10^3/uL Absolute Nucleated RBC (0.00-0.01) x10^3u/L Lymphocytes % (24.0-44.0) % Monocytes % (0.0-12.0) % Eosinophils % (0.00-5.0) % Basophils % (0.0-0.4) % Absolute Granulocytes (1.4-6.9) x10^3/uL Basophils # (0-0.4) x10^3/uL Sodium 127 L (137-145) mmol/L Potassium 4.2 (3.5-5.1) mmol/L Chloride 95 L (98-107) mmol/L Carbon Dioxide 21 L (22-30) mmol/L Anion Gap 15.3 H (5-15) MEQ/L BUN 21 H (9-20) mg/dL Creatinine 1.25 (0.66-1.25) mg/dL Estimated GFR 56.8 ML/MIN Glucose 359 H (74-106) mg/dL POC Glucometer 357 H (74 to 106) mg/dL Hemoglobin A1c (4.5-6.0) % Lactic Acid (0.4-2.0) Calcium 8.7 (8.4-10.2) mg/dL Magnesium (1.6-2.3) mg/dL Total Bilirubin (0.2-1.3) mg/dL AST (17-59) U/L ALT (0-50) U/L Alkaline Phosphatase (38-126) U/L Troponin I (0.000-0.034) ng/mL NT-Pro-B Natriuret Pep (<300) pg/mL Serum Total Protein (6.3-8.2) g/dL Albumin (3.5-5.0) g/dL Procalcitonin (0.030-0.080) ng/mL TSH 3rd Generation (0.47-4.68) mIU/L Urine Color (YELLOW) Urine Appearance (CLEAR) Urine pH (5-6) Ur Specific [place] (1.005-1.025) Urine Protein POC Urine Protein Conf (Negative) Urine Glucose (UA) Urine Ketones (NEGATIVE) Urine Blood Urine Nitrite (NEGATIVE) Urine Bilirubin (NEGATIVE) Urine Urobilinogen (0-1) mg/dL Ur Leukocyte Esterase Urine Leukocytes (NEGATIVE) U Hyaline Cast (Auto) (0-2) /LPF Urine RBC (0-5) [place]/ul Urine Microscopic RBC (0-5) /HPF Urine Microscopic WBC (0-5) /HPF Ur Epithelial Cells (None Seen) /HPF Urine Bacteria (None Seen) /HPF Urine Culture Reflexed (NO) Urine Glucose (NEGATIVE) mg/dL Influenza Type A Ag (NEGATIVE) Influenza Type B Ag (NEGATIVE) RSV (PCR) (NEGATIVE) SARS-CoV-2 (PCR) (NEGATIVE) Accuchecks Date 08/27/23 Time 17:15 - Radiology Impressions Radiology Exams & Impressions: Radiology Procedures Category Date Time Status CHEST 1 VIEW (PORTABLE) Stat Exams 08/27/23 07:05 Completed - Other Procedures and Tests Respiratory Therapy 08/27/23 11:03 Oxygen Nasal Cannula 2 lpm 08/27/23 11:29 EKG REPEAT IN AM ISAIAH Encounter - ISAIAH Encounter Attestation ISAIAH Encounter Attestation: "[email or web address] Gerard andhavediscussed pertinent aspects of their care with Reji Reed agree with the history, physical exam (any modifications based on my personal exam will be noted below), assessment, and plan as outlined in original note. Please see immediately below for my summary of findings and additional assessment and plan along with any meaningful corrections/explanations to the Subjective/Objective portions of the ISAIAH note will be noted." My portion of the encounter took place via telemedicine. -Patient with diastolic CHF exac and pneumonia. He has had similar presentation before. Agree with IV antibiotics with CAP coverage, IV diuresis. Hyponatremia likely hypervolemic/dilutional. Expect improvement with diuresis.
[2023-08-27] MEDS ORDERED: HUMALOG SQ PRN ×2 (11:29→15:39)
[2023-08-27] MEDS ORDERED: Zofran 4 MG/2 ML VIAL IV PRN (11:29)
[2023-08-27] MEDS ORDERED: TYLENOL 325 MG PO PRN (11:29)
[2023-08-27] MEDS: Protonix 40MG Tablet PO SCH (13:02)
[2023-08-27] MEDS: Klor Con PO SCH (13:02)
[2023-08-27] MEDS: MUCINEX DM 600/30MG PO SCH ×2 (13:02→21:20)
[2023-08-27] MEDS: THERAGRAN MULTIVITAMIN PO SCH (13:02)
[2023-08-27] MEDS: ENOXAPARIN SODIUM SQ SCH (13:02)
[2023-08-27] MEDS: Toprol-Xl 25MG Tablets PO SCH (13:02)
[2023-08-27] MEDS: SYNTHROID 88 MCG PO SCH (13:03)
[2023-08-27 13:24] LABS: Calcium 8.7 mg/dL (8.4-10.2); Creatinine 1 1.28 mg/dL (0.66-1.25); EST GLOMERULAR FILTRATION RATE 55.2 ML/MIN; Potassium 3.8 mmol/L (3.5-5.1)
[2023-08-27 14:37] LABS: Appearance SLIGHTLY CLOUDY (CLEAR); Bilirubin NEGATIVE (NEGATIVE); Glucose 500 mg/dL (NEGATIVE); Ketones NEGATIVE (NEGATIVE); Nitrite NEGATIVE (NEGATIVE); Ph 6.5 (5-6); Protein,Urine Dip NEGATIVE (Negative); RBC TRACE-INTACT Ery/ul (0-5); Specific Gravity 1.015 (1.005-1.025); Urobilinogen 0.2 mg/dL (0-1)
[2023-08-27 14:45] LABS: ADD URINE CULTURE? YES (NO); Bacteria None Seen /HPF (None Seen); Epithelial Cells None Seen /HPF (None Seen); Hyaline Casts NONE SEEN /LPF (0-2); RBC 0-2 /HPF (0-5); WBC >100 /HPF (0-5)
[2023-08-27] MEDS ORDERED: HUMALOG ONE (16:22)
[2023-08-27] MEDS: Lasix 40 MG/4 ML IV SCH ×2 (16:28→21:22)
[2023-08-27 16:31] LABS: ANION GAP 15.3 MEQ/L (5-15); Calcium 8.7 mg/dL (8.4-10.2); Creatinine 1 1.25 mg/dL (0.66-1.25); EST GLOMERULAR FILTRATION RATE 56.8 ML/MIN; Potassium 4.2 mmol/L (3.5-5.1)
[2023-08-27] MEDS: PROVENTIL 2.5 MG/3 ML NEB IH SCH (20:00)
[2023-08-27] MEDS: solu-MEDROL 60 MG, Sterile H2O 10 ml 2 ML IV SCH ×2 (21:20)
[2023-08-27] MEDS: MELATONIN PO SCH (21:20)
[2023-08-27] MEDS: Xalatan OP SCH (21:21)
[2023-08-27] MEDS ORDERED: NON-FORMULARY ITEM (Latanoprost/Pf [Iyuzeh 0.005% Eye Drop] 1 EACH Droperette) OP SCH (22:00)
[2023-08-27 22:17] LABS: ANION GAP 14.4 MEQ/L (5-15); Calcium 8.6 mg/dL (8.4-10.2); Creatinine 1 1.31 mg/dL (0.66-1.25); EST GLOMERULAR FILTRATION RATE 53.7 ML/MIN; Potassium 3.8 mmol/L (3.5-5.1)
[2023-08-28 05:17] LABS: Absolute Neutrophil Ct (ANC) 18.17 x10^3/uL (1.4-6.9); BASOPHIL % 0.2 % (0.0-0.4); Basophil (Absolute #) 0.03 x10^3/uL (0-0.4); Eosinophil % 0.1 % (0.00-5.0); Eosinophil (Absolute #) 0.01 x10^3/uL (0-0.5); Hematocrit 39.9 % (42-50); Hemoglobin 12.6 g/dL (12.5-18.0); Lymphocyte (Absolute #) 0.59 x10^3/uL (1.0-4.6); Mean Cell Volume 93.4 fL (78-100); Mean Corpuscular Hemoglobin 29.5 pg (26-32); Mean Corpuscular Hgb Concent. 31.6 g/dL (32-36); Mean Platelet Volume 9.5 fL (7.5-11.0); Monocyte (Absolute #) 0.41 x10^3/uL (0.0-1.3); Monocytes % 2.1 % (0.0-12.0); Neutrophil % 93.6 % (36.0-66.0); Platelet Count 264 x10^3/uL (150-450); Red Blood Count 4.27 x10^6/uL (4.1-5.6); Red Cell Distribution Width 15.2 % (11.5-14.0); White Blood Count 19.4 x10^3/uL (4.0-10.5)
[2023-08-28 05:30] LABS: Potassium 3.6 mmol/L (3.5-5.1)
[2023-08-28 05:35] LABS: ALBUMIN 3.7 g/dL (3.5-5.0); BILIRUBIN,TOTAL 0.6 mg/dL (0.2-1.3); Calcium 8.7 mg/dL (8.4-10.2); Creatinine 1 1.34 mg/dL (0.66-1.25); EST GLOMERULAR FILTRATION RATE 52.2 ML/MIN; Total Protein 6.7 g/dL (6.3-8.2)
--- NOTE | 2023-08-28 05:40 | PCM.NOTE ---
Date and Time: 08/28/23 0539 Subjective Assessment: HPI: is a 83 year old male with a pmhx of CHF, HTN, AFIB, COPD, and OA, poor historian presented to ED on 08/27/23 with complaints of worsening shortness of breath and productive cough with clear sputum. Patient states onset was approximately 2-3 days ago but he felt like he was unable to catch his breath today and decided to go to ED. He is on RA at baseline and requiring 6L since presentation. Denies fever, cp, abdominal pain, JENKINS, dizziness, N/V/D. In ED patient was afebrile, tachycardic, tachypneic, slightly hypertensive, with spo2 @ 97% on 6L. CXR showing bibasilar effusions/infiltrates/atelectasis L>R. Lab findings remarkable for leukocytosis with WBC at 20.5, hyponatremic with s odium at 129, BNP 1860, initial troponins elevated at 0.049. EKG with AFIB HR 112, RBBB, PVCS, no acute changes, ST elevations/deviations. Patient received lasix, ceftriaxone, solumedrol, duonebs, and solumedrol while in ED. 08/28/23: Met with patient bedside. Endorses much improvement in shortness of breath overnight. BLE edema improved. Lung sounds on auscultation remain diminished but with improved aeration. Denies fever,cp, abdominal pain, JENKINS, dizziness, N/V/D. - Review of Systems Constitutional: No Symptoms Eyes: No Symptoms Ears, Nose, & Throat: No Symptoms Respiratory: Cough, Short Of Breath Cardiac: No Symptoms Abdominal/Gastrointestinal: No Symptoms Genitourinary Symptoms: No Symptoms, Hesitancy, Other (Hernia to L/R groin/periumbilical ) Musculoskeletal: No Symptoms Skin: No Symptoms, Other (Hernia to L/R groin/periumbilical ) Neurological: No Symptoms Psychological: No Symptoms Endocrine: No Symptoms Hematologic/Lymphatic: No Symptoms Immunological/Allergic: No Symptoms Objective Exam General Appearance: no apparent distress Neurologic Exam: alert, oriented x 3, cooperative Skin Exam: normal color Eye Exam: PERRL Ears, Nose, Throat Exam: normal ENT inspection Neck Exam: normal inspection Respiratory Exam: diminished breath sounds Cardiovascular Exam: regular rate/rhythm, normal heart sounds Gastrointestinal/Abdomen Exam: soft, normal bowel sounds Extremity Exam: swelling (BLE +2 pitting) Back Exam: normal inspection Male Genitalia Exam: other (Hernia to L/R groin/periumbilical) OBJECTIVE DATA Vital Signs: Vital Signs - 24 hr Temp Pulse Resp BP BP Pulse Ox 08/28/23 04:00 96.8 F 69 18 95 08/28/23 00:00 97.2 F 72 20 135/72 100 08/27/23 19:49 92 H 22 95 08/27/23 19:16 97.8 F 78 26 H 113/64 99 08/27/23 16:00 98.7 F 78 20 119/65 95 08/27/23 11:05 99.4 F 102 H 20 124/66 91 L 08/27/23 11:03 102 H 20 93 L 08/27/23 10:00 104 H 27 H 131/75 08/27/23 09:30 100 H 29 H 124/67 95 08/27/23 09:04 95 08/27/23 09:00 105 H 24 119/67 97 08/27/23 08:30 103 H 24 123/75 95 08/27/23 08:00 96 H 24 124/71 95 08/27/23 07:37 110 H 24 131/78 92 L 08/27/23 07:01 107 H 24 93 L 08/27/23 06:35 122 H 32 H 158/88 08/27/23 06:33 99.1 F 108 H 36 H 158/88 97 Pain Assessment - Last Documented Pain Intensity 0 Intake and Output: Intake & Output 08/25/23 08/26/23 08/27/23 08/28/23 11:59 11:59 11:59 11:59 Intake Total 320 Balance 320 Weight 90.1 kg Lab Results: Lab Results-Last 24 Hours 08/27/23 08/27/23 08/27/23 Range/Units 07:35 07:35 07:35 WBC 20.5 H (4.0-10.5) x10^3/uL RBC 4.73 (4.1-5.6) x10^6/uL Hgb 14.3 (12.5-18.0) g/dL Hct 44.0 (42-50) % MCV 93.0 (78-100) fL MCH 30.2 (26-32) pg MCHC 32.5 (32-36) g/dL RDW 14.7 H (11.5-14.0) % Plt Count 308 (150-450) x10^3/uL MPV 9.0 (7.5-11.0) fL Gran % 85.4 H (36.0-66.0) % Immature Gran % (Auto) 1.2 H (0.00-0.4) % Nucleat RBC Rel Count 0.0 (0.00-0.1) % Eos # (Auto) 0 (0-0.5) x10^3/uL Immature Gran # (Auto) 0.25 H (0.00-0.03) x10^3u/L Absolute Lymphs (auto) 1.54 (1.0-4.6) x10^3/uL Absolute Monos (auto) 1.19 (0.0-1.3) x10^3/uL Absolute Nucleated RBC 0.00 (0.00-0.01) x10^3u/L Lymphocytes % 7.5 L (24.0-44.0) % Monocytes % 5.8 (0.0-12.0) % Eosinophils % 0.0 (0.00-5.0) % Basophils % 0.1 (0.0-0.4) % Absolute Granulocytes 17.50 H (1.4-6.9) x10^3/uL Basophils # 0.02 (0-0.4) x10^3/uL Sodium 129 L (137-145) mmol/L Potassium 3.8 (3.5-5.1) mmol/L Chloride 96 L (98-107) mmol/L Carbon Dioxide 23 (22-30) mmol/L Anion Gap 14.4 (5-15) MEQ/L BUN 19 (9-20) mg/dL Creatinine 1.14 (0.66-1.25) mg/dL Estimated GFR 63.4 ML/MIN Glucose 133 H (74-106) mg/dL POC Glucometer (74 to 106) mg/dL Hemoglobin A1c (4.5-6.0) % Lactic Acid (0.4-2.0) Calcium 9.3 (8.4-10.2) mg/dL Magnesium 1.9 (1.6-2.3) mg/dL Total Bilirubin 1.10 (0.2-1.3) mg/dL AST 26 (17-59) U/L ALT 22 (0-50) U/L Alkaline Phosphatase 61 (38-126) U/L Troponin I 0.049 H* (0.000-0.034) ng/mL NT-Pro-B Natriuret Pep 1860 (<300) pg/mL Serum Total Protein 7.1 (6.3-8.2) g/dL Albumin 4.1 (3.5-5.0) g/dL Procalcitonin (0.030-0.080) ng/mL TSH 3rd Generation (0.47-4.68) mIU/L Urine Color (YELLOW) Urine Appearance (CLEAR) Urine pH (5-6) Ur Specific [place] (1.005-1.025) Urine Protein POC Urine Protein Conf (Negative) Urine Glucose (UA) Urine Ketones (NEGATIVE) Urine Blood Urine Nitrite (NEGATIVE) Urine Bilirubin (NEGATIVE) Urine Urobilinogen (0-1) mg/dL Ur Leukocyte Esterase Urine Leukocytes (NEGATIVE) U Hyaline Cast (Auto) (0-2) /LPF Urine RBC (0-5) [place]/ul Urine Microscopic RBC (0-5) /HPF Urine Microscopic WBC (0-5) /HPF Ur Epithelial Cells (None Seen) /HPF Urine Bacteria (None Seen) /HPF Urine Culture Reflexed (NO) Urine Glucose (NEGATIVE) mg/dL Influenza Type A Ag (NEGATIVE) Influenza Type B Ag (NEGATIVE) RSV (PCR) (NEGATIVE) SARS-CoV-2 (PCR) (NEGATIVE) 08/27/23 08/27/23 08/27/23 Range/Units 07:35 07:35 11:00 WBC (4.0-10.5) x10^3/uL RBC (4.1-5.6) x10^6/uL Hgb (12.5-18.0) g/dL Hct (42-50) % MCV (78-100) fL MCH (26-32) pg MCHC (32-36) g/dL RDW (11.5-14.0) % Plt Count (150-450) x10^3/uL MPV (7.5-11.0) fL Gran % (36.0-66.0) % Immature Gran % (Auto) (0.00-0.4) % Nucleat RBC Rel Count (0.00-0.1) % Eos # (Auto) (0-0.5) x10^3/uL Immature Gran # (Auto) (0.00-0.03) x10^3u/L Absolute Lymphs (auto) (1.0-4.6) x10^3/uL Absolute Monos (auto) (0.0-1.3) x10^3/uL Absolute Nucleated RBC (0.00-0.01) x10^3u/L Lymphocytes % (24.0-44.0) % Monocytes % (0.0-12.0) % Eosinophils % (0.00-5.0) % Basophils % (0.0-0.4) % Absolute Granulocytes (1.4-6.9) x10^3/uL Basophils # (0-0.4) x10^3/uL Sodium (137-145) mmol/L Potassium (3.5-5.1) mmol/L Chloride (98-107) mmol/L Carbon Dioxide (22-30) mmol/L Anion Gap (5-15) MEQ/L BUN (9-20) mg/dL Creatinine (0.66-1.25) mg/dL Estimated GFR ML/MIN Glucose (74-106) mg/dL POC Glucometer (74 to 106) mg/dL Hemoglobin A1c 6.19 H (4.5-6.0) % Lactic Acid (0.4-2.0) Calcium (8.4-10.2) mg/dL Magnesium (1.6-2.3) mg/dL Total Bilirubin (0.2-1.3) mg/dL AST (17-59) U/L ALT (0-50) U/L Alkaline Phosphatase (38-126) U/L Troponin I (0.000-0.034) ng/mL NT-Pro-B Natriuret Pep (<300) pg/mL Serum Total Protein (6.3-8.2) g/dL Albumin (3.5-5.0) g/dL Procalcitonin (0.030-0.080) ng/mL TSH 3rd Generation 1.210 (0.47-4.68) mIU/L Urine Color (YELLOW) Urine Appearance (CLEAR) Urine pH (5-6) Ur Specific [place] (1.005-1.025) Urine Protein POC Urine Protein Conf (Negative) Urine Glucose (UA) Urine Ketones (NEGATIVE) Urine Blood Urine Nitrite (NEGATIVE) Urine Bilirubin (NEGATIVE) Urine Urobilinogen (0-1) mg/dL Ur Leukocyte Esterase Urine Leukocytes (NEGATIVE) U Hyaline Cast (Auto) (0-2) /LPF Urine RBC (0-5) [place]/ul Urine Microscopic RBC (0-5) /HPF Urine Microscopic WBC (0-5) /HPF Ur Epithelial Cells (None Seen) /HPF Urine Bacteria (None Seen) /HPF Urine Culture Reflexed (NO) Urine Glucose (NEGATIVE) mg/dL Influenza Type A Ag NEGATIVE (NEGATIVE) Influenza Type B Ag NEGATIVE (NEGATIVE) RSV (PCR) NEGATIVE (NEGATIVE) SARS-CoV-2 (PCR) NEGATIVE (NEGATIVE) 08/27/23 08/27/23 08/27/23 Range/Units 11:25 11:25 13:00 WBC (4.0-10.5) x10^3/uL RBC (4.1-5.6) x10^6/uL Hgb (12.5-18.0) g/dL Hct (42-50) % MCV (78-100) fL MCH (26-32) pg MCHC (32-36) g/dL RDW (11.5-14.0) % Plt Count (150-450) x10^3/uL MPV (7.5-11.0) fL Gran % (36.0-66.0) % Immature Gran % (Auto) (0.00-0.4) % Nucleat RBC Rel Count (0.00-0.1) % Eos # (Auto) (0-0.5) x10^3/uL Immature Gran # (Auto) (0.00-0.03) x10^3u/L Absolute Lymphs (auto) (1.0-4.6) x10^3/uL Absolute Monos (auto) (0.0-1.3) x10^3/uL Absolute Nucleated RBC (0.00-0.01) x10^3u/L Lymphocytes % (24.0-44.0) % Monocytes % (0.0-12.0) % Eosinophils % (0.00-5.0) % Basophils % (0.0-0.4) % Absolute Granulocytes (1.4-6.9) x10^3/uL Basophils # (0-0.4) x10^3/uL Sodium (137-145) mmol/L Potassium (3.5-5.1) mmol/L Chloride (98-107) mmol/L Carbon Dioxide (22-30) mmol/L Anion Gap (5-15) MEQ/L BUN (9-20) mg/dL Creatinine (0.66-1.25) mg/dL Estimated GFR ML/MIN Glucose (74-106) mg/dL POC Glucometer (74 to 106) mg/dL Hemoglobin A1c (4.5-6.0) % Lactic Acid 2.3 H (0.4-2.0) Calcium (8.4-10.2) mg/dL Magnesium (1.6-2.3) mg/dL Total Bilirubin (0.2-1.3) mg/dL AST (17-59) U/L ALT (0-50) U/L Alkaline Phosphatase (38-126) U/L Troponin I 0.059 H* (0.000-0.034) ng/mL NT-Pro-B Natriuret Pep (<300) pg/mL Serum Total Protein (6.3-8.2) g/dL Albumin (3.5-5.0) g/dL Procalcitonin 0.087 H (0.030-0.080) ng/mL TSH 3rd Generation (0.47-4.68) mIU/L Urine Color (YELLOW) Urine Appearance (CLEAR) Urine pH (5-6) Ur Specific [place] (1.005-1.025) Urine Protein POC Urine Protein Conf (Negative) Urine Glucose (UA) Urine Ketones (NEGATIVE) Urine Blood Urine Nitrite (NEGATIVE) Urine Bilirubin (NEGATIVE) Urine Urobilinogen (0-1) mg/dL Ur Leukocyte Esterase Urine Leukocytes (NEGATIVE) U Hyaline Cast (Auto) (0-2) /LPF Urine RBC (0-5) [place]/ul Urine Microscopic RBC (0-5) /HPF Urine Microscopic WBC (0-5) /HPF Ur Epithelial Cells (None Seen) /HPF Urine Bacteria (None Seen) /HPF Urine Culture Reflexed (NO) Urine Glucose (NEGATIVE) mg/dL Influenza Type A Ag (NEGATIVE) Influenza Type B Ag (NEGATIVE) RSV (PCR) (NEGATIVE) SARS-CoV-2 (PCR) (NEGATIVE) 08/27/23 08/27/23 08/27/23 Range/Units 13:00 14:25 16:10 WBC (4.0-10.5) x10^3/uL RBC (4.1-5.6) x10^6/uL Hgb (12.5-18.0) g/dL Hct (42-50) % MCV (78-100) fL MCH (26-32) pg MCHC (32-36) g/dL RDW (11.5-14.0) % Plt Count (150-450) x10^3/uL MPV (7.5-11.0) fL Gran % (36.0-66.0) % Immature Gran % (Auto) (0.00-0.4) % Nucleat RBC Rel Count (0.00-0.1) % Eos # (Auto) (0-0.5) x10^3/uL Immature Gran # (Auto) (0.00-0.03) x10^3u/L Absolute Lymphs (auto) (1.0-4.6) x10^3/uL Absolute Monos (auto) (0.0-1.3) x10^3/uL Absolute Nucleated RBC (0.00-0.01) x10^3u/L Lymphocytes % (24.0-44.0) % Monocytes % (0.0-12.0) % Eosinophils % (0.00-5.0) % Basophils % (0.0-0.4) % Absolute Granulocytes (1.4-6.9) x10^3/uL Basophils # (0-0.4) x10^3/uL Sodium 126 L (137-145) mmol/L Potassium 3.8 (3.5-5.1) mmol/L Chloride 95 L (98-107) mmol/L Carbon Dioxide 22 (22-30) mmol/L Anion Gap 13.0 (5-15) MEQ/L BUN 21 H (9-20) mg/dL Creatinine 1.28 H (0.66-1.25) mg/dL Estimated GFR 55.2 ML/MIN Glucose 367 H (74-106) mg/dL POC Glucometer (74 to 106) mg/dL Hemoglobin A1c (4.5-6.0) % Lactic Acid (0.4-2.0) Calcium 8.7 (8.4-10.2) mg/dL Magnesium (1.6-2.3) mg/dL Total Bilirubin (0.2-1.3) mg/dL AST (17-59) U/L ALT (0-50) U/L Alkaline Phosphatase (38-126) U/L Troponin I 0.061 H* (0.000-0.034) ng/mL NT-Pro-B Natriuret Pep (<300) pg/mL Serum Total Protein (6.3-8.2) g/dL Albumin (3.5-5.0) g/dL Procalcitonin (0.030-0.080) ng/mL TSH 3rd Generation (0.47-4.68) mIU/L Urine Color YELLOW (YELLOW) Urine Appearance SLIGHTLY CLOUDY A (CLEAR) Urine pH 6.5 (5-6) Ur Specific [place] 1.015 (1.005-1.025) Urine Protein Cancelled POC Urine Protein Conf NEGATIVE (Negative) Urine Glucose (UA) Cancelled Urine Ketones NEGATIVE (NEGATIVE) Urine Blood Cancelled Urine Nitrite NEGATIVE (NEGATIVE) Urine Bilirubin NEGATIVE (NEGATIVE) Urine Urobilinogen 0.2 (0-1) mg/dL Ur Leukocyte Esterase Cancelled Urine Leukocytes SMALL A (NEGATIVE) U Hyaline Cast (Auto) NONE SEEN (0-2) /LPF Urine RBC TRACE-INTACT A (0-5) [place]/ul Urine Microscopic RBC 0-2 (0-5) /HPF Urine Microscopic WBC >100 A (0-5) /HPF Ur Epithelial Cells None Seen (None Seen) /HPF Urine Bacteria None Seen (None Seen) /HPF Urine Culture Reflexed YES (NO) Urine Glucose 500 A (NEGATIVE) mg/dL Influenza Type A Ag (NEGATIVE) Influenza Type B Ag (NEGATIVE) RSV (PCR) (NEGATIVE) SARS-CoV-2 (PCR) (NEGATIVE) 08/27/23 08/27/23 08/27/23 Range/Units 16:10 16:18 21:35 WBC (4.0-10.5) x10^3/uL RBC (4.1-5.6) x10^6/uL Hgb (12.5-18.0) g/dL Hct (42-50) % MCV (78-100) fL MCH (26-32) pg MCHC (32-36) g/dL RDW (11.5-14.0) % Plt Count (150-450) x10^3/uL MPV (7.5-11.0) fL Gran % (36.0-66.0) % Immature Gran % (Auto) (0.00-0.4) % Nucleat RBC Rel Count (0.00-0.1) % Eos # (Auto) (0-0.5) x10^3/uL Immature Gran # (Auto) (0.00-0.03) x10^3u/L Absolute Lymphs (auto) (1.0-4.6) x10^3/uL Absolute Monos (auto) (0.0-1.3) x10^3/uL Absolute Nucleated RBC (0.00-0.01) x10^3u/L Lymphocytes % (24.0-44.0) % Monocytes % (0.0-12.0) % Eosinophils % (0.00-5.0) % Basophils % (0.0-0.4) % Absolute Granulocytes (1.4-6.9) x10^3/uL Basophils # (0-0.4) x10^3/uL Sodium 127 L (137-145) mmol/L Potassium 4.2 (3.5-5.1) mmol/L Chloride 95 L (98-107) mmol/L Carbon Dioxide 21 L (22-30) mmol/L Anion Gap 15.3 H (5-15) MEQ/L BUN 21 H (9-20) mg/dL Creatinine 1.25 (0.66-1.25) mg/dL Estimated GFR 56.8 ML/MIN Glucose 359 H (74-106) mg/dL POC Glucometer 357 H 171 H (74 to 106) mg/dL Hemoglobin A1c (4.5-6.0) % Lactic Acid (0.4-2.0) Calcium 8.7 (8.4-10.2) mg/dL Magnesium (1.6-2.3) mg/dL Total Bilirubin (0.2-1.3) mg/dL AST (17-59) U/L ALT (0-50) U/L Alkaline Phosphatase (38-126) U/L Troponin I (0.000-0.034) ng/mL NT-Pro-B Natriuret Pep (<300) pg/mL Serum Total Protein (6.3-8.2) g/dL Albumin (3.5-5.0) g/dL Procalcitonin (0.030-0.080) ng/mL TSH 3rd Generation (0.47-4.68) mIU/L Urine Color (YELLOW) Urine Appearance (CLEAR) Urine pH (5-6) Ur Specific [place] (1.005-1.025) Urine Protein POC Urine Protein Conf (Negative) Urine Glucose (UA) Urine Ketones (NEGATIVE) Urine Blood Urine Nitrite (NEGATIVE) Urine Bilirubin (NEGATIVE) Urine Urobilinogen (0-1) mg/dL Ur Leukocyte Esterase Urine Leukocytes (NEGATIVE) U Hyaline Cast (Auto) (0-2) /LPF Urine RBC (0-5) [place]/ul Urine Microscopic RBC (0-5) /HPF Urine Microscopic WBC (0-5) /HPF Ur Epithelial Cells (None Seen) /HPF Urine Bacteria (None Seen) /HPF Urine Culture Reflexed (NO) Urine Glucose (NEGATIVE) mg/dL Influenza Type A Ag (NEGATIVE) Influenza Type B Ag (NEGATIVE) RSV (PCR) (NEGATIVE) SARS-CoV-2 (PCR) (NEGATIVE) 08/27/23 08/27/23 08/28/23 Range/Units 21:51 21:51 05:05 WBC 19.4 H (4.0-10.5) x10^3/uL RBC 4.27 (4.1-5.6) x10^6/uL Hgb 12.6 (12.5-18.0) g/dL Hct 39.9 L (42-50) % MCV 93.4 (78-100) fL MCH 29.5 (26-32) pg MCHC 31.6 L (32-36) g/dL RDW 15.2 H (11.5-14.0) % Plt Count 264 (150-450) x10^3/uL MPV 9.5 (7.5-11.0) fL Gran % 93.6 H (36.0-66.0) % Immature Gran % (Auto) 1.0 H (0.00-0.4) % Nucleat RBC Rel Count 0.0 (0.00-0.1) % Eos # (Auto) 0.01 (0-0.5) x10^3/uL Immature Gran # (Auto) 0.20 H (0.00-0.03) x10^3u/L Absolute Lymphs (auto) 0.59 L (1.0-4.6) x10^3/uL Absolute Monos (auto) 0.41 (0.0-1.3) x10^3/uL Absolute Nucleated RBC 0.00 (0.00-0.01) x10^3u/L Lymphocytes % 3.0 L (24.0-44.0) % Monocytes % 2.1 (0.0-12.0) % Eosinophils % 0.1 (0.00-5.0) % Basophils % 0.2 (0.0-0.4) % Absolute Granulocytes 18.17 H (1.4-6.9) x10^3/uL Basophils # 0.03 (0-0.4) x10^3/uL Sodium 129 L (137-145) mmol/L Potassium 3.8 (3.5-5.1) mmol/L Chloride 97 L (98-107) mmol/L Carbon Dioxide 22 (22-30) mmol/L Anion Gap 14.4 (5-15) MEQ/L BUN 23 H (9-20) mg/dL Creatinine 1.31 H (0.66-1.25) mg/dL Estimated GFR 53.7 ML/MIN Glucose 166 H (74-106) mg/dL POC Glucometer (74 to 106) mg/dL Hemoglobin A1c (4.5-6.0) % Lactic Acid (0.4-2.0) Calcium 8.6 (8.4-10.2) mg/dL Magnesium (1.6-2.3) mg/dL Total Bilirubin (0.2-1.3) mg/dL AST (17-59) U/L ALT (0-50) U/L Alkaline Phosphatase (38-126) U/L Troponin I 0.074 H* (0.000-0.034) ng/mL NT-Pro-B Natriuret Pep (<300) pg/mL Serum Total Protein (6.3-8.2) g/dL Albumin (3.5-5.0) g/dL Procalcitonin (0.030-0.080) ng/mL TSH 3rd Generation (0.47-4.68) mIU/L Urine Color (YELLOW) Urine Appearance (CLEAR) Urine pH (5-6) Ur Specific [place] (1.005-1.025) Urine Protein POC Urine Protein Conf (Negative) Urine Glucose (UA) Urine Ketones (NEGATIVE) Urine Blood Urine Nitrite (NEGATIVE) Urine Bilirubin (NEGATIVE) Urine Urobilinogen (0-1) mg/dL Ur Leukocyte Esterase Urine Leukocytes (NEGATIVE) U Hyaline Cast (Auto) (0-2) /LPF Urine RBC (0-5) [place]/ul Urine Microscopic RBC (0-5) /HPF Urine Microscopic WBC (0-5) /HPF Ur Epithelial Cells (None Seen) /HPF Urine Bacteria (None Seen) /HPF Urine Culture Reflexed (NO) Urine Glucose (NEGATIVE) mg/dL Influenza Type A Ag (NEGATIVE) Influenza Type B Ag (NEGATIVE) RSV (PCR) (NEGATIVE) SARS-CoV-2 (PCR) (NEGATIVE) Radiology Exams: Radiology Procedures Category Date Time Status CHEST 1 VIEW (PORTABLE) Stat Exams 08/27/23 07:05 Completed Multi-Disciplinary Progress Notes: Multi-Disciplinary Progress Notes 08/27/23 12:56 Respiratory Note by Lorraine Patterson RT ASSESSMENT DONE ON PATIENT AND ORDERS WRITTEN FOR RESPIRATORY Initialized on 08/27/23 12:56 - END OF NOTE Assessment/Plan (1) Sepsis Current Visit: Yes Status: Acute Assessment & Plan: -Secondary to pneumonia most likely -lactic acid, blood and urine cxs ordered -Fluids contraindicated due to CHF -CBC, BMP, Mg, Phos in am -continue appropriate baseline home medications -PT/OT eval and tx -DVT prophylaxis-lovenox 40 mg SQ daily 08/28: -LA repeat pending -Continue ceftriaxone/azithromycin -sputum cult pending -Ucult with NGTD -Bcult pending (2) Pneumonia Current Visit: Yes Status: Acute Assessment & Plan: -Supplemental oxygen with goal spo2 >92%, duonebs/inh, solumedrol -Viral panel obtained and negative -sputum culture -Continue ceftriaxone/azith -RT consult 08/28: -sputum culture pending -continue abx Code(s): J18.9 - PNEUMONIA, UNSPECIFIED ORGANISM (3) Hyponatremia Current Visit: Yes Status: Acute Assessment & Plan: -Fluid restriction 1.5ml, NS contraindicated -Salt restriction 2g per day -Monitor renal/lytes for optimal cardiac output 08/28: -In the setting of hypervolemia, will continue lasix, 1.5 L fluid restriction,monitor renal/lytes daily Code(s): E87.1 - HYPO-OSMOLALITY AND HYPONATREMIA (4) Elevated troponin Current Visit: Yes Status: Acute Assessment & Plan: -will continue to trend, EKG with no ST elevation/deviations, will repeat EKG in the morning 08/28 Code(s): R79.89 - OTHER SPECIFIED ABNORMAL FINDINGS OF BLOOD CHEMISTRY (5) CHF (congestive heart failure) Current Visit: Yes Status: Acute Qualifiers: Heart failure type: combined systolic and diastolic Heart failure chronicity: acute on chronic Qualified Code(s): I50.43 - Acute on chronic combined systolic (congestive) and diastolic (congestive) heart failure Assessment & Plan: -in exacerbation, will continue lasix 40mg daily in the setting of hyponatremia -Supplemental oxgen with goal of > 92%, consult pulm if no improvement -Initial BNP at 1860Repeat BNP in 48 hours -Optimize electrolytes K>4 Mg >2 Recent echo 06/01/23 showing: EF at 70% IMPRESSION: 1) NORMAL CONTRACTILITY OF THE LEFT VENTRICLE. 2) MODERATE CONCENTRIC LEFT VENTRICULAR HYPERTROPHY. 3) POSSIBLE IMPAIRED LEFT VENTRICULAR RELAXATION. 4) MILD TO MODERATE TRICUSPID REGURGITATION. 5) MODERATE PULMONARY HYPERTENSION. 6) MILD PULMONIC REGURGITATION. 7) MILD AORTIC ROOT DILATATION. Code(s): I50.9 - HEART FAILURE, UNSPECIFIED (6) COPD (chronic obstructive pulmonary disease) Current Visit: Yes Status: Acute Qualifiers: COPD type: COPD with acute exacerbation Qualified Code(s): J44.1 - Chronic obstructive pulmonary disease with (acute) exacerbation Assessment & Plan: -Supportive care with supplemental oxygen, duonebs/inh, solumedrol _RT eval (7) Hypertension Current Visit: No Status: Chronic Qualifiers: Hypertension type: primary hypertension Qualified Code(s): I10 - Essential (primary) hypertension Assessment & Plan: -Stable on admission, will continue home meds Code(s): I10 - ESSENTIAL (PRIMARY) HYPERTENSION (8) Afib Current Visit: Yes Status: Acute Assessment & Plan: -On ekg, patient unsure if this is a chronic diagnosis, he does take metoprolol, he did have cardiac consult during his last visit in June but states he did not follow up Code(s): I48.91 - UNSPECIFIED ATRIAL FIBRILLATION (2) Pneumonia Current Visit: Yes Status: Acute Code(s): J18.9 - PNEUMONIA, UNSPECIFIED ORGANISM (3) Hyponatremia Current Visit: Yes Status: Acute Code(s): E87.1 - HYPO-OSMOLALITY AND HYPONATREMIA (4) Elevated troponin Current Visit: Yes Status: Acute Code(s): R79.89 - OTHER SPECIFIED ABNORMAL FINDINGS OF BLOOD CHEMISTRY (5) CHF (congestive heart failure) Current Visit: Yes Status: Acute Qualifiers: Heart failure type: combined systolic and diastolic Heart failure chronicity: acute on chronic Qualified Code(s): I50.43 - Acute on chronic combined systolic (congestive) and diastolic (congestive) heart failure Code(s): I50.9 - HEART FAILURE, UNSPECIFIED (6) COPD (chronic obstructive pulmonary disease) Current Visit: Yes Status: Acute Qualifiers: COPD type: COPD with acute exacerbation Qualified Code(s): J44.1 - Chronic obstructive pulmonary disease with (acute) exacerbation (7) Hypertension Current Visit: No Status: Chronic Qualifiers: Hypertension type: primary hypertension Qualified Code(s): I10 - Essential (primary) hypertension Code(s): I10 - ESSENTIAL (PRIMARY) HYPERTENSION (8) Afib Current Visit: Yes Status: Acute Code(s): I48.91 - UNSPECIFIED ATRIAL FIBRILLATION
[2023-08-28 05:44] LABS: ANION GAP 13.6 MEQ/L (5-15)
[2023-08-28] MEDS: SYNTHROID 88 MCG PO SCH (06:33)
[2023-08-28 07:22] LABS: Slide Review 1 YES
[2023-08-28] MEDS: PROVENTIL 2.5 MG/3 ML NEB IH SCH ×2 (07:47→20:16)
[2023-08-28] MEDS: Protonix 40MG Tablet PO SCH (09:37)
[2023-08-28] MEDS: THERAGRAN MULTIVITAMIN PO SCH (09:37)
[2023-08-28] MEDS: Toprol-Xl 25MG Tablets PO SCH (09:37)
[2023-08-28] MEDS: MUCINEX DM 600/30MG PO SCH ×2 (09:37→21:33)
[2023-08-28] MEDS: Klor Con PO SCH (09:37)
[2023-08-28] MEDS: ENOXAPARIN SODIUM SQ SCH (09:38)
[2023-08-28] MEDS: Lasix 40 MG/4 ML IV SCH ×2 (09:38→21:34)
[2023-08-28] MEDS: solu-MEDROL 60 MG, Sterile H2O 10 ml 2 ML IV SCH ×4 (09:39→21:34)
[2023-08-28] MEDS ORDERED: Lasix 40 MG/4 ML IV SCH (10:00)
[2023-08-28] MEDS: Zithromax 500 MG/ 250 ML NaCl Premix 500 MG/250 ML IVPB IV SCH (10:10)
[2023-08-28] MEDS: HUMALOG SQ PRN ×2 (10:14→12:09)
[2023-08-28] MEDS: ROCEPHIN 1 Gm-D5w 50 ml Bag** 1 G/50 ML IVPB IV SCH (10:56)
[2023-08-28] MEDS: MELATONIN PO SCH (21:33)
[2023-08-28] MEDS: Xalatan OP SCH (21:34)
[2023-08-29 05:09] LABS: Absolute Neutrophil Ct (ANC) 12.38 x10^3/uL (1.4-6.9); BASOPHIL % 0.1 % (0.0-0.4); Basophil (Absolute #) 0.01 x10^3/uL (0-0.4); Eosinophil (Absolute #) 0 x10^3/uL (0-0.5); Hematocrit 37.9 % (42-50); Hemoglobin 12.3 g/dL (12.5-18.0); IMMATURE GRAN # 0.14 x10^3u/L (0.00-0.03); Lymphocytes % 3.7 % (24.0-44.0); Mean Cell Volume 91.8 fL (78-100); Mean Corpuscular Hemoglobin 29.8 pg (26-32); Mean Corpuscular Hgb Concent. 32.5 g/dL (32-36); Mean Platelet Volume 9.5 fL (7.5-11.0); Monocyte (Absolute #) 0.63 x10^3/uL (0.0-1.3); Monocytes % 4.6 % (0.0-12.0); Neutrophil % 90.6 % (36.0-66.0); Platelet Count 331 x10^3/uL (150-450); Red Blood Count 4.13 x10^6/uL (4.1-5.6); Red Cell Distribution Width 14.8 % (11.5-14.0); White Blood Count 13.7 x10^3/uL (4.0-10.5)
[2023-08-29 05:21] LABS: ALBUMIN 3.6 g/dL (3.5-5.0); ANION GAP 12.8 MEQ/L (5-15); BILIRUBIN,TOTAL 0.4 mg/dL (0.2-1.3); Calcium 8.6 mg/dL (8.4-10.2); Creatinine 1 1.23 mg/dL (0.66-1.25); EST GLOMERULAR FILTRATION RATE 57.9 ML/MIN; Potassium 3.3 mmol/L (3.5-5.1); Total Protein 6.6 g/dL (6.3-8.2)
--- NOTE | 2023-08-29 05:36 | PCM.NOTE ---
Date and Time: 08/29/23 0535 Subjective Assessment: HPI: is a 83 year old male with a pmhx of CHF, HTN, AFIB, COPD, and OA, poor historian presented to ED on 08/27/23 with complaints of worsening shortness of breath and productive cough with clear sputum. Patient states onset was approximately 2-3 days ago but he felt like he was unable to catch his breath today and decided to go to ED. He is on RA at baseline and requiring 6L since presentation. Denies fever, cp, abdominal pain, JENKINS, dizziness, N/V/D. In ED patient was afebrile, tachycardic, tachypneic, slightly hypertensive, with spo2 @ 97% on 6L. CXR showing bibasilar effusions/infiltrates/atelectasis L>R. Lab findings remarkable for leukocytosis with WBC at 20.5, hyponatremic with so dium at 129, BNP 1860, initial troponins elevated at 0.049. EKG with AFIB HR 112, RBBB, PVCS, no acute changes, ST elevations/deviations. Patient received lasix, ceftriaxone, solumedrol, duonebs, and solumedrol while in ED. 08/28/23: Met with patient bedside. Endorses much improvement in shortness of breath overnight. BLE edema improved. Lung sounds on auscultation remain diminished but with improved aeration. Denies fever,cp, abdominal pain, JENKINS, dizziness, N/V/D. 08/29: No overnight events noted. Endorses productive cough with green/yellow sputum, but feels less short of breath. Patient states he is still feeling weak. Patient was able to work with PT today, did desat to 88% with ambulation per therapist. BLE edema improved. Discussed surgery consult for bilateral inguinal hernia, no intervention is need at this time. - Review of Systems Constitutional: No Symptoms Eyes: No Symptoms Ears, Nose, & Throat: No Symptoms Respiratory: Cough, Short Of Breath Cardiac: No Symptoms Abdominal/Gastrointestinal: No Symptoms Genitourinary Symptoms: No Symptoms Musculoskeletal: No Symptoms Skin: No Symptoms Neurological: No Symptoms Psychological: No Symptoms Endocrine: No Symptoms Hematologic/Lymphatic: No Symptoms Immunological/Allergic: No Symptoms Objective Exam General Appearance: no apparent distress Neurologic Exam: alert, oriented x 3, cooperative Skin Exam: normal color Eye Exam: PERRL Ears, Nose, Throat Exam: normal ENT inspection Neck Exam: normal inspection Respiratory Exam: crackles/rales Cardiovascular Exam: regular rate/rhythm, normal heart sounds, edema (BLE +2) Extremity Exam: swelling (BLE +2) Back Exam: normal inspection Male Genitalia Exam: deferred Rectal Exam: deferred OBJECTIVE DATA Vital Signs: Vital Signs - 24 hr Temp Pulse Resp BP Pulse Ox 08/29/23 04:00 97.5 F 86 18 126/82 94 L 08/29/23 00:00 76 15 93 L 08/28/23 20:16 83 16 92 L 08/28/23 20:00 97.9 F 87 22 132/78 91 L 08/28/23 17:41 92 L 08/28/23 16:00 97.6 F 84 16 134/72 92 L 08/28/23 12:00 97.6 F 81 26 H 149/70 93 L 08/28/23 11:03 83 08/28/23 09:31 94 L 08/28/23 07:49 72 18 99 08/28/23 07:19 97.6 F 74 19 140/80 96 Pain Assessment - Last Documented Pain Intensity 0 Intake and Output: Intake & Output 08/26/23 08/27/23 08/28/23 08/29/23 11:59 11:59 11:59 11:59 Intake Total 720 920 Output Total 1025 Balance 720 -105 Weight 90.1 kg Lab Results: Lab Results-Last 24 Hours 08/28/23 08/28/23 08/28/23 Range/Units 05:05 05:05 05:05 WBC (4.0-10.5) x10^3/uL RBC (4.1-5.6) x10^6/uL Hgb (12.5-18.0) g/dL Hct (42-50) % MCV (78-100) fL MCH (26-32) pg MCHC (32-36) g/dL RDW (11.5-14.0) % Plt Count (150-450) x10^3/uL MPV (7.5-11.0) fL Gran % (36.0-66.0) % Immature Gran % (Auto) (0.00-0.4) % Nucleat RBC Rel Count (0.00-0.1) % Eos # (Auto) (0-0.5) x10^3/uL Immature Gran # (Auto) (0.00-0.03) x10^3u/L Absolute Lymphs (auto) (1.0-4.6) x10^3/uL Absolute Monos (auto) (0.0-1.3) x10^3/uL Absolute Nucleated RBC (0.00-0.01) x10^3u/L Lymphocytes % (24.0-44.0) % Monocytes % (0.0-12.0) % Eosinophils % (0.00-5.0) % Basophils % (0.0-0.4) % Absolute Granulocytes (1.4-6.9) x10^3/uL Basophils # (0-0.4) x10^3/uL Sodium 129 L (137-145) mmol/L Potassium 3.6 (3.5-5.1) mmol/L Chloride 95 L (98-107) mmol/L Carbon Dioxide 24 (22-30) mmol/L Anion Gap 13.6 (5-15) MEQ/L BUN 26 H (9-20) mg/dL Creatinine 1.34 H (0.66-1.25) mg/dL Estimated GFR 52.2 ML/MIN Glucose 189 H (74-106) mg/dL POC Glucometer (74 to 106) mg/dL Lactic Acid (0.4-2.0) Calcium 8.7 (8.4-10.2) mg/dL Magnesium 2.0 (1.6-2.3) mg/dL Total Bilirubin 0.60 (0.2-1.3) mg/dL AST 22 (17-59) U/L ALT 20 (0-50) U/L Alkaline Phosphatase 50 (38-126) U/L Troponin I 0.072 H* (0.000-0.034) ng/mL NT-Pro-B Natriuret Pep 2780 (<300) pg/mL Serum Total Protein 6.7 (6.3-8.2) g/dL Albumin 3.7 (3.5-5.0) g/dL Slides for Path Review YES 08/28/23 08/28/23 08/28/23 Range/Units 07:05 11:46 13:40 WBC (4.0-10.5) x10^3/uL RBC (4.1-5.6) x10^6/uL Hgb (12.5-18.0) g/dL Hct (42-50) % MCV (78-100) fL MCH (26-32) pg MCHC (32-36) g/dL RDW (11.5-14.0) % Plt Count (150-450) x10^3/uL MPV (7.5-11.0) fL Gran % (36.0-66.0) % Immature Gran % (Auto) (0.00-0.4) % Nucleat RBC Rel Count (0.00-0.1) % Eos # (Auto) (0-0.5) x10^3/uL Immature Gran # (Auto) (0.00-0.03) x10^3u/L Absolute Lymphs (auto) (1.0-4.6) x10^3/uL Absolute Monos (auto) (0.0-1.3) x10^3/uL Absolute Nucleated RBC (0.00-0.01) x10^3u/L Lymphocytes % (24.0-44.0) % Monocytes % (0.0-12.0) % Eosinophils % (0.00-5.0) % Basophils % (0.0-0.4) % Absolute Granulocytes (1.4-6.9) x10^3/uL Basophils # (0-0.4) x10^3/uL Sodium (137-145) mmol/L Potassium (3.5-5.1) mmol/L Chloride (98-107) mmol/L Carbon Dioxide (22-30) mmol/L Anion Gap (5-15) MEQ/L BUN (9-20) mg/dL Creatinine (0.66-1.25) mg/dL Estimated GFR ML/MIN Glucose (74-106) mg/dL POC Glucometer 174 H 232 H (74 to 106) mg/dL Lactic Acid 3.9 H (0.4-2.0) Calcium (8.4-10.2) mg/dL Magnesium (1.6-2.3) mg/dL Total Bilirubin (0.2-1.3) mg/dL AST (17-59) U/L ALT (0-50) U/L Alkaline Phosphatase (38-126) U/L Troponin I (0.000-0.034) ng/mL NT-Pro-B Natriuret Pep (<300) pg/mL Serum Total Protein (6.3-8.2) g/dL Albumin (3.5-5.0) g/dL Slides for Path Review 08/28/23 08/28/23 08/28/23 Range/Units 16:12 20:55 21:32 WBC (4.0-10.5) x10^3/uL RBC (4.1-5.6) x10^6/uL Hgb (12.5-18.0) g/dL Hct (42-50) % MCV (78-100) fL MCH (26-32) pg MCHC (32-36) g/dL RDW (11.5-14.0) % Plt Count (150-450) x10^3/uL MPV (7.5-11.0) fL Gran % (36.0-66.0) % Immature Gran % (Auto) (0.00-0.4) % Nucleat RBC Rel Count (0.00-0.1) % Eos # (Auto) (0-0.5) x10^3/uL Immature Gran # (Auto) (0.00-0.03) x10^3u/L Absolute Lymphs (auto) (1.0-4.6) x10^3/uL Absolute Monos (auto) (0.0-1.3) x10^3/uL Absolute Nucleated RBC (0.00-0.01) x10^3u/L Lymphocytes % (24.0-44.0) % Monocytes % (0.0-12.0) % Eosinophils % (0.00-5.0) % Basophils % (0.0-0.4) % Absolute Granulocytes (1.4-6.9) x10^3/uL Basophils # (0-0.4) x10^3/uL Sodium (137-145) mmol/L Potassium (3.5-5.1) mmol/L Chloride (98-107) mmol/L Carbon Dioxide (22-30) mmol/L Anion Gap (5-15) MEQ/L BUN (9-20) mg/dL Creatinine (0.66-1.25) mg/dL Estimated GFR ML/MIN Glucose (74-106) mg/dL POC Glucometer 131 H 347 H 348 H (74 to 106) mg/dL Lactic Acid (0.4-2.0) Calcium (8.4-10.2) mg/dL Magnesium (1.6-2.3) mg/dL Total Bilirubin (0.2-1.3) mg/dL AST (17-59) U/L ALT (0-50) U/L Alkaline Phosphatase (38-126) U/L Troponin I (0.000-0.034) ng/mL NT-Pro-B Natriuret Pep (<300) pg/mL Serum Total Protein (6.3-8.2) g/dL Albumin (3.5-5.0) g/dL Slides for Path Review 08/29/23 Range/Units 04:54 WBC 13.7 H (4.0-10.5) x10^3/uL RBC 4.13 (4.1-5.6) x10^6/uL Hgb 12.3 L (12.5-18.0) g/dL Hct 37.9 L (42-50) % MCV 91.8 (78-100) fL MCH 29.8 (26-32) pg MCHC 32.5 (32-36) g/dL RDW 14.8 H (11.5-14.0) % Plt Count 331 (150-450) x10^3/uL MPV 9.5 (7.5-11.0) fL Gran % 90.6 H (36.0-66.0) % Immature Gran % (Auto) 1.0 H (0.00-0.4) % Nucleat RBC Rel Count 0.0 (0.00-0.1) % Eos # (Auto) 0 (0-0.5) x10^3/uL Immature Gran # (Auto) 0.14 H (0.00-0.03) x10^3u/L Absolute Lymphs (auto) 0.50 L (1.0-4.6) x10^3/uL Absolute Monos (auto) 0.63 (0.0-1.3) x10^3/uL Absolute Nucleated RBC 0.00 (0.00-0.01) x10^3u/L Lymphocytes % 3.7 L (24.0-44.0) % Monocytes % 4.6 (0.0-12.0) % Eosinophils % 0.0 (0.00-5.0) % Basophils % 0.1 (0.0-0.4) % Absolute Granulocytes 12.38 H (1.4-6.9) x10^3/uL Basophils # 0.01 (0-0.4) x10^3/uL Sodium (137-145) mmol/L Potassium (3.5-5.1) mmol/L Chloride (98-107) mmol/L Carbon Dioxide (22-30) mmol/L Anion Gap (5-15) MEQ/L BUN (9-20) mg/dL Creatinine (0.66-1.25) mg/dL Estimated GFR ML/MIN Glucose (74-106) mg/dL POC Glucometer (74 to 106) mg/dL Lactic Acid (0.4-2.0) Calcium (8.4-10.2) mg/dL Magnesium (1.6-2.3) mg/dL Total Bilirubin (0.2-1.3) mg/dL AST (17-59) U/L ALT (0-50) U/L Alkaline Phosphatase (38-126) U/L Troponin I (0.000-0.034) ng/mL NT-Pro-B Natriuret Pep (<300) pg/mL Serum Total Protein (6.3-8.2) g/dL Albumin (3.5-5.0) g/dL Slides for Path Review Radiology Exams: Radiology Procedures Category Date Time Status CHEST 1 VIEW (PORTABLE) Stat Exams 08/27/23 07:05 Completed Assessment/Plan (1) Sepsis Current Visit: Yes Status: Acute Assessment & Plan: -Secondary to pneumonia most likely -lactic acid, blood and urine cxs ordered -Fluids contraindicated due to CHF -CBC, BMP, Mg, Phos in am -continue appropriate baseline home medications -PT/OT eval and tx -DVT prophylaxis-lovenox 40 mg SQ daily 08/28: -LA repeat pending -Continue ceftriaxone/azithromycin -sputum cult pending -Ucult with NGTD -Bcult pending 08/29 -Blood/urine/ sputum cultures with no growth -WBC downtrending -RA -Continue ceftriaxone /dc azithromycin (2) Pneumonia Current Visit: Yes Status: Acute Assessment & Plan: -Supplemental oxygen with goal spo2 >92%, duonebs/inh, solumedrol -Viral panel obtained and negative -sputum culture -Continue ceftriaxone/azith -RT consult 08/28: -sputum culture pending -continue abx 08/29 -see sepsis Code(s): J18.9 - PNEUMONIA, UNSPECIFIED ORGANISM (3) Hyponatremia Current Visit: Yes Status: Acute Assessment & Plan: -Fluid restriction 1.5ml, NS contraindicated -Salt restriction 2g per day -Monitor renal/lytes for optimal cardiac output 08/28: -In the setting of hypervolemia, will continue lasix, 1.5 L fluid restriction,monitor renal/lytes daily 08/29 -Improved at 132 Code(s): E87.1 - HYPO-OSMOLALITY AND HYPONATREMIA (4) Elevated troponin Current Visit: Yes Status: Acute Assessment & Plan: -will continue to trend, EKG with no ST elevation/deviations, will repeat EKG in the morning 08/28 Code(s): R79.89 - OTHER SPECIFIED ABNORMAL FINDINGS OF BLOOD CHEMISTRY (5) CHF (congestive heart failure) Current Visit: Yes Status: Acute Qualifiers: Heart failure type: combined systolic and diastolic Heart failure chronicity: acute on chronic Qualified Code(s): I50.43 - Acute on chronic combined systolic (congestive) and diastolic (congestive) heart failure Assessment & Plan: -in exacerbation, will continue lasix 40mg daily in the setting of hyponatremia -Supplemental oxgen with goal of > 92%, consult pulm if no improvement -Initial BNP at 1860Repeat BNP in 48 hours -Optimize electrolytes K>4 Mg >2 Recent echo 06/01/23 showing: EF at 70% IMPRESSION: 1) NORMAL CONTRACTILITY OF THE LEFT VENTRICLE. 2) MODERATE CONCENTRIC LEFT VENTRICULAR HYPERTROPHY. 3) POSSIBLE IMPAIRED LEFT VENTRICULAR RELAXATION. 4) MILD TO MODERATE TRICUSPID REGURGITATION. 5) MODERATE PULMONARY HYPERTENSION. 6) MILD PULMONIC REGURGITATION. 7) MILD AORTIC ROOT DILATATION. 12 08/29: -Continue lasix bid dosing Code(s): I50.9 - HEART FAILURE, UNSPECIFIED (6) COPD (chronic obstructive pulmonary disease) Current Visit: Yes Status: Acute Qualifiers: COPD type: COPD with acute exacerbation Qualified Code(s): J44.1 - Chronic obstructive pulmonary disease with (acute) exacerbation Assessment & Plan: -Supportive care with supplemental oxygen, duonebs/inh, solumedrol _RT eval (7) Hypertension Current Visit: No Status: Chronic Qualifiers: Hypertension type: primary hypertension Qualified Code(s): I10 - Essential (primary) hypertension Assessment & Plan: -Stable on admission, will continue home meds Code(s): I10 - ESSENTIAL (PRIMARY) HYPERTENSION (8) Afib Current Visit: Yes Status: Acute Assessment & Plan: -On ekg, patient unsure if this is a chronic diagnosis, he does take metoprolol, he did have cardiac consult during his last visit in June but states he did not follow up 08/29: -resolved Code(s): I48.91 - UNSPECIFIED ATRIAL FIBRILLATION #hypokalemia -potassium at 3.3, will increase daily dose to 40meq, most likely due to aggressive diuresis (2) Pneumonia Current Visit: Yes Status: Acute Code(s): J18.9 - PNEUMONIA, UNSPECIFIED ORGANISM (3) Hyponatremia Current Visit: Yes Status: Acute Code(s): E87.1 - HYPO-OSMOLALITY AND HYPONATREMIA (4) Elevated troponin Current Visit: Yes Status: Acute Code(s): R79.89 - OTHER SPECIFIED ABNORMAL FINDINGS OF BLOOD CHEMISTRY (5) CHF (congestive heart failure) Current Visit: Yes Status: Acute Qualifiers: Heart failure type: combined systolic and diastolic Heart failure chronicity: acute on chronic Qualified Code(s): I50.43 - Acute on chronic combined systolic (congestive) and diastolic (congestive) heart failure Code(s): I50.9 - HEART FAILURE, UNSPECIFIED (6) COPD (chronic obstructive pulmonary disease) Current Visit: Yes Status: Acute Qualifiers: COPD type: COPD with acute exacerbation Qualified Code(s): J44.1 - Chronic obstructive pulmonary disease with (acute) exacerbation (7) Hypertension Current Visit: No Status: Chronic Qualifiers: Hypertension type: primary hypertension Qualified Code(s): I10 - Essential (primary) hypertension Code(s): I10 - ESSENTIAL (PRIMARY) HYPERTENSION (8) Afib Current Visit: Yes Status: Acute Code(s): I48.91 - UNSPECIFIED ATRIAL FIBRILLATION (9) Hypokalemia Current Visit: Yes Status: Acute Code(s): E87.6 - HYPOKALEMIA
[2023-08-29] MEDS: SYNTHROID 88 MCG PO SCH (06:44)
[2023-08-29] MEDS: PROVENTIL 2.5 MG/3 ML NEB IH SCH ×2 (07:27→18:54)
--- NOTE | 2023-08-29 08:20 | CONS ---
CONSULT DATE: 08/28/2023 REASON FOR CONSULT: Multiple hernias. HISTORY: The patient is in with a multitude of problems. He is 83 years old. He is in bed 115. He is alert and oriented. 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 He was totally alert and oriented. He basically from the minute I stepped in he did not really need any surgery and had actually been doing well. I certainly agreed to look at this individual. He had a 4 cm infraumbilical hernia. He had a 4 cm ventral hernia about an inch above the umbilicus that had very large left inguinal hernia going way down into the scrotum. Despite this it is soft and he said it does go and come back. It is intermittently incarcerated but certainly not strangulated. He said he has been getting along with it just fine and he said he has known friends that have had it much worse than this. IMPRESSION: The patient does have a very large left inguinal hernia that is intermittently incarcerated, has a small to medium umbilical hernia and a small to medium ventral hernia. He is of normal thought pattern which is great. I think he would be able to tell somebody if he gets truly incarcerated or strangulated. The inguinal hernia seems not big enough and probably not going to get incarcerated. I thought it would be a little more concerned about the two smaller anterior abdominal wall hernias that they might get incarcerated at some time. PLAN: The patient desires to have observation. Observation is in order. Treatment plan is adequate. We are available if one of these gets incarcerated and strangulated sometime in the future.
[2023-08-29] MEDS: solu-MEDROL 60 MG, Sterile H2O 10 ml 2 ML IV SCH ×4 (09:15→21:28)
[2023-08-29] MEDS: ROCEPHIN 1 Gm-D5w 50 ml Bag** 1 G/50 ML IVPB IV SCH (09:15)
[2023-08-29] MEDS: Lasix 40 MG/4 ML IV SCH ×2 (09:16→21:28)
[2023-08-29] MEDS: Protonix 40MG Tablet PO SCH (09:16)
[2023-08-29] MEDS: Toprol-Xl 25MG Tablets PO SCH (09:16)
[2023-08-29] MEDS: MUCINEX DM 600/30MG PO SCH ×2 (09:16→21:28)
[2023-08-29] MEDS: THERAGRAN MULTIVITAMIN PO SCH (09:16)
[2023-08-29] MEDS: ENOXAPARIN SODIUM SQ SCH (09:16)
[2023-08-29] MEDS: Klor Con PO SCH (09:16)
[2023-08-29] MEDS: Zithromax 500 MG/ 250 ML NaCl Premix 500 MG/250 ML IVPB IV SCH (09:54)
[2023-08-29] MEDS: HUMALOG SQ PRN ×3 (12:41→21:27)
[2023-08-29] MEDS: MELATONIN PO SCH (21:27)
[2023-08-29] MEDS: Xalatan OP SCH (21:27)
[2023-08-30 05:15] LABS: Absolute Neutrophil Ct (ANC) 10.27 x10^3/uL (1.4-6.9); BASOPHIL % 0.1 % (0.0-0.4); Basophil (Absolute #) 0.01 x10^3/uL (0-0.4); Eosinophil (Absolute #) 0 x10^3/uL (0-0.5); Hemoglobin 13.2 g/dL (12.5-18.0); IMMATURE GRAN # 0.09 x10^3u/L (0.00-0.03); IMMATURE GRAN % 0.8 % (0.00-0.4); Lymphocyte (Absolute #) 0.51 x10^3/uL (1.0-4.6); Lymphocytes % 4.5 % (24.0-44.0); Mean Cell Volume 92.3 fL (78-100); Mean Corpuscular Hemoglobin 29.7 pg (26-32); Mean Corpuscular Hgb Concent. 32.2 g/dL (32-36); Mean Platelet Volume 9.2 fL (7.5-11.0); Monocyte (Absolute #) 0.35 x10^3/uL (0.0-1.3); Monocytes % 3.1 % (0.0-12.0); Neutrophil % 91.5 % (36.0-66.0); Platelet Count 332 x10^3/uL (150-450); Red Blood Count 4.44 x10^6/uL (4.1-5.6); Red Cell Distribution Width 14.6 % (11.5-14.0); White Blood Count 11.2 x10^3/uL (4.0-10.5)
--- NOTE | 2023-08-30 05:27 | PCM.NOTE ---
Date and Time: 08/30/23 0524 Subjective Assessment: HPI: is a 83 year old male with a pmhx of CHF, HTN, AFIB, COPD, and OA, poor historian presented to ED on 08/27/23 with complaints of worsening shortness of breath and productive cough with clear sputum. Patient states onset was approximately 2-3 days ago but he felt like he was unable to catch his breath today and decided to go to ED. He is on RA at baseline and requiring 6L since presentation. Denies fever, cp, abdominal pain, JENKINS, dizziness, N/V/D. In ED patient was afebrile, tachycardic, tachypneic, slightly hypertensive, with spo2 @ 97% on 6L. CXR showing bibasilar effusions/infiltrates/atelectasis L>R. Lab findings remarkable for leukocytosis with WBC at 20.5, hyponatremic with sod ium at 129, BNP 1860, initial troponins elevated at 0.049. EKG with AFIB HR 112, RBBB, PVCS, no acute changes, ST elevations/deviations. Patient received lasix, ceftriaxone, solumedrol, duonebs, and solumedrol while in ED. He was admitted with sepsis due to pneumonia and exacerbation of COPD. During hospital course he has been treated with IV antibiotics, steroids and bronchodilators. He is much i mproved. He is now bringing up some purulent sputum. We believe he would benefit from 1-2 days of continued intensive treatment. He remains short of air with hypoxia at times. Potassium is low and will be replaced. Renal function is improved. 08/30: Met with patient bedside. Remains A&O x 3 with no confusion reported by nursing staff. He is feeling much better today, shortness of breath has improved, energy is better. Lung sounds with increased aeration. BLE edema improved. Mentation at baseline. Plan to decrease lasix, and change IV steroid to oral, most likely will discharge tomorrow. - Review of Systems Constitutional: No Symptoms Eyes: No Symptoms Ears, Nose, & Throat: No Symptoms Respiratory: Cough, Short Of Breath Cardiac: Edema (BLE +1) Abdominal/Gastrointestinal: No Symptoms Genitourinary Symptoms: No Symptoms Musculoskeletal: No Symptoms Skin: No Symptoms Neurological: No Symptoms Psychological: No Symptoms Objective Exam General Appearance: no apparent distress Neurologic Exam: alert, oriented x 3, cooperative Skin Exam: normal color Eye Exam: PERRL Ears, Nose, Throat Exam: normal ENT inspection Neck Exam: normal inspection Respiratory Exam: diminished breath sounds Cardiovascular Exam: regular rate/rhythm, normal heart sounds Gastrointestinal/Abdomen Exam: soft, normal bowel sounds Extremity Exam: swelling (BLE edema +1) Back Exam: normal inspection Male Genitalia Exam: other (L/R inguinal/ periumbilical hernias) OBJECTIVE DATA Vital Signs: Vital Signs - 24 hr Temp Pulse Resp BP Pulse Ox 08/30/23 04:00 97.2 F 73 19 152/92 92 L 08/30/23 00:00 97.8 F 74 19 134/84 99 08/29/23 20:00 96.9 F 94 H 16 139/73 96 08/29/23 18:55 73 18 93 L 08/29/23 16:00 96.3 F 93 H 18 134/75 93 L 08/29/23 12:00 96.7 F 75 18 125/70 94 L 08/29/23 08:00 97.0 F 86 16 132/87 95 08/29/23 07:30 78 08/29/23 07:25 84 18 93 L Pain Assessment - Last Documented Pain Intensity 0 Intake and Output: Intake & Output 08/27/23 08/28/23 08/29/23 08/30/23 11:59 11:59 11:59 11:59 Intake Total 720 1040 60 Output Total 1275 580 Balance 720 -235 -520 Weight 90.1 kg Lab Results: Lab Results-Last 24 Hours 08/29/23 08/29/23 08/29/23 Range/Units 04:54 04:54 07:44 Sodium 132 L (137-145) mmol/L Potassium 3.3 L (3.5-5.1) mmol/L Chloride 97 L (98-107) mmol/L Carbon Dioxide 25 (22-30) mmol/L Anion Gap 12.8 (5-15) MEQ/L BUN 40 H (9-20) mg/dL Creatinine 1.23 (0.66-1.25) mg/dL Estimated GFR 57.9 ML/MIN Glucose 187 H (74-106) mg/dL POC Glucometer 185 H (74 to 106) mg/dL Calcium 8.6 (8.4-10.2) mg/dL Magnesium 2.1 (1.6-2.3) mg/dL Total Bilirubin 0.40 (0.2-1.3) mg/dL AST 19 (17-59) U/L ALT 19 (0-50) U/L Alkaline Phosphatase 47 (38-126) U/L Serum Total Protein 6.6 (6.3-8.2) g/dL Albumin 3.6 (3.5-5.0) g/dL 08/29/23 08/29/23 08/29/23 Range/Units 10:59 12:44 16:37 Sodium (137-145) mmol/L Potassium 3.4 L (3.5-5.1) mmol/L Chloride (98-107) mmol/L Carbon Dioxide (22-30) mmol/L Anion Gap (5-15) MEQ/L BUN (9-20) mg/dL Creatinine (0.66-1.25) mg/dL Estimated GFR ML/MIN Glucose (74-106) mg/dL POC Glucometer 376 H 174 H (74 to 106) mg/dL Calcium (8.4-10.2) mg/dL Magnesium (1.6-2.3) mg/dL Total Bilirubin (0.2-1.3) mg/dL AST (17-59) U/L ALT (0-50) U/L Alkaline Phosphatase (38-126) U/L Serum Total Protein (6.3-8.2) g/dL Albumin (3.5-5.0) g/dL 08/29/23 Range/Units 20:48 Sodium (137-145) mmol/L Potassium (3.5-5.1) mmol/L Chloride (98-107) mmol/L Carbon Dioxide (22-30) mmol/L Anion Gap (5-15) MEQ/L BUN (9-20) mg/dL Creatinine (0.66-1.25) mg/dL Estimated GFR ML/MIN Glucose (74-106) mg/dL POC Glucometer 253 H (74 to 106) mg/dL Calcium (8.4-10.2) mg/dL Magnesium (1.6-2.3) mg/dL Total Bilirubin (0.2-1.3) mg/dL AST (17-59) U/L ALT (0-50) U/L Alkaline Phosphatase (38-126) U/L Serum Total Protein (6.3-8.2) g/dL Albumin (3.5-5.0) g/dL Multi-Disciplinary Progress Notes: Multi-Disciplinary Progress Notes 08/29/23 15:11 Occupational Therapy Note by Alesha Díaz Occupational Therapy Treatment (14:40-1500) Alex presents with O2 sats above 90% with respiratory rate between 25-30 during communication and exercise this date. Frequent verbal cues throughout to facilitate patient in deep breathing techniques and activity pacing. Don presents with left shoulder ROM impairments from previous injuries limiting BUE engagement. Patient utilized dowel laverne for chest press with BUE use for 2 set x 15 reps. 2# DB for 2 set x 15 reps of bicep curls bilaterally, 2 set x 15 reps with 2# db for chest press and overhead press (Right UE only). Patient able to scoot self up in bed with verbal cues only and position of LB to assist with scoot. He declined out of bed activity due to recently mobilizing with PT and transitioned back into bed. Initialized on 08/29/23 15:11 - END OF NOTE 08/29/23 15:05 Case Management Note by Mar Johnson S/W PATIENT- HE CONTINUES TO DENY ANY NEW NEEDS AT TIME OF DC. HE PLANS TO RETURN HOME WITH HIS WIFES ASSISTANCE AND CONTINUE WITH OTPT PT Initialized on 08/29/23 15:05 - END OF NOTE 08/29/23 09:56 Physical Therapy Note by Marjan ([id number]),Danyell PT WAS SEEN BY PHYSICAL THERAPY IN PT ROOM. PT COMPLETED SEATED LEG EXERCISES IN CHAIR INCLUDING B ANKLE, KNEE, HIP STRENGTHENING. 02 SATS MONITORED THROUGHOUT SESSION AND REMAINED ABOVE 90% WITH SEATED ACTIVITIES BUT DROPPED TO 88% WITH AMBULATION IN ROOM 40-50 FEET. PT REMAINS SOB WITH INCREASED ACTIVITY AND REQUIRES CGA AND SOME VERBAL CUING FOR SIT TO STAND BUT IS MOD I IN ROOM. PT NOTES HE FELT BETTER THAN YESTERDAY AND WAS NOT HAVING ANY PAIN OR NAUSEA. PT WAS LEFT IN ROOM WITH CHAIR ALARM ACTIVATED AND CALL LIGHT IN REACH. Addendum entered by Florinda Agosto 08/29/23 17:28: 12/27/23: PT WAS SEEN IN AFTERNOON BY [employer]ISON OFFICER IN INPT ROOM. HE PERFORMED SITTING BILAT LE EX'S FOR STRENGTHENING. PT AMBULATED IN ROOM ~ 20-30' WITH ROLLING WALKER. PT ABLE TO SIT TO STAND, AMBULATE WITH SL ASSIST/CCG. HE NEEDS VERBAL REMINDERS TO CORRECT POSTURE FROM FORWARD FLEXED POSITION IN STANDING AND WITH AMBULATION. O2 SATS MONITORED DURING RX, AND REMAINED 95 TO 97% WITH EX'S AND AMBULATION. SOME SOB NOTED AT END OF RX. NO C/O PAIN. Initialized on 08/29/23 09:56 - END OF NOTE Assessment/Plan (1) Sepsis Current Visit: Yes Status: Acute Assessment & Plan: -Secondary to pneumonia most likely -lactic acid, blood and urine cxs ordered -Fluids contraindicated due to CHF -CBC, BMP, Mg, Phos in am -continue appropriate baseline home medications -PT/OT eval and tx -DVT prophylaxis-lovenox 40 mg SQ daily 08/28: -LA repeat pending -Continue ceftriaxone/azithromycin -sputum cult pending -Ucult with NGTD -Bcult pending 08/29 -Blood/urine/ sputum cultures with no growth -WBC downtrending -RA -Continue ceftriaxone /dc azithromycin (2) Pneumonia Current Visit: Yes Status: Acute Assessment & Plan: -Supplemental oxygen with goal spo2 >92%, duonebs/inh, solumedrol -Viral panel obtained and negative -sputum culture -Continue ceftriaxone/azith -RT consult 08/28: -sputum culture pending -continue abx 08/29 -see sepsis Code(s): J18.9 - PNEUMONIA, UNSPECIFIED ORGANISM (3) Hyponatremia Current Visit: Yes Status: Acute Assessment & Plan: -Fluid restriction 1.5ml, NS contraindicated -Salt restriction 2g per day -Monitor renal/lytes for optimal cardiac output 08/28: -In the setting of hypervolemia, will continue lasix, 1.5 L fluid restriction,monitor renal/lytes daily 08/29 -Improved at 132 Code(s): E87.1 - HYPO-OSMOLALITY AND HYPONATREMIA (4) Elevated troponin Current Visit: Yes Status: Acute Assessment & Plan: -will continue to trend, EKG with no ST elevation/deviations, will repeat EKG in the morning 08/28 Code(s): R79.89 - OTHER SPECIFIED ABNORMAL FINDINGS OF BLOOD CHEMISTRY (5) CHF (congestive heart failure) Current Visit: Yes Status: Acute Qualifiers: Heart failure type: combined systolic and diastolic Heart failure chronicity: acute on chronic Qualified Code(s): I50.43 - Acute on chronic combined systolic (congestive) and diastolic (congestive) heart failure Assessment & Plan: -in exacerbation, will continue lasix 40mg daily in the setting of hyponatremia -Supplemental oxgen with goal of > 92%, consult pulm if no improvement -Initial BNP at 1860Repeat BNP in 48 hours -Optimize electrolytes K>4 Mg >2 Recent echo 06/01/23 showing: EF at 70% IMPRESSION: 1) NORMAL CONTRACTILITY OF THE LEFT VENTRICLE. 2) MODERATE CONCENTRIC LEFT VENTRICULAR HYPERTROPHY. 3) POSSIBLE IMPAIRED LEFT VENTRICULAR RELAXATION. 4) MILD TO MODERATE TRICUSPID REGURGITATION. 5) MODERATE PULMONARY HYPERTENSION. 6) MILD PULMONIC REGURGITATION. 7) MILD AORTIC ROOT DILATATION. 12 08/29: -Continue lasix bid dosing 08/30: -decrease lasix to 40mg daily Code(s): I50.9 - HEART FAILURE, UNSPECIFIED (6) COPD (chronic obstructive pulmonary disease) Current Visit: Yes Status: Acute Qualifiers: COPD type: COPD with acute exacerbation Qualified Code(s): J44.1 - Chronic obstructive pulmonary disease with (acute) exacerbation Assessment & Plan: -Supportive care with supplemental oxygen, duonebs/inh, solumedrol _RT eval 08/30: -solumedrol d/cd, start oral prednisone (7) Hypertension Current Visit: No Status: Chronic Qualifiers: Hypertension type: primary hypertension Qualified Code(s): I10 - Essential (primary) hypertension Assessment & Plan: -Stable on admission, will continue home meds Code(s): I10 - ESSENTIAL (PRIMARY) HYPERTENSION (8) Afib Current Visit: Yes Status: Acute Assessment & Plan: -On ekg, patient unsure if this is a chronic diagnosis, he does take metoprolol, he did have cardiac consult during his last visit in June but states he did not follow up 08/29: -resolved Code(s): I48.91 - UNSPECIFIED ATRIAL FIBRILLATION (9) Hypokalemia 08/29: -potassium at 3.3, will increase daily dose to 40meq, most likely due to aggressive diuresis 08/30: -Will add a dose of 20meq to regimen today, repeat potasium in 2 hours (2) Pneumonia Current Visit: Yes Status: Acute Code(s): J18.9 - PNEUMONIA, UNSPECIFIED ORGANISM (3) Hyponatremia Current Visit: Yes Status: Acute Code(s): E87.1 - HYPO-OSMOLALITY AND HYPONATREMIA (4) Elevated troponin Current Visit: Yes Status: Acute Code(s): R79.89 - OTHER SPECIFIED ABNORMAL FINDINGS OF BLOOD CHEMISTRY (5) CHF (congestive heart failure) Current Visit: Yes Status: Acute Qualifiers: Heart failure type: combined systolic and diastolic Heart failure chronicity: acute on chronic Qualified Code(s): I50.43 - Acute on chronic combined systolic (congestive) and diastolic (congestive) heart failure Code(s): I50.9 - HEART FAILURE, UNSPECIFIED (6) COPD (chronic obstructive pulmonary disease) Current Visit: Yes Status: Acute Qualifiers: COPD type: COPD with acute exacerbation Qualified Code(s): J44.1 - Chronic obstructive pulmonary disease with (acute) exacerbation (7) Hypertension Current Visit: No Status: Chronic Qualifiers: Hypertension type: primary hypertension Qualified Code(s): I10 - Essential (primary) hypertension Code(s): I10 - ESSENTIAL (PRIMARY) HYPERTENSION (8) Afib Current Visit: Yes Status: Acute Code(s): I48.91 - UNSPECIFIED ATRIAL FIBRILLATION (9) Hypokalemia Current Visit: Yes Status: Acute Code(s): E87.6 - HYPOKALEMIA
[2023-08-30 05:32] LABS: ALBUMIN 3.8 g/dL (3.5-5.0); ANION GAP 13.1 MEQ/L (5-15); BILIRUBIN,TOTAL 0.6 mg/dL (0.2-1.3); Calcium 8.8 mg/dL (8.4-10.2); Creatinine 1 1.27 mg/dL (0.66-1.25); EST GLOMERULAR FILTRATION RATE 55.7 ML/MIN; Potassium 3.3 mmol/L (3.5-5.1); Total Protein 6.7 g/dL (6.3-8.2)
[2023-08-30 05:46] LABS: Slide Review 1 YES
[2023-08-30] MEDS: SYNTHROID 88 MCG PO SCH (06:09)
[2023-08-30] MEDS: PROVENTIL 2.5 MG/3 ML NEB IH SCH ×2 (06:39→18:40)
[2023-08-30] MEDS ORDERED: Miralax Powder 17GM PACKET PO PRN (08:03)
[2023-08-30] MEDS: HUMALOG SQ PRN ×3 (08:44→17:11)
[2023-08-30] MEDS: Docusate Sodium 100 MG PO PRN (10:06)
[2023-08-30] MEDS: MUCINEX DM 600/30MG PO SCH ×2 (10:06→21:13)
[2023-08-30] MEDS: THERAGRAN MULTIVITAMIN PO SCH (10:06)
[2023-08-30] MEDS: Protonix 40MG Tablet PO SCH (10:06)
[2023-08-30] MEDS: ENOXAPARIN SODIUM SQ SCH (10:06)
[2023-08-30] MEDS: Lasix 40 MG/4 ML IV SCH (10:06)
[2023-08-30] MEDS: Klor Con PO SCH (10:07)
[2023-08-30] MEDS: solu-MEDROL 60 MG, Sterile H2O 10 ml 2 ML IV SCH ×4 (10:07→13:28)
[2023-08-30] MEDS: Toprol-Xl 25MG Tablets PO SCH (10:07)
[2023-08-30] MEDS: ROCEPHIN 1 Gm-D5w 50 ml Bag** 1 G/50 ML IVPB IV SCH (10:10)
[2023-08-30] MEDS: DELTASONE 20 MG PO SCH ×2 (14:01→21:13)
[2023-08-30] MEDS: MELATONIN PO SCH (21:13)
[2023-08-30] MEDS: Xalatan OP SCH (21:13)
[2023-08-31 05:10] LABS: Absolute Neutrophil Ct (ANC) 10.36 x10^3/uL (1.4-6.9); BASOPHIL % 0.3 % (0.0-0.4); Basophil (Absolute #) 0.03 x10^3/uL (0-0.4); Eosinophil (Absolute #) 0 x10^3/uL (0-0.5); Hematocrit 39.9 % (42-50); Hemoglobin 12.9 g/dL (12.5-18.0); IMMATURE GRAN # 0.18 x10^3u/L (0.00-0.03); IMMATURE GRAN % 1.5 % (0.00-0.4); Lymphocyte (Absolute #) 0.65 x10^3/uL (1.0-4.6); Lymphocytes % 5.5 % (24.0-44.0); Mean Cell Volume 92.6 fL (78-100); Mean Corpuscular Hemoglobin 29.9 pg (26-32); Mean Corpuscular Hgb Concent. 32.3 g/dL (32-36); Mean Platelet Volume 9.6 fL (7.5-11.0); Monocyte (Absolute #) 0.58 x10^3/uL (0.0-1.3); Monocytes % 4.9 % (0.0-12.0); Neutrophil % 87.8 % (36.0-66.0); Platelet Count 349 x10^3/uL (150-450); Red Blood Count 4.31 x10^6/uL (4.1-5.6); Red Cell Distribution Width 14.7 % (11.5-14.0); White Blood Count 11.8 x10^3/uL (4.0-10.5)
[2023-08-31 05:24] LABS: ALBUMIN 3.7 g/dL (3.5-5.0); ANION GAP 14.2 MEQ/L (5-15); BILIRUBIN,TOTAL 0.7 mg/dL (0.2-1.3); Creatinine 1 1.45 mg/dL (0.66-1.25); EST GLOMERULAR FILTRATION RATE 47.5 ML/MIN; MAGNESIUM 2.3 mg/dL (1.6-2.3); Potassium 3.7 mmol/L (3.5-5.1); Total Protein 6.6 g/dL (6.3-8.2)
--- NOTE | 2023-08-31 05:34 | PCM.DS ---
Discharge Summary Date of Admission: 08/27/23 10:53 Date of Discharge: 08/31/23 Admitting Physician: LEONARDO PALM MD Consults: Consults on Case 08/28/23 13:51 Consult Surgery ROUTINE Primary Care Provider: EDDIE ROBERTSON Allergies Allergies bacitracin Allergy (Verified 08/27/23 06:51) Hospital Summary - Hospital Course Hospital Course: is a 83 year old male with a pmhx of CHF, HTN, AFIB, COPD, and OA, poor historian presented to ED on 08/27/23 with complaints of worsening ezekiel rtness of breath and productive cough with clear sputum. Patient states onset was approximately 2-3 days ago but he felt like he was unable to catch his breath today and decided to go to ED. He is on RA at baseline and requiring 6L since presentation. Denies fever, cp, abdominal pain, JENKINS, dizziness, N/V/D. In ED patient was afebrile, tachycardic, tachypneic, slightly hypertensive, with spo2 @ 97% on 6L. CXR showing bibasilar effusions/infiltrates/atelectasis L>R. Lab findings remarkable for leukocytosis with WBC at 20.5, hyponatremic with sodium at 129, BNP 1860, initial troponins elevated at 0.049. EKG with AFIB HR 112, RBBB, PVCS, no acute changes, ST elevations/deviations. Patient received lasix, ceftriaxone, solumedrol, duonebs, and solumedrol while in ED. He was admitted with sepsis due to pneumonia and exacerbation of COPD. During hospital course he has been treated with IV antibiotics, steroids and bronchodilators. He is much improved. He is now bringing up some purulent sputum. We believe he would benefit from 1-2 days of continued intensive treatment. Troponin was mildly elevated. We did not suspect acute coronary syndrome. We feel this is demand ischemia due to respiratory problems. Patient does not have chest pain and EKG shows no acute changes. He has large inguinal hernia. He was seen by surgery and they will follow outpatient. COPD and pneumonia improved. He is able to expectorate and reports clear phlegm. Dyspnea is improved. Patient is stable and will be dismissed on oral antibiotics and steroids. Advised patient to follow up with PCP regarding blood sugars which may be elevated with steroid use. Discharge Note New Diagnosis: COPD exacerbation/pneumonia New Medications: Cefpodoxime/Steroid taper/ continue home dose lasix Follow Up: PCP/Cardiology/Surgery prn/pulmonology Latest Assessment & Plan (1) Sepsis Current Visit: Yes Status: Acute Assessment & Plan: -Secondary to pneumonia most likely -lactic acid, blood and urine cxs ordered -Fluids contraindicated due to CHF -CBC, BMP, Mg, Phos in am -continue appropriate baseline home medications -PT/OT eval and tx -DVT prophylaxis-lovenox 40 mg SQ daily 08/28: -LA repeat pending -Continue ceftriaxone/azithromycin -sputum cult pending -Ucult with NGTD -Bcult pending 08/29 -Blood/urine/ sputum cultures with no growth -WBC downtrending -RA -Continue ceftriaxone /dc azithromycin -Resolved (2) Pneumonia Current Visit: Yes Status: Acute Assessment & Plan: -Supplemental oxygen with goal spo2 >92%, duonebs/inh, solumedrol -Viral panel obtained and negative -sputum culture -Continue ceftriaxone/azith -RT consult 08/28: -sputum culture pending -continue abx 08/29 -see sepsis Code(s): J18.9 - PNEUMONIA, UNSPECIFIED ORGANISM (3) Hyponatremia Current Visit: Yes Status: Acute Assessment & Plan: -Fluid restriction 1.5ml, NS contraindicated -Salt restriction 2g per day -Monitor renal/lytes for optimal cardiac output 08/28: -In the setting of hypervolemia, will continue lasix, 1.5 L fluid restriction,monitor renal/lytes daily 08/29 -Improved at 132 Code(s): E87.1 - HYPO-OSMOLALITY AND HYPONATREMIA (4) Elevated troponin Current Visit: Yes Status: Acute Assessment & Plan: -will continue to trend, EKG with no ST elevation/deviations, will repeat EKG in the morning 08/28 Code(s): R79.89 - OTHER SPECIFIED ABNORMAL FINDINGS OF BLOOD CHEMISTRY (5) CHF (congestive heart failure) Current Visit: Yes Status: Acute Qualifiers: Heart failure type: combined systolic and diastolic Heart failure chronicity: acute on chronic Qualified Code(s): I50.43 - Acute on chronic combined systolic (congestive) and diastolic (congestive) heart failure Assessment & Plan: -in exacerbation, will continue lasix 40mg daily in the setting of hyponatremia -Supplemental oxgen with goal of > 92%, consult pulm if no improvement -Initial BNP at 1860Repeat BNP in 48 hours -Optimize electrolytes K>4 Mg >2 Recent echo 06/01/23 showing: EF at 70% IMPRESSION: 1) NORMAL CONTRACTILITY OF THE LEFT VENTRICLE. 2) MODERATE CONCENTRIC LEFT VENTRICULAR HYPERTROPHY. 3) POSSIBLE IMPAIRED LEFT VENTRICULAR RELAXATION. 4) MILD TO MODERATE TRICUSPID REGURGITATION. 5) MODERATE PULMONARY HYPERTENSION. 6) MILD PULMONIC REGURGITATION. 7) MILD AORTIC ROOT DILATATION. 12 08/29: -Continue lasix bid dosing 08/30: -decrease lasix to 40mg daily Code(s): I50.9 - HEART FAILURE, UNSPECIFIED (6) COPD (chronic obstructive pulmonary disease) Current Visit: Yes Status: Acute Qualifiers: COPD type: COPD with acute exacerbation Qualified Code(s): J44.1 - Chronic obstructive pulmonary disease with (acute) exacerbation Assessment & Plan: -Supportive care with supplemental oxygen, duonebs/inh, solumedrol _RT eval 08/30: -solumedrol d/cd, start oral prednisone (7) Hypertension Current Visit: No Status: Chronic Qualifiers: Hypertension type: primary hypertension Qualified Code(s): I10 - Essential (primary) hypertension Assessment & Plan: -Stable on admission, will continue home meds Code(s): I10 - ESSENTIAL (PRIMARY) HYPERTENSION (8) Afib Current Visit: Yes Status: Acute Assessment & Plan: -On ekg, patient unsure if this is a chronic diagnosis, he does take metoprolol, he did have cardiac consult during his last visit in June but states he did not follow up 08/29: -resolved Code(s): I48.91 - UNSPECIFIED ATRIAL FIBRILLATION (9) Hypokalemia 08/29: -potassium at 3.3, will increase daily dose to 40meq, most likely due to aggressive diuresis 08/30: -Will add a dose of 20meq to regimen today, repeat potasium in 2 hours I spent 35 minutes [id number] with the patient on the day of discharge performing discharge exam, discussing hospital stay and discharge instructions with patient and caregivers, preparation of discharge records, prescriptions & referral forms and addressing any questions/concerns the patient had as documented above. - Vitals & Intake/Output Vital Signs: Vital Signs Temperature 97.9 F 08/30/23 23:47 Pulse Rate 91 H 08/31/23 04:00 Respiratory Rate 13 08/31/23 04:00 Blood Pressure 135/93 08/30/23 23:47 O2 Sat by Pulse Oximetry 100 08/31/23 04:00 Intake & Output: Intake & Output 08/28/23 08/29/23 08/30/23 08/31/23 11:59 11:59 11:59 11:59 Intake Total 720 1040 300 490 Output Total 3976 580 Balance 720 -125 -135 490 - Lab Result Diagrams: 08/31/23 04:31 08/31/23 04:31 Lab Results-Last 24 Hrs: Lab Results-Last 24 Hours 08/30/23 08/30/23 08/30/23 Range/Units 05:05 05:05 05:05 WBC 11.2 H (4.0-10.5) x10^3/uL RBC 4.44 (4.1-5.6) x10^6/uL Hgb 13.2 (12.5-18.0) g/dL Hct 41.0 L (42-50) % MCV 92.3 (78-100) fL MCH 29.7 (26-32) pg MCHC 32.2 (32-36) g/dL RDW 14.6 H (11.5-14.0) % Plt Count 332 (150-450) x10^3/uL MPV 9.2 (7.5-11.0) fL Gran % 91.5 H (36.0-66.0) % Immature Gran % (Auto) 0.8 H (0.00-0.4) % Nucleat RBC Rel Count 0.0 (0.00-0.1) % Eos # (Auto) 0 (0-0.5) x10^3/uL Immature Gran # (Auto) 0.09 H (0.00-0.03) x10^3u/L Absolute Lymphs (auto) 0.51 L (1.0-4.6) x10^3/uL Absolute Monos (auto) 0.35 (0.0-1.3) x10^3/uL Absolute Nucleated RBC 0.00 (0.00-0.01) x10^3u/L Lymphocytes % 4.5 L (24.0-44.0) % Monocytes % 3.1 (0.0-12.0) % Eosinophils % 0.0 (0.00-5.0) % Basophils % 0.1 (0.0-0.4) % Absolute Granulocytes 10.27 H (1.4-6.9) x10^3/uL Basophils # 0.01 (0-0.4) x10^3/uL Sodium 132 L (137-145) mmol/L Potassium 3.3 L (3.5-5.1) mmol/L Chloride 95 L (98-107) mmol/L Carbon Dioxide 26 (22-30) mmol/L Anion Gap 13.1 (5-15) MEQ/L BUN 48 H (9-20) mg/dL Creatinine 1.27 H (0.66-1.25) mg/dL Estimated GFR 55.7 ML/MIN Glucose 228 H (74-106) mg/dL POC Glucometer (74 to 106) mg/dL Calcium 8.8 (8.4-10.2) mg/dL Magnesium 2.2 (1.6-2.3) mg/dL Total Bilirubin 0.60 (0.2-1.3) mg/dL AST 22 (17-59) U/L ALT 25 (0-50) U/L Alkaline Phosphatase 47 (38-126) U/L Serum Total Protein 6.7 (6.3-8.2) g/dL Albumin 3.8 (3.5-5.0) g/dL Slides for Path Review YES 08/30/23 08/30/23 08/30/23 Range/Units 07:02 11:37 14:10 WBC (4.0-10.5) x10^3/uL RBC (4.1-5.6) x10^6/uL Hgb (12.5-18.0) g/dL Hct (42-50) % MCV (78-100) fL MCH (26-32) pg MCHC (32-36) g/dL RDW (11.5-14.0) % Plt Count (150-450) x10^3/uL MPV (7.5-11.0) fL Gran % (36.0-66.0) % Immature Gran % (Auto) (0.00-0.4) % Nucleat RBC Rel Count (0.00-0.1) % Eos # (Auto) (0-0.5) x10^3/uL Immature Gran # (Auto) (0.00-0.03) x10^3u/L Absolute Lymphs (auto) (1.0-4.6) x10^3/uL Absolute Monos (auto) (0.0-1.3) x10^3/uL Absolute Nucleated RBC (0.00-0.01) x10^3u/L Lymphocytes % (24.0-44.0) % Monocytes % (0.0-12.0) % Eosinophils % (0.00-5.0) % Basophils % (0.0-0.4) % Absolute Granulocytes (1.4-6.9) x10^3/uL Basophils # (0-0.4) x10^3/uL Sodium (137-145) mmol/L Potassium 3.5 (3.5-5.1) mmol/L Chloride (98-107) mmol/L Carbon Dioxide (22-30) mmol/L Anion Gap (5-15) MEQ/L BUN (9-20) mg/dL Creatinine (0.66-1.25) mg/dL Estimated GFR ML/MIN Glucose (74-106) mg/dL POC Glucometer 227 H 294 H (74 to 106) mg/dL Calcium (8.4-10.2) mg/dL Magnesium (1.6-2.3) mg/dL Total Bilirubin (0.2-1.3) mg/dL AST (17-59) U/L ALT (0-50) U/L Alkaline Phosphatase (38-126) U/L Serum Total Protein (6.3-8.2) g/dL Albumin (3.5-5.0) g/dL Slides for Path Review 08/30/23 08/30/23 08/31/23 Range/Units 16:17 20:54 04:31 WBC 11.8 H (4.0-10.5) x10^3/uL RBC 4.31 (4.1-5.6) x10^6/uL Hgb 12.9 (12.5-18.0) g/dL Hct 39.9 L (42-50) % MCV 92.6 (78-100) fL MCH 29.9 (26-32) pg MCHC 32.3 (32-36) g/dL RDW 14.7 H (11.5-14.0) % Plt Count 349 (150-450) x10^3/uL MPV 9.6 (7.5-11.0) fL Gran % 87.8 H (36.0-66.0) % Immature Gran % (Auto) 1.5 H (0.00-0.4) % Nucleat RBC Rel Count 0.0 (0.00-0.1) % Eos # (Auto) 0 (0-0.5) x10^3/uL Immature Gran # (Auto) 0.18 H (0.00-0.03) x10^3u/L Absolute Lymphs (auto) 0.65 L (1.0-4.6) x10^3/uL Absolute Monos (auto) 0.58 (0.0-1.3) x10^3/uL Absolute Nucleated RBC 0.00 (0.00-0.01) x10^3u/L Lymphocytes % 5.5 L (24.0-44.0) % Monocytes % 4.9 (0.0-12.0) % Eosinophils % 0.0 (0.00-5.0) % Basophils % 0.3 (0.0-0.4) % Absolute Granulocytes 10.36 H (1.4-6.9) x10^3/uL Basophils # 0.03 (0-0.4) x10^3/uL Sodium (137-145) mmol/L Potassium (3.5-5.1) mmol/L Chloride (98-107) mmol/L Carbon Dioxide (22-30) mmol/L Anion Gap (5-15) MEQ/L BUN (9-20) mg/dL Creatinine (0.66-1.25) mg/dL Estimated GFR ML/MIN Glucose (74-106) mg/dL POC Glucometer 298 H 166 H (74 to 106) mg/dL Calcium (8.4-10.2) mg/dL Magnesium (1.6-2.3) mg/dL Total Bilirubin (0.2-1.3) mg/dL AST (17-59) U/L ALT (0-50) U/L Alkaline Phosphatase (38-126) U/L Serum Total Protein (6.3-8.2) g/dL Albumin (3.5-5.0) g/dL Slides for Path Review 08/31/23 Range/Units 04:31 WBC (4.0-10.5) x10^3/uL RBC (4.1-5.6) x10^6/uL Hgb (12.5-18.0) g/dL Hct (42-50) % MCV (78-100) fL MCH (26-32) pg MCHC (32-36) g/dL RDW (11.5-14.0) % Plt Count (150-450) x10^3/uL MPV (7.5-11.0) fL Gran % (36.0-66.0) % Immature Gran % (Auto) (0.00-0.4) % Nucleat RBC Rel Count (0.00-0.1) % Eos # (Auto) (0-0.5) x10^3/uL Immature Gran # (Auto) (0.00-0.03) x10^3u/L Absolute Lymphs (auto) (1.0-4.6) x10^3/uL Absolute Monos (auto) (0.0-1.3) x10^3/uL Absolute Nucleated RBC (0.00-0.01) x10^3u/L Lymphocytes % (24.0-44.0) % Monocytes % (0.0-12.0) % Eosinophils % (0.00-5.0) % Basophils % (0.0-0.4) % Absolute Granulocytes (1.4-6.9) x10^3/uL Basophils # (0-0.4) x10^3/uL Sodium 132 L (137-145) mmol/L Potassium 3.7 (3.5-5.1) mmol/L Chloride 96 L (98-107) mmol/L Carbon Dioxide 26 (22-30) mmol/L Anion Gap 14.2 (5-15) MEQ/L BUN 57 H (9-20) mg/dL Creatinine 1.45 H (0.66-1.25) mg/dL Estimated GFR 47.5 ML/MIN Glucose 240 H (74-106) mg/dL POC Glucometer (74 to 106) mg/dL Calcium 9.0 (8.4-10.2) mg/dL Magnesium 2.3 (1.6-2.3) mg/dL Total Bilirubin 0.70 (0.2-1.3) mg/dL AST 22 (17-59) U/L ALT 27 (0-50) U/L Alkaline Phosphatase 47 (38-126) U/L Serum Total Protein 6.6 (6.3-8.2) g/dL Albumin 3.7 (3.5-5.0) g/dL Slides for Path Review Micro Results-Entire Visit: Microbiology 08/27/23 14:25 Urine Culture - Final Urine, Void <10K NORMAL SKIN CARLOS PROBABLE SKIN CONTAMINANT 08/28/23 17:30 Sputum Culture - Preliminary Sputum - Expectorant ORGANISMS ISOLATED ARE CONSISTENT WITH NORMAL RESP CARLOS LIGHT GROWTH, NO PREDOMINANT ORGANISM 08/27/23 13:00 Blood Culture - Preliminary Blood Accuchecks Date 08/30/23 Date 08/30/23 Time 11:39 Time 07:14 - Procedures and Test Procedures and Tests throughout Hospitalization: Therapy Orders & Screens 08/27/23 11:03 Oxygen Nasal Cannula 2 lpm Comment: Respiratory Therapy Consult ROUTINE Comment: Reason For Exam: 08/27/23 11:29 PT Eval & Treat (MD Order) ONCE Reason for Eval:: weakness Diagnosis: pneumonia EKG REPEAT IN AM Comment: Diagnosis: pneumonia OT Eval and Treat (MD Order) ONCE Comment: Physician Instructions: Reason For Exam: Diagnosis: pneumonia Discharge Exam General Appearance: no apparent distress Neurologic Exam: alert, oriented x 3, cooperative Eye Exam: PERRL Ears, Nose, Throat Exam: normal ENT inspection Neck Exam: normal inspection Respiratory Exam: diminished breath sounds, crackles/rales Cardiovascular Exam: regular rate/rhythm, normal heart sounds Gastrointestinal/Abdomen Exam: soft, normal bowel sounds Male Genitalia Exam: deferred Rectal Exam: deferred Back Exam: normal inspection Extremity Exam: swelling (trace edema BLE) Skin Exam: normal color Final Diagnosis/Problem List - Final Discharge Diagnosis/Problem (1) Sepsis Current Visit: Yes Status: Acute (2) Pneumonia Current Visit: Yes Status: Acute Code(s): J18.9 - PNEUMONIA, UNSPECIFIED ORGANISM (3) Hyponatremia Current Visit: Yes Status: Acute Code(s): E87.1 - HYPO-OSMOLALITY AND HYPONATREMIA (4) Elevated troponin Current Visit: Yes Status: Acute Code(s): R79.89 - OTHER SPECIFIED ABNORMAL FINDINGS OF BLOOD CHEMISTRY (5) CHF (congestive heart failure) Current Visit: Yes Status: Acute Code(s): I50.9 - HEART FAILURE, UNSPECIFIED (6) COPD (chronic obstructive pulmonary disease) Current Visit: Yes Status: Acute (7) Hypertension Current Visit: No Status: Chronic Code(s): I10 - ESSENTIAL (PRIMARY) HYPERTENSION (8) Afib Current Visit: Yes Status: Acute Code(s): I48.91 - UNSPECIFIED ATRIAL FIBRILLATION (9) Hypokalemia Current Visit: Yes Status: Acute Code(s): E87.6 - HYPOKALEMIA - Discharge Disposition: Home, Self-Care Condition: Fair Prescriptions: New Methylprednisolone Packet [Medrol Dosepack] 4 mg PO UD #30 packet Cefpodoxime Proxetil 200 mg [Vantin 200 mg] 200 mg PO BID 5 Days #10 tablet Continue Potassium Chloride [Klor-Con M20] 20 meq PO DAILY Amlodipine Besylate 5 mg PO DAILY Omeprazole 20 mg PO DAILY Metoprolol Succinate 25 mg PO DAILY Furosemide 40 mg PO DAILY Albuterol 2.5 mg/3 ml Neb [Proventil 2.5 mg/3 ml Neb] 2.5 mg IH BIDRT Multivit-Min/FA/Lycopen/Lutein [Centrum Silver Tablet] 1 tab PO DAILY Latanoprost/Pf [Iyuzeh 0.005% Eye Drop] 1 each OP HS Levothyroxine Sodium 88 mcg PO 0700 Guaifenesin Dextromethorphan [MUCINEX Dm 600/30MG] 1 tab PO BID Melatonin 10 mg PO HS Discontinued Prednisone 10 mg [Deltasone 10 mg] 20 mg PO DAILY Instructions: Pneumonia, Adult (DC) Additional Instructions: YOUR NEXT APPOINTMENT WITH PHYSICAL THERAPY IS 09/05/23@11 AM Follow up with: SUMMER SPRINGER [COURTESY STAFF] - 09/17/23 10:10 am (NEEDS F/U FOR HERNIA IN OFFICE.at specialty clinic ) MORIAH ADKINS MD [CONSULTING PHYSICIAN] - 09/10/23 1:45 pm EDDIE ROBERTSON NP [Primary Care Provider] - 09/06/23 10:30 am Forms: Discharge Instructions
[2023-08-31] MEDS: PROVENTIL 2.5 MG/3 ML NEB IH SCH (06:55)
[2023-08-31 07:30] VITALS: RESP 18; TEMP 97
[2023-08-31] MEDS: HUMALOG SQ PRN ×2 (07:40→12:12)
[2023-08-31] MEDS: SYNTHROID 88 MCG PO SCH (07:40)
[2023-08-31] MEDS: MUCINEX DM 600/30MG PO SCH (09:13)
[2023-08-31] MEDS: Klor Con PO SCH (09:13)
[2023-08-31] MEDS: Toprol-Xl 25MG Tablets PO SCH (09:13)
[2023-08-31] MEDS: THERAGRAN MULTIVITAMIN PO SCH (09:13)
[2023-08-31] MEDS: Protonix 40MG Tablet PO SCH (09:13)
[2023-08-31] MEDS: Docusate Sodium 100 MG PO PRN (09:13)
[2023-08-31] MEDS: ROCEPHIN 1 Gm-D5w 50 ml Bag** 1 G/50 ML IVPB IV SCH (09:14)
[2023-08-31] MEDS: ENOXAPARIN SODIUM SQ SCH (09:14)
[2023-08-31] MEDS: DELTASONE 20 MG PO SCH (09:19)
[2023-08-31] MEDS ORDERED: Lasix 40 MG/4 ML IV SCH (10:00)
[2023-08-31 11:51] VITALS: BP 126/77; PULSE 78; O2SAT 95
== END 2023-08-31 14:00 | disposition home or self-care (01) | DRG 871 ==
LOC: ED 06:29 → MED SURG 10:53 → OBSVTOIN 08-28 14:00 → INTOOBSV 08-28 14:00
PROVIDERS: ADMIT Internal Medicine; ATTEND Internal Medicine
DX: A41.9 Sepsis, unspecified organism (principal); J18.9 Pneumonia, unspecified organism; E87.1 Hypo-osmolality and hyponatremia; J44.1 Chronic obstructive pulmonary disease with (acute) exacerbation; R79.89 Other specified abnormal findings of blood chemistry; I11.0 Hypertensive heart disease with heart failure; I50.9 Heart failure, unspecified; I48.91 Unspecified atrial fibrillation; E87.6 Hypokalemia; K43.9 Ventral hernia without obstruction or gangrene; K40.20 Bilateral inguinal hernia, without obstruction or gangrene, not specified as recurrent; K42.9 Umbilical hernia without obstruction or gangrene; R60.0 Localized edema; Z79.899 Other long term (current) drug therapy; Z20.828 Contact with and (suspected) exposure to other viral communicable diseases
CPT/HCPCS: 0241U; 36000; 36415; 71045; 80048; 80053; 81015; 82947; 83036; 83605; 83735; 83880; 84132; 84145; 84443; 84484; 85025; 87040; 87070; 87086; 93005; 93041; 94640; 94760; 94762; 96365; 96374; 96375; 97110; 97161; 97165; 97530; 99284; 99291; G0378; Q3014; 82728; 83540; 83550; J0456; J0696; J1650; J1817; J1940; J2405; J2930; J7609; A9270-GY

== ENCOUNTER 2023-09-01 15:01 | Observation (INO) | payer MEDICARE, BC ==
--- NOTE | 2023-09-01 15:42 | ERPHSYRPT ---
- History of Present Illness Time Seen by Provider: 09/01/23 15:38 Source: patient, family Patient Subjective Stated Complaint: C/O generalized weakness. Patient states it started 5 days ago when he was here for pneumonia. He states he feels much better but his legs are weak and he can't get around independently at home and his is unable to care for him. Denies any pain. Triage Nursing Assessment: Patient arrived by ambulance. He is alert and oriented. No cough at this time. No SOB. Skin tone normal. Scattered bruising to BUE; denies falls or injury. JORDAN WNL. Unsure how patient transfers or ambulates at this time; moved from EMS cot to ER bed without standing. Physician History: C/O generalized weakness. Patient states it started 5 days ago when he was here for pneumonia. He states he feels much better but his legs are weak and he can't get around independently at home and his is unable to care for him. Denies any pain. Patient is 83-year-old male with history of hypertensive heart failure chronic renal insufficiency was recently admitted with pneumonia for which he stayed at the hospital for 4 days and then he was discharged home with outpatient home health but patient is still very weak unable to move around well and his is also old which she cannot take care of him so he was getting more and more weak so he came to the emergency room. He denies any other symptoms but weakness. Associated Symptoms: denies symptoms Allergies/Adverse Reactions: bacitracin Allergy (Verified 09/01/23 15:03) Home Medications: Potassium Chloride [Klor-Con M20] 20 meq PO DAILY 07/26/19 [History] Amlodipine Besylate 5 mg PO DAILY 02/09/20 [History] Omeprazole 20 mg PO DAILY 02/09/20 [History] Furosemide 40 mg PO DAILY 05/22/20 [History] Metoprolol Succinate 25 mg PO DAILY 05/22/20 [History] Multivit-Min/FA/Lycopen/Lutein [Centrum Silver Tablet] 1 tab PO DAILY 08/24/22 [History] Latanoprost/Pf [Iyuzeh 0.005% Eye Drop] 1 each OP HS 05/31/23 [History] Levothyroxine Sodium 88 mcg PO 0700 06/01/23 [History] Guaifenesin Dextromethorphan [MUCINEX Dm 600/30MG] 1 tab PO BID 08/27/23 [History] Melatonin 10 mg PO HS 08/27/23 [History] Hx Tetanus, Diphtheria Vaccination/Date Given: Yes Hx Influenza Vaccination/Date Given: Yes Hx Pneumococcal Vaccination/Date Given: Yes Immunizations Up to Date: Yes Travel Risk - International Travel Have you traveled outside of the country in past 3 weeks: No - Coronavirus Screening Are you exhibiting any of the following symptoms?: No - Vaccine Status Have you recieved a Covid-19 vaccination: Yes 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 - Review of Systems Constitutional: Weakness, No Fever, No Chills Eyes: No Symptoms Ears, Nose, & Throat: No Symptoms Respiratory: No Cough, No Dyspnea Cardiac: No Chest Pain, No Edema, No Syncope Abdominal/Gastrointestinal: No Abdominal Pain, No Nausea, No Vomiting, No Diarrhea Genitourinary Symptoms: No Dysuria Musculoskeletal: No Back Pain, No Neck Pain Skin: No Rash Neurological: No Dizziness, No Focal Weakness, No Sensory Changes Psychological: No Symptoms Endocrine: No Symptoms All Other Systems: Reviewed and Negative - Past Medical History Pertinent Past Medical History: Yes Neurological History: No Pertinent History ENT History: No Pertinent History Cardiac History: Hypertension Respiratory History: COPD, Pneumonia Endocrine Medical History: No Pertinent History Musculoskeletal History: Osteoarthritis GI Medical History: Pancreatitis History: Renal Disease Psycho-Social History: No Pertinent History Male Reproductive Disorders: Prostate Problems Other Medical History: HAS A KIDNEY DOCTOR, L HIP PARTIAL REPLACEMENT. PNEUMONIA. - Past Surgical History Past Surgical History: Yes Neuro Surgical History: No Pertinent History Cardiac: No Pertinent History Respiratory: No Pertinent History Gastrointestinal: No Pertinent History Genitourinary: No Pertinent History Musculoskeletal: No Pertinent History, Joint Replacement Male Surgical History: Prostate Surgery Other Surgical History: varicose veins repaired, j, g tube placed and removed,. partial left hip replacement, cyst on back - Social History Smoking Status: Former smoker Exposure to second hand smoke: No Drug Use: none Patient Lives Alone: No Significant Family History: no pertinent family hx - Nursing Vital Signs Nursing Vital Signs: Initial Vital Signs Temperature 96.9 F 09/01/23 15:05 Pulse Rate 89 09/01/23 15:05 Respiratory Rate 18 09/01/23 15:05 Blood Pressure 131/87 09/01/23 15:05 O2 Sat by Pulse Oximetry 96 09/01/23 15:05 Pain Scale Pain Intensity 0 - Physical Exam General Appearance: no apparent distress, alert Eye Exam: PERRL/EOMI, eyes nml inspection Ears, Nose, Throat Exam: normal ENT inspection, TMs normal, pharynx normal, moist mucous membranes Neck Exam: normal inspection, non-tender, supple, full range of motion Respiratory Exam: normal breath sounds, lungs clear, No respiratory distress Cardiovascular Exam: regular rate/rhythm, normal heart sounds, normal peripheral pulses Gastrointestinal/Abdomen Exam: soft, normal bowel sounds, No tenderness, No mass Back Exam: normal inspection, normal range of motion, No CVA tenderness, No vertebral tenderness Extremity Exam: normal inspection, normal range of motion, pelvis stable, other (decreased mobility) Neurologic Exam: alert, oriented x 3, cooperative, normal mood/affect, nml cerebellar function, nml station & gait, sensation nml, No motor deficits Skin Exam: normal color, warm, dry, No rash Lymphatic Exam: No adenopathy SpO2 Interpretation: normal SpO2: 97 O2 Delivery: Room Air - Course Nursing assessment & vital signs reviewed: Yes - Progress Progress: unchanged Progress Note: 09/01/23 15:41 We have made some phone calls to 12 [phone] we have placed this and plan to place him for rehab as he has met criteria of 3 days stay at the hospital just recently from Aug till Aug. Discussed with : Other Will see patient in: hospital (observation) Counseled pt/family regarding: diagnosis Medical Desision Making - Independent Historian Additional History obtained from: Spouse - Risk of complications The pt has a high risk of morbidity or mortality based on: Decision regarding ho spitilization or escalation of hosp level of care - Departure Departure Disposition: Observation Clinical Impression: Weakness acquired in ICU Pneumonia Qualifiers: Pneumonia type: due to Pneumococcus Laterality: bilateral Lung location: lower lobe of lung Qualified Code(s): J13 - Pneumonia due to Streptococcus pneumoniae Condition: Fair Critical Care Time: No Referrals: EDDIE ROBERTSON NP [Primary Care Provider] - Follow up/PCP as directed
--- NOTE | 2023-09-01 17:20 | PCM.HP ---
History of Present Illness - Chief Complaint Chief Complaint: weakness Date: 09/01/23 History of Present Illness: is a 83 year old male with a pmhx of CHF, HTN, AFIB, COPD, and OA recently admitted 08/27/23-08/31/23 with sepsis due to pneumonia and exacerbat ion of COPD/CHF. COPD/CHF and pneumonia improved. He remains on room air without dysnea. He does endorse a continued cough with clear sputum, but this too has improved. He was discharged yesterday with [facility] on oral antibiotics and steroids but remained too weak for his spouse to care for him at home. He is requesting placement at [facility] for rehab. Plan is to continue home regimen of antibiotic/steroid course while IP. His blood glucose levels were elevated due to the steroid use, so we will monitor this as well. - Review of Systems Constitutional: Weakness Eyes: No Symptoms Ears, Nose, & Throat: No Symptoms Respiratory: Cough, Short Of Breath (with exertion) Cardiac: Edema (trace) Abdominal/Gastrointestinal: No Symptoms Genitourinary Symptoms: No Symptoms Musculoskeletal: No Symptoms Skin: No Symptoms Neurological: No Symptoms Endocrine: No Symptoms Hematologic/Lymphatic: No Symptoms Immunological/Allergic: No Symptoms Medications & Allergies Home Medications: Home Medication List Potassium Chloride [Klor-Con M20] 20 meq PO DAILY 07/26/19 [History Confirmed 09/01/23] Amlodipine Besylate 5 mg PO DAILY 02/09/20 [History Confirmed 09/01/23] Omeprazole 20 mg PO DAILY 02/09/20 [History Confirmed 09/01/23] Furosemide 40 mg PO DAILY 05/22/20 [History Confirmed 09/01/23] Metoprolol Succinate 25 mg PO DAILY 05/22/20 [History Confirmed 09/01/23] Albuterol 2.5 mg/3 ml Neb [Proventil 2.5 mg/3 ml Neb] 2.5 mg IH BIDRT 12/08/21 [Rx Confirmed 09/01/23] Multivit-Min/FA/Lycopen/Lutein [Centrum Silver Tablet] 1 tab PO DAILY 08/24/22 [History Confirmed 09/01/23] Latanoprost/Pf [Iyuzeh 0.005% Eye Drop] 1 each OP HS 05/31/23 [History Confirmed 09/01/23] Levothyroxine Sodium 88 mcg PO 0700 06/01/23 [History Confirmed 09/01/23] Guaifenesin Dextromethorphan [MUCINEX Dm 600/30MG] 1 tab PO BID 08/27/23 [History Confirmed 09/01/23] Melatonin 10 mg PO HS 08/27/23 [History Confirmed 09/01/23] Cefpodoxime Proxetil 200 mg [Vantin 200 mg] 200 mg PO BID 5 Days #10 tablet 08/31/23 [Rx Confirmed 09/01/23] Methylprednisolone Packet [Medrol Dosepack] 4 mg PO UD #30 packet 08/31/23 [Rx Confirmed 09/01/23] Allergies/Adverse Reactions: Allergies Allergy/AdvReac Type Severity Reaction Status Date / Time bacitracin Allergy Verified 09/01/23 15:03 - Past Medical History Past Medical History: Yes Neurological History: No Pertinent History ENT History: No Pertinent History Cardiac History: Hypertension Respiratory History: COPD, Pneumonia Endocrine Medical History: No Pertinent History Musculoskelatal History: Osteoarthritis GI Medical History: Pancreatitis History: Renal Disease Pyscho-Social History: No Pertinent History Male Reproductive Disorders: Prostate Problems Comment: HAS A KIDNEY DOCTOR, L HIP PARTIAL REPLACEMENT. PNEUMONIA. - Past Surgical History Past Surgical History: Yes Neuro Surgical History: No Pertinent History Cardiac History: No Pertinent History Respiratory Surgery: No Pertinent History GI Surgical History: No Pertinent History Genitourinary Surgical Hx: No Pertinent History Musculskeletal Surgical Hx: No Pertinent History, Joint Replacement Male Surgical History: Prostate Surgery Other Surgical History: varicose veins repaired, j, g tube placed and removed,. partial left hip replacement, cyst on back - Social History Smoking Status: Never smoker Exposure to second hand smoke: No Alcohol: None Drug Use: none Significant Family History: no pertinent family hx - Physical Exam Vital Signs: Vital Signs - 24 hr Temp Pulse Resp BP BP Pulse Ox 09/01/23 16:27 97.1 F 83 16 135/98 95 09/01/23 16:00 81 18 137/88 96 09/01/23 15:54 97 09/01/23 15:30 77 18 143/98 96 09/01/23 15:09 81 131/87 97 09/01/23 15:05 96.9 F 89 18 131/87 96 General Appearance: no apparent distress Neurologic Exam: alert, oriented x 3, cooperative Eye Exam: PERRL/EOMI Ears, Nose, Throat Exam: normal ENT inspection Neck Exam: normal inspection Respiratory Exam: normal breath sounds, lungs clear Cardiovascular Exam: regular rate/rhythm, normal heart sounds Gastrointestinal/Abdomen Exam: soft, normal bowel sounds Rectal Exam: deferred Back Exam: normal inspection Extremity Exam: swelling (trace/compression stalkings) Skin Exam: normal color Assessment/Plan (1) Weakness Current Visit: Yes Status: Acute Assessment & Plan: -SNF placement per to [facility] -PT/OT while IP Code(s): R53.1 - WEAKNESS (2) COPD (chronic obstructive pulmonary disease) Current Visit: Yes Status: Acute Assessment & Plan: -on RA, continue oral prednisone -Supportive care with supplemental oxygen, duonebs/inh, solumedrol -RT eval (3) Hypertension Current Visit: Yes Status: Acute Assessment & Plan: -Stable, continue home medications Code(s): I10 - ESSENTIAL (PRIMARY) HYPERTENSION (4) Pneumonia Current Visit: Yes Status: Acute Qualifiers: Pneumonia type: due to Pneumococcus Laterality: bilateral Lung location: lower lobe of lung Qualified Code(s): J13 - Pneumonia due to Streptococcus pneumoniae Assessment & Plan: -Recent hospital admission, pneumonia improving, on RA, no further dyspnea, on oral abx, will continue -Supplemental oxygen with goal spo2 >92%, duonebs/inh, prednisone Code(s): J18.9 - PNEUMONIA, UNSPECIFIED ORGANISM (5) CHF (congestive heart failure) Current Visit: No Status: Acute Qualifiers: Heart failure type: combined systolic and diastolic Heart failure chronicity: acute on chronic Qualified Code(s): I50.43 - Acute on chronic combined systolic (congestive) and diastolic (congestive) heart failure Assessment & Plan: -Recent echo 06/01/23 showing: EF at 70% IMPRESSION: 1) NORMAL CONTRACTILITY OF THE LEFT VENTRICLE. 2) MODERATE CONCENTRIC LEFT VENTRICULAR HYPERTROPHY. 3) POSSIBLE IMPAIRED LEFT VENTRICULAR RELAXATION. 4) MILD TO MODERATE TRICUSPID REGURGITATION. 5) MODERATE PULMONARY HYPERTENSION. 6) MILD PULMONIC REGURGITATION. 7) MILD AORTIC ROOT DILATATION. -Improved since last admission, will continue home dose of lasix, he is to follow up with cardiology after discharge Code(s): I50.9 - HEART FAILURE, UNSPECIFIED (6) CKD (chronic kidney disease) Current Visit: No Status: Acute Assessment & Plan: -Baseline creat 1.2-1.4, labs pending -Will monitor renal/lytes daily -Avoid nephrotoxic agents NSAIDS Code(s): N18.9 - CHRONIC KIDNEY DISEASE, UNSPECIFIED
[2023-09-01] MEDS ORDERED: Zofran 4 MG/2 ML VIAL IV PRN (17:34)
[2023-09-01] MEDS ORDERED: HUMALOG SQ PRN (17:34)
[2023-09-01] MEDS ORDERED: DUONEB 0.5-3 MG/3 ml Neb IH PRN (17:34)
[2023-09-01] MEDS ORDERED: TYLENOL 325 MG PO PRN (17:34)
[2023-09-01] MEDS ORDERED: PROVENTIL 2.5 MG/3 ML NEB IH SCH (19:00)
[2023-09-01 19:09] LABS: Absolute Neutrophil Ct (ANC) 10.52 x10^3/uL (1.4-6.9); BASOPHIL % 0.5 % (0.0-0.4); Basophil (Absolute #) 0.06 x10^3/uL (0-0.4); Eosinophil (Absolute #) 0 x10^3/uL (0-0.5); Hemoglobin 13.6 g/dL (12.5-18.0); IMMATURE GRAN # 0.63 x10^3u/L (0.00-0.03); IMMATURE GRAN % 5.1 % (0.00-0.4); Lymphocyte (Absolute #) 0.47 x10^3/uL (1.0-4.6); Lymphocytes % 3.8 % (24.0-44.0); Mean Cell Volume 95.1 fL (78-100); Mean Corpuscular Hemoglobin 30.1 pg (26-32); Mean Corpuscular Hgb Concent. 31.6 g/dL (32-36); Mean Platelet Volume 9.4 fL (7.5-11.0); Monocytes % 4.9 % (0.0-12.0); Neutrophil % 85.7 % (36.0-66.0); Platelet Count 310 x10^3/uL (150-450); Red Blood Count 4.52 x10^6/uL (4.1-5.6); Red Cell Distribution Width 14.5 % (11.5-14.0); White Blood Count 12.3 x10^3/uL (4.0-10.5)
[2023-09-01 19:22] LABS: ALBUMIN 3.7 g/dL (3.5-5.0); ANION GAP 13.8 MEQ/L (5-15); BILIRUBIN,TOTAL 0.6 mg/dL (0.2-1.3); Calcium 8.7 mg/dL (8.4-10.2); Creatinine 1 1.32 mg/dL (0.66-1.25); EST GLOMERULAR FILTRATION RATE 53.2 ML/MIN; Potassium 4.6 mmol/L (3.5-5.1); Total Protein 6.3 g/dL (6.3-8.2)
[2023-09-01] MEDS ORDERED: DUONEB 0.5-3 MG/3 ml Neb IH ONE (19:43)
[2023-09-01] MEDS ORDERED: PROVENTIL 2.5 MG/3 ML NEB IH PRN (20:29)
[2023-09-01] MEDS ORDERED: MELATONIN PO ONE (20:49)
[2023-09-01 21:30] LABS: Slide Review 1 YES
[2023-09-01] MEDS ORDERED: NON-FORMULARY ITEM (Latanoprost/Pf [Iyuzeh 0.005% Eye Drop] 1 EACH Droperette) OP SCH (22:00)
[2023-09-01] MEDS ORDERED: DUONEB 0.5-3 MG/3 ml Neb IH SCH (22:00)
[2023-09-01] MEDS ORDERED: NON-FORMULARY ITEM (Cefpodoxime Proxetil 200 Mg** 200 MG Tablet) PO SCH (22:00)
[2023-09-01] MEDS ORDERED: NON-FORMULARY ITEM (Melatonin [Melatonin] 10 MG Tablet) PO SCH (22:00)
--- NOTE | 2023-09-02 05:22 | PCM.NOTE ---
Date and Time: 09/02/23 0522 Subjective Assessment: is a 83 year old male with a pmhx of CHF, HTN, AFIB, COPD, and OA recently admitted 08/27/23-08/31/23 with sepsis due to pneumonia and exacerbation of COPD/CHF. COPD/CHF and pneumonia improved. He remains on room air without dysnea. He does endorse a continued cough with clear sputum, but this too has improved. He was discharged yesterday with [facility] on oral antibiotics and steroids but remained too weak for his spouse to care for him at home. He is requesting placement at [facility] for rehab. Plan is to continue home regimen of antibiotic/steroid course while IP. His blood glucose levels were elevated due to the steroid use, so we will monitor this as well. 09/02: Met with patient bedside. No overnight events noted. Endorses continued weakness. Does have some residual cough with yellow production but otherwise dyspnea improved since last admission. Will continue current therapies, Rehab pending. Denies fever,sob, cp, abdominal pain, JENKINS, dizziness, N/V/D. - Review of Systems Constitutional: Weakness Eyes: No Symptoms Ears, Nose, & Throat: No Symptoms Respiratory: Cough Cardiac: No Symptoms Abdominal/Gastrointestinal: No Symptoms Genitourinary Symptoms: No Symptoms Musculoskeletal: No Symptoms Skin: No Symptoms Neurological: No Symptoms Psychological: No Symptoms Endocrine: No Symptoms Objective Exam General Appearance: no apparent distress Neurologic Exam: alert, oriented x 3, cooperative Skin Exam: normal color Wound Assessment: Skin/Wound Assessment Wound/Incision Assessment Start: 09/01/23 16:43 Text: Status: Active Freq: Q6H Protocol: Document 09/01/23 22:00 (Rec: 09/02/23 02:56 [id number]) Wound Photo Photo Taken No Eye Exam: PERRL Ears, Nose, Throat Exam: normal ENT inspection Neck Exam: normal inspection Respiratory Exam: crackles/rales Cardiovascular Exam: regular rate/rhythm, normal heart sounds Gastrointestinal/Abdomen Exam: soft, normal bowel sounds Extremity Exam: normal inspection Back Exam: normal inspection Male Genitalia Exam: deferred Rectal Exam: deferred OBJECTIVE DATA Vital Signs: Vital Signs - 24 hr Temp Pulse Resp BP BP Pulse Ox 09/01/23 23:29 97.8 F 72 20 170/94 96 09/01/23 20:45 78 18 97 09/01/23 19:54 97.5 F 86 22 131/96 97 09/01/23 16:27 97.1 F 83 16 135/98 95 09/01/23 16:00 81 18 137/88 96 09/01/23 15:54 97 09/01/23 15:30 77 18 143/98 96 09/01/23 15:09 81 131/87 97 09/01/23 15:05 96.9 F 89 18 131/87 96 Pain Assessment - Last Documented Pain Intensity 0 Intake and Output: Intake & Output 08/30/23 08/31/23 09/01/23 09/02/23 11:59 11:59 11:59 11:59 Intake Total 260 Balance 260 Weight 86.7 kg Lab Results: Lab Results-Last 24 Hours 09/01/23 09/01/23 Range/Units 19:05 19:05 WBC 12.3 H (4.0-10.5) x10^3/uL RBC 4.52 (4.1-5.6) x10^6/uL Hgb 13.6 (12.5-18.0) g/dL Hct 43.0 (42-50) % MCV 95.1 (78-100) fL MCH 30.1 (26-32) pg MCHC 31.6 L (32-36) g/dL RDW 14.5 H (11.5-14.0) % Plt Count 310 (150-450) x10^3/uL MPV 9.4 (7.5-11.0) fL Gran % 85.7 H (36.0-66.0) % Immature Gran % (Auto) 5.1 H (0.00-0.4) % Nucleat RBC Rel Count 0.0 (0.00-0.1) % Eos # (Auto) 0 (0-0.5) x10^3/uL Immature Gran # (Auto) 0.63 H (0.00-0.03) x10^3u/L Absolute Lymphs (auto) 0.47 L (1.0-4.6) x10^3/uL Absolute Monos (auto) 0.60 (0.0-1.3) x10^3/uL Absolute Nucleated RBC 0.00 (0.00-0.01) x10^3u/L Lymphocytes % 3.8 L (24.0-44.0) % Monocytes % 4.9 (0.0-12.0) % Eosinophils % 0.0 (0.00-5.0) % Basophils % 0.5 (0.0-0.4) % Absolute Granulocytes 10.52 H (1.4-6.9) x10^3/uL Basophils # 0.06 (0-0.4) x10^3/uL Sodium 133 L (137-145) mmol/L Potassium 4.6 D (3.5-5.1) mmol/L Chloride 97 L (98-107) mmol/L Carbon Dioxide 27 (22-30) mmol/L Anion Gap 13.8 (5-15) MEQ/L BUN 49 H (9-20) mg/dL Creatinine 1.32 H (0.66-1.25) mg/dL Estimated GFR 53.2 ML/MIN Glucose 396 H (74-106) mg/dL Calcium 8.7 (8.4-10.2) mg/dL Total Bilirubin 0.60 (0.2-1.3) mg/dL AST 27 (17-59) U/L ALT 33 (0-50) U/L Alkaline Phosphatase 47 (38-126) U/L Serum Total Protein 6.3 (6.3-8.2) g/dL Albumin 3.7 (3.5-5.0) g/dL Slides for Path Review YES Assessment/Plan (1) Weakness Current Visit: Yes Status: Acute Assessment & Plan: -SNF placement per to [facility] -PT/OT while IP Code(s): R53.1 - WEAKNESS (2) COPD (chronic obstructive pulmonary disease) Current Visit: Yes Status: Acute Assessment & Plan: -on RA, continue oral prednisone -Supportive care with supplemental oxygen, duonebs/inh, solumedrol -RT eval (3) Hypertension Current Visit: Yes Status: Acute Assessment & Plan: -Stable, continue home medications Code(s): I10 - ESSENTIAL (PRIMARY) HYPERTENSION (4) Pneumonia Current Visit: Yes Status: Acute Qualifiers: Pneumonia type: due to Pneumococcus Laterality: bilateral Lung location: lower lobe of lung Qualified Code(s): J13 - Pneumonia due to Streptococcus pneumoniae Assessment & Plan: -Recent hospital admission, pneumonia improving, on RA, no further dyspnea, on oral abx, will continue -Supplemental oxygen with goal spo2 >92%, duonebs/inh, prednisone 09/02: -Hospital does not have cefdinir, will change to levaquin oral Code(s): J18.9 - PNEUMONIA, UNSPECIFIED ORGANISM (5) CHF (congestive heart failure) Current Visit: No Status: Acute Qualifiers: Heart failure type: combined systolic and diastolic Heart failure chronicity: acute on chronic Qualified Code(s): I50.43 - Acute on chronic combined systolic (congestive) and diastolic (congestive) heart failure Assessment & Plan: -Recent echo 06/01/23 showing: EF at 70% IMPRESSION: 1) NORMAL CONTRACTILITY OF THE LEFT VENTRICLE. 2) MODERATE CONCENTRIC LEFT VENTRICULAR HYPERTROPHY. 3) POSSIBLE IMPAIRED LEFT VENTRICULAR RELAXATION. 4) MILD TO MODERATE TRICUSPID REGURGITATION. 5) MODERATE PULMONARY HYPERTENSION. 6) MILD PULMONIC REGURGITATION. 7) MILD AORTIC ROOT DILATATION. -Improved since last admission, will continue home dose of lasix, he is to follow up with cardiology after discharge Code(s): I50.9 - HEART FAILURE, UNSPECIFIED (6) CKD (chronic kidney disease) Current Visit: No Status: Acute Assessment & Plan: -Baseline creat 1.2-1.4, labs pending -Will monitor renal/lytes daily -Avoid nephrotoxic agents NSAIDS 09/02: -creat WNL, will continue to monitor Code(s): N18.9 - CHRONIC KIDNEY DISEASE, UNSPECIFIED Code(s): R53.1 - WEAKNESS (2) COPD (chronic obstructive pulmonary disease) Current Visit: Yes Status: Acute (3) Hypertension Current Visit: Yes Status: Acute Code(s): I10 - ESSENTIAL (PRIMARY) HYPERTENSION (4) Pneumonia Current Visit: Yes Status: Acute Qualifiers: Pneumonia type: due to Pneumococcus Laterality: bilateral Lung location: lower lobe of lung Qualified Code(s): J13 - Pneumonia due to Streptococcus pneumoniae Code(s): J18.9 - PNEUMONIA, UNSPECIFIED ORGANISM (5) CHF (congestive heart failure) Current Visit: No Status: Acute Qualifiers: Heart failure type: combined systolic and diastolic Heart failure chronicity: acute on chronic Qualified Code(s): I50.43 - Acute on chronic combined systolic (congestive) and diastolic (congestive) heart failure Code(s): I50.9 - HEART FAILURE, UNSPECIFIED (6) CKD (chronic kidney disease) Current Visit: No Status: Acute Code(s): N18.9 - CHRONIC KIDNEY DISEASE, UNSPECIFIED
[2023-09-02] MEDS ORDERED: HUMALOG SQ PRN (05:27)
[2023-09-02 05:57] LABS: Hematocrit 46.5 % (42-50); Mean Cell Volume 97.9 fL (78-100); Mean Corpuscular Hemoglobin 29.5 pg (26-32); Mean Corpuscular Hgb Concent. 30.1 g/dL (32-36); Mean Platelet Volume 9.6 fL (7.5-11.0); Red Blood Count 4.75 x10^6/uL (4.1-5.6); Red Cell Distribution Width 14.4 % (11.5-14.0)
[2023-09-02 06:21] LABS: ALBUMIN 3.3 g/dL (3.5-5.0); ANION GAP 12.4 MEQ/L (5-15); BILIRUBIN,TOTAL 0.9 mg/dL (0.2-1.3); Calcium 8.6 mg/dL (8.4-10.2); Creatinine 1 0.95 mg/dL (0.66-1.25); EST GLOMERULAR FILTRATION RATE 78.9 ML/MIN; Total Protein 6.2 g/dL (6.3-8.2)
[2023-09-02 06:23] LABS: Potassium 4.2 mmol/L (3.5-5.1)
[2023-09-02 06:42] LABS: Platelet Count 181 x10^3/uL (150-450)
[2023-09-02] MEDS ORDERED: SYNTHROID 88 MCG PO SCH (07:00)
[2023-09-02] MEDS: DUONEB 0.5-3 MG/3 ml Neb IH SCH ×3 (07:45→19:00)
[2023-09-02] MEDS ORDERED: DUONEB 0.5-3 MG/3 ml Neb IH SCH (08:00)
[2023-09-02] MEDS: MUCINEX DM 600/30MG PO SCH ×3 (08:01→21:17)
[2023-09-02] MEDS: SYNTHROID 88 MCG PO SCH (08:20)
[2023-09-02] MEDS ORDERED: MEDICATION INTERVENTION MC SCH (08:30)
[2023-09-02] MEDS: MELATONIN PO SCH ×2 (08:52→21:17)
[2023-09-02] MEDS: Xalatan OP SCH ×2 (08:52→21:15)
[2023-09-02] MEDS ORDERED: NON-FORMULARY ITEM (Potassium Chloride [Klor-Con M20] 20 MEQ Tab.Er.Prt) PO SCH (10:00)
[2023-09-02] MEDS ORDERED: NON-FORMULARY ITEM (Omeprazole [Omeprazole] 20 MG Tablet.Dr) PO SCH (10:00)
[2023-09-02] MEDS ORDERED: NON-FORMULARY ITEM (Multivit-Min/Fa/Lycopen/Lutein [Centrum Silver Tablet] 1 EACH Tablet) PO SCH (10:00)
[2023-09-02] MEDS ORDERED: ENOXAPARIN SODIUM SQ SCH (10:00)
[2023-09-02] MEDS: THERAGRAN MULTIVITAMIN PO SCH (10:19)
[2023-09-02] MEDS: Lasix 40 MG PO SCH (10:19)
[2023-09-02] MEDS: Klor Con PO SCH (10:19)
[2023-09-02] MEDS: Protonix 40MG Tablet PO SCH (10:19)
[2023-09-02] MEDS: Toprol-Xl 25MG Tablets PO SCH (10:19)
--- NOTE | 2023-09-02 10:27 | PCM.DS ---
Discharge Summary Date of Admission: 09/01/23 16:21 Date of Discharge: 09/02/23 Admitting Physician: BOAZ CAO MD Primary Care Provider: EDDIE ROBERTSON Allergies Allergies bacitracin Allergy (Verified 09/01/23 15:03) Hospital Summary - Hospital Course Hospital Course: is a 83 year old male with a pmhx of CHF, HTN, AFIB, COPD, and OA recently admitted 08/27/23-08/31/23 with sepsis due to pneumonia and exacerbation of COPD/CHF. COPD/CHF and pneumonia improved. He remains on room air without dysnea. He does endorse a continued cough with clear sputum, but this too has improved. He was discharged yesterday with [facility] on oral antibiotics and steroids but remained too weak for his spouse to care for him at home. He is requesting placement at [facility] for rehab. Patient is medically stable for discharge on current home medication regimen with SSI for elevated blood glucose levels due to steroids. Discharge Note New Diagnosis: weakness Latest Assessment & Plan (1) Weakness Current Visit: Yes Status: Acute Assessment & Plan: -SNF placement per CM to [facility] -PT/OT while IP Code(s): R53.1 - WEAKNESS (2) COPD (chronic obstructive pulmonary disease) Current Visit: Yes Status: Acute Assessment & Plan: -on RA, continue oral prednisone -Supportive care with supplemental oxygen, duonebs/inh, solumedrol -RT eval (3) Hypertension Current Visit: Yes Status: Acute Assessment & Plan: -Stable, continue home medications Code(s): I10 - ESSENTIAL (PRIMARY) HYPERTENSION (4) Pneumonia Current Visit: Yes Status: Acute Qualifiers: Pneumonia type: due to Pneumococcus Laterality: bilateral Lung location: lower lobe of lung Qualified Code(s): J13 - Pneumonia due to Streptococcus pneumoniae Assessment & Plan: -Recent hospital admission, pneumonia improving, on RA, no further dyspnea, on oral abx, will continue -Supplemental oxygen with goal spo2 >92%, duonebs/inh, prednisone 09/02: -Hospital does not have cefdinir, will change to levaquin oral Code(s): J18.9 - PNEUMONIA, UNSPECIFIED ORGANISM (5) CHF (congestive heart failure) Current Visit: No Status: Acute Qualifiers: Heart failure type: combined systolic and diastolic Heart failure chronicity: acute on chronic Qualified Code(s): I50.43 - Acute on chronic combined systolic (congestive) and diastolic (congestive) heart failure Assessment & Plan: -Recent echo 06/01/23 showing: EF at 70% IMPRESSION: 1) NORMAL CONTRACTILITY OF THE LEFT VENTRICLE. 2) MODERATE CONCENTRIC LEFT VENTRICULAR HYPERTROPHY. 3) POSSIBLE IMPAIRED LEFT VENTRICULAR RELAXATION. 4) MILD TO MODERATE TRICUSPID REGURGITATION. 5) MODERATE PULMONARY HYPERTENSION. 6) MILD PULMONIC REGURGITATION. 7) MILD AORTIC ROOT DILATATION. -Improved since last admission, will continue home dose of lasix, he is to follow up with cardiology after discharge Code(s): I50.9 - HEART FAILURE, UNSPECIFIED (6) CKD (chronic kidney disease) Current Visit: No Status: Acute Assessment & Plan: -Baseline creat 1.2-1.4, labs pending -Will monitor renal/lytes daily -Avoid nephrotoxic agents NSAIDS 09/02: -creat WNL, will continue to monitor Code(s): N18.9 - CHRONIC KIDNEY DISEASE, UNSPECIFIED Code(s): R53.1 - WEAKNESS I spent 35 minutes [id number] with the patient on the day of discharge performing discharge exam, discussing hospital stay and discharge instructions with patient and caregivers, preparation of discharge records, prescriptions & referral forms and addressing any questions/concerns the patient had as documented above. - Vitals & Intake/Output Vital Signs: Vital Signs Temperature 97.7 F 09/02/23 08:00 Pulse Rate 90 09/02/23 08:00 Respiratory Rate 17 09/02/23 08:00 Blood Pressure 140/88 09/02/23 08:00 O2 Sat by Pulse Oximetry 96 09/02/23 08:00 Intake & Output: Intake & Output 08/30/23 08/31/23 09/01/23 09/02/23 11:59 11:59 11:59 11:59 Intake Total 720 Output Total 250 Balance 470 Weight 86.7 kg - Lab Result Diagrams: 09/02/23 05:50 09/02/23 05:50 Lab Results-Last 24 Hrs: Lab Results-Last 24 Hours 09/01/23 09/01/23 09/02/23 Range/Units 19:05 19:05 05:50 WBC 12.3 H 14.0 H (4.0-10.5) x10^3/uL RBC 4.52 4.75 (4.1-5.6) x10^6/uL Hgb 13.6 14.0 (12.5-18.0) g/dL Hct 43.0 46.5 (42-50) % MCV 95.1 97.9 (78-100) fL MCH 30.1 29.5 (26-32) pg MCHC 31.6 L 30.1 L (32-36) g/dL RDW 14.5 H 14.4 H (11.5-14.0) % Plt Count 310 181 D (150-450) x10^3/uL MPV 9.4 9.6 (7.5-11.0) fL Gran % 85.7 H (36.0-66.0) % Immature Gran % (Auto) 5.1 H (0.00-0.4) % Nucleat RBC Rel Count 0.0 (0.00-0.1) % Eos # (Auto) 0 (0-0.5) x10^3/uL Immature Gran # (Auto) 0.63 H (0.00-0.03) x10^3u/L Absolute Lymphs (auto) 0.47 L (1.0-4.6) x10^3/uL Absolute Monos (auto) 0.60 (0.0-1.3) x10^3/uL Absolute Nucleated RBC 0.00 (0.00-0.01) x10^3u/L Lymphocytes % 3.8 L (24.0-44.0) % Monocytes % 4.9 (0.0-12.0) % Eosinophils % 0.0 (0.00-5.0) % Basophils % 0.5 (0.0-0.4) % Absolute Granulocytes 10.52 H (1.4-6.9) x10^3/uL Basophils # 0.06 (0-0.4) x10^3/uL Sodium 133 L (137-145) mmol/L Potassium 4.6 D (3.5-5.1) mmol/L Chloride 97 L (98-107) mmol/L Carbon Dioxide 27 (22-30) mmol/L Anion Gap 13.8 (5-15) MEQ/L BUN 49 H (9-20) mg/dL Creatinine 1.32 H (0.66-1.25) mg/dL Estimated GFR 53.2 ML/MIN Glucose 396 H (74-106) mg/dL POC Glucometer (74 to 106) mg/dL Calcium 8.7 (8.4-10.2) mg/dL Total Bilirubin 0.60 (0.2-1.3) mg/dL AST 27 (17-59) U/L ALT 33 (0-50) U/L Alkaline Phosphatase 47 (38-126) U/L Serum Total Protein 6.3 (6.3-8.2) g/dL Albumin 3.7 (3.5-5.0) g/dL Slides for Path Review YES 09/02/23 09/02/23 Range/Units 05:50 07:31 WBC (4.0-10.5) x10^3/uL RBC (4.1-5.6) x10^6/uL Hgb (12.5-18.0) g/dL Hct (42-50) % MCV (78-100) fL MCH (26-32) pg MCHC (32-36) g/dL RDW (11.5-14.0) % Plt Count (150-450) x10^3/uL MPV (7.5-11.0) fL Gran % (36.0-66.0) % Immature Gran % (Auto) (0.00-0.4) % Nucleat RBC Rel Count (0.00-0.1) % Eos # (Auto) (0-0.5) x10^3/uL Immature Gran # (Auto) (0.00-0.03) x10^3u/L Absolute Lymphs (auto) (1.0-4.6) x10^3/uL Absolute Monos (auto) (0.0-1.3) x10^3/uL Absolute Nucleated RBC (0.00-0.01) x10^3u/L Lymphocytes % (24.0-44.0) % Monocytes % (0.0-12.0) % Eosinophils % (0.00-5.0) % Basophils % (0.0-0.4) % Absolute Granulocytes (1.4-6.9) x10^3/uL Basophils # (0-0.4) x10^3/uL Sodium 132 L (137-145) mmol/L Potassium 4.2 (3.5-5.1) mmol/L Chloride 101 (98-107) mmol/L Carbon Dioxide 23 (22-30) mmol/L Anion Gap 12.4 (5-15) MEQ/L BUN 44 H (9-20) mg/dL Creatinine 0.95 (0.66-1.25) mg/dL Estimated GFR 78.9 ML/MIN Glucose 235 H (74-106) mg/dL POC Glucometer 200 H (74 to 106) mg/dL Calcium 8.6 (8.4-10.2) mg/dL Total Bilirubin 0.90 (0.2-1.3) mg/dL AST 30 (17-59) U/L ALT 29 (0-50) U/L Alkaline Phosphatase 28 L (38-126) U/L Serum Total Protein 6.2 L (6.3-8.2) g/dL Albumin 3.3 L (3.5-5.0) g/dL Slides for Path Review Micro Results-Entire Visit: Accuchecks Date 09/02/23 Time 07:59 - Procedures and Test Procedures and Tests throughout Hospitalization: Therapy Orders & Screens 09/01/23 15:54 PT Eval & Treat ( Order) ONCE Reason for Eval:: weakness, debility due to recent pneumonia Diagnosis: Pneumonia PT Gait Training BID Comment: Physician Instructions: Reason For Exam: 09/01/23 21:00 Respiratory Therapy Assessment UD Comment: Diagnosis: weakness Discharge Exam General Appearance: no apparent distress Neurologic Exam: alert, oriented x 3, cooperative Eye Exam: PERRL Ears, Nose, Throat Exam: normal ENT inspection Neck Exam: normal inspection Respiratory Exam: crackles/rales Cardiovascular Exam: regular rate/rhythm, normal heart sounds Gastrointestinal/Abdomen Exam: soft, normal bowel sounds Male Genitalia Exam: deferred Rectal Exam: deferred Back Exam: normal inspection Extremity Exam: normal inspection Skin Exam: normal color Final Diagnosis/Problem List - Final Discharge Diagnosis/Problem (1) Weakness Current Visit: Yes Status: Acute Code(s): R53.1 - WEAKNESS (2) COPD (chronic obstructive pulmonary disease) Current Visit: Yes Status: Acute (3) Hypertension Current Visit: Yes Status: Acute Code(s): I10 - ESSENTIAL (PRIMARY) HYPERTENSION (4) Pneumonia Current Visit: Yes Status: Acute Code(s): J18.9 - PNEUMONIA, UNSPECIFIED ORGANISM (5) CHF (congestive heart failure) Current Visit: No Status: Acute Code(s): I50.9 - HEART FAILURE, UNSPECIFIED (6) CKD (chronic kidney disease) Current Visit: No Status: Acute Code(s): N18.9 - CHRONIC KIDNEY DISEASE, UNSPECIFIED - Discharge Disposition: Home, Self-Care Condition: Fair Prescriptions: Continue Potassium Chloride [Klor-Con M20] 20 meq PO DAILY Amlodipine Besylate 5 mg PO DAILY Omeprazole 20 mg PO DAILY Metoprolol Succinate 25 mg PO DAILY Furosemide 40 mg PO DAILY Albuterol 2.5 mg/3 ml Neb [Proventil 2.5 mg/3 ml Neb] 2.5 mg IH BIDRT Multivit-Min/FA/Lycopen/Lutein [Centrum Silver Tablet] 1 tab PO DAILY Latanoprost/Pf [Iyuzeh 0.005% Eye Drop] 1 each OP HS Levothyroxine Sodium 88 mcg PO 0700 Guaifenesin Dextromethorphan [MUCINEX Dm 600/30MG] 1 tab PO BID Melatonin 10 mg PO HS Methylprednisolone Packet [Medrol Dosepack] 4 mg PO UD #30 packet Cefpodoxime Proxetil 200 mg [Vantin 200 mg] 200 mg PO BID 5 Days #10 tablet Additional Instructions: Patient to follow low dose SSI protocol while on steroids 70-200= no insulin 201-250 = 2 units 251-300 = 4 units 301-350 =6 units 351-400 = 8 units 401-450 = 10 units 451-500 = 12 units > 500 verify then call MD Follow up with: EDDIE ROBERTSON NP [Primary Care Provider] -
[2023-09-02] MEDS: OMNICEF 300 MG PO SCH ×2 (12:02→21:18)
[2023-09-03 05:52] LABS: Hematocrit 44.3 % (42-50); Hemoglobin 13.9 g/dL (12.5-18.0); Mean Cell Volume 94.1 fL (78-100); Mean Corpuscular Hemoglobin 29.5 pg (26-32); Mean Corpuscular Hgb Concent. 31.4 g/dL (32-36); Mean Platelet Volume 9.5 fL (7.5-11.0); Platelet Count 289 x10^3/uL (150-450); Red Blood Count 4.71 x10^6/uL (4.1-5.6); Red Cell Distribution Width 14.6 % (11.5-14.0); White Blood Count 13.7 x10^3/uL (4.0-10.5)
[2023-09-03 06:11] LABS: ALBUMIN 3.3 g/dL (3.5-5.0); ANION GAP 9.6 MEQ/L (5-15); BILIRUBIN,TOTAL 0.8 mg/dL (0.2-1.3); Calcium 8.5 mg/dL (8.4-10.2); Creatinine 1 1.11 mg/dL (0.66-1.25); EST GLOMERULAR FILTRATION RATE 65.5 ML/MIN; Potassium 4.1 mmol/L (3.5-5.1)
[2023-09-03] MEDS: SYNTHROID 88 MCG PO SCH (06:22)
[2023-09-03 08:00] VITALS: O2SAT 96
[2023-09-03 08:42] LABS: BAND 2 % (0.0-2.0); Lymphocytes 8 % (24-44); Monocyte 4 % (0.0-12.0); Neutrophils 86 % (36.-66.); Total Cells Counted 100
[2023-09-03 08:43] LABS: Platelet Estimate NORMAL (NORMAL)
[2023-09-03] MEDS: THERAGRAN MULTIVITAMIN PO SCH (09:10)
[2023-09-03] MEDS: MUCINEX DM 600/30MG PO SCH (09:10)
[2023-09-03] MEDS: Protonix 40MG Tablet PO SCH (09:10)
[2023-09-03] MEDS: Toprol-Xl 25MG Tablets PO SCH (09:10)
[2023-09-03] MEDS: Klor Con PO SCH (09:10)
[2023-09-03] MEDS: OMNICEF 300 MG PO SCH (09:11)
[2023-09-03] MEDS: Lasix 40 MG PO SCH (09:13)
--- NOTE | 2023-09-03 09:22 | PCM.DS ---
Discharge Summary Date of Admission: 09/01/23 16:21 Date of Discharge: 09/03/23 Admitting Physician: BOAZ CAO MD Primary Care Provider: EDDIE ROBERTSON Allergies Allergies bacitracin Allergy (Verified 09/01/23 15:03) Hospital Summary - Hospital Course Hospital Course: is a 83 year old male with a pmhx of CHF, HTN, AFIB, COPD, and OA recently admitted 08/27/23-08/31/23 with sepsis due to pneumonia and exacerbation of COPD/CHF. COPD/CHF and pneumonia improved. He remains on room air without dysnea. He does endorse a continued cough with clear sputum, but this too has improved. He was discharged 09/01 with [facility] on oral antibiotics and steroids but remained too weak for his spouse to care for him at home. He is requesting placement at [facility] for rehab. Plan is to continue home regimen of antibiotic/steroid course. Plan is to d/c to rehab today. Denies fever,sob, cp, abdominal pain, JENKINS, dizziness, N/V/D. - Vitals & Intake/Output Vital Signs: Vital Signs Temperature 97.5 F 09/03/23 07:59 Pulse Rate 90 09/03/23 07:59 Respiratory Rate 19 09/03/23 07:59 Blood Pressure 143/98 09/03/23 07:59 O2 Sat by Pulse Oximetry 96 09/03/23 07:59 Intake & Output: Intake & Output 08/31/23 09/01/23 09/02/23 09/03/23 11:59 11:59 11:59 11:59 Intake Total 720 1100 Output Total 250 1225 Balance 470 -125 Weight 86.7 kg - Lab Result Diagrams: 09/03/23 05:49 09/03/23 05:49 Lab Results-Last 24 Hrs: Lab Results-Last 24 Hours 09/02/23 09/02/23 09/02/23 Range/Units 11:34 17:01 22:08 WBC (4.0-10.5) x10^3/uL RBC (4.1-5.6) x10^6/uL Hgb (12.5-18.0) g/dL Hct (42-50) % MCV (78-100) fL MCH (26-32) pg MCHC (32-36) g/dL RDW (11.5-14.0) % Plt Count (150-450) x10^3/uL MPV (7.5-11.0) fL Segmented Neutrophils (36.-66.) % Band Neutrophils (0.0-2.0) % Lymphocytes (Manual) (24-44) % Monocytes (Manual) (0.0-12.0) % Platelet Estimate (NORMAL) RBC Morphology Sodium (137-145) mmol/L Potassium (3.5-5.1) mmol/L Chloride (98-107) mmol/L Carbon Dioxide (22-30) mmol/L Anion Gap (5-15) MEQ/L BUN (9-20) mg/dL Creatinine (0.66-1.25) mg/dL Estimated GFR ML/MIN Glucose (74-106) mg/dL POC Glucometer 332 H 187 H 198 H (74 to 106) mg/dL Calcium (8.4-10.2) mg/dL Total Bilirubin (0.2-1.3) mg/dL AST (17-59) U/L ALT (0-50) U/L Alkaline Phosphatase (38-126) U/L Serum Total Protein (6.3-8.2) g/dL Albumin (3.5-5.0) g/dL 09/03/23 09/03/23 09/03/23 Range/Units 05:49 05:49 07:49 WBC 13.7 H (4.0-10.5) x10^3/uL RBC 4.71 (4.1-5.6) x10^6/uL Hgb 13.9 (12.5-18.0) g/dL Hct 44.3 (42-50) % MCV 94.1 (78-100) fL MCH 29.5 (26-32) pg MCHC 31.4 L (32-36) g/dL RDW 14.6 H (11.5-14.0) % Plt Count 289 D (150-450) x10^3/uL MPV 9.5 (7.5-11.0) fL Segmented Neutrophils 86 H (36.-66.) % Band Neutrophils 2 (0.0-2.0) % Lymphocytes (Manual) 8 L (24-44) % Monocytes (Manual) 4 (0.0-12.0) % Platelet Estimate NORMAL (NORMAL) RBC Morphology NORMAL Sodium 130 L (137-145) mmol/L Potassium 4.1 (3.5-5.1) mmol/L Chloride 97 L (98-107) mmol/L Carbon Dioxide 28 (22-30) mmol/L Anion Gap 9.6 (5-15) MEQ/L BUN 39 H (9-20) mg/dL Creatinine 1.11 (0.66-1.25) mg/dL Estimated GFR 65.5 ML/MIN Glucose 138 H (74-106) mg/dL POC Glucometer 136 H (74 to 106) mg/dL Calcium 8.5 (8.4-10.2) mg/dL Total Bilirubin 0.80 (0.2-1.3) mg/dL AST 24 (17-59) U/L ALT 32 (0-50) U/L Alkaline Phosphatase 45 (38-126) U/L Serum Total Protein 6.0 L (6.3-8.2) g/dL Albumin 3.3 L (3.5-5.0) g/dL Micro Results-Entire Visit: Accuchecks Date 09/03/23 Time 07:59 - Procedures and Test Procedures and Tests throughout Hospitalization: Therapy Orders & Screens 09/01/23 15:54 PT Eval & Treat ( Order) ONCE Reason for Eval:: weakness, debility due to recent pneumonia Diagnosis: Pneumonia PT Gait Training BID Comment: Physician Instructions: Reason For Exam: 09/01/23 21:00 Respiratory Therapy Assessment UD Comment: Diagnosis: weakness Discharge Exam General Appearance: no apparent distress, alert Neurologic Exam: alert, oriented x 3, cooperative, normal mood/affect, nml cerebellar function, sensation nml, No motor deficits Eye Exam: PERRL, EOMI, eyes nml inspection Ears, Nose, Throat Exam: normal ENT inspection, pharynx normal, moist mucous membranes Neck Exam: normal inspection, non-tender, supple, full range of motion Respiratory Exam: normal breath sounds, lungs clear, No respiratory distress Cardiovascular Exam: regular rate/rhythm, normal heart sounds Gastrointestinal/Abdomen Exam: soft, No tenderness, No mass Male Genitalia Exam: deferred Rectal Exam: deferred Back Exam: normal inspection, normal range of motion, No CVA tenderness, No vertebral tenderness Extremity Exam: normal inspection, normal range of motion Skin Exam: normal color, warm, dry Final Diagnosis/Problem List - Final Discharge Diagnosis/Problem (1) Weakness Current Visit: Yes Status: Acute Assessment & Plan: -SNF placement per [facility] Code(s): R53.1 - WEAKNESS (2) COPD (chronic obstructive pulmonary disease) Current Visit: Yes Status: Acute Assessment & Plan: -on RA, continue oral prednisone -Supportive care with supplemental oxygen, duonebs/inh, solumedrol -RT eval (3) HTN (hypertension) Current Visit: No Status: Acute Assessment & Plan: -Stable, continue home medications Code(s): I10 - ESSENTIAL (PRIMARY) HYPERTENSION (4) Pneumonia Current Visit: No Status: Acute Assessment & Plan: -Recent hospital admission, pneumonia improving, on RA, no further dyspnea, on oral abx, will continue -Supplemental oxygen with goal spo2 >92%, duonebs/inh, prednisone Code(s): J18.9 - PNEUMONIA, UNSPECIFIED ORGANISM (5) CHF (congestive heart failure) Current Visit: No Status: Acute Assessment & Plan: Heart failure type: combined systolic and diastolic Heart failure chronicity: acute on chronic Qualified Code(s): I50.43 - Acute on chronic combined systolic (congestive) and diastolic (congestive) heart failure Assessment & Plan: -Recent echo 06/01/23 showing: EF at 70% IMPRESSION: 1) NORMAL CONTRACTILITY OF THE LEFT VENTRICLE. 2) MODERATE CONCENTRIC LEFT VENTRICULAR HYPERTROPHY. 3) POSSIBLE IMPAIRED LEFT VENTRICULAR RELAXATION. 4) MILD TO MODERATE TRICUSPID REGURGITATION. 5) MODERATE PULMONARY HYPERTENSION. 6) MILD PULMONIC REGURGITATION. 7) MILD AORTIC ROOT DILATATION. -Improved since last admission, will continue home dose of lasix, he is to follow up with cardiology after discharge Code(s): I50.9 - HEART FAILURE, UNSPECIFIED (6) CKD (chronic kidney disease) Current Visit: No Status: Acute Assessment & Plan: - at baseline Code(s): N18.9 - CHRONIC KIDNEY DISEASE, UNSPECIFIED - Discharge Discharge Date: 09/03/23 ([facility] rehab) Disposition: Home, Self-Care Condition: Fair Prescriptions: Continue Potassium Chloride [Klor-Con M20] 20 meq PO DAILY Amlodipine Besylate 5 mg PO DAILY Omeprazole 20 mg PO DAILY Metoprolol Succinate 25 mg PO DAILY Furosemide 40 mg PO DAILY Albuterol 2.5 mg/3 ml Neb [Proventil 2.5 mg/3 ml Neb] 2.5 mg IH BIDRT Multivit-Min/FA/Lycopen/Lutein [Centrum Silver Tablet] 1 tab PO DAILY Latanoprost/Pf [Iyuzeh 0.005% Eye Drop] 1 each OP HS Levothyroxine Sodium 88 mcg PO 0700 Guaifenesin Dextromethorphan [MUCINEX Dm 600/30MG] 1 tab PO BID Melatonin 10 mg PO HS Methylprednisolone Packet [Medrol Dosepack] 4 mg PO UD #30 packet Cefpodoxime Proxetil 200 mg [Vantin 200 mg] 200 mg PO BID 5 Days #10 tablet Additional Instructions: [facility] ORDERS: ADMIT TO [facility] ACCU CHECKS HEART HEALTHY DIET PT/OT EVAL AND TREAT SEE ATTACHED MED LIST Patient to follow low dose SSI protocol while on steroids 70-200= no insulin 201-250 = 2 units 251-300 = 4 units 301-350 =6 units 351-400 = 8 units 401-450 = 10 units 451-500 = 12 units > 500 verify then call MD Follow up with: EDDIE ROBERTSON NP [Primary Care Provider] -
[2023-09-03] MEDS: DUONEB 0.5-3 MG/3 ml Neb IH SCH (09:28)
[2023-09-03 09:30] VITALS: RESP 18
[2023-09-03 12:09] VITALS: BP 138/87; PULSE 86; TEMP 97.7
== END 2023-09-03 12:55 | disposition home or self-care (01) ==
LOC: ED 15:01 → MED SURG 16:21
PROVIDERS: ADMIT Internal Medicine; ATTEND Internal Medicine
DX: R53.1 Weakness (principal); J44.9 Chronic obstructive pulmonary disease, unspecified; J18.9 Pneumonia, unspecified organism; I13.0 Hypertensive heart and chronic kidney disease with heart failure and stage 1 through stage 4 chronic kidney disease, or unspecified chronic kidney disease; I50.43 Acute on chronic combined systolic (congestive) and diastolic (congestive) heart failure; N18.9 Chronic kidney disease, unspecified; I48.91 Unspecified atrial fibrillation; Z79.899 Other long term (current) drug therapy; Z20.828 Contact with and (suspected) exposure to other viral communicable diseases
CPT/HCPCS: 36415; 80053; 82947; 85025; 85027; 94640; 94760; 99281; Q3014; G0378; J1817; A9270-GY